=== PATIENT | male | born 1950 | race Caucasian/White ===

== ENCOUNTER → 2024-07-04 | Outpatient (CLI) | payer OTHER, SELFPAY ==
[2024-07-04 11:28] LABS: Basophils % (Auto) 1 % (0-2.5); Eosinophils # (Auto) 0.1 Thou/mm3 (0.0-0.5); Eosinophils % (Auto) 3 % (0-10); Hematocrit 34.9 % (41.0-53.0); Hemoglobin 12.1 g/dL (13.5-16.0); Immature Granulocytes % (Auto) 1 % (0-0); Immature Granulocytes Auto 0.02 Thou/mm3 (0.00-0.00); Lymphocytes # (Auto) 0.8 Thou/mm3 (1.0-4.8); Lymphocytes % (Auto) 22 % (10-50); Mean Corpuscular HGB Conc 34.7 g/dl (31.0-37.0); Mean Corpuscular Hemoglobin 31.6 pg (25.0-35.0); Mean Corpuscular Volume 91 fL (80-100); Monocytes # (Auto) 0.4 Thou/mm3 (0.0-0.8); Monocytes % (Auto) 10 % (0-12); Neutrophils # (Auto) 2.4 Thou/mm3 (1.8-7.7); Neutrophils % (Auto) 64 % (37-80); Nucleated Red Blood Cell % 0 /100 WBC (0); Platelet Count 167 Thou/mm3 (140-440); RDW Standard Deviation 46.9 fL (35.1-43.9); Red Blood Count 3.83 Miln/mm3 (4.50-5.90); White Blood Count 3.7 Thou/mm3 (3.8-10.6)
[2024-07-04 11:46] LABS: Prostate Specific Antigen 2.19 ng/mL (0-4.00)
[2024-07-04 12:05] LABS: Alanine Aminotransferase 8 U/L (10-49); Albumin, Serum 4.5 gm/dL (3.4-4.8); Albumin/Globulin Ratio 2.1 (1.2-2.2); Alkaline Phosphatase 85 U/L (46-116); Anion Gap 6 (7-16); Aspartate Amino Transferase 11 U/L (0-34); BUN/Creatinine Ratio 17 Ratio (12-20); Bilirubin,Total 0.6 mg/dL (0.3-1.2); Blood Urea Nitrogen 15 mg/dL (9-23); Calcium 9.1 mg/dL (8.3-10.6); Calcium (Corrected) 9.1 mg/dL (8.5-10.1); Chloride 106 mMol/L (98-107); Creatinine (Component) 0.9 mg/dL (0.6-1.3); Globulin 2.1 gm/dL (2.3-3.5); Glucose 125 mg/dL (74-106); Osmolality,Calculated 277 (275-295); Potassium 4.2 mMol/L (3.4-5.1); Sodium 138 mMol/L (136-145); Total Protein 6.6 gm/dL (5.7-8.2); eGFR > 60 See Note
== END | disposition home or self-care (01) ==
PROVIDERS: PCP Family Medicine; Referring Provider Internal Medicine Hematology & Oncology; Visit Provider Internal Medicine Hematology & Oncology
DX: C09.1 Malignant neoplasm of tonsillar pillar (anterior) (posterior) (principal); C61 Malignant neoplasm of prostate; C79.51 Secondary malignant neoplasm of bone
CPT/HCPCS: 36415; 80053; 84153; 85025

== ENCOUNTER 2024-07-05 13:20 | Outpatient (RCR) | payer OTHER, SELFPAY | END 2024-07-29 23:59 | disposition home or self-care (01) | LOC: SCTC 13:20 | PROVIDERS: PCP Family Medicine; Referring Provider Family Medicine; Visit Provider Radiology Therapeutic Radiology | DX: Z51.11 Encounter for antineoplastic chemotherapy (principal); C61 Malignant neoplasm of prostate; C79.51 Secondary malignant neoplasm of bone; R59.0 Localized enlarged lymph nodes | CPT/HCPCS: 96372; 96402; J0897; J9217 ==

== ENCOUNTER → 2024-08-01 | Outpatient (CLI) | payer OTHER, SELFPAY ==
[2024-08-01 11:53] LABS: Basophils % (Auto) 1 % (0-2.5); Eosinophils # (Auto) 0.1 Thou/mm3 (0.0-0.5); Eosinophils % (Auto) 2 % (0-10); Hematocrit 33.5 % (41.0-53.0); Hemoglobin 11.3 g/dL (13.5-16.0); Immature Granulocytes % (Auto) 0 % (0-0); Immature Granulocytes Auto 0.01 Thou/mm3 (0.00-0.00); Lymphocytes # (Auto) 0.6 Thou/mm3 (1.0-4.8); Lymphocytes % (Auto) 18 % (10-50); Mean Corpuscular HGB Conc 33.7 g/dl (31.0-37.0); Mean Corpuscular Hemoglobin 30.7 pg (25.0-35.0); Mean Corpuscular Volume 91 fL (80-100); Monocytes # (Auto) 0.3 Thou/mm3 (0.0-0.8); Monocytes % (Auto) 10 % (0-12); Neutrophils # (Auto) 2.3 Thou/mm3 (1.8-7.7); Neutrophils % (Auto) 68 % (37-80); Nucleated Red Blood Cell % 0 /100 WBC (0); Platelet Count 178 Thou/mm3 (140-440); RDW Standard Deviation 46.9 fL (35.1-43.9); Red Blood Count 3.68 Miln/mm3 (4.50-5.90); White Blood Count 3.4 Thou/mm3 (3.8-10.6)
[2024-08-01 12:03] LABS: Prostate Specific Antigen 2.58 ng/mL (0-4.00)
[2024-08-01 12:10] LABS: Albumin, Serum 4.2 gm/dL (3.4-4.8); Albumin/Globulin Ratio 2.1 (1.2-2.2); Alkaline Phosphatase 67 U/L (46-116); Anion Gap 7 (7-16); Aspartate Amino Transferase 11 U/L (0-34); BUN/Creatinine Ratio 16 Ratio (12-20); Bilirubin,Total 0.7 mg/dL (0.3-1.2); Blood Urea Nitrogen 13 mg/dL (9-23); Calcium 8.5 mg/dL (8.3-10.6); Calcium (Corrected) 8.5 mg/dL (8.5-10.1); Carbon Dioxide 26.1 mMol/L (20.0-31.0); Chloride 106 mMol/L (98-107); Creatinine (Component) 0.8 mg/dL (0.6-1.3); Glucose 124 mg/dL (74-106); Osmolality,Calculated 278 (275-295); Sodium 139 mMol/L (136-145); Total Protein 6.2 gm/dL (5.7-8.2); eGFR > 60 See Note
[2024-08-01 12:18] LABS: Alanine Aminotransferase < 7 U/L (10-49)
[2024-08-07 06:57] LABS: Testosterone,Total* 12 ng/dL (250-1100)
== END | disposition home or self-care (01) ==
PROVIDERS: PCP Family Medicine; Referring Provider Internal Medicine Hematology & Oncology; Visit Provider Internal Medicine Hematology & Oncology
DX: C09.1 Malignant neoplasm of tonsillar pillar (anterior) (posterior) (principal); C61 Malignant neoplasm of prostate; C79.51 Secondary malignant neoplasm of bone
CPT/HCPCS: 36415; 80053; 84153; 84403; 85025

== ENCOUNTER 2024-08-02 10:57 | Outpatient (RCR) | payer OTHER, SELFPAY | END 2024-08-29 23:59 | disposition home or self-care (01) | LOC: SCTC 10:57 | PROVIDERS: PCP Family Medicine; Referring Provider Family Medicine; Visit Provider Internal Medicine Hematology & Oncology | DX: C61 Malignant neoplasm of prostate (principal); C79.51 Secondary malignant neoplasm of bone; R59.0 Localized enlarged lymph nodes; Z79.818 Long term (current) use of other agents affecting estrogen receptors and estrogen levels; Z85.818 Personal history of malignant neoplasm of other sites of lip, oral cavity, and pharynx | CPT/HCPCS: 99212; G0463 ==

== ENCOUNTER → 2024-10-04 | Outpatient (CLI) | payer OTHER, SELFPAY ==
[2024-10-04 13:43] LABS: Basophils % (Auto) 1 % (0-2.5); Eosinophils # (Auto) 0.2 Thou/mm3 (0.0-0.5); Eosinophils % (Auto) 4 % (0-10); Hematocrit 30.9 % (41.0-53.0); Hemoglobin 10.6 g/dL (13.5-16.0); Immature Granulocytes % (Auto) 1 % (0-0); Immature Granulocytes Auto 0.03 Thou/mm3 (0.00-0.00); Lymphocytes # (Auto) 0.7 Thou/mm3 (1.0-4.8); Lymphocytes % (Auto) 13 % (10-50); Mean Corpuscular HGB Conc 34.3 g/dl (31.0-37.0); Mean Corpuscular Hemoglobin 30.1 pg (25.0-35.0); Mean Corpuscular Volume 88 fL (80-100); Monocytes # (Auto) 0.5 Thou/mm3 (0.0-0.8); Monocytes % (Auto) 9 % (0-12); Neutrophils # (Auto) 4.1 Thou/mm3 (1.8-7.7); Neutrophils % (Auto) 73 % (37-80); Nucleated Red Blood Cell % 0 /100 WBC (0); Platelet Count 252 Thou/mm3 (140-440); RDW Standard Deviation 42.1 fL (35.1-43.9); Red Blood Count 3.52 Miln/mm3 (4.50-5.90); White Blood Count 5.6 Thou/mm3 (3.8-10.6)
[2024-10-04 14:10] LABS: Alanine Aminotransferase 9 U/L (10-49); Albumin, Serum 4.1 gm/dL (3.4-4.8); Albumin/Globulin Ratio 1.7 (1.2-2.2); Alkaline Phosphatase 74 U/L (46-116); Anion Gap 9 (7-16); Aspartate Amino Transferase 12 U/L (0-34); BUN/Creatinine Ratio 24 Ratio (12-20); Bilirubin,Total 0.6 mg/dL (0.3-1.2); Blood Urea Nitrogen 22 mg/dL (9-23); Calcium 11.2 mg/dL (8.3-10.6); Calcium (Corrected) 11.2 mg/dL (8.5-10.1); Carbon Dioxide 28.1 mMol/L (20.0-31.0); Chloride 99 mMol/L (98-107); Creatinine (Component) 0.9 mg/dL (0.6-1.3); Globulin 2.4 gm/dL (2.3-3.5); Glucose 170 mg/dL (74-106); Osmolality,Calculated 279 (275-295); Potassium 4.2 mMol/L (3.4-5.1); Sodium 136 mMol/L (136-145); Total Protein 6.5 gm/dL (5.7-8.2); eGFR > 60 See Note
[2024-10-04 14:55] LABS: Prostate Specific Antigen 4.92 ng/mL (0-4.00)
[2024-10-11 06:20] LABS: Testosterone, Free,Dialysis 1.1 pg/mL (30.0-135.0); Testosterone, Total, Dialysis 13 ng/dL (250-1100)
== END | disposition home or self-care (01) ==
LOC: SCTO 13:13
PROVIDERS: PCP Family Medicine; Referring Provider Internal Medicine Hematology & Oncology; Visit Provider Internal Medicine Hematology & Oncology
DX: C09.1 Malignant neoplasm of tonsillar pillar (anterior) (posterior) (principal); C61 Malignant neoplasm of prostate; C79.51 Secondary malignant neoplasm of bone
CPT/HCPCS: 36415; 80053; 84153; 84402; 84403; 85025

== ENCOUNTER 2024-10-05 13:19 | Outpatient (RCR) | payer OTHER, SELFPAY | END 2024-10-27 23:59 | disposition home or self-care (01) | LOC: SCTC 13:19 | PROVIDERS: PCP Family Medicine; Referring Provider Family Medicine; Visit Provider Radiology Therapeutic Radiology | DX: Z51.11 Encounter for antineoplastic chemotherapy (principal); C61 Malignant neoplasm of prostate; C79.51 Secondary malignant neoplasm of bone; Z19.2 Hormone resistant malignancy status; R59.0 Localized enlarged lymph nodes; Z79.818 Long term (current) use of other agents affecting estrogen receptors and estrogen levels | CPT/HCPCS: 96372; 96402; J0897; J9217 ==

== ENCOUNTER 2024-10-31 11:41 | Inpatient (IN) | payer OTHER, SELFPAY ==
[2024-10-31] VITALS (12 sets, daily range): BP systolic 99–128; BP diastolic 51–89; PULSE 94–108; RESP 16–20; TEMP 36.1–36.8; O2SAT 85–100; BMI 27.3
--- NOTE | 2024-10-31 12:22 | EDNOTE_ITS ---
ED General RME/HPI General Stated complaint: RIGHT HIP PAIN Time Seen by Provider: 10/31/24 12:15 Arrival date/time: 10/31/24 11:41 RME / HPI RME / HPI narrative: DR. ARCOS MAIN ED EVALUATION: This section includes all my notes and documentations, including HPI, PE, and ED course.? Jamarcus Arcos MD HPI: 74 yaer old male with past medical history significant for bone cancer, lumbar spinal stenosis, chronic back pain and sciatica presents to the Emergency Department [facility] with complaint of ground-level fall at 1 AM, about 12 hours ago; per he fell on his left shoulder but patient is not complaining of left shoulder pain but severe lower back pain. Initially, patient did not want to come but called fire department to help him off the floor. Per , patient normally uses a walker and last night at 1 AM, he decided to get up to the restroom without a walker and fell. He also reports shortness of breath and cough. Denies chest pain or head injury. No loss of consciousness. No other complaints reported. ROS: All negative except as documented in HPI. Physical Exam: General:? Alert and oriented.? In severe pain. Hypoxia noted. Eyes:? Conjunctivae and lids clear. EOMI. PERRL. ENT:? No nasal congestion.? ? Neck:? Supple. No tenderness. Heart:? RRR. Lungs:? In respiratory distress, satting 77-80% on room air.? No rhonchi, wheezing, rales.? Chest: No tenderness. Abdomen:? Soft and nontender.? Legs:? No clubbing, cyanosis, edema. Skin:? Warm and dry.? Neuro:? Alert and oriented X 3.? Cranial nerves II to XII grossly normal. No peripheral motor deficits. Musculoskeletal: All major joints and long bones are nontender with no limited range of motion. I reviewed all diagnostic test results. My interpretation of the EKG is?Sinus rhythm (102 bpm) with nonspecific ST-T changes. My interpretation of the chest x-ray is no acute findings. My review of the CT reports is no serious injury. Blood tests and urine tests remarkable for pneumonia, UTI, severe anemia, hyponatremia, hypercalcemia, and elevated troponin. At this point, diagnoses include: Acute respiratory failure with hypoxia, metastatic cancer, pneumonia, UTI, severe anemia, hyponatremia, hypercalcemia, elevated troponin Treatment here included Hydromorphone, IV fluid, zofran, vancomycin, and ceftriaxone. I discussed the case with our hospitalist.? About the presentation and exam and diagnostics and treatments here.? And need of further care in the hospital. Will accept the patient. Jamarcus Arcos MD Related Data Home Medications ?Medication ?Instructions ?Recorded ?Confirmed enzalutamide 40 mg tablet (Xtandi) 160 mg PO Q24H 01/2111/01/24 losartan 50 mg tablet 50 mg PO QDAY 11/01/2411/01 Allergies Allergy/AdvReac Type Severity Reaction Status Date / Time No Known Drug Allergies Allergy Verified 11/26/22 09:52 Course Quality Measures none Orders Category Date Time Status Bedside COVID-19 Antigen Test NOW Care 10/31/24 12:24 Active Bedside Influenza A&B Antigen Test NOW Care 10/31/24 12:24 Completed COVID-19 Screening Questionnaire NOW Care 10/31/24 17:[address] Screening NOW Care 10/31/24 12:27 Active Decision to Admit X1 Care 10/31/24 17:39 Completed EKG (ED ONLY) *Do not use* NOW Care 10/31/24 12:30 Completed Wells [Urinary Catheter] QS Care 10/31/24 18:30 Active Saline [Insert IV] NOW Care 10/31/24 12:24 Active Straight [In and Out Catheter] X1 Care 10/31/24 12:24 Completed Transfuse,blood/blood products NOW Care 10/31/24 15:40 Active Consult to Cardiology Stat Cons 10/31/24 15:[address] abdomen pelvis w con Stat Exams 10/31/24 12:[address] angio chest Stat Exams 10/31/24 12:[address] lumbar spine w con Stat Exams 10/31/24 12:27 Completed EKG (ED Only) Stat Exams 10/31/24 12:30 Draft US venous doppler LE BI Stat Exams 10/31/24 12:29 Completed XR chest 1V portable Stat Exams 10/31/24 12:30 Completed XR shoulder LT min 2V Stat Exams 10/31/24 12:29 Completed ABG [Arterial Blood Gas] Stat Lab 10/31/24 11:59 Completed BNP [B-Type Natriuretic Peptide] Stat Lab 10/31/24 12:40 Completed CBC Stat Lab 10/31/24 12:40 Completed CMP [Comprehensive Metabolic Panel] Stat Lab 10/31/24 12:40 Completed D-Dimer Stat Lab 10/31/24 12:40 Completed Magnesium Stat Lab 10/31/24 12:40 Completed PT [Prothrombin Time with INR] Stat Lab 10/31/24 12:40 Completed PTT [Partial Thromboplastin Time] Stat Lab 10/31/24 12:40 Completed RSV [Respiratory Syncytial Virus Ag] Stat Lab 10/31/24 12:58 Completed TSH [Thyroid Stimulating Hormone] Stat Lab 10/31/24 12:40 Completed Troponin I Stat Lab 10/31/24 12:40 Completed Type and Screen Stat Lab 10/31/24 16:01 Completed UA, C/S IF [Urinalysis, C/S if Indicated] Stat Lab 10/31/24 15:14 Completed Urine Culture Stat Lab 10/31/24 15:14 Completed prbc [Red Blood Cells] Stat Lab 10/31/24 16:01 Completed HYDROmorphone INJ [Dilaudid Inj] Med 10/31/24 12:25 Discontinued 1 mg IVP X1 ONE HYDROmorphone INJ [Dilaudid Inj] Med 10/31/24 18:20 Discontinued 1 mg IVP X1 ONE Ondansetron Inj [Zofran Inj] Med 10/31/24 12:25 Discontinued 4 mg IV X1 ONE Sodium Chloride 0.9% 1000 ml [Ns] 1,000 ml Med 10/31/24 12:25 Discontinued IV 999 mls/hr Vancomycin Inj 2,000 mg Med 10/31/24 17:35 Discontinued Sodium Chloride 0.9% 500 ml [Ns] 500 ml IV X1 cefTRIAXone [Rocephin] 1,000 mg Med 10/31/24 16:00 Discontinued SODIUM CHLORIDE 0.9% (Popper) [Ns 0.9% (P)] 50 ml IV X1 Vital Signs Vital signs: Vital Signs Temperature 96.9 F 10/31/24 12:16 Pulse Rate 108 H 10/31/24 12:16 Respiratory Rate 19 10/31/24 12:16 Blood Pressure 99/54 L 10/31/24 12:16 Pulse Oximetry (%) 96 10/31/24 12:16 Oxygen Delivery Method Nasal Cannula 10/31/24 12:16 Oxygen Flow Rate 4 10/31/24 12:16 [facility] Patient data External records reviewed:: [facility] previous records (Reviewed oncology note by Dr. Collado dated 08/06/24.) and EMS form Clinical information provided by:: patient, EMS and spouse Social determinants that could affect healthcare access:: none Patient has the following chronic illnesses:: bone cancer, spinal stenosis, chronic back pain and sciatica How is presenting disease/condition affected by chronic disease/condition?: e xacerbated by Evaluation data The following diagnostics were reviewed and interpreted by me:: EKG tracing(s) (My interpretation of the EKG is: Sinus rhythm (102 bpm) with nonspecific ST-T changes. Jamarcus Arcos MD) Lab and/or radiology exams considered but not ordered:: none Interpretation Summary: Acute respiratory failure with hypoxia, metastatic cancer, pneumonia, UTI, severe anemia, hyponatremia, hypercalcemia, elevated troponin Medications Medications considered but not ordered:: none Medication administrations:: Medication Administration History Acetaminophen (Acetaminophen 325 Mg Tablet) 650 mg PO Q4HR PRN PRN Reason: FEVER >101 Stop: 12/01/24 08:43 Hydrocodone Bitart/Acetaminophen (Hydrocodone/Apap 5/325 Tablet) 1 tab PO Q6HR PRN PRN Reason: PAIN SCALE 4-10(Mod-Sev Stop: 11/06/24 08:05 Xtandi (Enzalutamide () 40 Mg Tablets) 0 ea PO DAILY STORM Stop: 12/01/24 09:29 Last Admin: 11/02/24 08:58 Dose: 4 tablet Documented By: Admin: 11/01/24 10:41 Dose: 4 tablet Documented By: DAVID Heparin Sodium (Porcine) (Heparin Sod Inj 5000 Unit/Ml Vial) 5,000 unit SC Q12HR STORM Stop: 11/15/24 20:59 Last Admin: 11/02/24 20:08 Dose: 5,000 unit Documented By: BRIDGETTE Co-signed By: Admin: 11/02/24 08:59 Dose: 5,000 unit Documented By: MICHAEL Co-signed By: ROSEANN Admin: 11/01/24 20:41 Dose: 5,000 unit Documented By: CM Co-signed By: RAKESH Piperacillin Sod/Tazobactam (Sod 4.5 gm/ Sodium Chloride) 100 mls @ 200 mls/hr IV Q6HR [facility] Stop: 11/09/24 13:57 Last Admin: 11/02/24 23:09 Dose: 200 mls/hr Documented By: Infusion: 11/02/24 19:44 Dose: Infused Documented By: Admin: 11/02/24 19:14 Dose: 200 mls/hr Documented By: Infusion: 11/02/24 14:59 Dose: Infused Documented By: Admin: 11/02/24 14:29 Dose: 200 mls/hr Documented By: MICHAEL Home Medication- Please Speak With Patient Caregiver To Have Rx Brought To [facility] 160 mg PO DAILY STORM Stop: 12/01/24 08:59 Last Admin: 11/02/24 09:01 Dose: Not Given Documented By: MICHAEL Non-Admin Reason: Duplicate Medication on eMAR Admin: 11/01/24 10:38 Dose: Not Given Documented By: DAVID Non-Admin Reason: Duplicate Medication on eMAR Pantoprazole Sodium (Pantoprazole 40 Mg Tablet) 40 mg PO QDAY STORM Stop: 11/30/24 20:59 Last Admin: 11/02/24 08:59 Dose: 40 mg Documented By: Admin: 11/01/24 09:27 Dose: 40 mg Documented By: Admin: 10/31/24 21:03 Dose: 40 mg Documented By: TRENTON Pharmacy Consult (Vancomycin Pharmacy To Dose 1 Each Each) 1 each IV QDAY PRN PRN Reason: CONSULT Stop: 12/02/24 13:59 Polyethylene Glycol (Polyethylene Glycol 17 Gm Packet) 17 gm PO QDAY STORM Stop: 12/02/24 09:44 Last Admin: 11/02/24 10:40 Dose: 17 gm Documented By: MICHAEL Comments: med will not scan Sennosides (Senna Tablet) 1 tab PO QDAY PRN; Protocol PRN Reason: CONSTIPATION Stop: 12/02/24 09:38 Discontinued Medications Acetaminophen (Acetaminophen 325 Mg Tablet) 650 mg PO Q6H PRN PRN Reason: Fever >100 or pain 1-3 Stop: 11/30/24 20:47 Hydrocodone Bitart/Acetaminophen (Hydrocodone/Apap 5/325 Tablet) 1 tab PO Q6HR PRN PRN Reason: PAIN SCALE 4-6 (Moderate Stop: 11/06/24 08:05 Hydrocodone Bitart/Acetaminophen (Hydrocodone/Apap 5/325 Tablet) 1 tab PO Q6HR PRN PRN Reason: Pain Scale 7-10 Stop: 11/06/24 08:05 Hydrocodone Bitart/Acetaminophen (Hydrocodone/Apap 5/325 Tablet) 1 tab PO X1 ONE Stop: 11/02/24 10:10 Last Admin: 11/02/24 11:34 Dose: 1 tab Documented By: MICHAEL Hydromorphone HCl (Hydromorphone Inj 2 Mg/Ml Vial) 1 mg IVP X1 ONE Stop: 10/31/24 12:26 Last Admin: 10/31/24 13:07 Dose: 1 mg Documented By: MEGHANN Hydromorphone HCl (Hydromorphone Inj 2 Mg/Ml Vial) 1 mg IVP X1 ONE Stop: 10/31/24 18:21 Last Admin: 10/31/24 18:43 Dose: 1 mg Documented By: MEGHANN Sodium Chloride (Ns) 1,000 mls @ 999 mls/hr IV .Q1H1M ONE Stop: 10/31/24 13:25 Last Infusion: 10/31/24 14:19 Dose: Infused Documented By: Admin: 10/31/24 13:06 Dose: 999 mls/hr Documented By: MEGHANN Ceftriaxone Sodium 1,000 mg/ (Sodium Chloride) 50 mls @ 100 mls/hr IV X1 ONE Stop: 10/31/24 16:29 Last Infusion: 10/31/24 19:24 Dose: Infused Documented By: Admin: 10/31/24 18:43 Dose: 100 mls/hr Documented By: MEGHANN Vancomycin HCl 2,000 mg/ (Sodium Chloride) 500 mls @ 150 mls/hr IV X1 ONE Stop: 10/31/24 20:54 Last Infusion: 10/31/24 23:21 Dose: Infused Documented By: Admin: 10/31/24 20:01 Dose: 150 mls/hr Documented By: TRENTON Sodium Chloride (Ns) 1,000 mls @ 120 mls/hr IV .Q8H20M STORM Stop: 11/30/24 20:59 Last Admin: 11/02/24 05:17 Dose: 120 mls/hr Documented By: Infusion: 11/02/24 05:17 Dose: Infused Documented By: Admin: 11/01/24 21:29 Dose: 120 mls/hr Documented By: Infusion: 11/01/24 21:29 Dose: Infused Documented By: Admin: 11/01/24 17:51 Dose: 120 mls/hr Documented By: Infusion: 11/01/24 17:47 Dose: Infused Documented By: Admin: 11/01/24 09:27 Dose: 120 mls/hr Documented By: Infusion: 11/01/24 08:00 Dose: Infused Documented By: Admin: 10/31/24 23:40 Dose: 120 mls/hr Documented By: TRENTON Piperacillin Sod/Tazobactam (Sod 3.375 gm/ Sodium Chloride) 50 mls @ 12.5 mls/hr IV Q8HR STORM Stop: 11/08/24 05:59 Last Admin: 11/02/24 05:17 Dose: 12.5 mls/hr Documented By: Infusion: 11/02/24 01:27 Dose: Infused Documented By: Admin: 11/01/24 21:27 Dose: 12.5 mls/hr Documented By: Infusion: 11/01/24 17:15 Dose: Infused Documented By: Admin: 11/01/24 13:15 Dose: 12.5 mls/hr Documented By: Infusion: 11/01/24 09:16 Dose: Infused Documented By: Admin: 11/01/24 05:16 Dose: 12.5 mls/hr Documented By: Piperacillin Sod/Tazobactam (Sod 3.375 gm/ Sodium Chloride) 50 mls @ 100 mls/hr IV X1 ONE Stop: 10/31/24 21:29 Last Infusion: 11/01/24 00:12 Dose: Infused Documented By: Admin: 10/31/24 23:42 Dose: 100 mls/hr Documented By: TRENTON Ceftriaxone Sodium 1,000 mg/ (Sodium Chloride) 50 mls @ 100 mls/hr IV QDAY STORM Stop: 11/09/24 10:06 Ceftriaxone Sodium 1,000 mg/ (Sodium Chloride) 50 mls @ 100 mls/hr IV QDAY STORM Stop: 11/10/24 08:59 Vancomycin HCl/Dextrose (Vancomycin/D5w 1,250 Mg Ivpb) 250 mls @ 120 mls/hr IV X1 ONE Stop: 11/02/24 17:04 Last Admin: 11/02/24 15:06 Dose: 120 mls/hr Documented By: MICHAEL Ibuprofen (Ibuprofen Tab 400 Mg Tablet) 400 mg PO Q6HR PRN PRN Reason: Pain 1-6 Or Fever > 101 Stop: 12/01/24 08:40 Morphine Sulfate (Morphine Sulf Inj 10 Mg/Ml Vial) 2 mg IVP Q6HR PRN PRN Reason: PAIN SCALE 7-10 (Severe Stop: 11/06/24 08:05 Ondansetron HCl (Ondansetron Inj 2 Mg/Ml Inj 2 Ml) 4 mg IV X1 ONE; Protocol Stop: 10/31/24 12:26 Last Admin: 10/31/24 13:06 Dose: 4 mg Documented By: MEGHANN Sodium Chloride (Sodium Chloride Rt 10% 15 Ml Nebu) 5 ml INH X1 ONE Stop: 11/02/24 13:53 Hydromorphone HCl, IV fluids, zofran, vancomycin, and ceftriaxone. Consultations Consultation(s) initiated? (list below): No Diagnosis Differential Diagnosis ED Complaint MDM: PE, pneumonia, lung cancer, spinal stenosis Most likely diagnosis given after review of the tests above:: Acute respiratory failure with hypoxia, metastatic cancer, pneumonia, UTI, severe anemia, hyponatremia, hypercalcemia, elevated troponin Admission Indicated Admission indicated?: indicated Explain why admission is indicated or not indicated:: Acute respiratory failure with hypoxia, Metastatic cancer, Pneumonia, UTI (urinary tract infection), Severe anemia, Hyponatremia, Hypercalcemia, Elevated troponin Admission Request Was there a request for admission?: Yes Admission Attestation Admission request attestation: Discussed case with Hospitalist service regarding admission. Discussed patients ED course, exam findings, labs, and radiology results. The Hospitalist [agrees] to accept the patient for admission. Disposition Plan Disposition Plan: Admit Medical Decision Making MDM Narrative MDM Narrative: Arely Lehman, am scribing for and in the presence of Dr. Arcos. Differential Diagnosis Differential Diagnosis: PE, pneumonia, lung cancer, spinal stenosis Lab Data 11/02/24 04:48 11/02/24 04:48 Labs: Lab Results 10/31/24 10/31/24 10/31/24 Range/Units 11:59 12:40 12:58 WBC 11.3 H (3.8-10.6) Thou/mm3 RBC 2.41 L (4.50-5.90) Miln/mm3 Hgb 7.3 L (13.5-16.0) g/dL Hct 20.4 L* (41.0-53.0) % MCV 85 (80-100) fL MCH 30.3 (25.0-35.0) pg MCHC 35.8 (31.0-37.0) g/dl RDW Std Deviation 46.5 H (35.1-43.9) fL Plt Count 181 D (140-440) Thou/mm3 Neut % (Auto) 89 H (37-80) % Lymph % (Auto) 3 L (10-50) % [place] % (Auto) 6 (0-12) % Eos % (Auto) 0 (0-10) % Baso % (Auto) 0 (0-2.5) % Neut # (Auto) 10.1 H (1.8-7.7) Thou/mm3 Lymph # (Auto) 0.4 L (1.0-4.8) Thou/mm3 [place] # (Auto) 0.7 (0.0-0.8) Thou/mm3 Eos # (Auto) 0.0 (0.0-0.5) Thou/mm3 Baso # (Auto) 0.0 (0.0-0.2) Thou/mm3 Immature Gran # (Auto) 0.13 H (0.00-0.00) Thou/mm3 Absolute Nucleated RBC 0.04 H (0.00-0.00) Thou/mm3 Immature Gran % 1 H (0-0) % Nucleated RBC % 0 (0) /100 WBC PT 12.5 H (9.0-12.2) Seconds INR 1.2 (0.9-1.3) APTT 29.3 (22.0-36.0) Seconds D-Dimer 2820 H (<600) ng/mL Puncture Site Right Radial ABG pH 7.54 H (7.35-7.45) ABG pCO2 24 L (32.0-48.0) mmHg ABG pO2 60 L (83-108) mmHg ABG HCO3 21 (20-26) mEq/L ABG O2 Saturation 92 (91-98) % ABG Base Excess -2 (-3-3) Oxygen Liter Flow 3 L/min Sodium 124 L (136-145) mMol/L Potassium 4.6 (3.4-5.1) mMol/L Chloride 93 L (98-107) mMol/L Carbon Dioxide 21.5 (20.0-31.0) mMol/L Anion Gap 10 (7-16) BUN 54 H (9-23) mg/dL Creatinine 1.9 H (0.6-1.3) mg/dL Estim Creat Clear Calc 32.0 L (>60) mL/min eGFR 36 L (60 - ) See Note BUN/Creatinine Ratio 28 H (12-20) Ratio Glucose 168 H (74-106) mg/dL Calculated Osmolality 268 L (275-295) Calcium 11.1 H (8.3-10.6) mg/dL Corrected Calcium 11.5 H (8.5-10.1) mg/dL Magnesium 2.0 (1.6-2.6) mg/dL Total Bilirubin 0.6 (0.3-1.2) mg/dL AST 37 H (0-34) U/L ALT 23 (10-49) U/L Alkaline Phosphatase 73 (46-116) U/L Troponin I 0.285 H* (0.0-0.045) ng/mL B-Natriuretic Peptide 188 H (0-100) pg/mL Total Protein 5.5 L (5.7-8.2) gm/dL Albumin 3.5 (3.4-4.8) gm/dL Globulin 2.0 L (2.3-3.5) gm/dL Albumin/Globulin Ratio 1.8 (1.2-2.2) TSH 3.58 (0.55-4.78) uIU/mL Ur Collection Type Urine Color (Lt Yel-Yel) Urine Clarity (Clear/Hazy) Urine pH (5.0-7.0) Ur Specific [place] (1.001-1.035) Urine Protein (Neg - Trace) Urine Glucose (UA) (Negative) Urine Ketones (Negative) Urine Blood (Negative) Urine Nitrite (Negative) Urine Bilirubin (Negative) Urine Urobilinogen (Auto) (0.0-1.0) mg/dL Ur Leukocyte Esterase (Negative) Urine RBC (0-3) /hpf Urine WBC (0-5) /hpf Ur Squamous Epith Cells (0-5) /hpf Ur Transition Epith Cell (0-5) /hpf Urine Bacteria (None) Ur Culture Indicated? RSV Rapid Negative (Negative) Blood Type Antibody Screen Crossmatch Blood Bank Wristband ID 10/31/24 10/31/24 Range/Units 15:14 16:01 WBC (3.8-10.6) Thou/mm3 RBC (4.50-5.90) Miln/mm3 Hgb (13.5-16.0) g/dL Hct (41.0-53.0) % MCV (80-100) fL MCH (25.0-35.0) pg MCHC (31.0-37.0) g/dl RDW Std Deviation (35.1-43.9) fL Plt Count (140-440) Thou/mm3 Neut % (Auto) (37-80) % Lymph % (Auto) (10-50) % [place] % (Auto) (0-12) % Eos % (Auto) (0-10) % Baso % (Auto) (0-2.5) % Neut # (Auto) (1.8-7.7) Thou/mm3 Lymph # (Auto) (1.0-4.8) Thou/mm3 [place] # (Auto) (0.0-0.8) Thou/mm3 Eos # (Auto) (0.0-0.5) Thou/mm3 Baso # (Auto) (0.0-0.2) Thou/mm3 Immature Gran # (Auto) (0.00-0.00) Thou/mm3 Absolute Nucleated RBC (0.00-0.00) Thou/mm3 Immature Gran % (0-0) % Nucleated RBC % (0) /100 WBC PT (9.0-12.2) Seconds INR (0.9-1.3) APTT (22.0-36.0) Seconds D-Dimer (<600) ng/mL Puncture Site ABG pH (7.35-7.45) ABG pCO2 (32.0-48.0) mmHg ABG pO2 (83-108) mmHg ABG HCO3 (20-26) mEq/L ABG O2 Saturation (91-98) % ABG Base Excess (-3-3) Oxygen Liter Flow L/min Sodium (136-145) mMol/L Potassium (3.4-5.1) mMol/L Chloride (98-107) mMol/L Carbon Dioxide (20.0-31.0) mMol/L Anion Gap (7-16) BUN (9-23) mg/dL Creatinine (0.6-1.3) mg/dL Estim Creat Clear Calc (>60) mL/min eGFR (60 - ) See Note BUN/Creatinine Ratio (12-20) Ratio Glucose (74-106) mg/dL Calculated Osmolality (275-295) Calcium (8.3-10.6) mg/dL Corrected Calcium (8.5-10.1) mg/dL Magnesium (1.6-2.6) mg/dL Total Bilirubin (0.3-1.2) mg/dL AST (0-34) U/L ALT (10-49) U/L Alkaline Phosphatase (46-116) U/L Troponin I (0.0-0.045) ng/mL B-Natriuretic Peptide (0-100) pg/mL Total Protein (5.7-8.2) gm/dL Albumin (3.4-4.8) gm/dL Globulin (2.3-3.5) gm/dL Albumin/Globulin Ratio (1.2-2.2) TSH (0.55-4.78) uIU/mL Ur Collection Type Clean Catch Urine Color Yellow (Lt Yel-Yel) Urine Clarity Turbid A (Clear/Hazy) Urine pH 5.5 (5.0-7.0) Ur Specific [place] 1.013 (1.001-1.035) Urine Protein Trace (Neg - Trace) Urine Glucose (UA) Negative (Negative) Urine Ketones Negative (Negative) Urine Blood 2+ A (Negative) Urine Nitrite Negative (Negative) Urine Bilirubin Negative (Negative) Urine Urobilinogen (Auto) Negative (0.0-1.0) mg/dL Ur Leukocyte Esterase Positive (Negative) Urine RBC 28 H (0-3) /hpf Urine WBC 53 H (0-5) /hpf Ur Squamous Epith Cells 0 (0-5) /hpf Ur Transition Epith Cell 1 (0-5) /hpf Urine Bacteria 4+ A (None) Ur Culture Indicated? Yes RSV Rapid (Negative) Blood Type O Positive Antibody Screen NEGATIVE Crossmatch See Detail Blood Bank Wristband ID Yes Discharge Plan Plan Patient Disposition: Admit Acute Care w/in Hospital Problem List Clinical Impression: Acute respiratory failure with hypoxia, Metastatic cancer, Pneumonia, UTI (urinary tract infection), Severe anemia, Hyponatremia, Hypercalcemia, Elevated troponin
--- NOTE | 2024-10-31 12:27 | XR_ITS ---
Examination: CTA chest with intravenous contrast 2-D reconstructions 3-D reconstructions, vascular Date and time of exam: October 31, 2024 1616 hours Comparison September 22, 2022 INDICATIONS: Hypoxia today CTDI: vol (mGy) 10.2 DLP: (mGycm) 300 Technique: Multiple axial sections of the thorax have been obtained. 3 mm slice thickness, from below the hemidiaphragms to above the apices of the lungs. Mediastinal and lung density settings have been obtained. 2-D sagittal and coronal reconstructions. 3-D angiographic renderings, 3-D volume renderings, 3D post processing, vascular maximum intensity projections obtained. Contrast administered is 60 cc Isovue 300. Low dose protocols were performed. One or more of the following dose reduction techniques were used; automated exposure control, adjustment of the mA and/or KV according to patient size, use of iterative reconstruction technique. Findings: Diffuse thickening wall of the esophagus No thoracic aortic aneurysm dilatation No pulmonary artery filling defects Bilateral mild hilar lymphadenopathy Numerous bilateral metastatic pulmonary nodules Prominent vascular congestion Significant pneumonia right base Mild to moderate right pleural effusion minimal left pleural effusion Widespread osteoblastic metastatic disease Osteolytic bone destruction involving T11 IMPRESSION: Diffuse wall thickening of the esophagus, clinical correlation advised Bilateral hilar lymphadenopathy Numerous bilateral pulmonary metastatic nodules, the largest nodule in the right upper lobe measures 14 mm Significant pneumonia right base Mild to moderate right pleural effusion Widespread osteoblastic metastatic disease This includes 15 mm osteolytic bone destruction involving the body of T11 Consider MRI thoracic spine with contrast follow-up
--- NOTE | 2024-10-31 12:27 | XR_ITS ---
Examination: CT lumbar spine with intravenous contrast 2-D sagittal reconstructions. 2-D coronal reconstructions. 3-D reconstructions. Date and time of exam:October 31, 2024 1555 hours INDICATIONS: Prostate carcinoma diagnosis, widespread osseous metastatic disease, low back pain radiating to the right leg today CTDI: vol (mGy):22.7 DLP: (mGycm):724 Technique: Multiple 1.25 mm axial sections of the lumbar spine post intravenous administration 60 cc Isovue-300 have been obtained. 2-D sagittal and coronal reconstructions have been obtained. 3-D reconstructions have been obtained. Low dose protocols were performed. One or more of the following dose reduction techniques were used; automated exposure control, adjustment of the mA and/or KV according to patient size, use of iterative reconstruction technique. Findings: Widespread osteoblastic metastatic disease Prominent bone destruction involving the right first second third and fourth sacral wings with prominent bone destruction involving the posterior right iliac bone Presacral soft tissue tumor mass, axial image 128, on this study measuring up to 32 mm in thickness Partial visualization severe emphysematous bladder cystitis IMPRESSION: Widespread osteoblastic metastatic disease Prominent tumor bone destruction involving right sacral wings and posterior right iliac bone with soft tissue tumor mass extending presacral on the right side up to 32 mm Consider MRI thoracic lumbar spine and pelvis post intravenous contrast follow-up
--- NOTE | 2024-10-31 12:28 | XR_ITS ---
Examination: CT abdomen with intravenous contrast CT pelvis with intravenous contrast 2-D coronal reconstructions 2-D sagittal reconstructions Date and time of exam:October 31, 2024 1557 hours INDICATIONS: Onset right flank pain today, extensive shaan hepatis and abdominal mesenteric lymphadenopathy peritoneal carcinomatosis malignant ascites significant prostatomegaly widespread osteoblastic metastatic disease on CT chest abdomen pelvis August 03, 2022. CTDI: vol (mGy) 9.25 DLP: (mGycm) 565 Technique: Multiple axial sections of the abdomen and pelvis have been obtained. 64 slice high-resolution scanner used. 3 mm axial sections have been obtained, post intravenous injection 60 cc [id number]-300 2-D sagittal, coronal reconstructions obtained. Low dose protocols were performed. One or more of the following dose reduction techniques were used; automated exposure control, adjustment of the mA and/or KV according to patient size, use of iterative reconstruction technique. Findings: Significant pneumonia right base Mild to moderate right pleural effusion mild left pleural effusion Pulmonary nodules left base, 8 mm 13 mm Small pericardial effusion measuring 7 mm Cirrhosis, liver irregular in contour Spleen not enlarged No pancreatic or adrenal mass Mild bilateral hydronephrosis No renal calculi Aorta normal size Normal appendix No bowel obstruction Improvement in abdominal and pelvic lymphadenopathy compared with August 03, 2012 No diverticulitis Distended urinary bladder Emphysematous cystitis with multiple air densities inside and possibly just outside the urinary bladder wall for instance axial image 220 Transverse prostate dimension 4.1 cm Small fat-containing hernias Severe diffuse osteoblastic metastatic disease, chronic compression T10, widespread bone destruction right sacrum and right iliac bone axial image 182, soft tissue presacral right tumor mass measuring up to 20 mm in thickness IMPRESSION: Significant right base pneumonia Noncalcified pulmonary nodules left lower lobe Cirrhosis Distended urinary bladder with severe emphysematous cystitis pattern Widespread osteoblastic metastatic disease, including severe destruction of the right sacrum and right iliac bone with soft tissue presacral tumor mass, consider MRI lumbar spine pelvis pre and post contrast follow-up Improvement in abdominal and pelvic lymphadenopathy compared with August 03, 2012
--- NOTE | 2024-10-31 12:29 | XR_ITS ---
Examination: Shoulder,left, 3 views Technique: Shoulder AP internal rotation, AP external rotation, Y view shoulder, 3 views Exam date and time :October 31, 2024 1317 hours INDICATIONS: Patient fell today with injury to the shoulder, shoulder pain. FINDINGS: Widespread osteoblastic metastatic disease No shoulder fracture or dislocation IMPRESSION: No shoulder fracture or dislocation
--- NOTE | 2024-10-31 12:29 | XR_ITS ---
Examination: Venous duplex lower extremity sonogram, bilateral. Date and time of exam: October 31, 2024 1354 hours INDICATIONS: Prostate cancer diagnosis with swelling of the legs beginning 3 weeks ago Technique: Multiple sonographic images of the deep venous system have been obtained. B-mode/2-D grayscale imaging of vascular structures and Doppler spectral analysis (waveforms) and color performed Both legs are examined. Findings: Deep venous systems do not demonstrate abnormal echogenicity. All visualized deep veins exhibit compressibility. All visualized deep veins exhibit augmentation. Impression: Negative for deep vein thrombosis
--- NOTE | 2024-10-31 12:30 | XR_ITS ---
Examination: AP chest single view Technique one AP portable sitting chest single view Exam date and time: October 31, 2024 1322 hours Comparison December 03, 2022 INDICATIONS: Patient fell today with into the chest, chest pain FINDINGS: No significant cardiac enlargement No pneumothorax Widespread osteoblastic metastatic disease No clavicle or rib fractures noted IMPRESSION: No pneumothorax or hemothorax
--- NOTE | 2024-10-31 12:30 | EKG_ITS ---
[facility] Test Date: 2024-10-31 Pat Name: CONNIE JEROME Department: Room: - Gender: Male [employer]: : 1950 Requested By: Jamarcus Craig Order Number: [id number] Reading MD: Jamarcus Craig Measurements Intervals [place] Rate: 102 P: 62 WV: 173 QRS: -56 QRSD: 97 T: 73 QT: 331 QTc: 432 Interpretive Statements SINUS TACHYCARDIA LEFT ANTERIOR FASCICULAR BLOCK [QRS AXIS <= -45, QR IN I, RS IN II] POSSIBLE LATERAL MYOCARDIAL INFARCTION , OF INDETERMINATE AGE [30 ms Q WAVE IN I/aVL/V5/V6] No previous ECG available for comparison /store/S0/[id number].pdf
[2024-10-31 13:04] LABS: Base Excess -2 (-3-3); HCO3 21 mEq/L (20-26); Inspired O2, VO2 Liters 3 L/min; O2 Saturation 92 % (91-98); PCO2 24 mmHg (32.0-48.0); PO2 60 mmHg (83-108); pH, Arterial 7.54 (7.35-7.45)
[2024-10-31 13:05] LABS: Allen Test Performed/OK; Puncture Site Right Radial
[2024-10-31] MEDS: ONDANSETRON INJ 2 MG/ML INJ 2 ML 4 MG IV (13:06)
[2024-10-31] MEDS: SODIUM CHLORIDE 0.9% 1000 ML 1,000 ML 999 ML IV (13:06)
[2024-10-31] MEDS: HYDROmorphone INJ 2 MG/ML VIAL 1 MG IVP ×2 (13:07→18:43)
[2024-10-31 13:08] LABS: Basophils % (Auto) 0 % (0-2.5); Eosinophils % (Auto) 0 % (0-10); Immature Granulocytes % (Auto) 1 % (0-0); Immature Granulocytes Auto 0.13 Thou/mm3 (0.00-0.00); Lymphocytes # (Auto) 0.4 Thou/mm3 (1.0-4.8); Lymphocytes % (Auto) 3 % (10-50); Mean Corpuscular HGB Conc 35.8 g/dl (31.0-37.0); Mean Corpuscular Hemoglobin 30.3 pg (25.0-35.0); Mean Corpuscular Volume 85 fL (80-100); Monocytes # (Auto) 0.7 Thou/mm3 (0.0-0.8); Monocytes % (Auto) 6 % (0-12); Neutrophils # (Auto) 10.1 Thou/mm3 (1.8-7.7); Neutrophils % (Auto) 89 % (37-80); Nucleated Red Blood Cell # 0.04 Thou/mm3 (0.00-0.00); Nucleated Red Blood Cell % 0 /100 WBC (0); Platelet Count 181 Thou/mm3 (140-440); RDW Standard Deviation 46.5 fL (35.1-43.9); Red Blood Count 2.41 Miln/mm3 (4.50-5.90); White Blood Count 11.3 Thou/mm3 (3.8-10.6)
[2024-10-31 13:17] LABS: INR 1.2 (0.9-1.3); Partial Thromboplastin Time 29.3 Seconds (22.0-36.0); Prothrombin Time 12.5 Seconds (9.0-12.2)
[2024-10-31 13:21] LABS: B-Type Natriuretic Peptide 188 pg/mL (0-100); D-Dimer 2820 ng/mL (<600)
[2024-10-31 13:50] LABS: Respiratory Syncytial Virus Ag Negative (Negative)
[2024-10-31 14:58] LABS: Hematocrit 20.4 % (41.0-53.0); Hemoglobin 7.3 g/dL (13.5-16.0)
[2024-10-31 15:09] LABS: Alanine Aminotransferase 23 U/L (10-49); Albumin, Serum 3.5 gm/dL (3.4-4.8); Albumin/Globulin Ratio 1.8 (1.2-2.2); Alkaline Phosphatase 73 U/L (46-116); Anion Gap 10 (7-16); Aspartate Amino Transferase 37 U/L (0-34); BUN/Creatinine Ratio 28 Ratio (12-20); Bilirubin,Total 0.6 mg/dL (0.3-1.2); Blood Urea Nitrogen 54 mg/dL (9-23); Calcium 11.1 mg/dL (8.3-10.6); Calcium (Corrected) 11.5 mg/dL (8.5-10.1); Carbon Dioxide 21.5 mMol/L (20.0-31.0); Chloride 93 mMol/L (98-107); Creatinine (Component) 1.9 mg/dL (0.6-1.3); Glucose 168 mg/dL (74-106); Osmolality,Calculated 268 (275-295); Potassium 4.6 mMol/L (3.4-5.1); Sodium 124 mMol/L (136-145); Thyroid Stimulating Hormone 3.58 uIU/mL (0.55-4.78); Total Protein 5.5 gm/dL (5.7-8.2); eGFR 36 See Note
[2024-10-31 15:13] LABS: Troponin I 0.285 ng/mL (0.0-0.045)
[2024-10-31 15:21] LABS: Collection Type, Urine Clean Catch; Squamous Epithelial Cell,Urine 0 /hpf (0-5)
[2024-10-31 15:58] LABS: Bacteria,Urine 4+; Bilirubin,Urine Negative (Negative); Blood,Urine 2+ (Negative); Clarity,Urine Turbid (Clear/Hazy); Color,Urine Yellow (Lt Yel-Yel); Culture Indicated,Urine Yes; Glucose, Urine Negative (Negative); Ketones,Urine Negative (Negative); Leukocyte Esterase,Urine Positive (Negative); Nitrite,Urine Negative (Negative); PH,Urine 5.5 (5.0-7.0); Protein,Urine Trace (Neg - Trace); RBC,Urine 28 /hpf (0-3); Specific Gravity,Urine 1.013 (1.001-1.035); Transitional Epi Cells,Urine 1 /hpf (0-5); Urobilinogen,Urine Negative mg/dL (0.0-1.0); WBC,Urine 53 /hpf (0-5)
--- NOTE | 2024-10-31 18:18 | PD.RESCONSUL ---
HPI Data of Consult Patient: new to practice Consult date: 10/31/24 Requesting Physician: Josselyn Ricketts MD Attending Provider: Oziel Bai MD Primary Care Provider: Samara Wells MD Consult Narrative Reason for consult: Elevated Troponin History of present illness: Mr. 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 Patient's at bedside assisted in providing history, patient's reported that patient started feeling short of breath and weak for the last couple of days, started using walker to ambulate recently as patient's PCP diagnosed him with sciatica started patient on steroids, also complained that patient would also feel short of breath at times since then on exertion. Per before this the patient was independent in ADLs until his sciatica started and started using walker. Patient also complains of poor appetite and weight loss recently, and reports patient was recently diagnosed with hypertension and was started on blood pressure medication in 2023. Patient also had a ground-level fall earlier today in the morning and patient fell on left shoulder, as patient was using the walker to get to the bathroom. Otherwise patient denies any palpitations chest pain headache PND syncope/near syncopal event and dizziness. 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 ED Course: ED Vitals: On presentation in the emergency department blood pressure 99/54, P 108, respiratory rate 19, temp 96.9, O2 sat 96 on 4 L nasal cannula ED Labs: Emergency department labs are significant for WBC 11.3, RBC 2.41, hemoglobin 7.3, hematocrit 20.4, platelet count 1 81,000, neutrophil 10.1, PT 12.5, INR 1.2, APTT 29.3, D-dimer 2820 ABG showed pH 7.54, pCO2 24, pO2 60, sodium 124, chloride 93, BUN 54, creatinine 1.9, GFR 36, glucose 168, calculated osmolality 268, corrected calcium 11.5, AST 37, BNP 188, total protein 5.5, globulin 2.0. Urine analysis significant for trace protein, urine blood 2+, leukocyte esterase positive, RBC 28 WBC 53 bacteria 4+. Patient tested negative for rapid RSV, influenza and COVID ED Imaging: CTA chest shows diffuse wall thickening of esophagus, bilateral hilar lymphadenopathy, numerous bilateral pulmonary metastatic nodule largest in right upper lobe about 14 mm, significant pneumonia right base, mild to moderate right pleural effusion, widespread osteoblastic metastatic disease, 15 mm osteolytic bone lesion on T11, Lumbar spine CT shows widespread osteoblastic metastatic disease involving the right sacral wing posterior right iliac bone and a soft tissue mass extending presacral on right side up to 32 mm Abdomen/pelvis CT shows significant right base pneumonia, noncalcified pulmonary nodules left lower lobe, cirrhosis, distended urinary bladder with severe emphysematous cystitis pattern, widespread osteoblastic metastatic disease, improvement in abdominal and pelvic lymphadenopathy Shoulder x-ray shows no fracture or dislocation Venous Doppler study bilateral lower extremity shows no DVT Chest x-ray shows no pneumothorax or hemothorax EKG shows sinus tachycardia rate 102, some Q waves seen in lead I and aVL ED Treatment:Patient was given 1 L NS bolus, Zofran 4 mg x 1, Dilaudid 1 mg x 2, ceftriaxone and vancomycin in emergency department cc:: cc: Review of Systems Review of Systems Narrative Review of Systems: ROS: -CONSTITUTIONAL: Positive for weight loss, denies fever and chills. -HEENT: Denies changes in vision and hearing. -RESPIRATORY: Positive for SOB and denies cough. -CV: Denies palpitations and Chest Pain. -GI: Denies abdominal pain, nausea, vomiting,constipation and diarrhea. -: Denies dysuria and urinary frequency. -MSK: Denies myalgia and joint pain. -SKIN: Denies rash and pruritus. -NEUROLOGICAL: Denies headache and syncope. Positive for ground-level fall. -PSYCHIATRIC: Denies recent changes in mood. Denies anxiety and depression. 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 with radiation therapy chemotherapy and surgery, and chronic back pain/sciatica PSHx: Surgery for tonsillar carcinoma Allergies: No known drug and food allergies Social history: -Smoking: Denies -Alcohol Use: Occasional alcohol use up to 3 beers -Illicit Drug Use: Denies, positive for marijuana use -Martial Status: Family History: Positive family history for prostate cancer in father and stroke in father Exam Vital Signs Temp Pulse Resp BP Pulse Ox O2 Del Method O2 Flow Rate 98.2 F 94 18 126/62 95 Nasal Cannula 4 10/31/24 15:44 10/31/24 15:44 10/31/24 15:44 10/31/24 15:44 10/31/24 15:44 10/31/24 15:44 10/31/24 15:44 Narrative Exam Physical Exam General: Awake and in no acute distress. Conversational and non-toxic appearing. HEENT: Normocephalic, atraumatic, mucous membranes moist. Heart: Regular rate and rhythm, no murmurs. Lungs: Clear to auscultation with no wheezing or crackles. Abdomen: Soft, nondistended, nontender, positive bowel sounds. ?No guarding or rebound tenderness. Neurologic: Alert and oriented x3, no gross neurological deficit, and patient able to move all 4 extremities. Extremities: Right lower extremity edema 1+, right lower extremity>> left lower extremity Skin: No rash or ecchymoses. Results Labs 11/01/24 05:10 11/01/24 05:10 Labs: Short CBC 10/31/24 Range/Units 12:40 WBC 11.3 H (3.8-10.6) Thou/mm3 Hgb 7.3 L (13.5-16.0) g/dL Hct 20.4 L* (41.0-53.0) % Plt Count 181 D (140-440) Thou/mm3 BMP 10/31/24 12:40 Sodium 124 L Potassium 4.6 Chloride 93 L Carbon Dioxide 21.5 BUN 54 H Creatinine 1.9 H Glucose 168 H Calcium 11.1 H Cardiac Enzymes 10/31/24 Range/Units 12:40 Troponin I 0.285 H* (0.0-0.045) ng/mL Liver Function 10/31/24 Range/Units 12:40 Total Bilirubin 0.6 (0.3-1.2) mg/dL AST 37 H (0-34) U/L ALT 23 (10-49) U/L Alkaline Phosphatase 73 (46-116) U/L Albumin 3.5 (3.4-4.8) gm/dL Urine 10/31/24 Range/Units 15:14 Urine Color Yellow (Lt Yel-Yel) Urine Clarity Turbid A (Clear/Hazy) Urine pH 5.5 (5.0-7.0) Ur Specific [place] 1.013 (1.001-1.035) Urine Protein Trace (Neg - Trace) Urine Glucose (UA) Negative (Negative) ABG Interpretation ABG results: 10/31/24 11:59 ABG pH 7.54 H ABG pCO2 24 L ABG pO2 60 L ABG HCO3 21 ABG O2 Saturation 92 ABG Base Excess -2 Quality Measures Quality Measures none Advance care planning discussed with:: patient and spouse Medications Home Medications and Allergies Allergies Allergy/AdvReac Type Severity Reaction Status Date / Time No Known Drug Allergies Allergy Verified 11/26/22 09:52 Visit Medications Vancomycin HCl 2,000 mg/ (Sodium Chloride) 500 mls @ 150 mls/hr IV X1 ONE Stop: 10/31/24 20:54 Discontinued Medications Hydromorphone HCl (Hydromorphone Inj 2 Mg/Ml Vial) 1 mg IVP X1 ONE Stop: 10/31/24 12:26 Last Admin: 10/31/24 13:07 Dose: 1 mg Sodium Chloride (Ns) 1,000 mls @ 999 mls/hr IV .Q1H1M ONE Stop: 10/31/24 13:25 Last Admin: 10/31/24 13:06 Dose: 999 mls/hr Ceftriaxone Sodium 1,000 mg/ (Sodium Chloride) 50 mls @ 100 mls/hr IV X1 ONE Stop: 10/31/24 16:29 Ondansetron HCl (Ondansetron Inj 2 Mg/Ml Inj 2 Ml) 4 mg IV X1 ONE; Protocol Stop: 10/31/24 12:26 Last Admin: 10/31/24 13:06 Dose: 4 mg Assessment & Plan Plan Assessment and plan: Summary: Mr. 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 Cardiology consulted in the emergency department for elevated troponin. #Elevated troponin, likely type II secondary to demand ischemia # Shortness of breath Patient had elevated troponin 0.285 in the emergency department, denies any chest discomfort/chest pain, EKG showed sinus tachycardia rate 102 some Q waves in lead I and aVL. Patient likely has demand ischemia in setting of acute infection secondary to UTI/pneumonia. Patient shortness of breath is mostly secondary to the anemia with hemoglobin of 7.3 on presentation during this admission. Will need to rule out other causes including cardiac causes of shortness of breath at this time given the mildly elevated troponins. Recommendations: -Trend troponin every 6 hours until downtrend -Monitor for chest pain. -Echocardiogram ordered to rule out any kind of regional wall motion abdominal's, evaluate LV function RV function as well as diastolic function. -Continue cardiac risk stratification-follow hemoglobin A1c and lipid panel in a.m., TSH 3.58 #Symptomatic normocytic normochromic anemia Patient reports symptoms of shortness of breath dizziness and lethargy recently, possible anemia of chronic disease as patient has malignancy, also on chemotherapy Baseline hemoglobin around 11, 7.3 today, was recently prescribed prednisone Patient will be transfused 1 unit PRBC as ordered in ED Recommendations: -Anemia workup, order iron panel, ferritin, reticulocyte count, B12, folate level, LDH, peripheral blood film -Patient was tachycardic and hypotensive on presentation, occult blood negative per ED physician, consider GI workup if acute decline in hemoglobin #Hypertension Was diagnosed with hypertension in 2023, currently on losartan 50 mg per medication review Blood pressure soft on presentation, continue to monitor blood pressure #Acute hypoxic respiratory failure secondary to #Community-acquired pneumonia Patient not on any supplemental oxygen at home, currently on 4 L nasal cannula SpO2 more than 92 CTA chest suspicious for right lung base pneumonia Patient is currently on antibiotics #Acute kidney injury #Urinary tract infection #Hypoosmolar hypochloremic hyponatremia Patient does have history of prostate cancer, could be related to possible obstruction of some sort leading to UTI, urology consulted in ED recommended Wells catheter placement Urinalysis showed 53 white cells, +4 bacteria, plus leukocyte esterase 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, Wells catheter inserted which outputed 1500 cc immediately Patient had poor oral intake over the last week, BUN 54, creatinine 1.9, GFR 36 on presentation, patient was given 1 L NS in ED -Currently on maintenance fluids and antibiotics for urinary tract infection, pending urine culture #Hypercalcemia of malignancy Corrected calcium 11.5, patient is on denosumab per chart review Management as per primary team #Transaminitis AST 37, ALT 23 on presentation, continue to monitor #Stage IV castrate 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 Arcos and Dr. Belcher outpatient, currently on treatment with leuprolide, enzalutamide and denosumab per heme-onc note from July 2024 Xtandi continued by primary team Case discussed with Attending Dr. Bai. Zaina Virgen PGY1 Disclaimer: This note was dictated by speech recognition. Minor errors in transmitter engineer may be present due to voice recognition software. Attending Provider Attestation/Addendum I have personally seen and examined the patient separately on the above date of service and discussed the plan of care with the resident. I reviewed the resident Dr. Zaina Virgen consultation note and agree with the resident findings and plan in the note above and have also edited the documentation to reflect my findings and plan. Oziel Bai M.D. Interventional Cardiology
--- NOTE | 2024-10-31 18:36 | EVENTNT_ITS ---
<Statement entered by Manju Winkler MD - 11/01/24 00:05> Patient was seen and examined by me personally. I have directly supervised and reviewed documentation by the team resident and agree with its findings with any exceptions or additional findings as below. Plan of care was discussed with the attending, Dr. Lala. Admission called by Dr. Arcos, day shift ED attending. Patient was evaluated at bedside. He a 74-year-old male with history of metastatic prostate cancer who presented to the hospital today following a ground level fall. ED workup revealed UTI, FREDO, and CT findings suggestive of emphysematous cystitis with enlarged bladder. Given these imaging findings requested Dr. Smith, the shift foreman ED attending, to consult with Urology regarding recommendations. Patient case will be handed off to our hospitalist night team while Dr. Smith will follow up with Urology recommendations, greatly appreciated. If no need for procedural intervention, patient may be admitted here at [facility] and managed for FREDO and complicated UTI. Manju Winkler, PGY-2 Documentation for date of: 10/31/24 Event Note Event Note: The patient is a 66-year-old male with a previous medical history of hypertension and metastatic prostate cancer who was brought to the ED after a ground-level fall. His at the bedside, reports that at approximately 1 AM patient had a ground-level fall and could not stand up. She called emergency services and the ED helped him to be transferred to the bed. He complained of the back pain, she also noticed a foul-smelling urine and decided to bring him to the ED. On examination his somnolent, aroused to the sternal rub, AOx3, saturates well on 4 L NC. Denies dysuria symptoms. Workup revealed severe anemia, hyponatremia, FREDO, UA was positive for blood 2+, leukocytes, bacteria. D-dimer was 2820, stroke workup was negative for signs of PE and DVT. Imaging revealed bone and lung metastasis, mild to moderate pleural effusion. Abdomen pelvis CT showed severe distended urinary bladder with severe emphysematous cystitis. During the conversation with who is the decision-maker the findings on the imaging and labs were explained to her and she decided to proceed with full treatment and stated that the patient is full code. Patient's condition and work-up findings were discussed with Dr. Smith as Dr. Arcos already finished his shift and after the thorough review and discussion it was decided that ED charge nurse would be reaching out to the urology regarding the emphysematous cystitis and possible transfer for higher level of care. Plan of care discussed with attending Dr. Lala, PGY-[address] Winkler and PGY-[address] Dietrich. Jessica Seymour MD, PGY 1.
[2024-10-31] MEDS: cefTRIAXone 1,000 MG in SODIUM CHLORIDE 0.9% (Popper) 50 ML 100 MG IV (18:43)
--- NOTE | 2024-10-31 18:57 | EDNOTE_ITS ---
Emergency Room Addendum Addendum Narrative: [address] Arcos. Past medical, surgical, social and family history reviewed. Vitals and home medications reviewed. Results and treatment plan discussed. I will assume the care of the patient at this time and will follow the patient, pending final disposition. Please refer to the emergency department record for history and examination from initial visit. The following addendum documentation note is intended to reflect any pending information, findings, or radiology results not included in the patient?s initial chart. 185 Case d/w Dr. Epps, the on-call urologist. He recommended the placement of a Wells catheter. If the catheter cannot be successfully placed, he advised that the patient should be transferred for further management. However, if placement is achieved without complications, consultation with the hospitalist will be initiated to determine the need for admission and ongoing care. 1856 Case d/w hospitalist Dr. Dyer's resident and informed them of Dr. Carolina tucker's recommendations of possible admission vs transfer for urology services. 1922: Wells catheter was successfully placed without complications with urinary output. Case d/w medicine team who has accepted patient for admission. MD Attestation MD Attestation Scribe Attestation: I, Mildred Dillon, am scribing for and in the presence of Dr. Smith. Provider Notation: Although this document has been carefully reviewed, there may still be some phonetic and other typographical errors. These errors are purely grammatical due to imperfections in the software program and should not be construed in any way to compromise the substance of the patient's medical care during this visit.
[2024-10-31] MEDS: Vancomycin Inj 2,000 MG in SODIUM CHLORIDE 0.9% 500 ML 500 ML 150 MG IV (20:01)
--- NOTE | 2024-10-31 20:30 | PC.NURSE ---
Pt being seen by Residents, family at bedside.
--- NOTE | 2024-10-31 21:02 | PD.RESHP ---
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 Patient's is present at bedside we will provide details for HPI. She had said that the patient had started feeling weak and needed help with walking. They decided to go to see their PCP who diagnosed the patient with sciatica, gave steroids and also gave a walker to treat the sciatica. Patient continued to feel weak. Patient's oral intake has been bad this week. Patient had a fall today with no prodromal symptoms or loss of consciousness. She says that he was supposed to go to the ER to get checked out earlier, however he did not want to at this time. He complained of diffuse back pain and shoulder pain. He had another admission she denies for the patient having any chest pain or shortness of breath. Denies any recent sicknesses or recent travel. Says that he does not see a urologist, however was post to see Dr. Arcos tomorrow, oncology. She says that he has been having prostate cancer for years, Biopsy about 15 years ago and also that the cancer was in remission and reappeared. She denies for the patient having any other procedures including TURP. Patient denies having any hematuria however notes a foul smelling urine. He sees She also denies the patient having any history of BPH and does not take Flomax. He sees Dr. Arcos and Dr. Belcher oncology. No other complaints this time ED course: Patient arrived to the ED with with a temperature of 97, heart rate of 108, respiratory of 19, blood pressure 99/54, saturating 96% on 4 L nasal cannula. She was worked up and was found to have a sodium 124, potassium 4.6, BUN/creatinine 54 and 1.9 respectively, bicarb of 22, glucose of 108, AST ALT 37 and 23 respectively. D-dimer of 28.8, ABG showed pH of 7.54, pCO2 of 24, pO2 of 60. Troponin 0.25, BNP 188, urinalysis showed 20 RBCs, 53 white cells, +4 bacteria plus leukocyte Estrace, +2 blood. Was given Dilaudid 1 mg x 2, Zofran x 1, Rocephin, vancomycin. Duenas catheter was inserted and the patient who had output of 1500 cc. Medicine was consulted patient was admitted to floors. Past medical history: As above Surgical history: Radical right neck dissection 2003 Allergies: No known allergies Meds: Albuterol as needed, Align 4 mg, Bioflex 500?50?25?40, calcium 600, coenzyme Q history 100, vitamin B12, omeprazole, tumeric 400, vitamin D3, Xtandi 40 mg 4 tab daily Family Hx: Denies Family hx of medical problems Social Hx: Born in , raised in [place]. No oral or IV drug hx, has 2-3 beers a week, no smoking history. No recent travel Review of Systems Review of Systems Narrative Review of Systems: Constitutional: No fever, chills, fatigue, weakness, weight loss HEENT: No eye pain, vision loss, ear pain, hearing loss, dysphagia, Cardiovascular: No chest pain, palpitations, edema, pain with walking Respiratory: No cough, shortness of breath, wheezing GI: No NVD, abdominal pain, constipation, blood in stool, loss of appetite, heartburn Extremities: No presence of pitting edema MSK: + back pain, no joint pain, joint swelling Neuro: No dizziness, numbness, weakness, headaches, seizures, tremors Psych: No anxiety, depression Exam Vital Signs Temp Pulse Resp BP Pulse Ox O2 Del Method O2 Flow Rate 97.4 F 95 16 107/60 100 Nasal Cannula 4 10/31/24 20:02 10/31/24 19:25 10/31/24 19:25 10/31/24 19:25 10/31/24 19:25 10/31/24 19:25 10/31/24 19:25 Narrative Exam General: AAOx3, eyes are closed, sleepy, NAD, some male pattern baldness HEENT: Dry mucous membranes, conjunctiva clear, EOMI, PERRLA, Cardiovascular: Possible pansystolic murmur heard, radial pulses +2 bilat, RRR Pulmonary: CTAB bilat no cough, no wheezing GI: No tenderness to light or deep palpitation, no guarding, rigidity, rebound tenderness or distension : Duenas catheter present, draining no CVA tenderness Extremities: No presence of trace or pitting edema in lower extremities bilaterally, dorsalis pedis pulses +2 bilaterally Neuro: AAOx3, no focal motor or sensory deficits in the UE or LE bilat Psych: Good judgement, thought and behavior. Cooperative Results: Labs 10/31/24 12:40 10/31/24 12:40 Labs: Short CBC 10/31/24 Range/Units 12:40 WBC 11.3 H (3.8-10.6) Thou/mm3 Hgb 7.3 L (13.5-16.0) g/dL Hct 20.4 L* (41.0-53.0) % Plt Count 181 D (140-440) Thou/mm3 BMP 10/31/24 12:40 Sodium 124 L Potassium 4.6 Chloride 93 L Carbon Dioxide 21.5 BUN 54 H Creatinine 1.9 H Glucose 168 H Calcium 11.1 H Cardiac Enzymes 10/31/24 Range/Units 12:40 Troponin I 0.285 H* (0.0-0.045) ng/mL Liver Function 10/31/24 Range/Units 12:40 Total Bilirubin 0.6 (0.3-1.2) mg/dL AST 37 H (0-34) U/L ALT 23 (10-49) U/L Alkaline Phosphatase 73 (46-116) U/L Albumin 3.5 (3.4-4.8) gm/dL Urine 10/31/24 Range/Units 15:14 Urine Color Yellow (Lt Yel-Yel) Urine Clarity Turbid A (Clear/Hazy) Urine pH 5.5 (5.0-7.0) Ur Specific [place] 1.013 (1.001-1.035) Urine Protein Trace (Neg - Trace) Urine Glucose (UA) Negative (Negative) ABG Interpretation ABG results: 10/31/24 11:59 ABG pH 7.54 H ABG pCO2 24 L ABG pO2 60 L ABG HCO3 21 ABG O2 Saturation 92 ABG Base Excess -2 Quality Measures Quality Measures none Advance care planning discussed with:: patient and spouse Medications Home Medications and Allergies Allergies Allergy/AdvReac Type Severity Reaction Status Date / Time No Known Drug Allergies Allergy Verified 11/26/22 09:52 Visit Medications Acetaminophen (Acetaminophen 325 Mg Tablet) 650 mg PO Q6H PRN PRN Reason: Fever >100 or pain 1-3 Stop: 11/30/24 20:47 Sodium Chloride (Ns) 1,000 mls @ 120 mls/hr IV .Q8H20M [facility] Stop: 11/30/24 20:59 Piperacillin Sod/Tazobactam (Sod 3.375 gm/ Sodium Chloride) 50 mls @ 12.5 mls/hr IV Q8HR [facility] Stop: 11/08/24 05:59 Piperacillin Sod/Tazobactam (Sod 3.375 gm/ Sodium Chloride) 50 mls @ 100 mls/hr IV X1 ONE Stop: 10/31/24 21:29 Pantoprazole Sodium (Pantoprazole 40 Mg Tablet) 40 mg PO QDAY STORM Stop: 11/30/24 20:59 Discontinued Medications Hydromorphone HCl (Hydromorphone Inj 2 Mg/Ml Vial) 1 mg IVP X1 ONE Stop: 10/31/24 12:26 Last Admin: 10/31/24 13:07 Dose: 1 mg Hydromorphone HCl (Hydromorphone Inj 2 Mg/Ml Vial) 1 mg IVP X1 ONE Stop: 10/31/24 18:21 Last Admin: 10/31/24 18:43 Dose: 1 mg Sodium Chloride (Ns) 1,000 mls @ 999 mls/hr IV .Q1H1M ONE Stop: 10/31/24 13:25 Last Infusion: 10/31/24 14:19 Dose: Infused Ceftriaxone Sodium 1,000 mg/ (Sodium Chloride) 50 mls @ 100 mls/hr IV X1 ONE Stop: 10/31/24 16:29 Last Infusion: 10/31/24 19:24 Dose: Infused Vancomycin HCl 2,000 mg/ (Sodium Chloride) 500 mls @ 150 mls/hr IV X1 ONE Stop: 10/31/24 20:54 Last Admin: 10/31/24 20:01 Dose: 150 mls/hr Ondansetron HCl (Ondansetron Inj 2 Mg/Ml Inj 2 Ml) 4 mg IV X1 ONE; Protocol Stop: 10/31/24 12:26 Last Admin: 10/31/24 13:06 Dose: 4 mg Assessment & Plan Plan Assessment Bipin is a 74 y/o male with PMHx of hypertension, 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 who is admitted for UTI and FREDO #Complicated urinary tract infection #Emphysematous cystitis No sepsis alert was initiated for patient Patient does have history of prostate cancer, could be related to possible obstruction of some sort leading to UTI Urinalysis showed 53 white cells, +4 bacteria, plus leukocyte Estrace CT shows emphysematous cystitis upon radiology read Duenas catheter inserted which outputted 1500 cc immediately Spoke with urology who recommended as long as patient has Duenas, we can treat with antibiotics for urinary tract infection Some air seen around bladder wall, needs broad spectrum and close monitoring Plan: ? Broad-spectrum Zosyn 3.375 g EVERY 8 hours IV ? 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 Arcos and Dr. Belcher outpatient Largest pulmonary nodule seen in right upper lobe 14 mm There is some metastases to spine as well, 15 mm osteolytic bone destruction of T11 Unsure if patient was aware of pulmonary nodules Plan: ? Resumed home Xtandi 160 mg once a day ? May consider biopsy at some point ? May consider oncology consult #FREDO #Hypoosmolar hypovolemic hyponatremia #Hypochloridemia DDx: prerenal versus postrenal BUN/creatinine 54 and 1.9, ratio over 20, could be prerenal Patient reports oral intake over the past week or so likely prerenal Will further workup Pt appears to be dry as well Distended bladder requiring duenas, so there could be some postrenal component, however no stones seen on imaging Plan: ? Maintenance NS 120 cc/hour ? Urine lytes and creatinine ? Avoid nephrotoxic agents ? Renally dose medicines ? Strict LISE's ? Continue with Duenas #Chronic Normocytic Anemia Could be related to anemia of chronic disease Pt does take chemotherapy for metastatic prostate cancer Could be side effect of chemotherapy Hgb baseline seemed to be ~11, however ~7.0 Transfusing at this point 1 PRBC Denies dark stools, blood in vomit or coughing up blood Plan: ? PBS ? Iron Panel ? SCDs ? Post transfusion H&H ? FOBT #Elevated troponin Troponin 0.285 Will need to determine if this is type II related to demand ischemia Plan ? Trend troponin every 6 hours #History of hypertension Blood pressure a bit soft upon arrival We will hold resuming blood pressure medicines at this time Plan: ? Cardiology on consult, appreciate recs ? Echo ? Does not seem to take any home blood pressure medicines upon med rec #Health Maintenance Disposition: Med telemetry DVT prophylaxis: SCDs GI prophylaxis: Protonix Diet: Pending swallow eval CODE STATUS: Full Patient seen and care discussed with my attending physician, Dr. Manisha García, PGY-1 Attending Provider Attestation/Addendum I attest that I was physically present for the evaluation, physical examination, lab and imaging review of the patient with the residents. I discussed the case with the residents and agree with the findings and plans of care as documented above. 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 As per the patient's at bedside, patient has been not feeling well for the past week where he has been having trouble with balance, back pain and generalized weakness. Patient also has been having low oral intake for the last week. Patient visited his doctor, and received some analgesics for possible sciatica. But today, patient had a fall and agreed to visit the ED. In the ED, he was found to have heart rate of 108, blood pressure 99/54, saturating well on 4 L nasal cannula. Lab results show sodium of 124, potassium 4.6, BUN/creatinine 54/1.9, BNP 188. ABG was obtained, showed pH of 7.54, pCO2 24. Urinalysis showed 4+ bacteria, leukocyte esterase and 2+ blood. Patient received IV antibiotic, antiemetic, IV analgesics in the ED. D-dimer was done, came back at 2820. CTA chest was done, which ruled out PE but shows numerous bilateral pulmonary metastatic nodules, significant pneumonia right base, widespread osteoblastic metastatic disease. Lumbar spine CT also showed osteoblastic metastatic disease. Abdomen/pelvis CT showed distended urinary bladder with severe emphysematous cystitis pattern. Shoulder x-ray was negative for fracture, venous Doppler study of bilateral lower extremity were negative for DVT, chest x-ray did not show any pneumothorax or hemothorax. EKG showed sinus tachycardia. Discussed with urology regarding emphysematous cystitis, recommended Duenas catheter insertion as the CT also showed distended urinary bladder, if the insertion is successful, recommended to admit the patient and start on IV antibiotics and will follow the patient with us, appreciate recommendations. Patient successfully received Duenas catheter in the ED with production of 1.5 L urine instantly. We will admit the patient for management of sepsis secondary to emphysematous cystitis. We will start him on IV Zosyn, IV analgesics, antiemetics. Blood and urine cultures have been obtained. We will also give him additional IV fluid bolus and start him on maintenance IV hydration for FREDO. We will monitor his input and output closely, avoid nephrotoxic drugs. Patient also noted to have low hemoglobin of 7.3, patient and family did not notice any obvious source of bleeding, black tarry stool, hematemesis, hematuria or hematochezia. Blood transfusion has been ordered by ED, we will follow-up on posttransfusion H&H. Low hemoglobin most likely from his chronic illness and metastatic cancer but we will obtain iron level, vitamin B12, folate, FOBT to rule out other causes. Patient also has mildly elevated troponin at 0.285, does not have any cardiac symptoms, likely type II secondary to sepsis, we will trend troponin and monitor closely until it plateaus. Family at bedside explained in detail about patient's current condition , Family stated that they were not aware of multiple metastatic nodules in the lungs, discussed in detail about patient's management plans, family in agreement. We will also plan for discussion with oncology tomorrow. Abdon Dyer MD
[2024-10-31] MEDS: PANTOPRAZOLE 40 MG TABLET PO (21:03)
--- NOTE | 2024-10-31 22:49 | PC.NURSE ---
1st UPRBC infusing well without adverse reaction noted. remain at bedside.
[2024-10-31 23:33] LABS: Chloride,Urine Random 25.4 mMol/L (55.0-125.0); Creatinine,Random Urine 49 mg/dL (30-125); Potassium,Urine Random 40 mMol/L (12-62); Sodium,Urine Random 22.2 mMol/L (20.0-110.0)
[2024-10-31] MEDS: SODIUM CHLORIDE 0.9% 1000 ML 1,000 ML 120 ML IV (23:40)
[2024-10-31] MEDS: PIPER/TAZO INJ 3.375 GM in SODIUM CHLORIDE 0.9% (Popper) 50 ML IV (23:42)
[2024-11-01] VITALS (11 sets, daily range): BP systolic 97–136; BP diastolic 54–91; PULSE 70–112; RESP 16–26; TEMP 36.6–37.2; O2SAT 95–100; BMI 27.4
--- NOTE | 2024-11-01 04:40 | PC.NURSE ---
[facility] downtime [facility] on 11/01/24 from 0200 to 0320.
[2024-11-01] MEDS: PIPER/TAZO INJ 3.375 GM in SODIUM CHLORIDE 0.9% (Popper) 50 ML IV ×3 (05:16→21:27)
[2024-11-01 05:54] LABS: Basophils % (Auto) 0 % (0-2.5); Eosinophils % (Auto) 0 % (0-10); Hematocrit 27.2 % (41.0-53.0); Hemoglobin 9.2 g/dL (13.5-16.0); Immature Granulocytes % (Auto) 1 % (0-0); Immature Granulocytes Auto 0.11 Thou/mm3 (0.00-0.00); Lymphocytes # (Auto) 0.2 Thou/mm3 (1.0-4.8); Lymphocytes % (Auto) 2 % (10-50); Mean Corpuscular HGB Conc 33.8 g/dl (31.0-37.0); Mean Corpuscular Hemoglobin 29.5 pg (25.0-35.0); Mean Corpuscular Volume 87 fL (80-100); Monocytes # (Auto) 0.6 Thou/mm3 (0.0-0.8); Monocytes % (Auto) 6 % (0-12); Neutrophils # (Auto) 9.4 Thou/mm3 (1.8-7.7); Neutrophils % (Auto) 91 % (37-80); Nucleated Red Blood Cell # 0.04 Thou/mm3 (0.00-0.00); Nucleated Red Blood Cell % 0 /100 WBC (0); Platelet Count 148 Thou/mm3 (140-440); RDW Standard Deviation 45.7 fL (35.1-43.9); Red Blood Count 3.12 Miln/mm3 (4.50-5.90); White Blood Count 10.4 Thou/mm3 (3.8-10.6)
[2024-11-01 06:08] LABS: INR 1.1 (0.9-1.3); Partial Thromboplastin Time 30.5 Seconds (22.0-36.0); Prothrombin Time 12.4 Seconds (9.0-12.2)
[2024-11-01 06:24] LABS: Iron 18 mcg/dL (65-175); Percent Iron Saturation 8 % (20-55); Total Iron Binding Capacity 210 mcg/dL (250-425); Unsaturated Iron Binding 192 (225-295)
[2024-11-01 06:31] LABS: Alanine Aminotransferase 27 U/L (10-49); Albumin, Serum 3.3 gm/dL (3.4-4.8); Albumin/Globulin Ratio 1.7 (1.2-2.2); Alkaline Phosphatase 72 U/L (46-116); Anion Gap 9 (7-16); Aspartate Amino Transferase 40 U/L (0-34); BUN/Creatinine Ratio 30 Ratio (12-20); Bilirubin,Total 0.6 mg/dL (0.3-1.2); Blood Urea Nitrogen 48 mg/dL (9-23); Calcium 10.2 mg/dL (8.3-10.6); Calcium (Corrected) 10.8 mg/dL (8.5-10.1); Carbon Dioxide 19.9 mMol/L (20.0-31.0); Cardiac Risk Estimate 2.2 RATIO (4.0-6.7); Chloride 101 mMol/L (98-107); Cholesterol 84 mg/dL (132-200); Creatinine (Component) 1.6 mg/dL (0.6-1.3); Globulin 1.9 gm/dL (2.3-3.5); Glucose 105 mg/dL (74-106); HDL Cholesterol 38 mg/dL (40-60); LDL Cholesterol,Calculated 24 mg/dL (0-130); Magnesium 1.8 mg/dL (1.6-2.6); Osmolality,Calculated 273 (275-295); Phosphorous 2.6 mg/dL (2.4-5.1); Potassium 4.8 mMol/L (3.4-5.1); Sodium 130 mMol/L (136-145); Total Protein 5.2 gm/dL (5.7-8.2); Triglycerides 109 mg/dL (30-150); eGFR 44 See Note
[2024-11-01 06:41] LABS: Troponin I 0.363 ng/mL (0.0-0.045)
--- NOTE | 2024-11-01 06:43 | PC.NURSE ---
Dr. Smith notified of latest level of Troponin (0.363). No new orders at this time.
[2024-11-01 06:48] LABS: Glucose Estimated Average 128 mg/dL (80-131); Hemoglobin A1C 6.1 % Hgb (4.8-6.0)
--- NOTE | 2024-11-01 08:48 | ESPR_ITS ---
Documentation for date of: 11/01/24 Subjective Subjective Interval history: Patient seen and examined at bedside, significant improvement of symptoms noted today, is more awake alert complains of shortness of breath, patient was transfused 1 unit PRBC, hemoglobin today in morning 9.2. Patient's iron panel shows iron 18, iron saturation 8%, TIBC 210, unsaturated iron binding capacity 192, patient probably has multifactorial cause to anemia will benefit from IV iron infusion. Otherwise patient's TSH 3.58, hemoglobin A1c 6.1, cholesterol 84 LDL 24. Patient on losartan for blood pressure management, currently being held as blood pressures within normal limits. Exam Vital Signs Temp Pulse Resp BP Pulse Ox O2 Del Method O2 Flow Rate 97.8 F 102 H 22 H 128/60 97 Nasal Cannula 4 11/01/24 03:44 11/01/24 04:10 11/01/24 03:44 11/01/24 03:44 11/01/24 03:44 11/01/24 03:44 11/01/24 03:44 Narrative Exam Physical Exam General: Awake and in no acute distress. Conversational and non-toxic appearing. HEENT: Normocephalic, atraumatic, mucous membranes moist. Heart: Regular rate and rhythm, no murmurs. Lungs: Clear to auscultation with no wheezing or crackles. Abdomen: Soft, nondistended, nontender, positive bowel sounds. ?No guarding or rebound tenderness. Neurologic: Alert and oriented x3, no gross neurological deficit, and patient able to move all 4 extremities. Extremities: Right lower extremity edema 1+, right lower extremity>> left lower extremity Skin: No rash or ecchymoses. Objective Labs 11/01/24 05:10 11/01/24 05:10 Labs: Laboratory Results - last 24 hr 10/31/24 10/31/24 10/31/24 11:59 12:40 12:58 WBC 11.3 H RBC 2.41 L Hgb 7.3 L Hct 20.4 L* MCV 85 MCH 30.3 MCHC 35.8 RDW Std Deviation 46.5 H Plt Count 181 D Neut % (Auto) 89 H Lymph % (Auto) 3 L [place] % (Auto) 6 Eos % (Auto) 0 Baso % (Auto) 0 Neut # (Auto) 10.1 H Lymph # (Auto) 0.4 L [place] # (Auto) 0.7 Eos # (Auto) 0.0 Baso # (Auto) 0.0 Immature Gran # (Auto) 0.13 H Absolute Nucleated RBC 0.04 H Immature Gran % 1 H Nucleated RBC % 0 PT 12.5 H INR 1.2 APTT 29.3 D-Dimer 2820 H Puncture Site Right Radial ABG pH 7.54 H ABG pCO2 24 L ABG pO2 60 L ABG HCO3 21 ABG O2 Saturation 92 ABG Base Excess -2 Oxygen Liter Flow 3 Sodium 124 L Potassium 4.6 Chloride 93 L Carbon Dioxide 21.5 Anion Gap 10 BUN 54 H Creatinine 1.9 H Estim Creat Clear Calc 32.0 L eGFR 36 L BUN/Creatinine Ratio 28 H Glucose [address] Glu mg/dL Hemoglobin A1c Calculated Osmolality 268 L Calcium 11.1 H Corrected Calcium 11.5 H Phosphorus Magnesium 2.0 Iron TIBC Iron Saturation Unsat Iron Binding Total Bilirubin 0.6 AST 37 H ALT 23 Alkaline Phosphatase 73 Troponin I 0.285 H* B-Natriuretic Peptide 188 H Total Protein 5.5 L Albumin 3.5 Globulin 2.0 L Albumin/Globulin Ratio 1.8 Triglycerides Cholesterol LDL Cholesterol, Calc HDL Cholesterol Cholesterol/HDL Ratio TSH 3.58 Ur Collection Type Urine Color Urine Clarity Urine pH Ur Specific [place] Urine Protein Urine Glucose (UA) Urine Ketones Urine Blood Urine Nitrite Urine Bilirubin Urine Urobilinogen (Auto) Ur Leukocyte Esterase Urine RBC Urine WBC Ur Squamous Epith Cells Ur Transition Epith Cell Urine Bacteria Ur Culture Indicated? Ur Random Creatinine Ur Random Sodium Ur Random Potassium Ur Random Chloride RSV Rapid Negative Blood Type Antibody Screen Crossmatch Blood Bank Wristband ID 10/31/24 10/31/24 10/31/24 15:14 16:01 23:10 WBC RBC Hgb Hct MCV MCH MCHC RDW Std Deviation Plt Count Neut % (Auto) Lymph % (Auto) [place] % (Auto) Eos % (Auto) Baso % (Auto) Neut # (Auto) Lymph # (Auto) [place] # (Auto) Eos # (Auto) Baso # (Auto) Immature Gran # (Auto) Absolute Nucleated RBC Immature Gran % Nucleated RBC % PT INR APTT D-Dimer Puncture Site ABG pH ABG pCO2 ABG pO2 ABG HCO3 ABG O2 Saturation ABG Base Excess Oxygen Liter Flow Sodium Potassium Chloride Carbon Dioxide Anion Gap BUN Creatinine Estim Creat Clear Calc eGFR BUN/Creatinine Ratio Glucose Estimated Ave Glu mg/dL Hemoglobin A1c Calculated Osmolality Calcium Corrected Calcium Phosphorus Magnesium Iron TIBC Iron Saturation Unsat Iron Binding Total Bilirubin AST ALT Alkaline Phosphatase Troponin I B-Natriuretic Peptide Total Protein Albumin Globulin Albumin/Globulin Ratio Triglycerides Cholesterol LDL Cholesterol, Calc HDL Cholesterol Cholesterol/HDL Ratio TSH Ur Collection Type Clean Catch Urine Color Yellow Urine Clarity Turbid A Urine pH 5.5 Ur Specific [place] 1.013 Urine Protein Trace Urine Glucose (UA) Negative Urine Ketones Negative Urine Blood 2+ A Urine Nitrite Negative Urine Bilirubin Negative Urine Urobilinogen (Auto) Negative Ur Leukocyte Esterase Positive Urine RBC 28 H Urine WBC 53 H Ur Squamous Epith Cells 0 Ur Transition Epith Cell 1 Urine Bacteria 4+ A Ur Culture Indicated? Yes Ur Random Creatinine 49 Ur Random Sodium 22.2 Ur Random Potassium 40 Ur Random Chloride 25.4 L RSV Rapid Blood Type O Positive Antibody Screen NEGATIVE Crossmatch See Detail Blood Bank Wristband ID Yes 11/01/24 11/01/24 01:00 05:10 WBC 10.4 RBC 3.12 L Hgb 9.2 L D Hct 27.2 L MCV 87 MCH 29.5 MCHC 33.8 RDW Std Deviation 45.7 H Plt Count 148 D Neut % (Auto) 91 H Lymph % (Auto) 2 L [place] % (Auto) 6 Eos % (Auto) 0 Baso % (Auto) 0 Neut # (Auto) 9.4 H Lymph # (Auto) 0.2 L [place] # (Auto) 0.6 Eos # (Auto) 0.0 Baso # (Auto) 0.0 Immature Gran # (Auto) 0.11 H Absolute Nucleated RBC 0.04 H Immature Gran % 1 H Nucleated RBC % 0 PT 12.4 H INR 1.1 APTT 30.5 D-Dimer Puncture Site ABG pH ABG pCO2 ABG pO2 ABG HCO3 ABG O2 Saturation ABG Base Excess Oxygen Liter Flow Sodium 130 L Potassium 4.8 Chloride 101 Carbon Dioxide 19.9 L Anion Gap 9 BUN 48 H Creatinine 1.6 H Estim Creat Clear Calc 38.0 L eGFR 44 L BUN/Creatinine Ratio 30 H Glucose [address] Glu mg/dL 128 Hemoglobin A1c 6.1 H Calculated Osmolality 273 L Calcium 10.2 Corrected Calcium 10.8 H Phosphorus 2.6 Magnesium 1.8 Iron 18 L TIBC 210 L Iron Saturation 8 L Unsat Iron Binding 192 L Total Bilirubin 0.6 AST 40 H ALT 27 Alkaline Phosphatase 72 Troponin I Cancelled 0.363 H* B-Natriuretic Peptide Total Protein 5.2 L Albumin 3.3 L Globulin 1.9 L Albumin/Globulin Ratio 1.7 Triglycerides 109 Cholesterol 84 L LDL Cholesterol, Calc 24 HDL Cholesterol 38 L Cholesterol/HDL Ratio 2.2 L TSH Ur Collection Type Urine Color Urine Clarity Urine pH Ur Specific [place] Urine Protein Urine Glucose (UA) Urine Ketones Urine Blood Urine Nitrite Urine Bilirubin Urine Urobilinogen (Auto) Ur Leukocyte Esterase Urine RBC Urine WBC Ur Squamous Epith Cells Ur Transition Epith Cell Urine Bacteria Ur Culture Indicated? Ur Random Creatinine Ur Random Sodium Ur Random Potassium Ur Random Chloride RSV Rapid Blood Type Antibody Screen Crossmatch Blood Bank Wristband ID ABG Interpretation ABG results: 10/31/24 11:59 ABG pH 7.54 H ABG pCO2 24 L ABG pO2 60 L ABG HCO3 21 ABG O2 Saturation 92 ABG Base Excess -2 Quality Measures Quality Measures none Advance care planning discussed with:: patient and spouse Assessment & Plan Assessment Current Active Medications: Generic Name Dose Route Start Last Admin Trade Name Freq PRN Reason Stop Dose Admin Acetaminophen 650 mg 11/01/24 08:44 Acetaminophen 325 Mg Tablet PO 12/01/24 08:43 Q4HR PRN FEVER >101 Hydrocodone Bitart/Acetaminophen 1 tab 11/01/24 08:45 Hydrocodone/Apap 5/325 Tablet PO 11/06/24 08:05 Q6HR PRN PAIN SCALE 4-10(Mod-Sev Sodium Chloride 1,000 mls @ 120 mls/hr 10/31/24 21:00 10/31/24 23:40 Ns IV 11/30/24 20:59 120 mls/hr .[id number] STORM Administration Piperacillin Sod/Tazobactam 50 mls @ 12.5 mls/hr 11/01/24 06:00 11/01/24 05:16 Sod 3.375 gm/ Sodium Chloride IV 11/08/24 05:59 12.5 mls/hr Q8HR STORM Administration Home Medication- 160 mg 11/01/24 09:00 Please Speak With PO 12/01/24 08:59 Patient Caregiver To DAILY STORM Have Rx Brought To [facility] Pantoprazole Sodium 40 mg 10/31/24 21:00 10/31/24 21:03 Pantoprazole 40 Mg Tablet PO 11/30/24 20:59 40 mg QDAY STORM Administration Plan Assessment and plan: Summary: Mr. 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 Cardiology consulted in the emergency department for elevated troponin. #Elevated troponin, likely type II secondary to demand ischemia # Shortness of breath Patient had elevated troponin 0.285 in the emergency department, denies any chest discomfort/chest pain, EKG showed sinus tachycardia rate 102 some Q waves in lead I and aVL. Patient likely has demand ischemia in setting of acute infection secondary to UTI/pneumonia. Patient shortness of breath is mostly secondary to the anemia with hemoglobin of 7.3 on presentation during this admission. Will need to rule out other causes including cardiac causes of shortness of breath at this time given the mildly elevated troponins. Hemoglobin A1c 6.1, cholesterol 84, LDL 24, TSH 3.58 Troponin 0.285?> 0.363 ?> 0.396 Recommendations: -Trend troponin every 6 hours until downtrend -Monitor for chest pain. -Echocardiogram ordered to rule out any kind of regional wall motion abdominal's, evaluate LV function RV function as well as diastolic function. #Symptomatic normocytic normochromic anemia Patient reports symptoms of shortness of breath dizziness and lethargy recently, possible anemia of chronic disease as patient has malignancy, also on chemotherapy Baseline hemoglobin around 11, 7.3 today, was recently prescribed prednisone Patient will be transfused 1 unit PRBC as ordered in ED Iron panel shows iron 18 mcg/dL, TIBC 210 mcg/dL, iron saturation 8% unsat iron binding 192 Recommendations: -Patient's anemia is likely multifactorial, patient has low iron reserves will likely benefit from IV iron infusion -Recommend IV iron, ferric sod gluconate 125 mg for 5 days -Anemia workup, order iron panel, ferritin, reticulocyte count, B12, folate level, LDH, peripheral blood film -Patient was tachycardic and hypotensive on presentation, occult blood negative per ED physician, consider GI workup if acute decline in hemoglobin #Hypertension Was diagnosed with hypertension in 2023, currently on losartan 50 mg per medication review Blood pressure soft on presentation, continue to monitor blood pressure #Acute hypoxic respiratory failure secondary to #Community-acquired pneumonia Patient not on any supplemental oxygen at home, currently on 4 L nasal cannula SpO2 more than 92 CTA chest suspicious for right lung base pneumonia Patient is currently on antibiotics #Acute kidney injury, improving #Urinary tract infection #Hypoosmolar hypochloremic hyponatremia, improving Patient does have history of prostate cancer, could be related to possible obstruction of some sort leading to UTI, urology consulted in ED recommended Wells catheter placement Urinalysis showed 53 white cells, +4 bacteria, plus leukocyte esterase 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, Wells catheter inserted which outputed 1500 cc immediately Patient had poor oral intake over the last week, BUN 54, creatinine 1.9, GFR 36 on presentation, patient was given 1 L NS in ED -Currently on maintenance fluids and antibiotics for urinary tract infection, pending urine culture #Hypercalcemia of malignancy Corrected calcium 11.5, patient is on denosumab per chart review Management as per primary team #Transaminitis AST 37, ALT 23 on presentation, continue to monitor #Stage IV castrate 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 Arcos and Dr. Belcher outpatient, currently on treatment with leuprolide, enzalutamide and denosumab per heme-onc note from July 2024 Xtandi continued by primary team Case discussed with Attending Dr. Bai. Zaina Virgen PGY1 Disclaimer: This note was dictated by speech recognition. Minor errors in marketing communications specialist may be present due to voice recognition software. Attending Provider Attestation/Addendum I have personally seen and examined the patient separately on the above date of service and discussed the plan of care with the resident. I reviewed the resident Dr. Zaina Virgen consultation progress note and agree with the resident findings and plan in the note above and have also edited the documentation to reflect my findings and plan. Oziel Bai M.D. Interventional Cardiology
[2024-11-01] MEDS: SODIUM CHLORIDE 0.9% 1000 ML 1,000 ML 120 ML IV ×3 (09:27→21:29)
[2024-11-01] MEDS: PANTOPRAZOLE 40 MG TABLET PO (09:27)
--- NOTE | 2024-11-01 09:29 | ESPR_ITS ---
<Statement entered by Manju Winkler MD - 11/01/24 23:48> Patient was seen and examined by me personally. I have directly supervised and reviewed documentation by the team resident and agree with its findings with any exceptions or additional findings as below. Plan of care was discussed with the attending, Dr. Lala. Overnight admission, patient was seen by our team yesterday evening and admitted by night team following successful Duenas placement. Patient seen at bedside this AM. Urology Dr. Epps was consulted and agreed to follow patient for the UTI and emphysematous cystitis, much appreciated. Infectious disease was consulted as well. Urine cultures have grown GNR, awaiting speciation and sensitivity. Will continue IV Zosyn. Duenas remains in place draining good urine output. Physical therapy saw patient and requested TSLO brace for the patient. Dr. Arcos, Oncology was consulted as patient is known well by the cancer center. He suggested MRI with contrast of the thoracic and lumbar spine, given the findings of metastatic osteolytic disease on admission imaging and the fact that the patient has been unable to walk the last few days. Order was placed. Patient's Xtandi has been continued. Overall prognosis is guarded. Manju Winkler, PGY-2 Documentation for date of: 11/01/24 Subjective Subjective Interval history: Patient was seen and examined by the bedside. No acute overnight events. at the bedside, patient reports that he wants to move. Yesterday patient had a Duenas catheter removed and had an output of 2.2 L of urine. Urologist Dr. Epps is aware of the patient and reported that he will follow him. Patient's face sheet was faxed to Dr. Baer's office. Dr. Arcos, radiation oncologist was consulted, appreciate recommendations. Will continue with current antibiotics regimen, urine culture preliminary grew gram-negative rods, will wait for speciation and sensitivity. Exam Vital Signs Temp Pulse Resp BP Pulse Ox O2 Del Method O2 Flow Rate 97.8 F 102 H 22 H 128/60 97 Nasal Cannula 4 11/01/24 03:44 11/01/24 04:10 11/01/24 03:44 11/01/24 03:44 11/01/24 03:44 11/01/24 03:44 11/01/24 03:44 Narrative Exam Physical Exam General: Awake and in no acute distress. Chronically-ill appearing, pale. HEENT: Normocephalic, atraumatic, mucous membranes moist. Heart: Regular rate and rhythm, no murmurs. Lungs: Clear to auscultation with no wheezing or crackles. Abdomen: Soft, nondistended, mild lower abdominal tenderness, positive bowel sounds. ?No guarding or rebound tenderness. Neurologic: Alert and oriented x3, no gross neurological deficit, and patient able to move all 4 extremities. Extremities: No edema. Skin: No rash or ecchymoses. Objective Labs 11/02/24 04:48 11/02/24 04:48 Labs: Laboratory Results - last 24 hr 10/31/24 10/31/24 10/31/24 11:59 12:40 12:58 WBC 11.3 H RBC 2.41 L Hgb 7.3 L Hct 20.4 L* MCV 85 MCH 30.3 MCHC 35.8 RDW Std Deviation 46.5 H Plt Count 181 D Neut % (Auto) 89 H Lymph % (Auto) 3 L [place] % (Auto) 6 Eos % (Auto) 0 Baso % (Auto) 0 Neut # (Auto) 10.1 H Lymph # (Auto) 0.4 L [place] # (Auto) 0.7 Eos # (Auto) 0.0 Baso # (Auto) 0.0 Immature Gran # (Auto) 0.13 H Absolute Nucleated RBC 0.04 H Immature Gran % 1 H Nucleated RBC % 0 PT 12.5 H INR 1.2 APTT 29.3 D-Dimer 2820 H Puncture Site Right Radial ABG pH 7.54 H ABG pCO2 24 L ABG pO2 60 L ABG HCO3 21 ABG O2 Saturation 92 ABG Base Excess -2 Oxygen Liter Flow 3 Sodium 124 L Potassium 4.6 Chloride 93 L Carbon Dioxide 21.5 Anion Gap 10 BUN 54 H Creatinine 1.9 H Estim Creat Clear Calc 32.0 L eGFR 36 L BUN/Creatinine Ratio 28 H Glucose [address] Glu mg/dL Hemoglobin A1c Calculated Osmolality 268 L Calcium 11.1 H Corrected Calcium 11.5 H Phosphorus Magnesium 2.0 Iron TIBC Iron Saturation Unsat Iron Binding Total Bilirubin 0.6 AST 37 H ALT 23 Alkaline Phosphatase 73 Troponin I 0.285 H* B-Natriuretic Peptide 188 H Total Protein 5.5 L Albumin 3.5 Globulin 2.0 L Albumin/Globulin Ratio 1.8 Triglycerides Cholesterol LDL Cholesterol, Calc HDL Cholesterol Cholesterol/HDL Ratio TSH 3.58 Ur Collection Type Urine Color Urine Clarity Urine pH Ur Specific [place] Urine Protein Urine Glucose (UA) Urine Ketones Urine Blood Urine Nitrite Urine Bilirubin Urine Urobilinogen (Auto) Ur Leukocyte Esterase Urine RBC Urine WBC Ur Squamous Epith Cells Ur Transition Epith Cell Urine Bacteria Ur Culture Indicated? Ur Random Creatinine Ur Random Sodium Ur Random Potassium Ur Random Chloride RSV Rapid Negative Blood Type Antibody Screen Crossmatch Blood Bank Wristband ID 10/31/24 10/31/24 10/31/24 15:14 16:01 23:10 WBC RBC Hgb Hct MCV MCH MCHC RDW Std Deviation Plt Count Neut % (Auto) Lymph % (Auto) [place] % (Auto) Eos % (Auto) Baso % (Auto) Neut # (Auto) Lymph # (Auto) [place] # (Auto) Eos # (Auto) Baso # (Auto) Immature Gran # (Auto) Absolute Nucleated RBC Immature Gran % Nucleated RBC % PT INR APTT D-Dimer Puncture Site ABG pH ABG pCO2 ABG pO2 ABG HCO3 ABG O2 Saturation ABG Base Excess Oxygen Liter Flow Sodium Potassium Chloride Carbon Dioxide Anion Gap BUN Creatinine Estim Creat Clear Calc eGFR BUN/Creatinine Ratio Glucose Estimated Ave Glu mg/dL Hemoglobin A1c Calculated Osmolality Calcium Corrected Calcium Phosphorus Magnesium Iron TIBC Iron Saturation Unsat Iron Binding Total Bilirubin AST ALT Alkaline Phosphatase Troponin I B-Natriuretic Peptide Total Protein Albumin Globulin Albumin/Globulin Ratio Triglycerides Cholesterol LDL Cholesterol, Calc HDL Cholesterol Cholesterol/HDL Ratio TSH Ur Collection Type Clean Catch Urine Color Yellow Urine Clarity Turbid A Urine pH 5.5 Ur Specific [place] 1.013 Urine Protein Trace Urine Glucose (UA) Negative Urine Ketones Negative Urine Blood 2+ A Urine Nitrite Negative Urine Bilirubin Negative Urine Urobilinogen (Auto) Negative Ur Leukocyte Esterase Positive Urine RBC 28 H Urine WBC 53 H Ur Squamous Epith Cells 0 Ur Transition Epith Cell 1 Urine Bacteria 4+ A Ur Culture Indicated? Yes Ur Random Creatinine 49 Ur Random Sodium 22.2 Ur Random Potassium 40 Ur Random Chloride 25.4 L RSV Rapid Blood Type O Positive Antibody Screen NEGATIVE Crossmatch See Detail Blood Bank Wristband ID Yes 11/01/24 11/01/24 01:00 05:10 WBC 10.4 RBC 3.12 L Hgb 9.2 L D Hct 27.2 L MCV 87 MCH 29.5 MCHC 33.8 RDW Std Deviation 45.7 H Plt Count 148 D Neut % (Auto) 91 H Lymph % (Auto) 2 L [place] % (Auto) 6 Eos % (Auto) 0 Baso % (Auto) 0 Neut # (Auto) 9.4 H Lymph # (Auto) 0.2 L [place] # (Auto) 0.6 Eos # (Auto) 0.0 Baso # (Auto) 0.0 Immature Gran # (Auto) 0.11 H Absolute Nucleated RBC 0.04 H Immature Gran % 1 H Nucleated RBC % 0 PT 12.4 H INR 1.1 APTT 30.5 D-Dimer Puncture Site ABG pH ABG pCO2 ABG pO2 ABG HCO3 ABG O2 Saturation ABG Base Excess Oxygen Liter Flow Sodium 130 L Potassium 4.8 Chloride 101 Carbon Dioxide 19.9 L Anion Gap 9 BUN 48 H Creatinine 1.6 H Estim Creat Clear Calc 38.0 L eGFR 44 L BUN/Creatinine Ratio 30 H Glucose [address] Glu mg/dL 128 Hemoglobin A1c 6.1 H Calculated Osmolality 273 L Calcium 10.2 Corrected Calcium 10.8 H Phosphorus 2.6 Magnesium 1.8 Iron 18 L TIBC 210 L Iron Saturation 8 L Unsat Iron Binding 192 L Total Bilirubin 0.6 AST 40 H ALT 27 Alkaline Phosphatase 72 Troponin I Cancelled 0.363 H* B-Natriuretic Peptide Total Protein 5.2 L Albumin 3.3 L Globulin 1.9 L Albumin/Globulin Ratio 1.7 Triglycerides 109 Cholesterol 84 L LDL Cholesterol, Calc 24 HDL Cholesterol 38 L Cholesterol/HDL Ratio 2.2 L TSH Ur Collection Type Urine Color Urine Clarity Urine pH Ur Specific [place] Urine Protein Urine Glucose (UA) Urine Ketones Urine Blood Urine Nitrite Urine Bilirubin Urine Urobilinogen (Auto) Ur Leukocyte Esterase Urine RBC Urine WBC Ur Squamous Epith Cells Ur Transition Epith Cell Urine Bacteria Ur Culture Indicated? Ur Random Creatinine Ur Random Sodium Ur Random Potassium Ur Random Chloride RSV Rapid Blood Type Antibody Screen Crossmatch Blood Bank Wristband ID ABG Interpretation ABG results: 10/31/24 11:59 ABG pH 7.54 H ABG pCO2 24 L ABG pO2 60 L ABG HCO3 21 ABG O2 Saturation 92 ABG Base Excess -2 Quality Measures Quality Measures none Advance care planning discussed with:: spouse Assessment & Plan Assessment Current Active Medications: Generic Name Dose Route Start Last Admin Trade Name Freq PRN Reason Stop Dose Admin Acetaminophen 650 mg 11/01/24 08:44 Acetaminophen 325 Mg Tablet PO 12/01/24 08:43 Q4HR PRN FEVER >101 Hydrocodone Bitart/Acetaminophen 1 tab 11/01/24 08:45 Hydrocodone/Apap 5/325 Tablet PO 11/06/24 08:05 Q6HR PRN PAIN SCALE 4-10(Mod-Sev Xtandi (Enzalutamide 0 ea 11/01/24 09:30 ) 40 Mg Tablets PO 12/01/24 09:29 DAILY STORM Sodium Chloride 1,000 mls @ 120 mls/hr 10/31/24 21:00 11/01/24 09:27 Ns IV 11/30/24 20:59 120 mls/hr .Q8H20M STORM Administration Piperacillin Sod/Tazobactam 50 mls @ 12.5 mls/hr 11/01/24 06:00 11/01/24 05:16 Sod 3.375 gm/ Sodium Chloride IV 11/08/24 05:59 12.5 mls/hr Q8HR STORM Administration Home Medication- 160 mg 11/01/24 09:00 Please Speak With PO 12/01/24 08:59 Patient Caregiver To DAILY STORM Have Rx Brought To [facility] Pantoprazole Sodium 40 mg 10/31/24 21:00 11/01/24 09:27 Pantoprazole 40 Mg Tablet PO 11/30/24 20:59 40 mg QDAY STORM Administration Plan The patient is a 74-year-old with previous medical history of hypertension, 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 #Complicated urinary tract infection #Emphysematous cystitis No sepsis alert was initiated for patient Patient does have history of prostate cancer, could be related to possible obstruction of some sort leading to UTI Urinalysis showed 53 white cells, +4 bacteria, plus leukocyte Estrace CT shows emphysematous cystitis upon radiology read Duenas catheter inserted which outputted 1500 cc immediately Spoke with urology who recommended as long as patient has Duenas, we can treat with antibiotics for urinary tract infection Some air seen around bladder wall, needs broad spectrum and close monitoring Plan: ? Broad-spectrum Zosyn 3.375 g EVERY 8 hours IV 10/31?current ? Urine culture speciation and sensitivity pending ? Dr. 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 Arcos and Dr. Belcher outpatient Largest pulmonary nodule seen in right upper lobe 14 mm There is some metastases to spine as well, 15 mm osteolytic bone destruction of T11 Unsure if patient was aware of pulmonary nodules Plan: ? continue home Xtandi 160 mg once a day ? oncology consulted, appreciate recommedations - MRI of the thoracic spine with contrast pending #FREDO, improving #Hypoosmolar hypovolemic hyponatremia #Hypochloridemia DDx: prerenal versus postrenal BUN/creatinine 54 and 1.9, ratio over 20, could be prerenal Patient reports oral intake over the past week or so likely prerenal Will further workup Pt appears to be dry as well Distended bladder requiring duenas, so there could be some postrenal component, however no stones seen on imaging 3/5 sodium 130, BUN 48, creatinine 1.6, EGFR 44. Urine output is 2.2 L. Plan: ? Maintenance NS 120 cc/hour ? Urine lytes and creatinine ? Avoid nephrotoxic agents ? Renally dose medicines ? Strict LISE's ? Continue with Duenas #Chronic Normocytic Anemia Could be related to anemia of chronic disease Pt does take chemotherapy for metastatic prostate cancer Could be side effect of chemotherapy Hgb baseline seemed to be ~11, however ~7.0 Transfusing at this point 1 PRBC Denies dark stools, blood in vomit or coughing up blood 3/5 hemoglobin 9.3, hematocrit 27.2. Iron panel is consistent with anemia of chronic disease and iron deficiency. Plan: ? PBS is pending ? SCDs ? FOBT ? Monitor daily CBC, transfuse if hemoglobin less than 7 #Elevated troponin Troponin 0.285 Will need to determine if this is type II related to demand ischemia 3/5 troponin 0.396, will continue to trend. Plan ? Trend troponin every 6 hours #History of hypertension Blood pressure a bit soft upon arrival We will hold resuming blood pressure medicines at this time Plan: ? Cardiology consulted, appreciate recs ? Echo pending ? Does not seem to take any home blood pressure medicines upon med rec #Health Maintenance Disposition: Med telemetry DVT prophylaxis: SCDs and heparin sc GI prophylaxis: Protonix Diet: cardiac diet CODE STATUS: Full Plan of care discussed with attending Dr. Lala, PGY-[address] Winkler and PGY-[address] Dietrich. Jessica Seymour MD, PGY 1. Attending Provider Attestation/Addendum I have examined the patient, reviewed labs and imaging findings, discussed the case with the resident(s), and reviewed entered orders. I agree with the plan of care as outlined in this note, with these additional summaries/recommendations: Patient seen at bedside. No acute overnight events. Patient states he feels a little bit better today. Patient admitted for sepsis secondary to emphysematous cystitis plus bacterial pneumonia. Evidence of endorgan damage with FREDO. Urology consulted in the emergency department and following. We will consult infectious disease for additional recommendations on IV antibiotics. Currently patient is on Zosyn which we will continue. Blood and urine cultures taken. Urine culture preliminarily showing gram-negative rods. Duenas catheter was also placed in the ED with 1.5 L urine return indicating urinary retention most likely from prostate. We will keep Duenas catheter in for now and appreciate urology recs. Patient also has history of stage IV prostate cancer with mets to lung and bone. Diagnosed in 2022. 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 Patient was reportedly ambulatory for a few days prior to admission and is now unable to ambulate. CT lumbar spine showed prominent tumor bone destruction involving right sacral wings and posterior right iliac bone with soft tissue tumor mass extending presacral on the right side up to the 32 mm. We will order MRI thoracic and lumbar spine to rule out spinal cord involvement. Continue home xtandi. Oncology consulted, recommendations appreciated. Patient has history of hypercalcemia related to malignancy which has downtrended today. Continue IV fluids for now. Patient may resume denosumab outpatient. Patient found to have acute kidney injury on admission most likely secondary to prerenal azotemia in the setting of sepsis. Renal function improving with IV fluids. Avoid nephrotoxic agents and renally dose medications. Hyponatremia on admission improved to 138 most likely related to dehydration. Patient was also noted to have hemoglobin of 7.3 on admission and received 1 unit PRBCs. No evidence of acute bleeding at this time although pending FOBT. Patient and updated on the plan and in agreement. All questions answered to satisfaction. Repeat hematology and chemistry panel in AM. Dr. Dai MD
[2024-11-01] MEDS: XTANDI 40 MG PO (10:41)
--- NOTE | 2024-11-01 10:43 | PC.SS ---
Update: Patient receiving Echo today.
[2024-11-01 11:12] LABS: Path Review Blood Smear Sent to Pathologist
--- NOTE | 2024-11-01 11:16 | PC.SS ---
NEURODIAGNOSTIC TECHNOLOGIST conducted bedside contact with the patient conduct initial assessment and to discuss discharge planning.? At bedside with patient was spouse, Mary Gregory .? Information obtained from patient?s spouse.? Patient resides at home with spouse.? Patient utilizes a walker to assist with ambulation.? Patient does not utilize home oxygen.? Patient currently on 5L nasal cannula.? Patient possesses the ability to complete ADL?s independently.? Patient?s medical surrogate decision maker is spouse, Mary Gregory.? Patient?s PCP is Dr. Catarino Wells.? Patient does not participate with dialysis.? Patient?s oncologist is Dr. Arcos.? Patient possesses stage IV prostate cancer.? Request for wheelchair submitted.? NEURODIAGNOSTIC TECHNOLOGIST informed patient and spouse that referral would be generated.? PT evaluation pending, documentation required to justify If home oxygen required referral would also be initiated.? No preferred DME vendor identified.? Plan is for the patient to return home at the time of discharge.? Family will provide transportation on behalf of the patient. No discharge needs identified by the patient.? No further intervention required at this time, social service assistant will be available to address any further concerns.? Next of Kin: Mary Colt D/C Plan: Home
[2024-11-01 11:27] LABS: Troponin I 0.396 ng/mL (0.0-0.045)
--- NOTE | 2024-11-01 11:42 | PD.ONCCONS ---
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 Noted recently to have advanced prostate CA with PSA 2896 and alk phos is [address] scan 08/03/2022 showing widespread bony mets with chest and abdominal mets. Biopsy of the prostate revealed Tonia grade 9 group 5 CA of prostate involving right and left. Patient was treated with Lupron and is Mat might and then denosumab with excellent response with PSA dropping from 2826 to less than 1 on 03/19/2023. Recent months PSA had started to climb again 4.92 on 10/04/2024. He was noticed to be quite weak with shortness of breath following a fall, and upon admission CT of the chest 10/31/2024 numerous bilateral metastatic nodules significant pneumonia right base widespread osteoblastic met disease osteolytic bone destruction T11. L-spine CT prominent tumor destruction right sacral wings right iliac bone with soft tissue tumor mass extending to presacral right side. Abdominal pelvic CT revealed destruction of the right sacrum and right iliac bone with soft tissue presacral tumor mass. A.m. labs 10.4 WBC hemoglobin 9.2 hematocrit 27.2 creatinine 1.6 BUN 48. UA revealed numerous white cells. Patient now referred for oncological consultation. cc:: cc: Matti Torres DO Past Medical History Family History OTHER FAMILY HX: History of prostate cancer in family and CVA in father. Past Medical History Comments PMH COMMENT: History of stage IV oral cancer treated with prior treatment surgery and radiation no sign of recurrence 20 years ago. Hypertension history of prostate CA stage IV past 3 years Meds Home Medications and Allergies Home Medications ?Medication ?Instructions ?Recorded ?Confirmed ?Type enzalutamide 40 mg tablet (Xtandi) 160 mg PO Q24H 11/01/24 11/01/24 History losartan 50 mg tablet 50 mg PO QDAY 11/01/24 11/01/24 History Allergies Allergy/AdvReac Type Severity Reaction Status Date / Time No Known Drug Allergies Allergy Verified 11/26/22 09:52 Exam Vital Signs Temp Pulse Resp BP Pulse Ox O2 Del Method O2 Flow Rate 99.0 F 106 H 16 112/54 L 95 Nasal Cannula 5 11/01/24 08:00 11/01/24 08:00 11/01/24 08:00 11/01/24 08:00 11/01/24 08:00 11/01/24 08:00 11/01/24 08:00 Narrative Exam Appears quite tired but in no acute distress Results Labs 11/01/24 05:10 11/01/24 05:10 Labs: Short CBC 10/31/24 11/01/24 Range/Units 12:40 05:10 WBC 11.3 H 10.4 (3.8-10.6) Thou/mm3 Hgb 7.3 L 9.2 L D (13.5-16.0) g/dL Hct 20.4 L* 27.2 L (41.0-53.0) % Plt Count 181 D 148 D (140-440) Thou/mm3 BMP 10/31/24 11/01/24 12:40 05:10 Sodium 124 L 130 L Potassium 4.6 4.8 Chloride 93 L 101 Carbon Dioxide 21.5 19.9 L BUN 54 H 48 H Creatinine 1.9 H 1.6 H Glucose 168 H 105 D Calcium 11.1 H 10.2 Cardiac Enzymes 10/31/24 11/01/24 11/01/24 Range/Units 12:40 01:00 05:10 Troponin I 0.285 H* Cancelled 0.363 H* (0.0-0.045) ng/mL 11/01/24 Range/Units 10:35 Troponin I 0.396 H* (0.0-0.045) ng/mL Liver Function 10/31/24 11/01/24 Range/Units 12:40 05:10 Total Bilirubin 0.6 0.6 (0.3-1.2) mg/dL AST 37 H 40 H (0-34) U/L ALT 23 27 (10-49) U/L Alkaline Phosphatase 73 72 (46-116) U/L Albumin 3.5 3.3 L (3.4-4.8) gm/dL Urine 10/31/24 Range/Units 15:14 Urine Color Yellow (Lt Yel-Yel) Urine Clarity Turbid A (Clear/Hazy) Urine pH 5.5 (5.0-7.0) Ur Specific [place] 1.013 (1.001-1.035) Urine Protein Trace (Neg - Trace) Urine Glucose (UA) Negative (Negative) ABG Interpretation ABG results: 10/31/24 11:59 ABG pH 7.54 H ABG pCO2 24 L ABG pO2 60 L ABG HCO3 21 ABG O2 Saturation 92 ABG Base Excess -2 Assessment and Plan Additional Assessment & Plan Additional Plan: 1. Stage IV prostate CA with widespread lung bone involvement since 2022. History of stage IV oral cancer 20 years ago now cured. 2. Good response with hormone manipulation Lupron enzalutamide PSA falling from several thousand to less than one a year ago. 3. Patient is clearly progressing with recent rise in PSA with widespread bone destruction particular in lumbar thoracic area along with increasing lung mets with respiratory symptoms. 4. Would be helpful to get MRI of thoracolumbar spine to make sure there is no spinal cord involvement associated with the severe bone destruction. Spoke with MRI techs who felt that with lower dose of contrast material that contrast MRI can be obtained 5. Patient obviously faces guarded prognosis, but was doing quite well and ambulatory just a few days ago.
--- NOTE | 2024-11-01 14:16 | PC.SS ---
Rounding Note: Patient receiving IV antibiotics. Cultures are pending. Dr. Arcos consulting. Urology is following.
--- NOTE | 2024-11-01 15:18 | ESPR_ITS ---
Subjective Subjective Interval history: unusual case. hx does not suggest uti, but that is all we have so far Exam Vital Signs Temp Pulse Resp BP Pulse Ox O2 Del Method O2 Flow Rate 97.8 F 96 26 H 125/61 97 Nasal Cannula 5 11/01/24 12:00 11/01/24 12:00 11/01/24 12:00 11/01/24 12:00 11/01/24 12:00 11/01/24 12:00 11/01/24 12:00 Narrative Exam awake alert. speaks for him. apparently has advanced metastatic disease. Objective - Internal Medicine Labs 11/01/24 05:10 11/01/24 05:10 Labs: Laboratory Results - last 24 hr 10/31/24 10/31/24 10/31/24 15:14 16:01 23:10 WBC RBC Hgb Hct MCV MCH MCHC RDW Std Deviation Plt Count Neut % (Auto) Lymph % (Auto) Graves % (Auto) Eos % (Auto) Baso % (Auto) Neut # (Auto) Lymph # (Auto) Graves # (Auto) Eos # (Auto) Baso # (Auto) Immature Gran # (Auto) Absolute Nucleated RBC Immature Gran % Nucleated RBC % Smear Path Review PT INR APTT Sodium Potassium Chloride Carbon Dioxide Anion Gap BUN Creatinine Estim Creat Clear Calc eGFR BUN/Creatinine Ratio Glucose Estimated Ave Glu mg/dL Hemoglobin A1c Calculated Osmolality Calcium Corrected Calcium Phosphorus Magnesium Iron TIBC Iron Saturation Unsat Iron Binding Total Bilirubin AST ALT Alkaline Phosphatase Troponin I Total Protein Albumin Globulin Albumin/Globulin Ratio Triglycerides Cholesterol LDL Cholesterol, Calc HDL Cholesterol Cholesterol/HDL Ratio Ur Collection Type Clean Catch Urine Color Yellow Urine Clarity Turbid A Urine pH 5.5 Ur Specific Alexander 1.013 Urine Protein Trace Urine Glucose (UA) Negative Urine Ketones Negative Urine Blood 2+ A Urine Nitrite Negative Urine Bilirubin Negative Urine Urobilinogen (Auto) Negative Ur Leukocyte Esterase Positive Urine RBC 28 H Urine WBC 53 H Ur Squamous Epith Cells 0 Ur Transition Epith Cell 1 Urine Bacteria 4+ A Ur Culture Indicated? Yes Ur Random Creatinine 49 Ur Random Sodium 22.2 Ur Random Potassium 40 Ur Random Chloride 25.4 L Blood Type O Positive Antibody Screen NEGATIVE Crossmatch See Detail Blood Bank Wristband ID Yes 11/01/24 11/01/24 11/01/24 01:00 05:10 10:35 WBC 10.4 RBC 3.12 L Hgb 9.2 L D Hct 27.2 L MCV 87 MCH 29.5 MCHC 33.8 RDW Std Deviation 45.7 H Plt Count 148 D Neut % (Auto) 91 H Lymph % (Auto) 2 L Graves % (Auto) 6 Eos % (Auto) 0 Baso % (Auto) 0 Neut # (Auto) 9.4 H Lymph # (Auto) 0.2 L Graves # (Auto) 0.6 Eos # (Auto) 0.0 Baso # (Auto) 0.0 Immature Gran # (Auto) 0.11 H Absolute Nucleated RBC 0.04 H Immature Gran % 1 H Nucleated RBC % 0 Smear Path Review Sent to Pathologist PT 12.4 H INR 1.1 APTT 30.5 Sodium 130 L Potassium 4.8 Chloride 101 Carbon Dioxide 19.9 L Anion Gap 9 BUN 48 H Creatinine 1.6 H Estim Creat Clear Calc 38.0 L eGFR 44 L BUN/Creatinine Ratio 30 H Glucose [address] Glu mg/dL 128 Hemoglobin A1c 6.1 H Calculated Osmolality 273 L Calcium 10.2 Corrected Calcium 10.8 H Phosphorus 2.6 Magnesium 1.8 Iron 18 L TIBC 210 L Iron Saturation 8 L Unsat Iron Binding 192 L Total Bilirubin 0.6 AST 40 H ALT 27 Alkaline Phosphatase 72 Troponin I Cancelled 0.363 H* 0.396 H* Total Protein 5.2 L Albumin 3.3 L Globulin 1.9 L Albumin/Globulin Ratio 1.7 Triglycerides 109 Cholesterol 84 L LDL Cholesterol, Calc 24 HDL Cholesterol 38 L Cholesterol/HDL Ratio 2.2 L Ur Collection Type Urine Color Urine Clarity Urine pH Ur Specific Alexander Urine Protein Urine Glucose (UA) Urine Ketones Urine Blood Urine Nitrite Urine Bilirubin Urine Urobilinogen (Auto) Ur Leukocyte Esterase Urine RBC Urine WBC Ur Squamous Epith Cells Ur Transition Epith Cell Urine Bacteria Ur Culture Indicated? Ur Random Creatinine Ur Random Sodium Ur Random Potassium Ur Random Chloride Blood Type Antibody Screen Crossmatch Blood Bank Wristband ID ABG Interpretation ABG results: 10/31/24 11:59 ABG pH 7.54 H ABG pCO2 24 L ABG pO2 60 L ABG HCO3 21 ABG O2 Saturation 92 ABG Base Excess -2 Assessment & Plan A&P Narrative zosyn broad, but ok pending more data. was on vanco but it was stopped as no gpc noted. may have asb, but ok to treat urine. will look at po rx as early as tomorrow if bc remain neg and he remains afebrile. you can change to any agent that shows S on the panel. Time Spent With Patient Time: Total time spent is greater than 50% in coordination of care (as documented) at patient's floor/unit and/or counseling patient:
[2024-11-01 17:15] LABS: Troponin I 0.302 ng/mL (0.0-0.045)
--- NOTE | 2024-11-01 17:43 | ESCONSULT_ITS ---
RE: CONNIE JEROME : 1950 DATE OF CONSULTATION: 11/01/2024 REFERRING PHYSICIAN: Dr. Dyer. REASON FOR CONSULTATION: UTI. HISTORY OF PRESENT ILLNESS: The patient is an unfortunate 74-year-old man. He is a poor historian. His offers much of the history. He apparently has metastatic prostate cancer for which he is followed by Oncology. He had a prior history of metastatic oral cancer, which responded well to treatment a number of years ago. Now he has prostate cancer and apparently he had some dark urine, not usually a criteria for culture. It was cultured and urinalysis was abnormal. It had 53 white cells but 28 or so red cells and one transitional cell. He has a history of hypertension, which is new with some generalized weakness. Prior he was diagnosed with prostate cancer and weight loss. His surgical history includes primarily other procedures for other health problems. ALLERGIES: NONE. IMMUNIZATIONS: No immunizations. Last tetanus is unknown. He denies prior pneumococcal vaccination. he may have had2 covid vaccines. FAMILY HISTORY: Notable for his father having prostate cancer. SOCIAL HISTORY: He is to his for 25 years. They have five children between them. She has four and he has one. They have been together for 25 years. PHYSICAL EXAMINATION: On exam, the patient is alert and cooperative but is a poor historian. History is obtained mostly with his . He is on some oxygen at 4 to 5 liters per minute. Prior to that, he was not on oxygen. He is not in any distress, so I am not quite sure why he is on so much oxygen, but he apparently does need it, so if that persists, then he may have to either go home on oxygen or stay until the oxygen requirement declines. Imaging suggests metastatic disease in the lungs. He has no respiratory symptoms. He has no edema. Neurologic exam is grossly normal. ASSESSMENT: 1. Hypoxic respiratory failure 2. Metastatic cancer. 3. Acute kidney injury, improved. 4. New onset hypertension. 5. Generalized weakness. 6. Urinary tract infection versus ASB RECOMMENDATIONS: We will go ahead and treat the UTI, but normally I would try him on oral therapy. Empiric Zosyn is fine for now, but hopefully, we can switch it to an oral agent as early as tomorrow. If blood sugars remain negative, he can probably go home as he has been afebrile throughout this course. I will check on him superficially on Wednesday. If he stays, and sensitivity is shown on a panel tomorrow in the urine, you may switch to any agent that is sensitive to finish a total of 7 days of treatment. There is no need for longer treatment. His overall prognosis is guarded. DT: 15:29:17 TT: 16:43:00 Ref: [id number] - TID: [id number] MTDD
--- NOTE | 2024-11-01 18:30 | ESCONSULT_ITS ---
RE: CONNIE JEROME : 1950 DATE OF CONSULTATION: 11/01/2024 The patient is seen, chart is reviewed. Unable to get any history from the patient. His was at his bedside. REASON FOR CONSULTATION: 1. Metastatic prostate cancer, on injection Lupron and Xtandi, seeing Dr. Belcher, oncology. 2. Urinary retention. 3. Urinary tract infection. COMORBID CONDITIONS: 1. Metastatic prostate cancer. No radiation. On injection Lupron and Xtandi 160 mg once a day. 2. Complicated urinary tract infection with emphysematous cystitis. 3. Acute kidney injury, hypoosmolar, hypovolemic, hyponatremia. 4. Hypochloridemia. 5. Chronic normocytic anemia. 6. Hypertension. HISTORY OF PRESENT ILLNESS: This is a 74-year-old gentleman. He has metastatic prostate cancer. He is seeing Dr. Belcher, who is the oncologist. The patient did not receive any radiation treatment and he had no surgery done for his prostate cancer. The patient recently had been feeling weak. Denies any history of urinary problems. He had slow urinary stream and attributed it to sciatica. He has seen PCP and was given steroids. There is no history of chest pain or shortness of breath. No history of gross hematuria. In the emergency room, the patient has complete evaluation. His temperature is 97, heart rate is 108, respiratory rate is 19, blood pressure was 99/54, O2 saturation 96% on 4 liter nasal cannula. A serum sodium was 124, potassium 4.6, creatinine is 1.9 and BUN is 54. The patient was started on Rocephin and vancomycin. The patient had placement of Wells catheter with the output of 1500 mL. PAST MEDICAL HISTORY: The patient had a radical right neck dissection in 2003 for carcinoma. ALLERGIES: NO KNOWN ALLERGY. NARRATIVE REVIEW OF THE SYSTEM: Constitutional: No fever, chills, or fatigue. HEENT: No eye pain or vision loss. Cardiovascular: No chest pain or palpitation. Respiration: No shortness of breath. GI: No abdominal pain. PHYSICAL EXAMINATION: General: On examination, the patient is lying comfortably in the bed. He has indwelling Wells catheter. IMPRESSION: 1. Metastatic prostate cancer, on Xtandi and injection Lupron. 2. Urinary retention status post placement of catheter. 3. Complicated urinary tract infection. RECOMMENDATIONS: 1. Urine for culture and sensitivity. 2. Continue with antibiotics. 3. Give trial of voiding after 10 days. It takes time for decompensated bladder to get decompensated and also his kidney function should improve. The patient can follow up with me in my office. Dr. Arcos already has ordered an MRI. All above issues were discussed with the patient's . I answered all her questions to her satisfaction. She verbalized understanding. DT: 16:28:39 TT: 18:28:00 Ref: [id number] - TID: [id number]
--- NOTE | 2024-11-01 19:11 | ESPR_ITS ---
<Statement entered by Daron Darby MD - 11/03/24 09:19> pt seen with resident. all findings confirmed. see additional notes for details Documentation for date of: 11/01/24 Subjective Subjective Interval history: 74 yo male with PMH of prostate cancer and hypertension who presented due to progressive weakness and falls. Patient was found to have a UTI, as evidenced on UA and CT. Patient empircally started on Zosyn, pending results of BC and urine cultures. ID consulted Exam Vital Signs Temp Pulse Resp BP Pulse Ox O2 Del Method O2 Flow Rate 98.0 F 98 24 H 123/54 L 96 Nasal Cannula 5 11/01/24 16:00 11/01/24 16:00 11/01/24 16:00 11/01/24 16:00 11/01/24 16:00 11/01/24 16:00 11/01/24 16:00 Objective Labs 11/01/24 05:10 11/01/24 05:10 Labs: Laboratory Results - last 24 hr 10/31/24 10/31/24 11/01/24 16:01 23:10 01:00 WBC RBC Hgb Hct MCV MCH MCHC RDW Std Deviation Plt Count Neut % (Auto) Lymph % (Auto) Motley % (Auto) Eos % (Auto) Baso % (Auto) Neut # (Auto) Lymph # (Auto) Motley # (Auto) Eos # (Auto) Baso # (Auto) Immature Gran # (Auto) Absolute Nucleated RBC Immature Gran % Nucleated RBC % Smear Path Review PT INR APTT Sodium Potassium Chloride Carbon Dioxide Anion Gap BUN Creatinine Estim Creat Clear Calc eGFR BUN/Creatinine Ratio Glucose Estimated Ave Glu mg/dL Hemoglobin A1c Calculated Osmolality Calcium Corrected Calcium Phosphorus Magnesium Iron TIBC Iron Saturation Unsat Iron Binding Total Bilirubin AST ALT Alkaline Phosphatase Troponin I Cancelled Total Protein Albumin Globulin Albumin/Globulin Ratio Triglycerides Cholesterol LDL Cholesterol, Calc HDL Cholesterol Cholesterol/HDL Ratio Ur Random Creatinine 49 Ur Random Sodium 22.2 Ur Random Potassium 40 Ur Random Chloride 25.4 L Blood Type O Positive Antibody Screen NEGATIVE Crossmatch See Detail Blood Bank Wristband ID Yes 11/01/24 11/01/24 11/01/24 05:10 10:35 16:21 WBC 10.4 RBC 3.12 L Hgb 9.2 L D Hct 27.2 L MCV 87 MCH 29.5 MCHC 33.8 RDW Std Deviation 45.7 H Plt Count 148 D Neut % (Auto) 91 H Lymph % (Auto) 2 L Motley % (Auto) 6 Eos % (Auto) 0 Baso % (Auto) 0 Neut # (Auto) 9.4 H Lymph # (Auto) 0.2 L Motley # (Auto) 0.6 Eos # (Auto) 0.0 Baso # (Auto) 0.0 Immature Gran # (Auto) 0.11 H Absolute Nucleated RBC 0.04 H Immature Gran % 1 H Nucleated RBC % 0 Smear Path Review Sent to Pathologist PT 12.4 H INR 1.1 APTT 30.5 Sodium 130 L Potassium 4.8 Chloride 101 Carbon Dioxide 19.9 L Anion Gap 9 BUN 48 H Creatinine 1.6 H Estim Creat Clear Calc 38.0 L eGFR 44 L BUN/Creatinine Ratio 30 H Glucose [address] Glu mg/dL 128 Hemoglobin A1c 6.1 H Calculated Osmolality 273 L Calcium 10.2 Corrected Calcium 10.8 H Phosphorus 2.6 Magnesium 1.8 Iron 18 L TIBC 210 L Iron Saturation 8 L Unsat Iron Binding 192 L Total Bilirubin 0.6 AST 40 H ALT 27 Alkaline Phosphatase 72 Troponin I 0.363 H* 0.396 H* 0.302 H* Total Protein 5.2 L Albumin 3.3 L Globulin 1.9 L Albumin/Globulin Ratio 1.7 Triglycerides 109 Cholesterol 84 L LDL Cholesterol, Calc 24 HDL Cholesterol 38 L Cholesterol/HDL Ratio 2.2 L Ur Random Creatinine Ur Random Sodium Ur Random Potassium Ur Random Chloride Blood Type Antibody Screen Crossmatch Blood Bank Wristband ID ABG Interpretation ABG results: 10/31/24 11:59 ABG pH 7.54 H ABG pCO2 24 L ABG pO2 60 L ABG HCO3 21 ABG O2 Saturation 92 ABG Base Excess -2 Quality Measures Quality Measures none Advance care planning discussed with:: spouse Assessment & Plan Assessment Current Active Medications: Generic Name Dose Route Start Last Admin Trade Name Freq PRN Reason Stop Dose Admin Acetaminophen 650 mg 11/01/24 08:44 Acetaminophen 325 Mg Tablet PO 12/01/24 08:43 Q4HR PRN FEVER >101 Hydrocodone Bitart/Acetaminophen 1 tab 11/01/24 08:45 Hydrocodone/Apap 5/325 Tablet PO 11/06/24 08:05 Q6HR PRN PAIN SCALE 4-10(Mod-Sev Xtandi (Enzalutamide 0 ea 11/01/24 09:30 11/01/24 10:41 ) 40 Mg Tablets PO 12/01/24 09:29 4 tablet DAILY STORM Administration Heparin Sodium (Porcine) 5,000 unit 11/01/24 21:00 Heparin Sod Inj 5000 Unit/Ml Vial SC 11/15/24 20:59 Q12HR STORM Sodium Chloride 1,000 mls @ 120 mls/hr 10/31/24 21:00 11/01/24 17:51 Ns IV 11/30/24 20:59 120 mls/hr .Q8H20M STORM Administration Piperacillin Sod/Tazobactam 50 mls @ 12.5 mls/hr 11/01/24 06:00 11/01/24 13:15 Sod 3.375 gm/ Sodium Chloride IV 11/08/24 05:59 12.5 mls/hr Q8HR STORM Administration Home Medication- 160 mg 11/01/24 09:00 11/01/24 10:38 Please Speak With PO 12/01/24 08:59 Not Given Patient Caregiver To DAILY STORM Have Rx Brought To [facility] Pantoprazole Sodium 40 mg 10/31/24 21:00 11/01/24 09:27 Pantoprazole 40 Mg Tablet PO 11/30/24 20:59 40 mg QDAY STORM Administration Plan 74 yo male with PMH of prostate cancer and hypertension who presented due to progressive weakness and falls. Patient was found to have a UTI, as evidenced on UA and CT. Patient empircally started on Zosyn, pending results of BC and urine cultures. ID consulted #Sepsis due to #Urinary tract infection -Patient met sepsis criteria on admission: Leukocytosis, tachycardia, and source (urinary) -Has remained afebrile since admission -UA: Bacteria 4+, WBC, RBC and +leuk esterase -CT: cystitis pattern -Currently on Zosyn, recommend to swithc to oral abx if cultures available tomorrow. Patient's care discussed with attending physician, Dr Wilner Goldstein MD PGY3
[2024-11-01] MEDS: HEPARIN SOD INJ 5000 UNIT/ML VIAL SC (20:41)
--- NOTE | 2024-11-01 22:48 | ECHO_ITS ---
Transthoracic Echo Report Ht (in): 68 Wt (lb): 180 Exam Location: [facility] Status: Inpatient Completion Manager: GILLIAN Montaño^^^^ Indications: Procedure Performed: BP: 144 / 81 HR: 97 Technical Quality: Very technically difficult study MEASUREMENTS (Male / Female) Normal Values 2D ECHO LV Diastolic Diameter PLAX 3.8 cm 4.2 - 5.9 / 3.9 - 5.3 cm LV Systolic Diameter PLAX 2.7 cm IVS Diastolic Thickness 0.7 cm 0.6 - 1.0 / 0.6 - 0.9 cm LVPW Diastolic Thickness 0.8 cm 0.6 - 1.0 / 0.6 - 0.9 cm LV Relative Wall Thickness 0.4 LVOT Diameter 1.6 cm Aortic Root Diameter 3.3 cm LA Systolic Diameter LX 3.0 cm 3.0 - 4.0 / 2.7 - 3.8 cm DOPPLER AV Peak Velocity 145.0 cm/s AV Peak Gradient 8.4 mmHg AV Mean Gradient 5.0 mmHg AV Velocity Time Integral 25.4 cm LVOT Peak Velocity 115.0 cm/s LVOT Peak Gradient 5.3 mmHg LVOT Velocity Time Integral 22.5 cm LVOT Cardiac Index 2198.8 cm?/min?m? AV Area Cont Eq vti 1.8 cm? AV Area Cont Eq pk 1.6 cm? MV Area PHT 2.5 cm? MR Peak Velocity 333.0 cm/s MR Peak Gradient 44.4 mmHg Mitral E Point Velocity 52.8 cm/s Mitral A Point Velocity 92.9 cm/s Mitral E to A Ratio 0.6 LV E' Lateral Velocity 18.4 cm/s Mitral E to LV E' Lateral Ratio 2.9 LV E' Septal Velocity 8.7 cm/s Mitral E to LV E' Septal Ratio 6.0 TR Peak Velocity 223.5 cm/s TR Peak Gradient 20.0 mmHg FINDINGS Left Ventricle Normal left ventricular size, wall thickness, systolic function with no obvious regional wall motion abnormalities. There is grade I diastolic dysfunction of the left ventricle (impaired relaxation pattern). The left ventricular ejection fraction is normal, estimated at 55-60%. Right Ventricle The right ventricle is normal in size and systolic function. The estimated right ventricular systolic pressure, 22 mmHg. Left Atrium The left atrium is normal by two-dimensional, color flow and Doppler imaging with no structural abnormalities, no thrombus formation present. Right Atrium The right atrium is normal by two-dimensional imaging, color flow and Doppler imaging with no structural abnormalities, no thrombus formation present. Atrial Septum The interatrial septum appears normal with no evidence of a shunt. Aorta The aorta is normal by two-dimensional, color flow and Doppler interrogation. Mitral Valve Mild mitral annular calcification. Mild mitral regurgitation. Aortic Valve The aortic valve is trileaflet and normal by two-dimensional, color flow and Doppler interrogation. There is no significant aortic valve regurgitation. Tricuspid Valve There is mild tricuspid valve regurgitation. Pulmonic Valve Trivial pulmonic valve regurgitation. Vessels The pulmonary artery appears normal. The inferior vena cava pulmonary and hepatic veins appear normal. Pericardium The pericardium is normal by two-dimensional imaging. There is no significant pericardial effusion. CONCLUSIONS Indication: Shortness of breath and elevated troponin. Normal LV size and function with an EF of 55 to 60%. Diastolic dysfunction stage I. Normal RV size and function. Normal RVSP of 25 mmHg. Mild MAC. Trace MR and mild TR. Oziel Bai (Electronically Signed) Final Date: 01 November 2024 23:27
[2024-11-01 23:03] LABS: Troponin I 0.355 ng/mL (0.0-0.045)
[2024-11-02] VITALS: BP 131/91; PULSE 96; PULSE 99; RESP 21; TEMP 36.8; O2SAT 100
--- NOTE | 2024-11-02 | XR_ITS ---
Examination: MRI thoracic spine with intravenous contrast TECHNIQUE: Multiple axial sagittal MR thoracic spine images post intravenous administration 16 cc gadolinium Exam date and time: 2024 1239 hours INDICATIONS: Prostate carcinoma diagnosis, lower back pain mid back pain weakness not able to walk beginning 4 days ago FINDINGS: Adequate alignment thoracic vertebral bodies on the lateral view Chronic compressions T11, T10 T5 T3, T2 Mild abnormal enhancement T11, T5 vertebral body No enhancing epidural tumor impinging upon the thoracic cord No localized enlargement thoracic cord, IMPRESSION: Suspicious for osseous metastatic disease C5, T11 No abnormal epidural enhancing tumor impinging upon the thoracic cord
--- NOTE | 2024-11-02 | XR_ITS ---
Examination: MRI lumbar spine with intravenous contrast TECHNIQUE: Multiple axial sagittal MR images lumbar spine post intravenous administration 16 cc gadolinium Exam date and time: 2024 1239 hours INDICATIONS: Prostate carcinoma diagnosis, unable to walk the last 4 days FINDINGS: Abnormal enhancement involving the right first second and third sacral wings as well as the posterior right iliac bone with soft tissue enhancing tumor The soft tissue tumor mass appears to impinge upon the right nerve roots at the S1-S2 level Abnormal areas of enhancement involving L3, L2, L1,. No enhancing epidural tumor posterior to the lumbar vertebral bodies impinging upon the conus medullaris or cauda equina IMPRESSION: Extensive enhancing soft tissue tumor mass destroying the right first second and third sacral wings as well as the posterior right iliac bone Osseous metastatic disease involving lumbar vertebral bodies No epidural tumor at the lumbar level impinging upon the conus medullaris or cauda equina
[2024-11-02 04:00] VITALS: BP 118/77; PULSE 106; PULSE 112; RESP 23; TEMP 36.3; O2SAT 96
[2024-11-02] MEDS: SODIUM CHLORIDE 0.9% 1000 ML 1,000 ML 120 ML IV (05:17)
[2024-11-02] MEDS: PIPER/TAZO INJ 3.375 GM in SODIUM CHLORIDE 0.9% (Popper) 50 ML IV (05:17)
[2024-11-02 06:00] VITALS: BMI 28.0
[2024-11-02 06:00] LABS: Basophils % (Auto) 0 % (0-2.5); Eosinophils # (Auto) 0.1 Thou/mm3 (0.0-0.5); Eosinophils % (Auto) 1 % (0-10); Hematocrit 24.9 % (41.0-53.0); Immature Granulocytes % (Auto) 2 % (0-0); Immature Granulocytes Auto 0.17 Thou/mm3 (0.00-0.00); Lymphocytes # (Auto) 0.4 Thou/mm3 (1.0-4.8); Lymphocytes % (Auto) 4 % (10-50); Mean Corpuscular HGB Conc 34.1 g/dl (31.0-37.0); Mean Corpuscular Hemoglobin 29.6 pg (25.0-35.0); Mean Corpuscular Volume 87 fL (80-100); Monocytes # (Auto) 0.6 Thou/mm3 (0.0-0.8); Monocytes % (Auto) 6 % (0-12); Neutrophils % (Auto) 87 % (37-80); Nucleated Red Blood Cell # 0.03 Thou/mm3 (0.00-0.00); Nucleated Red Blood Cell % 0 /100 WBC (0); Platelet Count 117 Thou/mm3 (140-440); RDW Standard Deviation 45.9 fL (35.1-43.9); Red Blood Count 2.87 Miln/mm3 (4.50-5.90); White Blood Count 9.2 Thou/mm3 (3.8-10.6)
[2024-11-02 06:11] LABS: Hemoglobin 8.5 g/dL (13.5-16.0)
[2024-11-02 06:27] LABS: Alanine Aminotransferase 28 U/L (10-49); Albumin/Globulin Ratio 1.6 (1.2-2.2); Alkaline Phosphatase 74 U/L (46-116); Anion Gap 9 (7-16); Aspartate Amino Transferase 33 U/L (0-34); BUN/Creatinine Ratio 32 Ratio (12-20); Bilirubin,Total 0.6 mg/dL (0.3-1.2); Blood Urea Nitrogen 35 mg/dL (9-23); Calcium 9.6 mg/dL (8.3-10.6); Calcium (Corrected) 10.4 mg/dL (8.5-10.1); Carbon Dioxide 18.9 mMol/L (20.0-31.0); Chloride 106 mMol/L (98-107); Creatinine (Component) 1.1 mg/dL (0.6-1.3); Estimated Creatinine Clearance 60.2 mL/min (>60); Globulin 1.9 gm/dL (2.3-3.5); Glucose 106 mg/dL (74-106); Osmolality,Calculated 276 (275-295); Sodium 134 mMol/L (136-145); Total Protein 4.9 gm/dL (5.7-8.2); eGFR > 60 See Note
--- NOTE | 2024-11-02 07:20 | PC.SS ---
Wheel Chairs Patients diagnosis creates mobility limitations that significantly impairs ability to participate in the patients activities of daily living either in their entirety, or in a reasonable time frame in the home and the patients mobility limitations can not be sufficiently resolved with an appropriately fitted cane or walker. Also the use of a manual wheelchair will sufficiently improve patient?s ability to participate in the activities of daily living in the home and the patient is willing to use the wheelchair that is provided in the home. The patient has some one in the home that is available, willing and able to provide assistance with the wheelchair.
[2024-11-02 08:00] VITALS: BP 121/62; PULSE 101; PULSE 104; RESP 18; TEMP 36.7; O2SAT 93
--- NOTE | 2024-11-02 08:29 | ESPR_ITS ---
Documentation for date of: 11/02/24 Subjective Subjective Interval history: Patient seen and examined at bedside, significant improvement of symptoms noted today, is more awake alert complains of shortness of breath, troponins downtrended, CXR showed worsening of Pneumonia, antibiotic therapy changed by primary team, otherwise looks more alert, Oncology following the patient. Scheduled for MR Spine. ECHO shows Normal LV size and function with an EF of 55 to 60%. Diastolic dysfunction stage I. Normal RV size and function. Normal RVSP of 25 mmHg. Mild MAC. Trace MR and mild TR. Exam Vital Signs Temp Pulse Resp BP Pulse Ox O2 Del Method O2 Flow Rate 97.4 F 106 H 23 H 118/77 96 Nasal Cannula 5 11/02/24 04:00 11/02/24 04:00 11/02/24 04:00 11/02/24 04:00 11/02/24 04:00 11/02/24 04:00 11/02/24 04:00 Narrative Exam Physical Exam General: Awake and in no acute distress. Conversational and non-toxic appearing. HEENT: Normocephalic, atraumatic, mucous membranes moist. Heart: Regular rate and rhythm, no murmurs. Lungs: B/L crackles. Abdomen: Soft, nondistended, nontender, positive bowel sounds. ?No guarding or rebound tenderness. Neurologic: Alert and oriented x3, no gross neurological deficit, and patient able to move all 4 extremities. Extremities: Right lower extremity edema 1+, right lower extremity>> left lower extremity Skin: No rash or ecchymoses. Objective Labs 11/02/24 04:48 11/02/24 04:48 Labs: Laboratory Results - last 24 hr 11/01/24 11/01/24 11/01/24 05:10 10:35 16:21 WBC RBC Hgb Hct MCV MCH MCHC RDW Std Deviation Plt Count Neut % (Auto) Lymph % (Auto) [place] % (Auto) Eos % (Auto) Baso % (Auto) Neut # (Auto) Lymph # (Auto) [place] # (Auto) Eos # (Auto) Baso # (Auto) Immature Gran # (Auto) Absolute Nucleated RBC Immature Gran % Nucleated RBC % Smear Path Review Sent to Pathologist Sodium Potassium Chloride Carbon Dioxide Anion Gap BUN Creatinine Estim Creat Clear Calc eGFR BUN/Creatinine Ratio Glucose Calculated Osmolality Calcium Corrected Calcium Total Bilirubin AST ALT Alkaline Phosphatase Troponin I 0.396 H* 0.302 H* Total Protein Albumin Globulin Albumin/Globulin Ratio 11/01/24 11/02/24 22:24 04:48 WBC 9.2 RBC 2.87 L Hgb 8.5 L Hct 24.9 L MCV 87 MCH 29.6 MCHC 34.1 RDW Std Deviation 45.9 H Plt Count 117 L D Neut % (Auto) 87 H Lymph % (Auto) 4 L [place] % (Auto) 6 Eos % (Auto) 1 Baso % (Auto) 0 Neut # (Auto) 8.0 H Lymph # (Auto) 0.4 L [place] # (Auto) 0.6 Eos # (Auto) 0.1 Baso # (Auto) 0.0 Immature Gran # (Auto) 0.17 H Absolute Nucleated RBC 0.03 H Immature Gran % 2 H Nucleated RBC % 0 Smear Path Review Sodium 134 L Potassium 4.0 D Chloride 106 Carbon Dioxide 18.9 L Anion Gap 9 BUN 35 H Creatinine 1.1 D Estim Creat Clear Calc 60.2 L eGFR > 60 BUN/Creatinine Ratio 32 H Glucose 106 Calculated Osmolality 276 Calcium 9.6 Corrected Calcium 10.4 H Total Bilirubin 0.6 AST 33 ALT 28 Alkaline Phosphatase 74 Troponin I 0.355 H* Total Protein 4.9 L Albumin 3.0 L Globulin 1.9 L Albumin/Globulin Ratio 1.6 ABG Interpretation ABG results: 10/31/24 11:59 ABG pH 7.54 H ABG pCO2 24 L ABG pO2 60 L ABG HCO3 21 ABG O2 Saturation 92 ABG Base Excess -2 Quality Measures Quality Measures none Advance care planning discussed with:: patient Assessment & Plan Assessment Current Active Medications: Generic Name Dose Route Start Last Admin Trade Name Freq PRN Reason Stop Dose Admin Acetaminophen 650 mg 11/01/24 08:44 Acetaminophen 325 Mg Tablet PO 12/01/24 08:43 Q4HR PRN FEVER >101 Hydrocodone Bitart/Acetaminophen 1 tab 11/01/24 08:45 Hydrocodone/Apap 5/325 Tablet PO 11/06/24 08:05 Q6HR PRN PAIN SCALE 4-10(Mod-Sev Xtandi (Enzalutamide 0 ea 11/01/24 09:30 11/01/24 10:41 ) 40 Mg Tablets PO 12/01/24 09:29 4 tablet DAILY STORM Administration Heparin Sodium (Porcine) 5,000 unit 11/01/24 21:00 11/01/24 20:41 Heparin Sod Inj 5000 Unit/Ml Vial SC 11/15/24 20:59 5,000 unit Q12HR STORM Administration Sodium Chloride 1,000 mls @ 120 mls/hr 10/31/24 21:00 11/02/24 05:17 Ns IV 11/30/24 20:59 120 mls/hr .Q8H20M STORM Administration Piperacillin Sod/Tazobactam 50 mls @ 12.5 mls/hr 11/01/24 06:00 11/02/24 05:17 Sod 3.375 gm/ Sodium Chloride IV 11/08/24 05:59 12.5 mls/hr Q8HR STORM Administration Home Medication- 160 mg 11/01/24 09:00 11/01/24 10:38 Please Speak With PO 12/01/24 08:59 Not Given Patient Caregiver To DAILY STORM Have Rx Brought To [facility] Pantoprazole Sodium 40 mg 10/31/24 21:00 11/01/24 09:27 Pantoprazole 40 Mg Tablet PO 11/30/24 20:59 40 mg QDAY STORM Administration Plan Assessment and plan: Summary: Mr. 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 Cardiology consulted in the emergency department for elevated troponin. #NSTEMI type II secondary to demand ischemia #Shortness of breath Patient had elevated troponin 0.285 in the emergency department, denies any chest discomfort/chest pain, EKG showed sinus tachycardia rate 102 some Q waves in lead I and aVL. Patient likely has demand ischemia in setting of acute infection secondary to UTI/pneumonia. Patient shortness of breath is mostly secondary to the anemia with hemoglobin of 7.3 on presentation during this admission. Will need to rule out other causes including cardiac causes of shortness of breath at this time given the mildly elevated troponins. Hemoglobin A1c 6.1, cholesterol 84, LDL 24, TSH 3.58 Troponin 0.285?> 0.363 ?> 0.396 -> 0.302 TTE 11/01/2024: Normal LV size and function with an EF of 55 to 60%. Diastolic dysfunction stage I. Normal RV size and function. Normal RVSP of 25 mmHg. Mild MAC. Trace MR and mild TR. Recommendations: -Monitor for chest pain -Outpatient follow up post discharge in 1 week #Symptomatic normocytic normochromic anemia Patient reports symptoms of shortness of breath dizziness and lethargy recently, possible anemia of chronic disease as patient has malignancy, also on chemotherapy Baseline hemoglobin around 11, 7.3 today, was recently prescribed prednisone Patient will be transfused 1 unit PRBC as ordered in ED Iron panel shows iron 18 mcg/dL, TIBC 210 mcg/dL, iron saturation 8% unsat iron binding 192 Recommendations: -Patient's anemia is likely multifactorial, patient has low iron reserves will likely benefit from IV iron infusion -Recommend IV iron, ferric sod gluconate 125 mg for 5 days -Anemia workup, order iron panel, ferritin, reticulocyte count, B12, folate level, LDH, peripheral blood film -Patient was tachycardic and hypotensive on presentation, occult blood negative per ED physician, consider GI workup if acute decline in hemoglobin #Hypertension Was diagnosed with hypertension in 2023, currently on losartan 50 mg per medication review Blood pressure soft on presentation, continue to monitor blood pressure #Acute hypoxic respiratory failure secondary to #Community-acquired pneumonia versus healthcare associated pneumonia Patient not on any supplemental oxygen at home, currently on 4 L nasal cannula SpO2 more than 92 CTA chest suspicious for right lung base pneumonia Patient is currently on antibiotics #Acute kidney injury, improving #Urinary tract infection #Hypoosmolar hypochloremic hyponatremia, improving Patient does have history of prostate cancer, could be related to possible obstruction of some sort leading to UTI, urology consulted in ED recommended Wells catheter placement Urinalysis showed 53 white cells, +4 bacteria, plus leukocyte esterase 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, Wells catheter inserted which outputed 1500 cc immediately Patient had poor oral intake over the last week, BUN 54, creatinine 1.9, GFR 36 on presentation, patient was given 1 L NS in ED -Currently on maintenance fluids and antibiotics for urinary tract infection, pending urine culture #Hypercalcemia of malignancy Corrected calcium 11.5, patient is on denosumab per chart review Management as per primary team #Transaminitis AST 37, ALT 23 on presentation, continue to monitor #Stage IV castrate 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 Arcos and Dr. Belcher outpatient, currently on treatment with leuprolide, enzalutamide and denosumab per heme-onc note from July 2024 Xtandi continued by primary team Case discussed with Attending Dr. Bai. Zaina Virgen PGY1 Disclaimer: This note was dictated by speech recognition. Minor errors in fishing game warden may be present due to voice recognition software. Attending Provider Attestation/Addendum I have personally seen and examined the patient separately on the above date of service and discussed the plan of care with the resident. I reviewed the resident Dr. Zaina Virgen consultation progress note and agree with the resident findings and plan in the note above and have also edited the documentation to reflect my findings and plan. Oziel Bai M.D. Interventional Cardiology
[2024-11-02] MEDS: XTANDI 40 MG PO (08:58)
[2024-11-02] MEDS: HEPARIN SOD INJ 5000 UNIT/ML VIAL SC ×2 (08:59→20:08)
[2024-11-02] MEDS: PANTOPRAZOLE 40 MG TABLET PO (08:59)
--- NOTE | 2024-11-02 09:18 | PC.SS ---
Follow up note: PT pending. Pt will have MRI. Pt will d/c shelly. Pt is possible d/c to SNF.
[2024-11-02] MEDS: POLYETHYLENE GLYCOL 17 GM PACKET PO (10:40)
--- NOTE | 2024-11-02 11:02 | PC.SS ---
Addendum entered by Domonique Ellington 11/02/24 15:49: SS met with and provided her with [employer] which contains Kendal's phone#. confirmed she received call from [facility] regarding patient's wheelchair. Addendum entered by Domonique Ellington 11/02/24 15:25: SS called and spoke to Bipin from [facility] DME who confirmed they have received DME order for wheelchair and will they will contact for delivery. Addendum entered by Domonique Ellington 11/02/24 15:12: Transfer nurse, Damir is aware pt is requiring HH upon dc. Addendum entered by Domonique Ellington 11/02/24 11:31: SS has faxed DME order for wheelchair to [facility] (Kendaly is not available on [facility]). is aware Brett is contracted with patient's health insurance. Original Note: Follow up note: SS met with to discuss verbal dc options for home or SNF. refuses SNF. states family (herself, daughters, and grandsons) will help care for pt at home. is aware pt will d/c with folley catheter. is requesting Home Health Services and does not have preference. is aware [employer] is contracted with [facility] and is agreeable. is requesting a wheelchair.
[2024-11-02] MEDS: HYDROcodone/APAP 5/325 TABLET 1 TAB PO (11:34)
--- NOTE | 2024-11-02 11:39 | XR_ITS ---
Examination: AP chest single view Technique one AP portable upright chest single view Exam date and time: November 02, 2024 at 1158 hours Comparison October 31, 2024 INDICATIONS: Shortness of breath today. FINDINGS: Extensive bilateral pneumonia, worse in the right lung compared with October 31, 2024 Normal heart size Widespread osteoblastic metastatic disease IMPRESSION: Worsening severe pneumonia
[2024-11-02 12:00] VITALS: BP 148/66; PULSE 104; PULSE 96; RESP 24; TEMP 36.6; O2SAT 98
--- NOTE | 2024-11-02 13:54 | ESPR_ITS ---
<Statement entered by Manju Winkler MD - 11/03/24 00:09> Patient was seen and examined by me personally. I have directly supervised and reviewed documentation by the team resident and agree with its findings with any exceptions or additional findings as below. Plan of care was discussed with the attending, Dr. Lala. Patient seen at bedside, slightly increased O2 requirement up to 5L on nasal cannula. Repeat X-ray showed worsening bilateral infiltrate, fluids were stopped. Creatinine has improved. Urine cultures showing pansensitive E. coli. However antibiotics were upgraded to Zosyn and vancomycin given CXR findings of worse pneumonia. AM procal ordered, MRSA screen, and sputum cultures. Urology Dr. Epps suggested that trial of voiding be given after 10 days. Patient will likely discharge on Duenas catheter. Per patient will return home upon discharge, refuses SNF. Will plan to order home health for discharge. MRI of the thoracolumbar spine with contrast showed osteolytic metastatic disease but without evidence of spinal cord compression. Patient should be cleared for physical therapy to be able to work with him. Will continue treatment for UTI/pneumonia and try to wean down supplemental O2. Manju Winkler, PGY-2 Documentation for date of: 11/02/24 Subjective Subjective Interval history: Patient was seen and examined by the bedside. No acute overnight events. Patient reports feeling short of breath, back numbness from laying down for a long time. Saturates well on 5L Oxymask. Repeat chest x-ray showed worsening pneumonia. Continues to receive ceftriaxone. Kidney functions has significantly improved. Antibiotics regimen was escalated to vancomycin and Zosyn. Results of the thoracic and lumbar spine MRIs pending. PT assessed the patient, recommended SNF placement, but the patient and his declined, agreed to home health. Exam Vital Signs Temp Pulse Resp BP Pulse Ox O2 Del Method O2 Flow Rate 97.9 F 96 24 H 148/66 H 98 Oxy Mask 5 11/02/24 12:11/02/24 12:11/02/24 12:11/02/24 12:00 11/02/24 12:00 11/02/24 12:11/02/24 12:00 Narrative Exam Physical Exam General: Tachypneic, laying in bed. Able to hold conversation. HEENT: Normocephalic, atraumatic, mucous membranes moist. Heart: Regular rate and rhythm, no murmurs. Lungs: Clear to auscultation with no wheezing or crackles. Abdomen: Soft, nondistended, nontender, positive bowel sounds. ?No guarding or rebound tenderness. Neurologic: Alert and oriented x3, no gross neurological deficit, and patient able to move all 4 extremities. Extremities: No edema. Skin: No rash or ecchymoses. Objective Labs 11/03/24 04:20 11/03/24 04:20 Labs: Laboratory Results - last 24 hr 11/01/24 11/01/24 11/02/24 16:21 22:24 04:48 WBC 9.2 RBC 2.87 L Hgb 8.5 L Hct 24.9 L MCV 87 MCH 29.6 MCHC 34.1 RDW Std Deviation 45.9 H Plt Count 117 L D Neut % (Auto) 87 H Lymph % (Auto) 4 L [place] % (Auto) 6 Eos % (Auto) 1 Baso % (Auto) 0 Neut # (Auto) 8.0 H Lymph # (Auto) 0.4 L [place] # (Auto) 0.6 Eos # (Auto) 0.1 Baso # (Auto) 0.0 Immature Gran # (Auto) 0.17 H Absolute Nucleated RBC 0.03 H Immature Gran % 2 H Nucleated RBC % 0 Sodium 134 L Potassium 4.0 D Chloride 106 Carbon Dioxide 18.9 L Anion Gap 9 BUN 35 H Creatinine 1.1 D Estim Creat Clear Calc 60.2 L eGFR > 60 BUN/Creatinine Ratio 32 H Glucose 106 Calculated Osmolality 276 Calcium 9.6 Corrected Calcium 10.4 H Total Bilirubin 0.6 AST 33 ALT 28 Alkaline Phosphatase 74 Troponin I 0.302 H* 0.355 H* Total Protein 4.9 L Albumin 3.0 L Globulin 1.9 L Albumin/Globulin Ratio 1.6 ABG Interpretation ABG results: 10/31/24 11:59 ABG pH 7.54 H ABG pCO2 24 L ABG pO2 60 L ABG HCO3 21 ABG O2 Saturation 92 ABG Base Excess -2 Quality Measures Quality Measures VTE prophylaxis Advance care planning discussed with:: spouse Assessment & Plan Assessment Current Active Medications: Generic Name Dose Route Start Last Admin Trade Name Freq PRN Reason Stop Dose Admin Acetaminophen 650 mg 11/01/24 08:44 Acetaminophen 325 Mg Tablet PO 12/01/24 08:43 Q4HR PRN FEVER >101 Hydrocodone Bitart/Acetaminophen 1 tab 11/01/24 08:45 Hydrocodone/Apap 5/325 Tablet PO 11/06/24 08:05 Q6HR PRN PAIN SCALE 4-10(Mod-Sev Xtandi (Enzalutamide 0 ea 11/01/24 09:30 11/02/24 08:58 ) 40 Mg Tablets PO 12/01/24 09:29 4 tablet DAILY STORM Administration Heparin Sodium (Porcine) 5,000 unit 11/01/24 21:00 11/02/24 08:59 Heparin Sod Inj 5000 Unit/Ml Vial SC 11/15/24 20:59 5,000 unit Q12HR STORM Administration Ceftriaxone Sodium 1,000 mg/ 50 mls @ 100 mls/hr 11/03/24 09:00 Sodium Chloride IV 11/10/24 08:59 QDAY STORM Home Medication- 160 mg 11/01/24 09:00 11/02/24 09:01 Please Speak With PO 12/01/24 08:59 Not Given Patient Caregiver To DAILY STORM Have Rx Brought To [facility] Pantoprazole Sodium 40 mg 10/31/24 21:00 11/02/24 08:59 Pantoprazole 40 Mg Tablet PO 11/30/24 20:59 40 mg QDAY STORM Administration Polyethylene Glycol 17 gm 11/02/24 09:45 11/02/24 10:40 Polyethylene Glycol 17 Gm Packet PO 12/02/24 09:44 17 gm QDAY STORM Administration Sennosides 1 tab 11/02/24 09:39 Senna Tablet PO 12/02/24 09:38 QDAY PRN CONSTIPATION Protocol Sodium Chloride 5 ml 11/02/24 13:52 Sodium Chloride Rt 10% 15 Ml Nebu INH 11/02/24 13:53 X1 ONE Plan The patient is a 74-year-old with previous medical history of hypertension, 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 #Complicated urinary tract infection #Emphysematous cystitis No sepsis alert was initiated for patient Patient does have history of prostate cancer, could be related to possible obstruction of some sort leading to UTI Urinalysis showed 53 white cells, +4 bacteria, plus leukocyte Estrace CT shows emphysematous cystitis upon radiology read Duenas catheter inserted which outputted 1500 cc immediately Spoke with urology who recommended as long as patient has Duenas, we can treat with antibiotics for urinary tract infection Some air seen around bladder wall, needs broad spectrum and close monitoring Plan: ? Broad-spectrum Zosyn 4.5 g EVERY 6 hours IV 11/02-current ? Urine culture grew Escherichia coli, pansensitive ? Dr. Arzola is consulted, appreciate recommendations ?Dr Darby, ID specialist is consulted, appreciate recommendations #Community-acquired pneumonia 11/02: Patient appears to be tachypneic, on 5 L oxy mask. 10/31: Lower extremity Doppler was negative, CTA was negative. Chest x-ray 11/02 shows worsening of pneumonia. 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 Arcos and Dr. Belcher outpatient Largest pulmonary nodule seen in right upper lobe 14 mm There is some metastases to spine as well, 15 mm osteolytic bone destruction of T11 Unsure if patient was aware of pulmonary nodules Plan: ? continue home Xtandi 160 mg once a day ? oncology consulted, appreciate recommedations - MRI of the thoracic spine with contrast pending #FREDO, improving #Hypoosmolar hypovolemic hyponatremia #Hypochloridemia DDx: prerenal versus postrenal BUN/creatinine 54 and 1.9, ratio over 20, could be prerenal Patient reports oral intake over the past week or so likely prerenal Will further workup Pt appears to be dry as well Distended bladder requiring duenas, so there could be some postrenal component, however no stones seen on imaging 11/01 sodium 130, BUN 48, creatinine 1.6, EGFR 44. Urine output is 2.2 L. 11/01 sodium 134, BUN 35, creatinine 1.1, EGFR more than 60. Urine electrolytes showed low chloride, could be due to dehydration. Plan: ? Maintenance NS 120 cc/hour discontinued ? Avoid nephrotoxic agents ? Renally dose medicines ? Strict LISE's ? Continue with Duenas #Chronic Normocytic Anemia Could be related to anemia of chronic disease Pt does take chemotherapy for metastatic prostate cancer Could be side effect of chemotherapy Hgb baseline seemed to be ~11, however ~7.0 Transfusing at this point 1 PRBC Denies dark stools, blood in vomit or coughing up blood 3/5 hemoglobin 9.3, hematocrit 27.2. Iron panel is consistent with anemia of chronic disease and iron deficiency. 3.6 Hbg 85, HCT 24.9. Plan: ? PBS is pending ? SCDs ? FOBT ? Monitor daily CBC, transfuse if hemoglobin less than 7 #Elevated troponin Most likely in the setting of demand ischemia Troponin 0.285 Will need to determine if this is type II related to demand ischemia 3/5 troponin 0.396, will continue to trend. Plan ? Trend troponin every 6 hours #History of hypertension Blood pressure a bit soft upon arrival We will hold resuming blood pressure medicines at this time Plan: ? Cardiology consulted, appreciate recs ? Echo showed EF 55-60% ? Does not seem to take any home blood pressure medicines upon med rec #Health Maintenance Disposition: Med telemetry DVT prophylaxis: SCDs and heparin sc GI prophylaxis: Protonix Diet: cardiac diet CODE STATUS: Full Plan of care discussed with attending Dr. Lala, PGY-[address] Winkler and PGY-[address] Dietrich. Jessica Seymour MD, PGY 1. Attending Provider Attestation/Addendum I have examined the patient, reviewed labs and imaging findings, discussed the case with the resident(s), and reviewed entered orders. I agree with the plan of care as outlined in this note, with these additional summaries/recommendations: Patient seen at bedside. No acute overnight events. Patient has no new symptoms to report today although does appear short of breath and we will obtain CXR to evaluate. Patient admitted for sepsis secondary to emphysematous cystitis plus bacterial pneumonia. Evidence of endorgan damage with FREDO. Urology consulted in the emergency department and following. Urology recommends keeping duenas catheter in place for 10 days and then undergo voiding trail. Patient will also need to follow-up in urology clinic. Infectious disease following. Patient has been on IV Zosyn which we will de-escalate to IV Rocephin as urine culture returned showing E. coli which is pansensitive. Blood culture showed no growth at 24 hours. Duenas catheter was placed in the ED with 1.5 L urine return indicating urinary retention most likely from prostate. Patient also has history of stage IV prostate cancer with mets to lung and bone. Diagnosed in 2022. 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 Patient was reportedly ambulatory a few days prior to admission and is now unable to ambulate. CT lumbar spine showed prominent tumor bone destruction involving right sacral wings and posterior right iliac bone with soft tissue tumor mass extending presacral on the right side up to the 32 mm. We will order MRI thoracic and lumbar spine to rule out spinal cord involvement. Continue home xtandi. Oncology consulted, recommendations appreciated. Patient has history of hypercalcemia related to malignancy which has downtrended today. DC iV fluids. Patient may resume denosumab outpatient. Patient found to have acute kidney injury on admission most likely secondary to prerenal azotemia in the setting of sepsis. Renal function now back to baseline with IV fluids. Avoid nephrotoxic agents and renally dose medications. Patient was also noted to have hemoglobin of 7.3 on admission and received 1 unit PRBCs. No evidence of acute bleeding at this time although pending FOBT. Patient and updated on the plan and in agreement. All questions answered to satisfaction. Repeat hematology and chemistry panel in AM. Dr. Dai MD
[2024-11-02] MEDS: PIPER/TAZO INJ 4.5 GM in SODIUM CHLORIDE 0.9% (POP) 100 ML IV ×3 (14:29→23:09)
[2024-11-02] MEDS: VANCOMYCIN/D5W 1,250 MG IVPB 250 ML 120 MG IV (15:06)
[2024-11-02 16:00] VITALS: BP 117/76; PULSE 97; PULSE 98; RESP 22; TEMP 36.4; O2SAT 96
[2024-11-02 18:28] VITALS: BMI 11.0
[2024-11-02 20:00] VITALS: BP 136/67; PULSE 101; PULSE 98; RESP 24; TEMP 36.3; O2SAT 97
[2024-11-03] VITALS (10 sets, daily range): BP systolic 97–132; BP diastolic 58–80; PULSE 92–113; RESP 19–38; TEMP 36.2–36.9; O2SAT 90–97; BMI 28.2; BMI 12.0
[2024-11-03] MEDS: HYDROcodone/APAP 5/325 TABLET 1 TAB PO ×2 (00:44→21:47)
[2024-11-03] MEDS: PIPER/TAZO INJ 4.5 GM in SODIUM CHLORIDE 0.9% (POP) 100 ML IV (05:09)
[2024-11-03] MEDS: oxyCODONE/APAP 5/325 TABLET 1 TAB PO (05:09)
[2024-11-03 05:25] LABS: Basophils % (Auto) 0 % (0-2.5); Eosinophils # (Auto) 0.1 Thou/mm3 (0.0-0.5); Eosinophils % (Auto) 2 % (0-10); Hematocrit 24.1 % (41.0-53.0); Immature Granulocytes % (Auto) 5 % (0-0); Immature Granulocytes Auto 0.39 Thou/mm3 (0.00-0.00); Lymphocytes # (Auto) 0.4 Thou/mm3 (1.0-4.8); Lymphocytes % (Auto) 4 % (10-50); Mean Corpuscular Hemoglobin 29.7 pg (25.0-35.0); Mean Corpuscular Volume 87 fL (80-100); Monocytes # (Auto) 0.5 Thou/mm3 (0.0-0.8); Monocytes % (Auto) 6 % (0-12); Neutrophils # (Auto) 7.2 Thou/mm3 (1.8-7.7); Neutrophils % (Auto) 84 % (37-80); Nucleated Red Blood Cell # 0.05 Thou/mm3 (0.00-0.00); Nucleated Red Blood Cell % 1 /100 WBC (0); Platelet Count 130 Thou/mm3 (140-440); RDW Standard Deviation 46.9 fL (35.1-43.9); Red Blood Count 2.76 Miln/mm3 (4.50-5.90); White Blood Count 8.6 Thou/mm3 (3.8-10.6)
[2024-11-03 05:33] LABS: Hemoglobin 8.2 g/dL (13.5-16.0)
[2024-11-03 05:51] LABS: Alanine Aminotransferase 29 U/L (10-49); Albumin/Globulin Ratio 1.4 (1.2-2.2); Alkaline Phosphatase 74 U/L (46-116); Anion Gap 9 (7-16); Aspartate Amino Transferase 31 U/L (0-34); BUN/Creatinine Ratio 29 Ratio (12-20); Bilirubin,Total 0.7 mg/dL (0.3-1.2); Blood Urea Nitrogen 32 mg/dL (9-23); Calcium (Corrected) 10.8 mg/dL (8.5-10.1); Carbon Dioxide 20.2 mMol/L (20.0-31.0); Chloride 107 mMol/L (98-107); Creatinine (Component) 1.1 mg/dL (0.6-1.3); Estimated Creatinine Clearance 60.2 mL/min (>60); Globulin 2.1 gm/dL (2.3-3.5); Glucose 111 mg/dL (74-106); Osmolality,Calculated 279 (275-295); Potassium 4.1 mMol/L (3.4-5.1); Sodium 136 mMol/L (136-145); Total Protein 5.1 gm/dL (5.7-8.2); eGFR > 60 See Note
[2024-11-03] MEDS: PANTOPRAZOLE 40 MG TABLET PO (08:23)
[2024-11-03] MEDS: POLYETHYLENE GLYCOL 17 GM PACKET PO (08:24)
[2024-11-03] MEDS: XTANDI 40 MG PO (08:24)
[2024-11-03] MEDS: HEPARIN SOD INJ 5000 UNIT/ML VIAL SC ×2 (08:24→21:46)
--- NOTE | 2024-11-03 08:35 | PC.SS ---
Follow up note: SS received email from SHANTEL Gordon who is recommending acute rehab or SNF placement ( is now agreeable). SS has sent inquiry using [employer]. Brennan SILVA is aware.
--- NOTE | 2024-11-03 09:12 | PD.RESPRO ---
Documentation for date of: 11/03/24 Subjective Subjective Interval history: Patient seen and examined at bedside, complains of shortness of breath, has increased oxygen requirement currently on 8 L, patient does have extensive metastasis, chest x-ray from yesterday showed worsening of pneumonia, patient has been on DVT prophylaxis heparin every 12 hours, patient is tachycardic, sinus tachycardia noted. Thoracic spine MRI and lumbar spine MRI showed osseous metastatic disease C5 T11 and osseous metastatic disease involving lumbar vertebral bodies, extensive enhancing soft tissue mass destroying right first second and third sacral wings as well as posterior right iliac bone Patient otherwise denies any chest pain, palpitations, patient's shortness of breath is attributed to pneumonia. Exam Vital Signs Temp Pulse Resp BP Pulse Ox O2 Del Method O2 Flow Rate 98.4 F 105 H 32 H 128/58 L 97 Oxy Mask 8 11/03/24 04:00 11/03/24 05:13 11/03/24 05:13 11/03/24 04:00 11/03/24 05:13 11/03/24 04:00 11/03/24 05:13 Narrative Exam Physical Exam General: Awake and in no acute distress. Conversational and non-toxic appearing. HEENT: Normocephalic, atraumatic, mucous membranes moist. Heart: Sinus tachycardia, no murmurs. Lungs: B/L crackles. Abdomen: Soft, nondistended, nontender, positive bowel sounds. ?No guarding or rebound tenderness. Neurologic: Alert and oriented x3, no gross neurological deficit, and patient able to move all 4 extremities. Extremities: Right lower extremity edema 1+, right lower extremity>> left lower extremity Skin: No rash or ecchymoses. Objective Labs 11/03/24 04:20 11/03/24 04:20 Labs: Laboratory Results - last 24 hr 11/03/24 04:20 WBC 8.6 RBC 2.76 L Hgb 8.2 L Hct 24.1 L MCV 87 MCH 29.7 MCHC 34.0 RDW Std Deviation 46.9 H Plt Count 130 L Neut % (Auto) 84 H Lymph % (Auto) 4 L [place] % (Auto) 6 Eos % (Auto) 2 Baso % (Auto) 0 Neut # (Auto) 7.2 Lymph # (Auto) 0.4 L [place] # (Auto) 0.5 Eos # (Auto) 0.1 Baso # (Auto) 0.0 Immature Gran # (Auto) 0.39 H Absolute Nucleated RBC 0.05 H Immature Gran % 5 H Nucleated RBC % 1 H Sodium 136 Potassium 4.1 Chloride 107 Carbon Dioxide 20.2 Anion Gap 9 BUN 32 H Creatinine 1.1 Estim Creat Clear Calc 60.2 L eGFR > 60 BUN/Creatinine Ratio 29 H Glucose 111 H Calculated Osmolality 279 Calcium 10.0 Corrected Calcium 10.8 H Total Bilirubin 0.7 AST 31 ALT 29 Alkaline Phosphatase 74 Total Protein 5.1 L Albumin 3.0 L Globulin 2.1 L Albumin/Globulin Ratio 1.4 Procalcitonin 0.50 H ABG Interpretation ABG results: 10/31/24 11:59 ABG pH 7.54 H ABG pCO2 24 L ABG pO2 60 L ABG HCO3 21 ABG O2 Saturation 92 ABG Base Excess -2 Quality Measures Quality Measures VTE prophylaxis Advance care planning discussed with:: patient and spouse Assessment & Plan Assessment Current Active Medications: Generic Name Dose Route Start Last Admin Trade Name Freq PRN Reason Stop Dose Admin Acetaminophen 650 mg 11/01/24 08:44 Acetaminophen 325 Mg Tablet PO 12/01/24 08:43 Q4HR PRN FEVER >101 Hydrocodone Bitart/Acetaminophen 1 tab 11/01/24 08:45 11/03/24 00:44 Hydrocodone/Apap 5/325 Tablet PO 11/06/24 08:05 1 tab Q6HR PRN Administration PAIN SCALE 4-10(Mod-Sev Albuterol/Ipratropium 3 ml 11/03/24 04:43 Albuterol/Ipratropium (Duoneb) Rt Rand 3 Ml Nebu INH 12/03/24 04:42 Q2HR PRN SHORTNESS OF BREATH OR WHEEZE Xtandi (Enzalutamide 0 ea 11/01/24 09:30 11/03/24 08:24 ) 40 Mg Tablets PO 12/01/24 09:29 4 tablet DAILY STORM Administration Heparin Sodium (Porcine) 5,000 unit 11/01/24 21:00 11/03/24 08:24 Heparin Sod Inj 5000 Unit/Ml Vial SC 11/15/24 20:59 5,000 unit Q12HR STORM Administration Piperacillin Sod/Tazobactam 100 mls @ 200 mls/hr 11/02/24 13:58 11/03/24 05:09 Sod 4.5 gm/ Sodium Chloride IV 11/09/24 13:57 200 mls/hr Q6HR STORM Administration Vancomycin/Sodium Chloride 200 mls @ 120 mls/hr 11/03/24 10:00 Vancomycin/Ns 1 Gm Ivpb IV 11/10/24 09:59 QDAY@1000 STORM Protocol Home Medication- 160 mg 11/01/24 09:00 11/02/24 09:01 Please Speak With PO 12/01/24 08:59 Not Given Patient Caregiver To DAILY STORM Have Rx Brought To [facility] Pantoprazole Sodium 40 mg 10/31/24 21:00 11/03/24 08:23 Pantoprazole 40 Mg Tablet PO 11/30/24 20:59 40 mg QDAY STORM Administration Pharmacy Consult 1 each 11/02/24 14:00 Vancomycin Pharmacy To Dose 1 Each Each IV 12/02/24 13:59 QDAY PRN CONSULT Polyethylene Glycol 17 gm 11/02/24 09:45 11/03/24 08:24 Polyethylene Glycol 17 Gm Packet PO 12/02/24 09:44 17 gm QDAY STROM Administration Sennosides 1 tab 11/02/24 09:39 Senna Tablet PO 12/02/24 09:38 QDAY PRN CONSTIPATION Protocol Plan Assessment and plan: Summary: Mr. 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 emergency department on 10/31/2024 with a chief complaint of shortness of breath and generalized weakness. Cardiology consulted in the emergency department for elevated troponin. #NSTEMI type II secondary to demand ischemia #Shortness of breath Patient had elevated troponin 0.285 in the emergency department, denies any chest discomfort/chest pain, EKG showed sinus tachycardia rate 102 some Q waves in lead I and aVL. Patient likely has demand ischemia in setting of acute infection secondary to UTI/pneumonia. Patient shortness of breath is mostly secondary to the anemia with hemoglobin of 7.3 on presentation during this admission. Will need to rule out other causes including cardiac causes of shortness of breath at this time given the mildly elevated troponins. Hemoglobin A1c 6.1, cholesterol 84, LDL 24, TSH 3.58 Troponin 0.285?> 0.363 ?> 0.396 -> 0.302 TTE 11/01/2024: Normal LV size and function with an EF of 55 to 60%. Diastolic dysfunction stage I. Normal RV size and function. Normal RVSP of 25 mmHg. Mild MAC. Trace MR and mild TR. Recommendations: -Monitor for chest pain -Outpatient follow up post discharge in 1 week #Symptomatic normocytic normochromic anemia Patient reports symptoms of shortness of breath dizziness and lethargy recently, possible anemia of chronic disease as patient has malignancy, also on chemotherapy Baseline hemoglobin around 11, 7.3 today, was recently prescribed prednisone Patient will be transfused 1 unit PRBC as ordered in ED Iron panel shows iron 18 mcg/dL, TIBC 210 mcg/dL, iron saturation 8% unsat iron binding 192 Recommendations: -Patient's anemia is likely multifactorial, patient has low iron reserves will likely benefit from IV iron infusion -Recommend IV iron, ferric sod gluconate 125 mg for 5 days -Anemia workup, order iron panel, ferritin, reticulocyte count, B12, folate level, LDH, peripheral blood film -Patient was tachycardic and hypotensive on presentation, occult blood negative per ED physician, consider GI workup if acute decline in hemoglobin # Right lower extremity edema Patient has right lower extremity edema 2+, pitting compared to left lower leg, no significant edema noted on left. MRI thoracic spine shows extensive enhancing soft tissue mass destroying right first second and third sacral wings as well as posterior right iliac bone High suspicion of the mass causing compression and causing impaired venous drainage. Patient had venous Doppler 10/31/24 showed no DVT Currently on heparin for DVT prophylaxis #Hypertension Was diagnosed with hypertension in 2023, currently on losartan 50 mg per medication review Blood pressure soft on presentation, continue to monitor blood pressure #Acute hypoxic respiratory failure secondary to #Community-acquired pneumonia versus healthcare associated pneumonia Patient not on any supplemental oxygen at home, currently on 4 L nasal cannula SpO2 more than 92 CTA chest suspicious for right lung base pneumonia Patient is currently on antibiotics #Acute kidney injury, improving #Urinary tract infection #Hypoosmolar hypochloremic hyponatremia, improving Patient does have history of prostate cancer, could be related to possible obstruction of some sort leading to UTI, urology consulted in ED recommended Wells catheter placement Urinalysis showed 53 white cells, +4 bacteria, plus leukocyte esterase 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, Wells catheter inserted which outputed 1500 cc immediately Patient had poor oral intake over the last week, BUN 54, creatinine 1.9, GFR 36 on presentation, patient was given 1 L NS in ED -Currently on maintenance fluids and antibiotics for urinary tract infection, pending urine culture #Hypercalcemia of malignancy Corrected calcium 11.5, patient is on denosumab per chart review Management as per primary team #Transaminitis AST 37, ALT 23 on presentation, continue to monitor #Stage IV castrate 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 Arcos and Dr. Belcher outpatient, currently on treatment with leuprolide, enzalutamide and denosumab per heme-onc note from July 2024 Thoracic spine MRI and lumbar spine MRI showed osseous metastatic disease C5 T11 and osseous metastatic disease involving lumbar vertebral bodies, extensive enhancing soft tissue mass destroying right first second and third sacral wings as well as posterior right iliac bone Xtandi continued by primary team Case discussed with Attending Dr. Bai. Zaina Virgen PGY1 Disclaimer: This note was dictated by speech recognition. Minor errors in field advisor may be present due to voice recognition software. Attending Provider Attestation/Addendum I have personally seen and examined the patient separately on the above date of service and discussed the plan of care with the resident. I reviewed the resident Dr. Zaina Virgen consultation progress note and agree with the resident findings and plan in the note above and have also edited the documentation to reflect my findings and plan. Oziel Bai M.D. Interventional Cardiology
--- NOTE | 2024-11-03 09:26 | PD.IDPROG ---
Subjective Subjective Interval history: situation noted. changed abx based on micro to augmentin respecting primary team's concern for aspiration noting that essentially all pneumonia is aspiration in origin Exam Vital Signs Temp Pulse Resp BP Pulse Ox O2 Del Method O2 Flow Rate 98.4 F 105 H 32 H 128/58 L 97 Oxy Mask 8 11/03/24 04:00 11/03/24 05:13 11/03/24 05:13 11/03/24 04:00 11/03/24 05:13 11/03/24 04:00 11/03/24 05:13 Narrative Exam on more O2 but presumably due to tachypnea as sats ok. does not qualify for home O2 unless sats <90 on Room air. not yet documented. no fever noted. Objective - Internal Medicine Labs 11/03/24 04:20 11/03/24 04:20 Labs: Laboratory Results - last 24 hr 11/03/24 04:20 WBC 8.6 RBC 2.76 L Hgb 8.2 L Hct 24.1 L MCV 87 MCH 29.7 MCHC 34.0 RDW Std Deviation 46.9 H Plt Count 130 L Neut % (Auto) 84 H Lymph % (Auto) 4 L [place] % (Auto) 6 Eos % (Auto) 2 Baso % (Auto) 0 Neut # (Auto) 7.2 Lymph # (Auto) 0.4 L [place] # (Auto) 0.5 Eos # (Auto) 0.1 Baso # (Auto) 0.0 Immature Gran # (Auto) 0.39 H Absolute Nucleated RBC 0.05 H Immature Gran % 5 H Nucleated RBC % 1 H Sodium 136 Potassium 4.1 Chloride 107 Carbon Dioxide 20.2 Anion Gap 9 BUN 32 H Creatinine 1.1 Estim Creat Clear Calc 60.2 L eGFR > 60 BUN/Creatinine Ratio 29 H Glucose 111 H Calculated Osmolality 279 Calcium 10.0 Corrected Calcium 10.8 H Total Bilirubin 0.7 AST 31 ALT 29 Alkaline Phosphatase 74 Total Protein 5.1 L Albumin 3.0 L Globulin 2.1 L Albumin/Globulin Ratio 1.4 Procalcitonin 0.50 H ABG Interpretation ABG results: 10/31/24 11:59 ABG pH 7.54 H ABG pCO2 24 L ABG pO2 60 L ABG HCO3 21 ABG O2 Saturation 92 ABG Base Excess -2 Assessment & Plan A&P Narrative zosyn broad, narrowed to augmentin with s e coli noted. may have asb, but ok to treat urine. bc remains neg and he remains afebrile. narrowed to augmentin po. please check to assure O2 need is appropriate. he has pulm mets , so that may affect resp rate by itself. will f/u wednesday if he remains in house. Time Spent With Patient Time: Total time spent is greater than 50% in coordination of care (as documented) at patient's floor/unit and/or counseling patient:
[2024-11-03] MEDS: VANCOMYCIN/NS 1 GM IVPB 200 ML IV (11:22)
[2024-11-03] MEDS: FUROSEMIDE INJ 10 MG/ML VIAL 2 ML 20 MG IVP ×2 (11:28→18:33)
--- NOTE | 2024-11-03 13:45 | PC.SS ---
[employer] OPERATOR informed patient and spouse that [facility] has declined patient for placement. Discharge plan will be to transition to short term SNF. Spouse confirmed that patient's cancer treatment consists of oral tablets (Xtandi) and injection every 3 months. Next injection due in January.
--- NOTE | 2024-11-03 13:50 | PC.SS ---
GLOST KILN PLACER updated SNF's on patient's cancer treatment plan on [facility].
--- NOTE | 2024-11-03 14:33 | ESPR_ITS ---
Documentation for date of: 11/03/24 Subjective Subjective Interval history: Patient was seen and examined by the bedside. No acute overnight events. Patient reports feeling short of breath, back pain. Saturates well on 7L Oxymask. Yesterday antibiotic regimen was escalated to Zosyn and Vanco IV. Kidney functions has significantly improved. Results of the thoracic and lumbar spine MRIs are negative for spinal cord compression. Exam Vital Signs Temp Pulse Resp BP Pulse Ox O2 Del Method O2 Flow Rate 97.1 F 93 20 119/74 94 L Nasal Cannula 7 11/03/24 12:00 11/03/24 12:00 11/03/24 12:00 11/03/24 12:00 11/03/24 12:00 11/03/24 12:11/03/24 12:00 Narrative Exam Physical Exam General: Tachypneic, laying in bed. Able to hold conversation. HEENT: Normocephalic, atraumatic, mucous membranes moist. Heart: Regular rate and rhythm, no murmurs. Lungs: Bilateral crackles. Abdomen: Soft, nondistended, nontender, positive bowel sounds. ?No guarding or rebound tenderness. Neurologic: Alert and oriented x3, no gross neurological deficit, and patient able to move all 4 extremities. Extremities: Mild 1+ tibial edema. Skin: No rash or ecchymoses. Objective Labs 11/04/24 05:18 11/04/24 05:18 Labs: Laboratory Results - last 24 hr 11/03/24 04:20 WBC 8.6 RBC 2.76 L Hgb 8.2 L Hct 24.1 L MCV 87 MCH 29.7 MCHC 34.0 RDW Std Deviation 46.9 H Plt Count 130 L Neut % (Auto) 84 H Lymph % (Auto) 4 L [place] % (Auto) 6 Eos % (Auto) 2 Baso % (Auto) 0 Neut # (Auto) 7.2 Lymph # (Auto) 0.4 L [place] # (Auto) 0.5 Eos # (Auto) 0.1 Baso # (Auto) 0.0 Immature Gran # (Auto) 0.39 H Absolute Nucleated RBC 0.05 H Immature Gran % 5 H Nucleated RBC % 1 H Sodium 136 Potassium 4.1 Chloride 107 Carbon Dioxide 20.2 Anion Gap 9 BUN 32 H Creatinine 1.1 Estim Creat Clear Calc 60.2 L eGFR > 60 BUN/Creatinine Ratio 29 H Glucose 111 H Calculated Osmolality 279 Calcium 10.0 Corrected Calcium 10.8 H Total Bilirubin 0.7 AST 31 ALT 29 Alkaline Phosphatase 74 Total Protein 5.1 L Albumin 3.0 L Globulin 2.1 L Albumin/Globulin Ratio 1.4 Procalcitonin 0.50 H ABG Interpretation ABG results: 10/31/24 11:59 ABG pH 7.54 H ABG pCO2 24 L ABG pO2 60 L ABG HCO3 21 ABG O2 Saturation 92 ABG Base Excess -2 Quality Measures Quality Measures VTE prophylaxis Advance care planning discussed with:: spouse Assessment & Plan Assessment Current Active Medications: Generic Name Dose Route Start Last Admin Trade Name Freq PRN Reason Stop Dose Admin Acetaminophen 650 mg 11/01/24 08:44 Acetaminophen 325 Mg Tablet PO 12/01/24 08:43 Q4HR PRN FEVER >101 Hydrocodone Bitart/Acetaminophen 1 tab 11/01/24 08:45 11/03/24 00:44 Hydrocodone/Apap 5/325 Tablet PO 11/06/24 08:05 1 tab Q6HR PRN Administration PAIN SCALE 4-10(Mod-Sev Albuterol/Ipratropium 3 ml 11/03/24 04:43 Albuterol/Ipratropium (Duoneb) Rt Rand 3 Ml Nebu INH 12/03/24 04:42 Q2HR PRN SHORTNESS OF BREATH OR WHEEZE Amoxicillin/Clavulanate Potassium 1 tab 11/03/24 21:00 Amoxicillin/Pot Clav 875 Tablet PO 11/07/24 12:00 BID STORM Xtandi (Enzalutamide 0 ea 11/01/24 09:30 11/03/24 08:24 ) 40 Mg Tablets PO 12/01/24 09:29 4 tablet DAILY STORM Administration Heparin Sodium (Porcine) 5,000 unit 11/01/24 21:00 11/03/24 08:24 Heparin Sod Inj 5000 Unit/Ml Vial SC 11/15/24 20:59 5,000 unit Q12HR STORM Administration Home Medication- 160 mg 11/01/24 09:00 11/03/24 11:18 Please Speak With PO 12/01/24 08:59 Not Given Patient Caregiver To DAILY STORM Have Rx Brought To [facility] Polyethylene Glycol 17 gm 11/02/24 09:45 11/03/24 08:24 Polyethylene Glycol 17 Gm Packet PO 12/02/24 09:44 17 gm QDAY STORM Administration Sennosides 1 tab 11/02/24 09:39 Senna Tablet PO 12/02/24 09:38 QDAY PRN CONSTIPATION Protocol Plan The patient is a 74-year-old with previous medical history of hypertension, 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 #Community-acquired pneumonia #Acute hypoxic respiratory failure 11/02: Patient appears to be tachypneic, on 5 L oxy mask. 10/31: Lower extremity Doppler was negative, CTA was negative. Chest x-ray 11/02 shows worsening of pneumonia. Will try to diurese today and will try to wean off oxygen. Plan: - Sputum cultures, MRSA screen ordered -Amoxicillin/clavulanic acid 875 mg twice daily ?Will try to diurese today #Complicated urinary tract infection, improving #Emphysematous cystitis No sepsis alert was initiated for patient Patient does have history of prostate cancer, could be related to possible obstruction of some sort leading to UTI Urinalysis showed 53 white cells, +4 bacteria, plus leukocyte Estrace CT shows emphysematous cystitis upon radiology read Duenas catheter inserted which outputted 1500 cc immediately Spoke with urology who recommended as long as patient has Duenas, we can treat with antibiotics for urinary tract infection Some air seen around bladder wall, needs broad spectrum and close monitoring Plan: - Lasix 20 twice today ? Amoxicillin/clavulanic acid 875 mg twice daily -Zosyn and vancomycin discontinued ? Urine culture grew Escherichia coli, pansensitive ? Dr. 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 Arcos and Dr. Belcher outpatient Largest pulmonary nodule seen in right upper lobe 14 mm There is some metastases to spine as well, 15 mm osteolytic bone destruction of T11 Unsure if patient was aware of pulmonary nodules Plan: ? continue home Xtandi 160 mg once a day ? oncology consulted, appreciate recommedations - MRI of the thoracic spine with contrast showed bone metastases, negative for spine compression #FREDO, improving #Hypoosmolar hypovolemic hyponatremia #Hypochloridemia DDx: prerenal versus postrenal BUN/creatinine 54 and 1.9, ratio over 20, could be prerenal Patient reports oral intake over the past week or so likely prerenal Will further workup Pt appears to be dry as well Distended bladder requiring duenas, so there could be some postrenal component, however no stones seen on imaging 3 sodium 130, BUN 48, creatinine 1.6, EGFR 44. Urine output is 2.2 L. / sodium 134, BUN 35, creatinine 1.1, EGFR more than 60. Urine electrolytes showed low chloride, could be due to dehydration. 11/03: Sodium 136, creatinine 1.1, EGFR 60.2. Plan: ? Avoid nephrotoxic agents ? Renally dose medicines ? Strict LISE's ? Continue with Duenas #Chronic Normocytic Anemia Could be related to anemia of chronic disease Pt does take chemotherapy for metastatic prostate cancer Could be side effect of chemotherapy Hgb baseline seemed to be ~11, however ~7.0 Transfusing at this point 1 PRBC Denies dark stools, blood in vomit or coughing up blood 3/ hemoglobin 9.3, hematocrit 27.2. Iron panel is consistent with anemia of chronic disease and iron deficiency. 3.6 Hbg 85, HCT 24.9. Plan: ? PBS is pending ? Monitor daily CBC, transfuse if hemoglobin less than 7 #Elevated troponin Most likely in the setting of demand ischemia Troponin 0.285 Will need to determine if this is type II related to demand ischemia 3/ troponin 0.396, will continue to trend. Plan ? Trend troponin every 6 hours #History of hypertension Blood pressure a bit soft upon arrival We will hold resuming blood pressure medicines at this time Plan: ? Cardiology consulted, appreciate recs ? Echo showed EF 55-60% ? Does not seem to take any home blood pressure medicines upon med rec #Health Maintenance Disposition: Med telemetry DVT prophylaxis: SCDs and heparin sc GI prophylaxis: Protonix Diet: cardiac diet CODE STATUS: Full Plan of care discussed with attending Dr. Lala and PGY-[address] Dietrich. Jessica Seymour MD, PGY 1. -- ATTESTATION: I saw and examined the patient this morning, and I agree with current management stated by the resident. Will continue to monitor patient during their stay. Patient is a 74-year-old male past medical history hypertension, stage IV prostatic cancer status post castration with resistance who was initially admitted on 3//25 due to complicated UTI with emphysematous cystitis as well as community-acquired pneumonia. Patient's cultures grew E. coli that is sensitive to Augmentin to which she was downgraded from broad-spectrum antibiotics. We are weaning patient off of oxygen as tolerated. There may be a component of fluid overload as patient received 120 cc of IV fluids for about a day and a half and there is evidence of fluid overload on auscultation. Patient will receive Lasix today and will continue to monitor in the morning. Disclaimer: Despite multiple revisions, due to the dictation software being used, the document bellow may not be free of grammatical errors including phonetic/typographic errors. However, this does not deter from our commitment to providing health care in the patient's best interest in mind. Dr. Mikie Dietrich, PGY-3 Attending Provider Attestation/Addendum I have examined the patient, reviewed labs and imaging findings, discussed the case with the resident(s), and reviewed entered orders. I agree with the plan of care as outlined in this note, with these additional summaries/recommendations: Patient seen at bedside. No acute overnight events. Patient has no new symptoms to report today. Patient had increasing oxygen demands yesterday and chest x-ray was obtained which showed worsening severe bilateral pneumonia. Suspect a component of this is vascular congestion +/- worsening pneumonia. Patient currently requiring 8 L oxymask. Will give IV Lasix today and continue IV antibiotics and continue to wean oxygen as tolerated. Overall prognosis remains guarded given patient's underlying metastatic prostate cancer. MRI of the lumbar and thoracic spine did not reveal spinal cord involvement but did show extensive enhancing soft tissue tumor mass destroying the right first second and third sacral wings as well as the posterior right iliac bone. Continue physical therapy. Continue Duenas catheter for urinary tract infection and emphysematous cystitis. Urology and infectious disease following. Repeat hematology and chemistry panel in AM. Continue breathing treatments as needed. Continue pain management as needed. Dr. Dai MD
--- NOTE | 2024-11-03 14:41 | PC.SS ---
Rounding Note: Cultures are pending. Lasix's administered. Possible d/c tomorrow.
[2024-11-03] MEDS: AMOXICILLIN/POT CLAV 875 TABLET 1 TAB PO (21:46)
[2024-11-04] VITALS (14 sets, daily range): BP systolic 103–142; BP diastolic 60–89; PULSE 94–117; RESP 19–33; TEMP 36.1–36.9; O2SAT 89–97; BMI 28.2; BMI 28.1
[2024-11-04] MEDS: HYDROcodone/APAP 5/325 TABLET 1 TAB PO (04:54)
[2024-11-04 05:57] LABS: Basophils % (Auto) 0 % (0-2.5); Eosinophils # (Auto) 0.1 Thou/mm3 (0.0-0.5); Eosinophils % (Auto) 1 % (0-10); Hemoglobin 7.5 g/dL (13.5-16.0); Immature Granulocytes % (Auto) 7 % (0-0); Immature Granulocytes Auto 0.63 Thou/mm3 (0.00-0.00); Lymphocytes # (Auto) 0.5 Thou/mm3 (1.0-4.8); Lymphocytes % (Auto) 5 % (10-50); Mean Corpuscular HGB Conc 34.1 g/dl (31.0-37.0); Mean Corpuscular Hemoglobin 29.6 pg (25.0-35.0); Mean Corpuscular Volume 87 fL (80-100); Monocytes # (Auto) 0.5 Thou/mm3 (0.0-0.8); Monocytes % (Auto) 5 % (0-12); Neutrophils # (Auto) 7.8 Thou/mm3 (1.8-7.7); Neutrophils % (Auto) 82 % (37-80); Nucleated Red Blood Cell # 0.08 Thou/mm3 (0.00-0.00); Nucleated Red Blood Cell % 1 /100 WBC (0); Platelet Count 146 Thou/mm3 (140-440); RDW Standard Deviation 46.3 fL (35.1-43.9); Red Blood Count 2.53 Miln/mm3 (4.50-5.90); White Blood Count 9.5 Thou/mm3 (3.8-10.6)
[2024-11-04 06:23] LABS: Alanine Aminotransferase 27 U/L (10-49); Albumin, Serum 3.2 gm/dL (3.4-4.8); Albumin/Globulin Ratio 1.5 (1.2-2.2); Alkaline Phosphatase 77 U/L (46-116); Anion Gap 10 (7-16); Aspartate Amino Transferase 24 U/L (0-34); BUN/Creatinine Ratio 33 Ratio (12-20); Bilirubin,Total 0.8 mg/dL (0.3-1.2); Blood Urea Nitrogen 39 mg/dL (9-23); Calcium 10.8 mg/dL (8.3-10.6); Calcium (Corrected) 11.4 mg/dL (8.5-10.1); Carbon Dioxide 21.2 mMol/L (20.0-31.0); Chloride 107 mMol/L (98-107); Creatinine (Component) 1.2 mg/dL (0.6-1.3); Estimated Creatinine Clearance 55.3 mL/min (>60); Globulin 2.1 gm/dL (2.3-3.5); Glucose 144 mg/dL (74-106); Osmolality,Calculated 288 (275-295); Sodium 138 mMol/L (136-145); Total Protein 5.3 gm/dL (5.7-8.2); eGFR > 60 See Note
[2024-11-04] MEDS: HEPARIN SOD INJ 5000 UNIT/ML VIAL SC ×2 (08:31→21:45)
[2024-11-04] MEDS: AMOXICILLIN/POT CLAV 875 TABLET 1 TAB PO ×2 (08:31→21:46)
[2024-11-04] MEDS: FUROSEMIDE INJ 10 MG/ML VIAL 2 ML 20 MG IVP (08:31)
[2024-11-04] MEDS: XTANDI 40 MG PO (08:32)
[2024-11-04] MEDS: POLYETHYLENE GLYCOL 17 GM PACKET PO (08:43)
--- NOTE | 2024-11-04 09:56 | XR_ITS ---
Examination: Duplex scan of the lower extremity, unilateral right complete Date and time of exam: November 04, 2024 10:50 AM Indications: Right lower leg swelling beginning 4 days ago Technique: Duplex scan of the extremity veins using B-mode/grayscale imaging and Doppler spectral analysis and color flow Attention is directed to internal echogenicity, compression and augmentation involving these veins, color flow assessment, spectral analysis Findings: Major deep venous structures in the extremity demonstrate normal course and caliber. There is no evidence of deep vein thrombosis. Normal color flow and spectral analysis Impression: Negative for DVT..
--- NOTE | 2024-11-04 13:12 | ESPR_ITS ---
<Statement entered by Manju Winkler MD - 11/04/24 14:53> Patient was seen and examined by me personally. I have directly supervised and reviewed documentation by the team resident and agree with its findings with any exceptions or additional findings as below. Plan of care was discussed with the attending, Dr. Lala. Patient seen at bedside, unfortunately, his oxygen requirements continue to increase and he is now on Hi-Flow oxygen at 40L and 80% FiO2. He continues to be tachypneic as well in the 20-30s. Patient on examination had R leg swelling greater than L leg worse today, so venous duplex was ordered for RLE. He did get bilateral venous duplex of the lower extremities on admission and CTA chest at that time were negative, but due to the increase in R leg swelling ordered a repeat. Patient was given another 20 mg IV Lasix this morning and scheduled another 20 mg IV for tonight. Continues to have good urine output, 1.5L in the last 24 hours, creatinine is 1.2 stable. Discussed patient's current treatment course and prognosis with at bedside. Discussed the possibility that he may not be able to recover from the pneumonia if his body is unable to recover and O2 requirements increase, stated understanding. stated that at this time, should intubation become necessary she agrees to proceed, continue current management course. Manju Winkler, PGY-2 Documentation for date of: 11/04/24 Subjective Subjective Interval history: Patient was seen and examined by the bedside. No acute overnight events. Patient reports feeling short of breath, reports that he wants to walk. Overnight he was started on high flow NC and is right now at 40 L FiO2 80%. During examination his right leg was noted to be more swollen than the left leg, 2+ pitting edema, Doppler ultrasound of the lower extremity was ordered. Will continue with current antibiotics regimen and diuresis, will continue to monitor urine output. Had a conversation with regarding the CODE STATUS and the plan of care in case the patient's respiratory failure will continue to worsen. It was explained that the patient condition is serious and he has a serious comorbidity, stage IV prostate cancer that makes him him very vulnerable to infection. Patient's agreed to intubate and proceed with mechanical ventilation in case the patient to require it. Exam Vital Signs Temp Pulse Resp BP Pulse Ox O2 Del Method O2 Flow Rate 97.0 F 108 H 22 H 132/65 H 93 L Oxy Mask 40 11/04/24 08:00 11/04/24 10:25 11/04/24 10:25 11/04/24 08:31 11/04/24 10:25 11/04/24 04:00 11/04/24 10:25 FiO2 80 11/04/24 10:25 Narrative Exam Physical Exam General: Tachypneic, laying in bed. Able to hold conversation. HEENT: Normocephalic, atraumatic, mucous membranes moist. Heart: Regular rate and rhythm, no murmurs. Lungs: Mild left sided crackes. Abdomen: Soft, nondistended, nontender, positive bowel sounds. ?No guarding or rebound tenderness. Neurologic: Alert and oriented x3, no gross neurological deficit, and patient able to move all 4 extremities. Extremities: Moderate right 2+ tibil edema> mild left 1+ tibial edema. Skin: No rash or ecchymoses. Objective Labs 11/05/24 06:12 11/05/24 06:12 Labs: Laboratory Results - last 24 hr 11/04/24 05:18 WBC 9.5 RBC 2.53 L Hgb 7.5 L Hct 22.0 L MCV 87 MCH 29.6 MCHC 34.1 RDW Std Deviation 46.3 H Plt Count 146 Neut % (Auto) 82 H Lymph % (Auto) 5 L Cedar % (Auto) 5 Eos % (Auto) 1 Baso % (Auto) 0 Neut # (Auto) 7.8 H Lymph # (Auto) 0.5 L Cedar # (Auto) 0.5 Eos # (Auto) 0.1 Baso # (Auto) 0.0 Immature Gran # (Auto) 0.63 H Absolute Nucleated RBC 0.08 H Immature Gran % 7 H Nucleated RBC % 1 H Sodium 138 Potassium 4.0 Chloride 107 Carbon Dioxide 21.2 Anion Gap 10 BUN 39 H Creatinine 1.2 Estim Creat Clear Calc 55.3 L eGFR > 60 BUN/Creatinine Ratio 33 H Glucose 144 H Calculated Osmolality 288 Calcium 10.8 H Corrected Calcium 11.4 H Total Bilirubin 0.8 AST 24 ALT 27 Alkaline Phosphatase 77 Total Protein 5.3 L Albumin 3.2 L Globulin 2.1 L Albumin/Globulin Ratio 1.5 ABG Interpretation ABG results: 10/31/24 11:59 ABG pH 7.54 H ABG pCO2 24 L ABG pO2 60 L ABG HCO3 21 ABG O2 Saturation 92 ABG Base Excess -2 Quality Measures Quality Measures VTE prophylaxis Advance care planning discussed with:: spouse Assessment & Plan Assessment Current Active Medications: Generic Name Dose Route Start Last Admin Trade Name Freq PRN Reason Stop Dose Admin Acetaminophen 650 mg 11/01/24 08:44 Acetaminophen 325 Mg Tablet PO 12/01/24 08:43 Q4HR PRN FEVER >101 Hydrocodone Bitart/Acetaminophen 1 tab 11/01/24 08:45 11/04/24 04:54 Hydrocodone/Apap 5/325 Tablet PO 11/06/24 08:05 1 tab Q6HR PRN Administration PAIN SCALE 4-10(Mod-Sev Albuterol/Ipratropium 3 ml 11/03/24 04:43 Albuterol/Ipratropium (Duoneb) Rt Rand 3 Ml Nebu INH 12/03/24 04:42 Q2HR PRN SHORTNESS OF BREATH OR WHEEZE Amoxicillin/Clavulanate Potassium 1 tab 11/03/24 21:00 11/04/24 08:31 Amoxicillin/Pot Clav 875 Tablet PO 11/07/24 12:00 1 tab BID STORM Administration Xtandi (Enzalutamide 0 ea 11/01/24 09:30 11/04/24 08:32 ) 40 Mg Tablets PO 12/01/24 09:29 160 tablet DAILY STORM Administration Furosemide 20 mg 11/04/24 18:00 Furosemide Inj 10 Mg/Ml Vial 2 Ml IVP 11/04/24 18:01 X1 ONE Heparin Sodium (Porcine) 5,000 unit 11/01/24 21:00 11/04/24 08:31 Heparin Sod Inj 5000 Unit/Ml Vial SC 11/15/24 20:59 5,000 unit Q12HR STORM Administration Home Medication- 160 mg 11/01/24 09:00 11/04/24 08:33 Please Speak With PO 12/01/24 08:59 Not Given Patient Caregiver To DAILY STORM Have Rx Brought To [facility] Polyethylene Glycol 17 gm 11/02/24 09:45 11/04/24 08:43 Polyethylene Glycol 17 Gm Packet PO 12/02/24 09:44 17 gm QDAY STORM Administration Sennosides 1 tab 11/02/24 09:39 Senna Tablet PO 12/02/24 09:38 QDAY PRN CONSTIPATION Protocol Plan The patient is a 74-year-old with previous medical history of hypertension, 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 #Community-acquired pneumonia #Acute hypoxic respiratory failure 11/02: Patient appears to be tachypneic, on 5 L oxy mask. 10/31: Lower extremity Doppler was negative, CTA was negative. Chest x-ray 11/02 shows worsening of pneumonia. Will try to diurese today and will try to wean off oxygen. Plan: - Sputum cultures, MRSA screen ordered -Amoxicillin/clavulanic acid 875 mg twice daily ?Will try to diurese today #Complicated urinary tract infection, improving #Emphysematous cystitis No sepsis alert was initiated for patient Patient does have history of prostate cancer, could be related to possible obstruction of some sort leading to UTI Urinalysis showed 53 white cells, +4 bacteria, plus leukocyte Estrace CT shows emphysematous cystitis upon radiology read Duenas catheter inserted which outputted 1500 cc immediately Spoke with urology who recommended as long as patient has Duenas, we can treat with antibiotics for urinary tract infection Some air seen around bladder wall, needs broad spectrum and close monitoring Plan: - Lasix 20 twice today ? Amoxicillin/clavulanic acid 875 mg twice daily -Zosyn and vancomycin discontinued ? Urine culture grew Escherichia coli, pansensitive ? Dr. 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 Arcos and Dr. Belcher outpatient Largest pulmonary nodule seen in right upper lobe 14 mm There is some metastases to spine as well, 15 mm osteolytic bone destruction of T11 Unsure if patient was aware of pulmonary nodules Plan: ? continue home Xtandi 160 mg once a day ? oncology consulted, appreciate recommedations - MRI of the thoracic spine with contrast showed bone metastases, negative for spine compression #FREDO, improving #Hypoosmolar hypovolemic hyponatremia #Hypochloridemia DDx: prerenal versus postrenal BUN/creatinine 54 and 1.9, ratio over 20, could be prerenal Patient reports oral intake over the past week or so likely prerenal Will further workup Pt appears to be dry as well Distended bladder requiring duenas, so there could be some postrenal component, however no stones seen on imaging 11/01 sodium 130, BUN 48, creatinine 1.6, EGFR 44. Urine output is 2.2 L. 11/01 sodium 134, BUN 35, creatinine 1.1, EGFR more than 60. Urine electrolytes showed low chloride, could be due to dehydration. 11/03: Sodium 136, creatinine 1.1, EGFR 60.2. Plan: ? Avoid nephrotoxic agents ? Renally dose medicines ? Strict LISE's ? Continue with Duenas #Chronic Normocytic Anemia Could be related to anemia of chronic disease Pt does take chemotherapy for metastatic prostate cancer Could be side effect of chemotherapy Hgb baseline seemed to be ~11, however ~7.0 Transfusing at this point 1 PRBC Denies dark stools, blood in vomit or coughing up blood 11/01 hemoglobin 9.3, hematocrit 27.2. Iron panel is consistent with anemia of chronic disease and iron deficiency. 3.6 Hbg 85, HCT 24.9. Plan: ? PBS is pending ? Monitor daily CBC, transfuse if hemoglobin less than 7 #Elevated troponin Most likely in the setting of demand ischemia Troponin 0.285 Will need to determine if this is type II related to demand ischemia 11/01 troponin 0.396, will continue to trend. Plan ? Trend troponin every 6 hours #History of hypertension Blood pressure a bit soft upon arrival We will hold resuming blood pressure medicines at this time Plan: ? Cardiology consulted, appreciate recs ? Echo showed EF 55-60% ? Does not seem to take any home blood pressure medicines upon med rec #Health Maintenance Disposition: Med telemetry DVT prophylaxis: SCDs and heparin sc GI prophylaxis: Protonix Diet: cardiac diet CODE STATUS: Full Plan of care discussed with attending Dr. Lala and PGY-[address] Dietrich. Jessica Seymour MD, PGY 1. -- ATTESTATION: I saw and examined the patient this morning, and I agree with current management stated by the resident. Will continue to monitor patient during their stay. Patient is a 74-year-old male past medical history hypertension, stage IV prostatic cancer status post castration with resistance who was initially admitted on 11/21 due to complicated UTI with emphysematous cystitis as well as community-acquired pneumonia. Patient's cultures grew E. coli that is sensitive to Augmentin to which she was downgraded from broad-spectrum antibiotics. We are weaning patient off of oxygen as tolerated. There may be a component of fluid overload as patient received 120 cc of IV fluids for about a day and a half and there is evidence of fluid overload on auscultation. Patient will receive Lasix today and will continue to monitor in the morning. Disclaimer: Despite multiple revisions, due to the dictation software being used, the document bellow may not be free of grammatical errors including phonetic/typographic errors. However, this does not deter from our commitment to providing health care in the patient's best interest in mind. Dr. Mikie Dietrich, PGY-3 Attending Provider Attestation/Addendum I have examined the patient, reviewed labs and imaging findings, discussed the case with the resident(s), and reviewed entered orders. I agree with the plan of care as outlined in this note, with these additional summaries/recommendations: Patient seen at bedside. Overnight patient was found to have low 02 saturation on nasal cannula and was upgraded to HFNC. Chest x-ray was obtained which showed worsening severe bilateral pneumonia. Suspect a component of this is vascular congestion +/- worsening pneumonia. Additional IV Lasix ordered today and continue IV antibiotics and continue to wean oxygen as tolerated. Overall prognosis remains guarded given patient's underlying metastatic prostate cancer. Code status was discussed at bedside and patient plus would like more time to think about patients code status. MRI of the lumbar and thoracic spine did not reveal spinal cord involvement but did show extensive enhancing soft tissue tumor mass destroying the right first second and third sacral wings as well as the posterior right iliac bone. Continue physical therapy. Continue Duenas catheter for urinary tract infection and emphysematous cystitis. Urology and infectious disease following. Repeat hematology and chemistry panel in AM. Continue breathing treatments as needed. Continue pain management as needed. Dr. Dai MD
--- NOTE | 2024-11-04 15:06 | XR_ITS ---
Examination: AP chest single view Technique one AP portable semiupright chest single view Exam date and time: November 04, 2024 1512 hrs. Comparison November 02, 2024 Indications: O2 desaturation. Findings: Severe bilateral pneumonia again noted No major cardiac enlargement Osteoblastic metastatic disease Impression: Again noted severe bilateral pneumonia
[2024-11-04 15:20] LABS: Allen Test Performed/OK; Base Excess -3 (-3-3); HCO3 20 mEq/L (20-26); Inspired Oxygen, FIO2 21 %; O2 Saturation 97 % (91-98); PCO2 26 mmHg (32.0-48.0); PO2 75 mmHg (83-108); Puncture Site Right Radial
--- NOTE | 2024-11-04 15:23 | PD.RESEVENT ---
Documentation for date of: 11/04/24 Event Note Event Note: 11/04 at 15 00 a rapid response was called due to patient becoming confused and desaturating to 78. According to his , he started to ask to be put into another bed . Finger stick glucose was 158, arterial blood gases showed pH of 7.5, pCO2 26, pO2 75. Repeat chest x-ray showed worsening of pneumonia. He was maxed out on high flow, attempt to wean him down was not effective. On examination he appears tired, tachypneic with increased respiratory effort, on auscultation there are right sided rhonchi. Orthodontic Lab Technician Dr. Singh was consulted, decision was made to continue with high flow, give hydrocortisone 100 mg once and continue with diuresis. In case of his worsening respiratory effort, desaturation and signs of tiredness patient will require an intubation with mechanical ventilation. Patient and his has agreed to proceed with it in case of worsening respiratory failure. Plan of care discussed with attending Dr. Lala and PGY-[address] Winkler. Jessica Seymour MD, PGY 1.
[2024-11-04 15:44] LABS: Lactate (Lactic Acid) 1.9 mMol/L (0.4-2.0)
[2024-11-04] MEDS: HYDROCORTISONE SOD SUCC INJ 100 MG VIAL IV (16:25)
[2024-11-04] MEDS: FUROSEMIDE INJ 10 MG/ML VIAL 2 ML 40 MG IVP (16:25)
--- NOTE | 2024-11-04 17:51 | PD.RESPROC ---
Procedures Procedure Date / Time 11/04/24 3548
--- NOTE | 2024-11-04 18:28 | PD.RESEVENT ---
Documentation for date of: 11/04/24 Event Note Event Note: Rapid response was called at 6:25 PM. Patient has begun screaming loudly and gasping for air, with significant concern for worsening hypoxic respiratory failure. Patient had already maxed out on high flow nasal cannula. Upon arrival rapid response team, patient screaming and greeted the team cheerfully. Patient breathing comfortably, saturating 95%. Rapid response was canceled at 6:27 PM without further treatment. Bryan Walsh MD PGY?1
--- NOTE | 2024-11-04 18:59 | PC.NURSE ---
Patient alert/oriented and calm this AM. At approx 1400, patient desaturated to 75-80% on 40L 80% HFNC, respirations 56, increased work of breathing aeb retractions, gasping. [employer] called, HFNC increased to 40l 100%. MD changed hfnc to 40l 90% at conclusion of [employer]. Ordered medications given as response to [employer]. At 1830, patient began yelling out of his room and gasping for air. Patient states that he was watching a movie although no movie was on his television. O2 Sat at this time was 88-92%. HFNC increased to 40L 100%, respirations decreased from 40s to 36, o2 sat 92-94%. Patient breathing continues to be labored AEB retractions, tachypnea. Chain of command followed as this RN (Sharon Lilly) concerned to patient's increased work of breathing and need to increased O2 supplementation.
[2024-11-04] MEDS: FUROSEMIDE INJ 10 MG/ML 4ML VIAL 40 MG IVP (20:02)
[2024-11-04] MEDS: ALBUTEROL/IPRATROPIUM (Duoneb) RT SOL 3 ML NEBU INH (20:03)
--- NOTE | 2024-11-04 20:55 | PC.NURSE ---
[address] Dr[address] Golden and Dr Bland at bedside, pt max on hi flow settings sating at 90%, with little movement pt desats, Respirations high 30s to 40s. per minimal moving of pt right now and morphine 1mg was ordered.
[2024-11-04] MEDS: MORPHINE SULF INJ 10 MG/ML VIAL IVP (21:12)
[2024-11-05] VITALS (48 sets, daily range): BP systolic 61–181; BP diastolic 45–85; PULSE 100–133; RESP 0–36; TEMP 36.1–36.8; O2SAT 87–99; BMI 28.1
--- NOTE | 2024-11-05 05:00 | XR_ITS ---
Examination: AP chest single view Technique: AP portable upright chest single view Exam date and time: November 05, 2024 0359 hrs. Comparison November 04, 2024 Indications: Shortness of breath this week Findings: Severe bilateral pneumonia ARDS pattern Normal heart size Widespread osteoblastic metastatic disease Impression: Severe bilateral pneumonia ARDS pattern
[2024-11-05 06:44] LABS: Basophils % (Auto) 0 % (0-2.5); Eosinophils # (Auto) 0.1 Thou/mm3 (0.0-0.5); Eosinophils % (Auto) 0 % (0-10); Hematocrit 21.2 % (41.0-53.0); Immature Granulocytes % (Auto) 7 % (0-0); Immature Granulocytes Auto 0.89 Thou/mm3 (0.00-0.00); Lymphocytes # (Auto) 0.6 Thou/mm3 (1.0-4.8); Lymphocytes % (Auto) 5 % (10-50); Mean Corpuscular Hemoglobin 29.6 pg (25.0-35.0); Mean Corpuscular Volume 87 fL (80-100); Monocytes # (Auto) 0.6 Thou/mm3 (0.0-0.8); Monocytes % (Auto) 5 % (0-12); Neutrophils # (Auto) 10.1 Thou/mm3 (1.8-7.7); Neutrophils % (Auto) 83 % (37-80); Nucleated Red Blood Cell # 0.15 Thou/mm3 (0.00-0.00); Nucleated Red Blood Cell % 1 /100 WBC (0); Platelet Count 145 Thou/mm3 (140-440); RDW Standard Deviation 47.2 fL (35.1-43.9); Red Blood Count 2.43 Miln/mm3 (4.50-5.90); White Blood Count 12.3 Thou/mm3 (3.8-10.6)
[2024-11-05 06:46] LABS: Hemoglobin 7.2 g/dL (13.5-16.0)
[2024-11-05 07:03] LABS: Alanine Aminotransferase 26 U/L (10-49); Albumin, Serum 3.2 gm/dL (3.4-4.8); Albumin/Globulin Ratio 1.7 (1.2-2.2); Alkaline Phosphatase 75 U/L (46-116); Anion Gap 10 (7-16); Aspartate Amino Transferase 20 U/L (0-34); BUN/Creatinine Ratio 37 Ratio (12-20); Bilirubin,Total 0.8 mg/dL (0.3-1.2); Blood Urea Nitrogen 48 mg/dL (9-23); Calcium 10.6 mg/dL (8.3-10.6); Calcium (Corrected) 11.2 mg/dL (8.5-10.1); Carbon Dioxide 21.8 mMol/L (20.0-31.0); Chloride 108 mMol/L (98-107); Creatinine (Component) 1.3 mg/dL (0.6-1.3); Estimated Creatinine Clearance 51.1 mL/min (>60); Globulin 1.9 gm/dL (2.3-3.5); Glucose 143 mg/dL (74-106); Osmolality,Calculated 294 (275-295); Potassium 3.8 mMol/L (3.4-5.1); Sodium 140 mMol/L (136-145); Total Protein 5.1 gm/dL (5.7-8.2); eGFR 57 See Note
[2024-11-05] MEDS: HEPARIN SOD INJ 5000 UNIT/ML VIAL SC (09:00)
[2024-11-05] MEDS: HYDROCORTISONE SOD SUCC INJ 100 MG VIAL IV (09:00)
[2024-11-05] MEDS: XTANDI 40 MG PO (09:00)
--- NOTE | 2024-11-05 09:01 | ESPR_ITS ---
Documentation for date of: 11/05/24 Subjective Subjective Interval history: Patient was seen and examined by the bedside. Yesterday patient had another rapid response called at 6 pm due to desaturation, but it was cancelled due to patient resting in the bed and repeat saturation level being normal. Today, he is on high-flow, 40L FiO2 100%, saturating in the 90s. Will continue with hydrocortisone and DuoNebs inhalations, will try chest PT. Had conversation with his regarding the plan of care in case of his worsening respiratory failure, requiring him to be transferred to the ICU and that there's a high possibility of him not being able to be wean off the ventilator and his demise due to infection. Patient's showed understanding, all qustion were answered to the satisfaction. Despite the antibiotics, diuretics, steroids and chest physical therapy, patient condition continued to worsened and it was suggested to call the other family members to visit the patient. Later, had a discussion with other family present regarding the further plan of care. Explained to them that respiratory failure is imminent and the next step of treatment is going to be intubation and mechanical ventilation with transfer to the ICU. Also, explained to them that the patient has a high chance of meeting his demise in the near future taking into the consideration the severe pneumonia and stage IV metastatic cancer and the mechanical ventilation and ICU care is unlikely to change it. An option of comfort care was suggested to them, they asked to be given time to make a collective decision. After that, patient and the family decided to proceed with intubation. We respected their decision, Dr. Singh, automatic spreader operator was made aware and ED Doctor Violet was called for intubation. Patient was tranferred to the ICU, intubated and sedated. Exam Vital Signs Temp Pulse Resp BP Pulse Ox O2 Del Method O2 Flow Rate 98.0 F 105 H 22 H 128/63 97 High Flow Nasal Cannula 40 11/05/24 08:00 11/05/24 08:12 11/05/24 08:12 11/05/24 04:00 11/05/24 08:12 11/05/24 08:00 11/05/24 08:12 FiO2 100 11/05/24 08:12 Narrative Exam Physical Exam General: Tachypneic, laying in bed. Able to hold conversation. HEENT: Normocephalic, atraumatic, mucous membranes moist. Heart: Regular rate and rhythm, no murmurs. Lungs: Right sided crackles and rhonchi. Abdomen: Soft, nondistended, nontender, positive bowel sounds. ?No guarding or rebound tenderness. Neurologic: Alert and oriented x3, no gross neurological deficit, and patient able to move all 4 extremities. Extremities: Moderate right 2+ tibil edema> mild left 1+ tibial edema. Skin: No rash or ecchymoses. Objective Labs 11/06/24 04:42 11/06/24 04:42 Labs: Laboratory Results - last 24 hr 11/04/24 11/04/24 11/05/24 15:14 15:28 06:12 WBC 12.3 H RBC 2.43 L Hgb 7.2 L Hct 21.2 L* MCV 87 MCH 29.6 MCHC 34.0 RDW Std Deviation 47.2 H Plt Count 145 Neut % (Auto) 83 H Lymph % (Auto) 5 L Sunflower % (Auto) 5 Eos % (Auto) 0 Baso % (Auto) 0 Neut # (Auto) 10.1 H Lymph # (Auto) 0.6 L Sunflower # (Auto) 0.6 Eos # (Auto) 0.1 Baso # (Auto) 0.0 Immature Gran # (Auto) 0.89 H Absolute Nucleated RBC 0.15 H Immature Gran % 7 H Nucleated RBC % 1 H Puncture Site Right Radial ABG pH 7.50 H ABG pCO2 26 L ABG pO2 75 L ABG HCO3 20 ABG O2 Saturation 97 ABG Base Excess -3 FiO2 21 Sodium 140 Potassium 3.8 Chloride 108 H Carbon Dioxide 21.8 Anion Gap 10 BUN 48 H Creatinine 1.3 Estim Creat Clear Calc 51.1 L eGFR 57 L BUN/Creatinine Ratio 37 H Glucose 143 H Calculated Osmolality 294 Lactic Acid 1.9 Calcium 10.6 Corrected Calcium 11.2 H Total Bilirubin 0.8 AST 20 ALT 26 Alkaline Phosphatase 75 Total Protein 5.1 L Albumin 3.2 L Globulin 1.9 L Albumin/Globulin Ratio 1.7 ABG Interpretation ABG results: 10/31/24 11/04/24 11:59 15:14 ABG pH 7.54 H 7.50 H ABG pCO2 24 L 26 L ABG pO2 60 L 75 L ABG HCO3 21 20 ABG O2 Saturation 92 97 ABG Base Excess -2 -3 Quality Measures Quality Measures VTE prophylaxis Advance care planning discussed with:: patient, spouse and other Assessment & Plan Assessment Current Active Medications: Generic Name Dose Route Start Last Admin Trade Name Freq PRN Reason Stop Dose Admin Acetaminophen 650 mg 11/01/24 08:44 Acetaminophen 325 Mg Tablet PO 12/01/24 08:43 Q4HR PRN FEVER >101 Hydrocodone Bitart/Acetaminophen 1 tab 11/01/24 08:45 11/04/24 04:54 Hydrocodone/Apap 5/325 Tablet PO 11/06/24 08:05 1 tab Q6HR PRN Administration PAIN SCALE 4-10(Mod-Sev Albuterol/Ipratropium 3 ml 11/05/24 08:00 Albuterol/Ipratropium (Duoneb) Rt Rand 3 Ml Nebu INH 12/05/24 07:59 Q2HR PRN SHORTNESS OF BREATH OR WHEEZE Albuterol/Ipratropium 3 ml 11/05/24 13:00 Albuterol/Ipratropium (Duoneb) Rt Rand 3 Ml Nebu INH 12/05/24 12:59 Q6HRRT STORM Amoxicillin/Clavulanate Potassium 1 tab 11/03/24 21:00 11/04/24 21:46 Amoxicillin/Pot Clav 875 Tablet PO 11/07/24 12:00 1 tab BID STORM Administration Xtandi (Enzalutamide 0 ea 11/01/24 09:30 11/04/24 08:32 ) 40 Mg Tablets PO 12/01/24 09:29 160 tablet DAILY STORM Administration Heparin Sodium (Porcine) 5,000 unit 11/01/24 21:00 11/04/24 21:45 Heparin Sod Inj 5000 Unit/Ml Vial SC 11/15/24 20:59 5,000 unit Q12HR STORM Administration Home Medication- 160 mg 11/01/24 09:00 11/04/24 08:33 Please Speak With PO 12/01/24 08:59 Not Given Patient Caregiver To DAILY STORM Have Rx Brought To [facility] Polyethylene Glycol 17 gm 11/02/24 09:45 11/04/24 08:43 Polyethylene Glycol 17 Gm Packet PO 12/02/24 09:44 17 gm QDAY STORM Administration Sennosides 1 tab 11/02/24 09:39 Senna Tablet PO 12/02/24 09:38 QDAY PRN CONSTIPATION Protocol Plan The patient is a 74-year-old with previous medical history of hypertension, 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 #Community-acquired pneumonia #Acute hypoxic respiratory failure 11/02: Patient appears to be tachypneic, on 5 L oxy mask. 10/31: Lower extremity Doppler was negative, CTA was negative. Chest x-ray 11/02 shows worsening of pneumonia. Will try to diurese today and will try to wean off oxygen. Plan: - Sputum cultures, MRSA screen ordered - Blood culture negative -Amoxicillin/clavulanic acid 875 mg twice daily - Hydrocortisone 100 mg once #Complicated urinary tract infection, improving #Emphysematous cystitis No sepsis alert was initiated for patient Patient does have history of prostate cancer, could be related to possible obstruction of some sort leading to UTI Urinalysis showed 53 white cells, +4 bacteria, plus leukocyte Estrace CT shows emphysematous cystitis upon radiology read Duenas catheter inserted which outputted 1500 cc immediately Spoke with urology who recommended as long as patient has Duenas, we can treat with antibiotics for urinary tract infection Some air seen around bladder wall, needs broad spectrum and close monitoring Plan: ? Amoxicillin/clavulanic acid 875 mg twice daily -Zosyn and vancomycin discontinued ? Urine culture grew Escherichia coli, pansensitive ? Dr. 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 Arcos and Dr. Belcher outpatient Largest pulmonary nodule seen in right upper lobe 14 mm There is some metastases to spine as well, 15 mm osteolytic bone destruction of T11 Unsure if patient was aware of pulmonary nodules Plan: ? continue home Xtandi 160 mg once a day ? oncology consulted, appreciate recommedations - MRI of the thoracic spine with contrast showed bone metastases, negative for spine compression #FREDO, improving #Hypoosmolar hypovolemic hyponatremia, resolved #Hypochloridemia DDx: prerenal versus postrenal BUN/creatinine 54 and 1.9, ratio over 20, could be prerenal Patient reports oral intake over the past week or so likely prerenal Will further workup Pt appears to be dry as well Distended bladder requiring duenas, so there could be some postrenal component, however no stones seen on imaging 11/01 sodium 130, BUN 48, creatinine 1.6, EGFR 44. Urine output is 2.2 L. / sodium 134, BUN 35, creatinine 1.1, EGFR more than 60. Urine electrolytes showed low chloride, could be due to dehydration. 11/03: Sodium 136, creatinine 1.1, EGFR 60.2. Plan: ? Avoid nephrotoxic agents ? Renally dose medicines ? Strict LISE's ? Continue with Duenas #Chronic Normocytic Anemia Could be related to anemia of chronic disease Pt does take chemotherapy for metastatic prostate cancer Could be side effect of chemotherapy Hgb baseline seemed to be ~11, however ~7.0 Transfusing at this point 1 PRBC Denies dark stools, blood in vomit or coughing up blood / hemoglobin 9.3, hematocrit 27.2. Iron panel is consistent with anemia of chronic disease and iron deficiency. 3.6 Hbg 85, HCT 24.9. Plan: ? PBS is pending ? Monitor daily CBC, transfuse if hemoglobin less than 7 #Elevated troponin Most likely in the setting of demand ischemia Troponin 0.285 Will need to determine if this is type II related to demand ischemia / troponin 0.396, will continue to trend. Plan ? Troponin peaked, stopped trending #History of hypertension Blood pressure a bit soft upon arrival We will hold resuming blood pressure medicines at this time Plan: ? Cardiology consulted, appreciate recs ? Echo showed EF 55-60% ? Does not seem to take any home blood pressure medicines upon med rec #Health Maintenance Disposition: upgraded to ICU DVT prophylaxis: SCDs and heparin sc GI prophylaxis: Protonix Diet: cardiac diet CODE STATUS: Full Plan of care discussed with attending Dr. Lala and PGY-[address] Winkler. Jessica Seymour MD, PGY 1. Attending Provider Attestation/Addendum I have examined the patient, reviewed labs and imaging findings, discussed the case with the resident(s), and reviewed entered orders. I agree with the plan of care as outlined in this note, with these additional summaries/recommendations: Patient seen at bedside. Patient had multiple rapid responses yesterday for worsening hypoxia. This morning at bedside patient is on max high flow nasal cannula settings with 40 L and 100% FiO2. Today's chest x-ray shows severe bilateral pneumonia. Patient appears more somnolent today, short of breath, and failed swallow evaluation. Patient's clinical status has unfortunately deteriorated and this was discussed with patient's medical decision maker who is his . As of now patient's children plan on visiting today and we will have additional goals of care. Currently patient is full code although we will follow-up with family given patient's poor prognosis. We will continue IV antibiotics today and patient received diuresis. Overall prognosis remains guarded given patient's underlying metastatic prostate cancer with metastasis to lung and bone. MRI of the lumbar and thoracic spine did not reveal spinal cord involvement but did show extensive enhancing soft tissue tumor mass destroying the right first second and third sacral wings as well as the posterior right iliac bone. Patient no longer ambulating and unable to work with physical therapy at this time. Continue Duenas catheter for urinary tract infection and emphysematous cystitis. Urology and infectious disease following. Repeat hematology and chemistry panel in AM. Continue breathing treatments as needed. Continue pain management as needed. Dr. Dai MD
[2024-11-05] MEDS: AMOXICILLIN/POT CLAV 875 TABLET 1 TAB PO (09:12)
[2024-11-05] MEDS: ALBUTEROL/IPRATROPIUM (Duoneb) RT SOL 3 ML NEBU INH ×2 (09:36→14:34)
[2024-11-05] MEDS: ETOMIDATE INJ 2 MG/ML VIAL 10 ML 40 MG IVP (15:58)
--- NOTE | 2024-11-05 16:09 | XR_ITS ---
EXAMINATION: XR chest 1V portable ORDERING PROVIDER: Austin Diaz MD HISTORY: post intubation TECHNIQUE: 2 portable AP radiographs of the chest. COMPARISON: 11/05/2024, portable chest radiographs FINDINGS: Lines and Tubes: Endotracheal tube tip 3.6 cm above the level the dev. Enteric tube projects below the level of the left hemidiaphragm with tip and side-port part projecting over the gastric. Left probable subclavian line tip projects over the expected region of the superior cavoatrial junction. Multiple overlying monitoring leads. Lungs: Similar diffuse right greater than left patchy airspace opacities. Pleura: No pneumothorax or large pleural effusion. Cardiomediastinal Silhouette: Unchanged. Soft Tissues/Bones: Unchanged widespread bony metastatic lesions. IMPRESSION: 1. Lines and tubes as above. This includes interval intubation and placement of enteric tube. 2. Similar diffuse right greater than left patchy airspace opacities, concerning for acute respiratory distress syndrome. Differential also includes severe pulmonary edema, hemorrhage, etc.
[2024-11-05] MEDS: PROPOFOL 1,000 MG IVPB 1,000 MG/100 ML VIAL 2.445 MG IV (16:10)
[2024-11-05] MEDS: fentaNYL 2,500 MCG/250 ML BAG 2,500 MCG/250 ML BAG IV (16:10)
[2024-11-05] MEDS: MIDAZOLAM INJ 1 MG/ML VIAL 2 ML 4 MG IV (16:11)
[2024-11-05] MEDS: fentaNYL CIT INJ 50 mCg/ML AMP 2ML IVP (16:45)
[2024-11-05] MEDS: PIPER/TAZO INJ 3.375 GM in SODIUM CHLORIDE 0.9% (Popper) 50 ML IV ×2 (16:52→21:50)
[2024-11-05] MEDS: PANTOPRAZOLE INJ 40 MG VIAL IV (16:52)
--- NOTE | 2024-11-05 16:54 | ESCONSULT_ITS ---
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 Per patient's who was at bedside, she reports that the patient has been feeling weak for the last couple days prior to presentation as well as short of breath and he had been having difficulty ambulating. He also complained of some back pain and his PCP had diagnosed him with sciatica and started him on steroids, however the shortness of breath specially on exertion only worsened. Prior to these, he was independent in his ADLs until sciatica was diagnosed and he started using a walker, she also reported that patient had lost some weight in recent times and has had a poor appetite. Due to the back pain, patient was reported to have had a ground-level fall earlier that day as was trying to get to the bathroom. In the ED, blood pressure was soft and he was hypoxic, requiring about 4 L of oxygen. Initial labs were significant for anemia, respiratory alkalosis on ABG, hyponatremia and FREDO. Urinalysis was positive for UTI. All viral testing done in the ED were negative. Imaging showed bilateral he lymphadenopathy with numerous bilateral pulmonary metastatic nodule, significant pneumonia in the right base of the lung with mild to moderate right pleural effusion, widespread osteoblastic metastatic disease. The patient was admitted for management of acute hypoxic respiratory failure secondary to likely community-acquired pneumonia. During the course of hospitalization, the patient was treated with antibiotics Zosyn for emphysematous cystitis as seen on CT abdomen, his home medication Xtandi was continued and oncology was consulted. Patient continued to experience significant shortness of breath and repeat chest x-ray showed worsening pneumonia and possible vascular congestion and he was continuously diuresed. As patient was maxed out on high flow oxygen and BiPAP was not an option, ICU was consulted for advancing management, IV hydrocortisone 100 mg was given. Primary team had a goals of care discussion with family today and after presenting all options, family decided to keep patient is full code and pursue intensive measures including intubation. Today, 11/05/2024, the patient's was upgraded to the ICU to be intubated. cc:: cc: Ibrahima Lala MD Review of Systems Review of Systems ROS Unobtainable: unobtainable due to medical condition and due to endotracheal tube Exam Vital Signs Temp Pulse Resp BP Pulse Ox O2 Del Method O2 Flow Rate 97.8 F 129 H 26 H 181/85 H 95 High Flow Nasal Cannula 40 11/05/24 12:00 11/05/24 16:37 11/05/24 14:50 11/05/24 16:37 11/05/24 16:37 11/05/24 12:00 11/05/24 14:50 FiO2 60 11/05/24 16:37 Narrative Exam GENERAL: Sedated, intubated on MV NEURO: GCS-3, intubated HEENT: Dry mucosa. Eyes open, symmetrical, & clear CARDIO: No chest pain on palpation. Heart RRR, no obvious murmurs PULM: Crackles heard bilaterally, worse on the right. GI: Abdomen soft, nondistended. BSx4 URO/FLIGHT PHYSICIAN:: No further abnormalities noted. SKIN/MSK/EXT: 1+ pitting edema in bilaterally Results Labs 11/05/24 06:12 11/05/24 06:12 Labs: Short CBC 11/05/24 Range/Units 06:12 WBC 12.3 H (3.8-10.6) Thou/mm3 Hgb 7.2 L (13.5-16.0) g/dL Hct 21.2 L* (41.0-53.0) % Plt Count 145 (140-440) Thou/mm3 BMP 11/05/24 06:12 Sodium 140 Potassium 3.8 Chloride 108 H Carbon Dioxide 21.8 BUN 48 H Creatinine 1.3 Glucose 143 H Calcium 10.6 Liver Function 11/05/24 Range/Units 06:12 Total Bilirubin 0.8 (0.3-1.2) mg/dL AST 20 (0-34) U/L ALT 26 (10-49) U/L Alkaline Phosphatase 75 (46-116) U/L Albumin 3.2 L (3.4-4.8) gm/dL ABG Interpretation ABG results: 10/31/24 11/04/24 11:59 15:14 ABG pH 7.54 H 7.50 H ABG pCO2 24 L 26 L ABG pO2 60 L 75 L ABG HCO3 21 20 ABG O2 Saturation 92 97 ABG Base Excess -2 -3 Quality Measures Quality Measures VTE prophylaxis Advance care planning discussed with:: spouse Medications Home Medications and Allergies Home Medications ?Medication ?Instructions ?Recorded ?Confirmed ?Type enzalutamide 40 mg tablet (Xtandi) 160 mg PO Q24H 01/2111/01/24 History losartan 50 mg tablet 50 mg PO QDAY 11/01/2411/01 History Allergies Allergy/AdvReac Type Severity Reaction Status Date / Time No Known Drug Allergies Allergy Verified 11/26/22 09:52 Visit Medications Acetaminophen (Acetaminophen 325 Mg Tablet) 650 mg PO Q4HR PRN PRN Reason: FEVER >101 Stop: 12/01/24 08:43 Hydrocodone Bitart/Acetaminophen (Hydrocodone/Apap 5/325 Tablet) 1 tab PO Q6HR PRN PRN Reason: PAIN SCALE 4-10(Mod-Sev Stop: 11/06/24 08:05 Last Admin: 11/04/24 04:54 Dose: 1 tab Albuterol/Ipratropium (Albuterol/Ipratropium (Duoneb) Rt Rand 3 Ml Nebu) 3 ml INH Q2HR PRN PRN Reason: SHORTNESS OF BREATH OR WHEEZE Stop: 12/05/24 07:59 Albuterol/Ipratropium (Albuterol/Ipratropium (Duoneb) Rt Rand 3 Ml Nebu) 3 ml INH Q6HRRT STORM Stop: 12/05/24 09:04 Last Admin: 11/05/24 14:34 Dose: 3 ml Xtandi (Enzalutamide () 40 Mg Tablets) 0 ea PO DAILY STORM Stop: 12/01/24 09:29 Last Admin: 11/05/24 09:00 Dose: 40 tablet Heparin Sodium (Porcine) (Heparin Sod Inj 5000 Unit/Ml Vial) 5,000 unit SC Q12HR STORM Stop: 11/15/24 20:59 Last Admin: 11/05/24 09:00 Dose: 5,000 unit Fentanyl Citrate (Sublimaze Inj 2,500 Mcg/250 Ml Bag) 2,500 mcg in 250 mls @ 2.5 mls/hr IV .Q24H PRN; Protocol PRN Reason: PER PROTOCOL Stop: 11/10/24 15:59 Last Admin: 11/05/24 16:10 Dose: 25 mcg/hr, 2.5 mls/hr Propofol (Diprivan Ivpb) 1,000 mg in 100 mls @ 2.445 mls/hr IV .Q24H PRN; Protocol PRN Reason: PER PROTOCOL Stop: 12/05/24 15:59 Last Titration: 11/05/24 16:45 Dose: 40 mcg/kg/min, 19.56 mls/hr Piperacillin Sod/Tazobactam (Sod 3.375 gm/ Sodium Chloride) 50 mls @ 12.5 mls/hr IV Q8HR [facility] Stop: 11/12/24 21:59 Piperacillin Sod/Tazobactam (Sod 3.375 gm/ Sodium Chloride) 50 mls @ 100 mls/hr IV X1 ONE Stop: 11/05/24 16:59 Last Admin: 11/05/24 16:52 Dose: 100 mls/hr Home Medication- Please Speak With Patient Caregiver To Have Rx Brought To [facility] 160 mg PO DAILY [facility] Stop: 12/01/24 08:59 Last Admin: 11/05/24 09:00 Dose: Not Given Pantoprazole Sodium (Pantoprazole Inj 40 Mg Vial) 40 mg IV QDAY [facility] Stop: 12/05/24 16:14 Last Admin: 11/05/24 16:52 Dose: 40 mg Pharmacy Consult (Pharmacy Renal Dose Adjustment 1 Ea) 1 each XX PRN PRN PRN Reason: CONSULT Stop: 12/05/24 16:13 Polyethylene Glycol (Polyethylene Glycol 17 Gm Packet) 17 gm PO QDAY [facility] Stop: 12/02/24 09:44 Last Admin: 11/05/24 09:08 Dose: Not Given Sennosides (Senna Tablet) 1 tab PO QDAY PRN; Protocol PRN Reason: CONSTIPATION Stop: 12/02/24 09:38 Discontinued Medications Acetaminophen (Acetaminophen 325 Mg Tablet) 650 mg PO Q6H PRN PRN Reason: Fever >100 or pain 1-3 Stop: 11/30/24 20:47 Hydrocodone Bitart/Acetaminophen (Hydrocodone/Apap 5/325 Tablet) 1 tab PO Q6HR PRN PRN Reason: PAIN SCALE 4-6 (Moderate Stop: 11/06/24 08:05 Hydrocodone Bitart/Acetaminophen (Hydrocodone/Apap 5/325 Tablet) 1 tab PO Q6HR PRN PRN Reason: Pain Scale 7-10 Stop: 11/06/24 08:05 Hydrocodone Bitart/Acetaminophen (Hydrocodone/Apap 5/325 Tablet) 1 tab PO X1 ONE Stop: 11/02/24 10:10 Last Admin: 11/02/24 11:34 Dose: 1 tab Albuterol/Ipratropium (Albuterol/Ipratropium (Duoneb) Rt Rand 3 Ml Nebu) 3 ml INH Q2HR PRN PRN Reason: SHORTNESS OF BREATH OR WHEEZE Stop: 12/03/24 04:42 Last Admin: 11/04/24 20:03 Dose: 3 ml Albuterol/Ipratropium (Albuterol/Ipratropium (Duoneb) Rt Rand 3 Ml Nebu) 3 ml INH Q6HRRT STORM Stop: 12/05/24 12:59 Amoxicillin/Clavulanate Potassium (Amoxicillin/Pot Clav 875 Tablet) 1 tab PO BID STORM Stop: 11/07/24 12:00 Last Admin: 11/05/24 09:12 Dose: 1 tab Etomidate (Etomidate Inj 2 Mg/Ml Vial 10 Ml) 40 mg IVP X1 ONE Stop: 11/05/24 15:44 Last Admin: 11/05/24 15:58 Dose: 40 mg Fentanyl Citrate (Fentanyl Cit Inj 50 Mcg/Ml Amp 2ml) 50 mcg IVP X1 ONE Stop: 11/05/24 16:40 Last Admin: 11/05/24 16:45 Dose: 50 mcg Furosemide (Furosemide Inj 10 Mg/Ml Vial 2 Ml) 20 mg IVP X1 ONE Stop: 11/03/24 09:38 Last Admin: 11/03/24 11:28 Dose: 20 mg Furosemide (Furosemide Inj 10 Mg/Ml Vial 2 Ml) 20 mg IVP X1 ONE Stop: 11/03/24 18:18 Last Admin: 11/03/24 18:33 Dose: 20 mg Furosemide (Furosemide Inj 10 Mg/Ml Vial 2 Ml) 20 mg IVP X1 ONE Stop: 11/04/24 07:22 Last Admin: 11/04/24 08:31 Dose: 20 mg Furosemide (Furosemide Inj 10 Mg/Ml Vial 2 Ml) 20 mg IVP X1 ONE Stop: 11/04/24 18:01 Furosemide (Furosemide Inj 10 Mg/Ml Vial 2 Ml) 40 mg IVP X1 ONE Stop: 11/04/24 16:21 Last Admin: 11/04/24 16:25 Dose: 40 mg Furosemide (Furosemide Inj 10 Mg/Ml 4ml Vial) 40 mg IVP X1 ONE Stop: 11/04/24 19:54 Last Admin: 11/04/24 20:02 Dose: 40 mg Furosemide (Furosemide 40 Mg Tablet) 40 mg PO X1 ONE Stop: 11/05/24 09:45 Last Admin: 11/05/24 10:21 Dose: Not Given Hydrocortisone Sodium Succinate (Hydrocortisone Sod Succ Inj 100 Mg Vial) 100 mg IV X1 ONE Stop: 11/04/24 16:06 Last Admin: 11/04/24 16:25 Dose: 100 mg Hydrocortisone Sodium Succinate (Hydrocortisone Sod Succ Inj 100 Mg Vial) 100 mg IV X1 ONE Stop: 11/05/24 07:27 Last Admin: 11/05/24 09:00 Dose: 100 mg Hydromorphone HCl (Hydromorphone Inj 2 Mg/Ml Vial) 1 mg IVP X1 ONE Stop: 10/31/24 12:26 Last Admin: 10/31/24 13:07 Dose: 1 mg Hydromorphone HCl (Hydromorphone Inj 2 Mg/Ml Vial) 1 mg IVP X1 ONE Stop: 10/31/24 18:21 Last Admin: 10/31/24 18:43 Dose: 1 mg Sodium Chloride (Ns) 1,000 mls @ 999 mls/hr IV .Q1H1M ONE Stop: 10/31/24 13:25 Last Infusion: 10/31/24 14:19 Dose: Infused Ceftriaxone Sodium 1,000 mg/ (Sodium Chloride) 50 mls @ 100 mls/hr IV X1 ONE Stop: 10/31/24 16:29 Last Infusion: 10/31/24 19:24 Dose: Infused Vancomycin HCl 2,000 mg/ (Sodium Chloride) 500 mls @ 150 mls/hr IV X1 ONE Stop: 10/31/24 20:54 Last Infusion: 10/31/24 23:21 Dose: Infused Sodium Chloride (Ns) 1,000 mls @ 120 mls/hr IV .Q8H20M [facility] Stop: 11/30/24 20:59 Last Admin: 11/02/24 05:17 Dose: 120 mls/hr Piperacillin Sod/Tazobactam (Sod 3.375 gm/ Sodium Chloride) 50 mls @ 12.5 mls/hr IV Q8HR [facility] Stop: 11/08/24 05:59 Last Admin: 11/02/24 05:17 Dose: 12.5 mls/hr Piperacillin Sod/Tazobactam (Sod 3.375 gm/ Sodium Chloride) 50 mls @ 100 mls/hr IV X1 ONE Stop: 10/31/24 21:29 Last Infusion: 11/01/24 00:12 Dose: Infused Ceftriaxone Sodium 1,000 mg/ (Sodium Chloride) 50 mls @ 100 mls/hr IV QDAY [facility] Stop: 11/09/24 10:06 Ceftriaxone Sodium 1,000 mg/ (Sodium Chloride) 50 mls @ 100 mls/hr IV QDAY [facility] Stop: 11/10/24 08:59 Piperacillin Sod/Tazobactam (Sod 4.5 gm/ Sodium Chloride) 100 mls @ 200 mls/hr IV Q6HR [facility] Stop: 11/09/24 13:57 Last Admin: 11/03/24 05:09 Dose: 200 mls/hr Vancomycin HCl/Dextrose (Vancomycin/D5w 1,250 Mg Ivpb) 250 mls @ 120 mls/hr IV X1 ONE Stop: 11/02/24 17:04 Last Admin: 11/02/24 15:06 Dose: 120 mls/hr Vancomycin/Sodium Chloride (Vancomycin/Ns 1 Gm Ivpb) 200 mls @ 120 mls/hr IV QDAY@1000 STORM; Protocol Stop: 11/10/24 09:59 Last Admin: 11/03/24 11:22 Dose: 120 mls/hr Ibuprofen (Ibuprofen Tab 400 Mg Tablet) 400 mg PO Q6HR PRN PRN Reason: Pain 1-6 Or Fever > 101 Stop: 12/01/24 08:40 Midazolam HCl (Midazolam Inj 1 Mg/Ml Vial 2 Ml) 4 mg IV X1 ONE Stop: 11/05/24 16:11 Last Admin: 11/05/24 16:11 Dose: 4 mg Morphine Sulfate (Morphine Sulf Inj 10 Mg/Ml Vial) 2 mg IVP Q6HR PRN PRN Reason: PAIN SCALE 7-10 (Severe Stop: 11/06/24 08:05 Morphine Sulfate (Morphine Sulf Inj 10 Mg/Ml Vial) 1 mg IVP X1 ONE Stop: 11/04/24 20:58 Last Admin: 11/04/24 21:12 Dose: 1 mg Ondansetron HCl (Ondansetron Inj 2 Mg/Ml Inj 2 Ml) 4 mg IV X1 ONE; Protocol Stop: 10/31/24 12:26 Last Admin: 10/31/24 13:06 Dose: 4 mg Oxycodone/Acetaminophen (Oxycodone/Apap 5/325 Tablet) 1 tab PO X1 ONE Stop: 11/03/24 04:44 Last Admin: 11/03/24 05:09 Dose: 1 tab Pantoprazole Sodium (Pantoprazole 40 Mg Tablet) 40 mg PO QDAY [facility] Stop: 11/30/24 20:59 Last Admin: 11/03/24 08:23 Dose: 40 mg Pharmacy Consult (Vancomycin Pharmacy To Dose 1 Each Each) 1 each IV QDAY PRN PRN Reason: CONSULT Stop: 12/02/24 13:59 Sodium Chloride (Sodium Chloride Rt 10% 15 Ml Nebu) 5 ml INH X1 ONE Stop: 11/02/24 13:53 Succinylcholine Chloride (Succinylcholine Inj 20 Mg/Ml Vial 10 Ml) 100 mg IV X1 ONE Stop: 11/05/24 15:44 Last Admin: 11/05/24 16:10 Dose: Not Given Assessment & Plan Plan Summary: The patient is a 74-year-old male with a past medical history of hypertension and 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 Neuro No active conditions Sedated, intubated on MV Cardiovascular #History of HFpEF 55 to 60% #Type II NSTEMI As the patient initially presented with shortness of breath as well as some elevated troponin levels on admission, cardiology was consulted. Echocardiogram was done which showed normal LV size and function with ejection fraction 55 to 60% and stage I diastolic dysfunction. Patient was started on diuresis with IV Lasix to improve respiratory status. Plan: -Continue IV Lasix 40 mg daily -Cardiology consulted, appreciate recommendations #History of hypertension The patient has a history of hypertension but on admission, blood pressure has been soft and antihypertensives have been held. Will continue to monitor blood pressure before initiating antihypertensives. Respiratory #Acute hypoxic respiratory failure #Bilateral pneumonia #Community vs Hospital acquired The patient presented with a couple days history of shortness of breath prior to presentation. Chest x-ray shows severe bilateral pneumonia and a possible evolving ARDS pattern. The patient is currently on IV antibiotics Zosyn. All cultures have been negative so far. Aware to the ICU on 11/05/2024 as patient was maxed out on high flow oxygen and was still tachypneic with persistent shortness of breath. Plan: -Keep intubated on MV -ABG -Continue IV Zosyn -MRSA nares pending -Sputum culture and Gram stain GI No active conditions Renal #FREDO-resolved #Prerenal versus postrenal On admission, patient had an FREDO with BUN of 54 and creatinine 1.9. Patient reportedly had decreased oral intake over the week prior to her admission. Patient however also had a distended bladder requiring Wells. Creatinine is now normalized. Plan: -Avoid nephrotoxic medications -Renally dose medications as needed Endocrine No active conditions Prediabetes, A1c-6.1 Not requiring insulin Urology #Complicated UTI #Emphysematous cystitis Patient's initial presentation had no urinary symptoms, however urinalysis showed 53 white blood cells with 4+ bacteria and positive leukocyte esterase. CT abdomen and pelvis that was done at the time showed emphysematous cystitis. Urology was consulted and recommended to treat with antibiotics for UTI as long as patient has a Wells. Urine culture returned positive for E. coli, pansensitive. Patient was started on IV Zosyn, also received vancomycin and transitioned to p.o. Augmentin. On upgrade to the ICU, he was placed back on IV Zosyn. 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 Arcos and Dr. Belcher. Supposedly, he had been in remission many years ago. Chest CT done on this admission showed pulmonary nodules with the largest in the right upper lobe, also setting or mets to the spine and sacrum. Oncology was consulted on this admission and requested an MRI to be done which showed soft tissue trauma in the right first second and third sacral wings as well as the posterior right iliac bone. The patient is currently on Xtandi Plan: -Continue Xtandi -Oncology consulted, appreciate recommendations #Chronic normocytic anemia Patient has had anemia and is considered chronic, likely either to be anemia of chronic disease or side effect of chemotherapy. Hemoglobin at baseline is approximately 11, on admission hemoglobin was 7.0. During course of admission, he has received 2 units of PRBCs. Hemoglobin today at 7.2. On intubation, noted the patient had some bloody secretions, however he has been denying coughing up blood or GI blood losses. Plan: -Continue to monitor H&H -Holding heparin for now Infectious See pulm and uro above Health maintenance: Dispo: ICU for acute hypoxic respiratory failure, sedated and intubated Diet: N.p.o. GI: Pantoprazole DVT: SCDS Wells: In situ Lines: Peripheral Code: Full Case was discussed with attending physician, Dr Francisco Thompson MD PGY-1 Disclaimer: This note was dictated by speech recognition. Minor errors in machine slat basket maker may be present due to voice recognition software. Attending Provider Attestation/Addendum Patient seen and examined with the above resident, Wilfredo Thompson MD. I agree with the findings, assessment, and plan of care as documented except for any difference below. Patient re-evaluated at request of medicine team. Remains on high FiO2 with likely impending respiratory failure requiring intubation. The family has decided to meet and after their evaluation and respecting the patient's wishes, he was transferred to ICU for optimization in anticipation for intubation/ MV. Patient with ARDS like pattern on imaging with PF ratio severely limited. Patient placed on MV by ED physician. Started on antibiotics for OLIVIA given prolonged stay. Cannot exclude presence of metastatic lesions and associated inflammatory disease. May be amenable to steroids in short term but concerning for terminal illness. Family and patient were not ready for this though we will continue to approach them based on clinical course from here. Diuresis ongoing to optimize fluid status. Continue lung protective settings, PEEP optimized for driving pressure. PRN paralytics used for synchrony in early ARDS. Patient with guarded prognosis. Total critical care time: I personally spent 40 minutes for review of physiologic parameters, coordination of care with other specialists, and directing plan of care this afternoon. This is exclusive of time spent teaching housestaff or performing any separate billable procedures. Patient continues to require critical care services for acute hypoxic respiratory failure with healthcare associated pneumonia and ARDS. Patient remains at significant risk for furthe rmorbidity and mortality warranting ongoing management and care only available in the ICU.
[2024-11-05] MEDS: Norepinephrine/D5W 8mg/250ml 8 MG/250 ML BAG 7.641 MG IV (17:09)
[2024-11-05] MEDS: ROCURONIUM INJ 10 MG/ML VIAL 10 ML 50 MG IVP (17:31)
[2024-11-05] MEDS: MIDAZOLAM INJ 1 MG/ML VIAL 2 ML 2 MG IV (17:31)
[2024-11-05 17:59] LABS: Base Excess -5 (-3-3); HCO3 21 mEq/L (20-26); O2 Saturation 87 % (91-98); PCO2 48 mmHg (32.0-48.0); PO2 67 mmHg (83-108); pH, Arterial 7.26 (7.35-7.45)
[2024-11-05 18:03] LABS: Inspired Oxygen, FIO2 60 %; Puncture Site Site Not Noted
--- NOTE | 2024-11-05 18:15 | ESPR_ITS ---
Documentation for date of: 11/05/24 Subjective Subjective Interval history: Patient seen and examined at the bedside. Patient is still short of breath and his oxygen requirements have increased over the last 2 days and is now on high flow oxygen. Patient mostly has worsening pneumonia as evidenced by the previous chest x-ray the and likely a CHF exacerbation at the present point of time. Troponins were elevated but echocardiogram showed normal LV function indicating type II NSTEMI with supply/demand mismatch. Patient already had a duplex of the legs as well as a CTA chest to rule out pulmonary embolism previously. Duplex and was also previously negative but still patient has is right leg swelling more than the left Thoracic spine MRI and lumbar spine MRI showed osseous metastatic disease C5 T11 and osseous metastatic disease involving lumbar vertebral bodies, extensive enhancing soft tissue mass destroying right first second and third sacral wings as well as posterior right iliac bone Exam Vital Signs Temp Pulse Resp BP Pulse Ox O2 Del Method O2 Flow Rate 98.3 F 118 H 21 H 77/58 L 98 Mechanical Ventilation 40 11/05/24 16:00 11/05/24 17:15 11/05/24 17:15 11/05/24 17:15 11/05/24 17:15 11/05/24 17:15 11/05/24 14:50 FiO2 90 11/05/24 17:15 Narrative Exam General: Awake and in no acute distress. Patient is in respiratory distress in spite of the high flow nasal cannula. Able to speak few words during my examination and appears to be mildly confused HEENT: Normocephalic, atraumatic, mucous membranes moist. Heart: Sinus tachycardia, no murmurs. Lungs: B/L air entry present but decreased at the bases with occasional crackles or rhonchi. Abdomen: Soft, nondistended, nontender, positive bowel sounds. ?No guarding or rebound tenderness. Neurologic: Alert and oriented x3, no gross neurological deficit, and patient able to move all 4 extremities. Extremities: Right lower extremity edema 1+, right lower extremity> left lower extremity Skin: No rash or ecchymoses. Objective Labs 11/05/24 06:12 11/05/24 06:12 Labs: Laboratory Results - last 24 hr 11/05/24 11/05/24 06:12 17:50 WBC 12.3 H RBC 2.43 L Hgb 7.2 L Hct 21.2 L* MCV 87 MCH 29.6 MCHC 34.0 RDW Std Deviation 47.2 H Plt Count 145 Neut % (Auto) 83 H Lymph % (Auto) 5 L [place] % (Auto) 5 Eos % (Auto) 0 Baso % (Auto) 0 Neut # (Auto) 10.1 H Lymph # (Auto) 0.6 L [place] # (Auto) 0.6 Eos # (Auto) 0.1 Baso # (Auto) 0.0 Immature Gran # (Auto) 0.89 H Absolute Nucleated RBC 0.15 H Immature Gran % 7 H Nucleated RBC % 1 H Puncture Site Site Not Noted ABG pH 7.26 L D ABG pCO2 48 D ABG pO2 67 L ABG HCO3 21 ABG O2 Saturation 87 L ABG Base Excess -5 L FiO2 60 Sodium 140 Potassium 3.8 Chloride 108 H Carbon Dioxide 21.8 Anion Gap 10 BUN 48 H Creatinine 1.3 Estim Creat Clear Calc 51.1 L eGFR 57 L BUN/Creatinine Ratio 37 H Glucose 143 H Calculated Osmolality 294 Calcium 10.6 Corrected Calcium 11.2 H Total Bilirubin 0.8 AST 20 ALT 26 Alkaline Phosphatase 75 Total Protein 5.1 L Albumin 3.2 L Globulin 1.9 L Albumin/Globulin Ratio 1.7 ABG Interpretation ABG results: 10/31/24 11/04/24 11/05/24 11:59 15:14 17:50 ABG pH 7.54 H 7.50 H 7.26 L D ABG pCO2 24 L 26 L 48 D ABG pO2 60 L 75 L 67 L ABG HCO3 21 20 21 ABG O2 Saturation 92 97 87 L ABG Base Excess -2 -3 -5 L Assessment & Plan A&P Narrative Assessment and plan: Summary: Mr. 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 Cardiology consulted in the emergency department for elevated troponin. #NSTEMI type II secondary to demand ischemia #Shortness of breath Patient had elevated troponin 0.285 in the emergency department, denies any chest discomfort/chest pain, EKG showed sinus tachycardia rate 102 some Q waves in lead I and aVL. Patient likely has demand ischemia in setting of acute infection secondary to UTI/pneumonia. Patient shortness of breath is mostly secondary to the anemia with hemoglobin of 7.3 on presentation during this admission. Will need to rule out other causes including cardiac causes of shortness of breath at this time given the mildly elevated troponins. Hemoglobin A1c 6.1, cholesterol 84, LDL 24, TSH 3.58 Troponin 0.285?> 0.363 ?> 0.396 -> 0.302 TTE 11/01/2024: Normal LV size and function with an EF of 55 to 60%. Diastolic dysfunction stage I. Normal RV size and function. Normal RVSP of 25 mmHg. Mild MAC. Trace MR and mild TR. 11/05/2024: Patient is still short of breath and his oxygen requirements have increased over the last 2 days and is now on high flow oxygen. Patient mostly has worsening pneumonia as evidenced by the previous chest x-ray the and likely a CHF exacerbation at the present point of time. Troponins were elevated but echocardiogram showed normal LV function indicating type II NSTEMI with supply/demand mismatch. Patient already had a duplex of the legs as well as a CTA chest to rule out pulmonary embolism previously. Duplex and was also previously negative but still patient has is right leg swelling more than the left Thoracic spine MRI and lumbar spine MRI showed osseous metastatic disease C5 T11 and osseous metastatic disease involving lumbar vertebral bodies, extensive enhancing soft tissue mass destroying right first second and third sacral wings as well as posterior right iliac bone #Symptomatic normocytic normochromic anemia Patient reports symptoms of shortness of breath dizziness and lethargy recently, possible anemia of chronic disease as patient has malignancy, also on chemotherapy Baseline hemoglobin around 11, 7.3 today, was recently prescribed prednisone Patient will be transfused 1 unit PRBC as ordered in ED Iron panel shows iron 18 mcg/dL, TIBC 210 mcg/dL, iron saturation 8% unsat iron binding 192 Recommendations: -Patient's anemia is likely multifactorial, patient has low iron reserves will likely benefit from IV iron infusion -Recommend IV iron, ferric sod gluconate 125 mg for 5 days -Anemia workup, order iron panel, ferritin, reticulocyte count, B12, folate level, LDH, peripheral blood film -Patient was tachycardic and hypotensive on presentation, occult blood negative per ED physician, consider GI workup if acute decline in hemoglobin # Right lower extremity edema Patient has right lower extremity edema 2+, pitting compared to left lower leg, no significant edema noted on left. MRI thoracic spine shows extensive enhancing soft tissue mass destroying right first second and third sacral wings as well as posterior right iliac bone High suspicion of the mass causing compression and causing impaired venous drainage. Patient had venous Doppler 10/31/24 showed no DVT Currently on heparin for DVT prophylaxis #Hypertension Was diagnosed with hypertension in 2023, currently on losartan 50 mg per medication review Blood pressure soft on presentation, continue to monitor blood pressure #Acute hypoxic respiratory failure secondary to #Community-acquired pneumonia versus healthcare associated pneumonia Patient not on any supplemental oxygen at home, currently on 4 L nasal cannula SpO2 more than 92 CTA chest suspicious for right lung base pneumonia Patient is currently on antibiotics #Acute kidney injury, improving #Urinary tract infection #Hypoosmolar hypochloremic hyponatremia, improving Patient does have history of prostate cancer, could be related to possible obstruction of some sort leading to UTI, urology consulted in ED recommended Wells catheter placement Urinalysis showed 53 white cells, +4 bacteria, plus leukocyte esterase 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, Wells catheter inserted which outputed 1500 cc immediately Patient had poor oral intake over the last week, BUN 54, creatinine 1.9, GFR 36 on presentation, patient was given 1 L NS in ED -Currently on maintenance fluids and antibiotics for urinary tract infection, pending urine culture #Hypercalcemia of malignancy Corrected calcium 11.5, patient is on denosumab per chart review Management as per primary team #Transaminitis AST 37, ALT 23 on presentation, continue to monitor #Stage IV castrate 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 Arcos and Dr. Belcher outpatient, currently on treatment with leuprolide, enzalutamide and denosumab per heme-onc note from July 2024 Thoracic spine MRI and lumbar spine MRI showed osseous metastatic disease C5 T11 and osseous metastatic disease involving lumbar vertebral bodies, extensive enhancing soft tissue mass destroying right first second and third sacral wings as well as posterior right iliac bone Xtandi continued by primary team Management of rest of the medical conditions as per primary team and other consultants. Thank you for the consult and allowing me to participate in the care of the patient. Cardiology will continue to follow. Oziel Bai M.D. Interventional Cardiology Time Spent With Patient Time: Total time spent is greater than 50% in coordination of care (as documented) at patient's floor/unit and/or counseling patient:
--- NOTE | 2024-11-05 18:44 | ESOP_ITS ---
Procedures Procedure Date / Time 11/05/24 9739 Intubation Indication(s): acute Resp Failure Informed consent obtained: from patient Time out done, and the following verified: correct patient, side and site, procedure, patient position and implants and/or equipment Sedative: etomidate Mg given: 40 Mg given: 0 Laryngoscope: Olga Assist device used: Bougie ET tube size: 7.5 ET tube uncuffed: No Tube secured depth (cm): 26 Tube secured location: teeth Tube placement confirmation: visualized tube passing through cords, equal breath sounds bilaterally, no breath sounds over epigastrium and confirmation by capnometry Patient tolerated procedure: well EBL(ml): 0 Intubation complications: none Additional comments: Pre-oxygenation was provided with BVM . Induction was provided with etomidate. Orotracheal intubation was performed using direct laryngoscopy, tube size 7.5, vocal cords adequately vizualized. Endotracheal tube position was confirmed by capnography, 5-point auscultation. The endotracheal tube was secured at 26 cm at upper incisors. Proper intratracheal position of the endotracheal tube was verified on portable chest -x-ray. Dr. Lazo was present for the entire procedure. The patient tolerated the procedure well and there were no complicati ons .
[2024-11-05] MEDS: PROPOFOL 1,000 MG IVPB 1,000 MG/100 ML VIAL 14.67 MG IV (21:00)
[2024-11-05 22:17] LABS: Base Excess -5 (-3-3); HCO3 23 mEq/L (20-26); O2 Saturation 100 % (91-98); PCO2 55 mmHg (32.0-48.0); PO2 192 mmHg (83-108); pH, Arterial 7.23 (7.35-7.45)
[2024-11-05 22:19] LABS: Allen Test Performed/OK; Inspired Oxygen, FIO2 90 %; Puncture Site Left Radial
[2024-11-06] VITALS (110 sets, daily range): BP systolic 72–142; BP diastolic 26–90; PULSE 101–119; RESP 4–28; TEMP 36.1–36.6; O2SAT 89–100
[2024-11-06 00:34] LABS: Base Excess -5 (-3-3); HCO3 23 mEq/L (20-26); Inspired Oxygen, FIO2 80 %; O2 Saturation 100 % (91-98); PCO2 56 mmHg (32.0-48.0); PO2 176 mmHg (83-108); pH, Arterial 7.22 (7.35-7.45)
[2024-11-06 00:41] LABS: Allen Test Performed/OK; Puncture Site Left Radial
[2024-11-06] MEDS: PIPER/TAZO INJ 3.375 GM in SODIUM CHLORIDE 0.9% (Popper) 50 ML IV ×3 (05:49→21:45)
[2024-11-06] MEDS: PROPOFOL 1,000 MG IVPB 1,000 MG/100 ML VIAL 4.89 MG IV ×2 (06:00→18:31)
[2024-11-06] MEDS: Norepinephrine/D5W 8mg/250ml 8 MG/250 ML BAG 19.866 MG IV (06:00)
[2024-11-06 06:16] LABS: Basophils # (Auto) 0.1 Thou/mm3 (0.0-0.2); Basophils % (Auto) 0 % (0-2.5); Eosinophils # (Auto) 0.1 Thou/mm3 (0.0-0.5); Eosinophils % (Auto) 1 % (0-10); Hematocrit 22.5 % (41.0-53.0); Immature Granulocytes % (Auto) 11 % (0-0); Immature Granulocytes Auto 2.09 Thou/mm3 (0.00-0.00); Lymphocytes # (Auto) 1.4 Thou/mm3 (1.0-4.8); Lymphocytes % (Auto) 7 % (10-50); Mean Corpuscular HGB Conc 32.4 g/dl (31.0-37.0); Mean Corpuscular Hemoglobin 29.8 pg (25.0-35.0); Mean Corpuscular Volume 92 fL (80-100); Monocytes # (Auto) 0.9 Thou/mm3 (0.0-0.8); Monocytes % (Auto) 5 % (0-12); Neutrophils # (Auto) 14.2 Thou/mm3 (1.8-7.7); Neutrophils % (Auto) 76 % (37-80); Nucleated Red Blood Cell # 0.59 Thou/mm3 (0.00-0.00); Nucleated Red Blood Cell % 3 /100 WBC (0); Platelet Count 199 Thou/mm3 (140-440); RDW Standard Deviation 50.9 fL (35.1-43.9); Red Blood Count 2.45 Miln/mm3 (4.50-5.90); White Blood Count 18.6 Thou/mm3 (3.8-10.6)
[2024-11-06 06:34] LABS: Hemoglobin 7.3 g/dL (13.5-16.0)
[2024-11-06 06:48] LABS: Alanine Aminotransferase 38 U/L (10-49); Albumin, Serum 3.3 gm/dL (3.4-4.8); Albumin/Globulin Ratio 1.4 (1.2-2.2); Alkaline Phosphatase 80 U/L (46-116); Anion Gap 12 (7-16); Aspartate Amino Transferase 45 U/L (0-34); BUN/Creatinine Ratio 29 Ratio (12-20); Bilirubin,Total 0.5 mg/dL (0.3-1.2); Blood Urea Nitrogen 63 mg/dL (9-23); Calcium 11.5 mg/dL (8.3-10.6); Calcium (Corrected) 12.1 mg/dL (8.5-10.1); Carbon Dioxide 19.7 mMol/L (20.0-31.0); Chloride 109 mMol/L (98-107); Creatinine (Component) 2.2 mg/dL (0.6-1.3); Estimated Creatinine Clearance 29.9 mL/min (>60); Globulin 2.3 gm/dL (2.3-3.5); Glucose 182 mg/dL (74-106); Osmolality,Calculated 304 (275-295); Potassium 4.6 mMol/L (3.4-5.1); Sodium 141 mMol/L (136-145); Total Protein 5.6 gm/dL (5.7-8.2); eGFR 30 See Note
--- NOTE | 2024-11-06 06:54 | PD.ONCPROG ---
Documentation for date of: 11/06/24 Subjective Subjective Interval history: Patient's respiratory symptoms worsened, with lung mets pneumonia and likely CHF according to police department secretary. Patient now in ICU intubated Exam Vital Signs Temp Pulse Resp BP Pulse Ox O2 Del Method O2 Flow Rate 97.1 F 106 H 10 L 92/60 94 L Mechanical Ventilation 40 11/06/24 04:00 11/06/24 06:19 11/06/24 06:15 11/06/24 06:19 11/06/24 06:19 11/06/24 04:00 11/05/24 14:50 FiO2 70 11/06/24 06:19 Objective Labs 11/06/24 04:42 11/05/24 06:12 Labs: Laboratory Results - last 24 hr 11/05/24 11/05/24 11/05/24 06:12 17:50 22:06 WBC RBC Hgb Hct MCV MCH MCHC RDW Std Deviation Plt Count Neut % (Auto) Lymph % (Auto) [place] % (Auto) Eos % (Auto) Baso % (Auto) Neut # (Auto) Lymph # (Auto) [place] # (Auto) Eos # (Auto) Baso # (Auto) Immature Gran # (Auto) Absolute Nucleated RBC Immature Gran % Nucleated RBC % Puncture Site Site Not Noted Left Radial ABG pH 7.26 L D 7.23 L ABG pCO2 48 D 55 H ABG pO2 67 L 192 H D ABG HCO3 21 23 ABG O2 Saturation 87 L 100 H ABG Base Excess -5 L -5 L FiO2 60 90 Sodium 140 Potassium 3.8 Chloride 108 H Carbon Dioxide 21.8 Anion Gap 10 BUN 48 H Creatinine 1.3 Estim Creat Clear Calc 51.1 L eGFR 57 L BUN/Creatinine Ratio 37 H Glucose 143 H Calculated Osmolality 294 Calcium 10.6 Corrected Calcium 11.2 H Total Bilirubin 0.8 AST 20 ALT 26 Alkaline Phosphatase 75 Total Protein 5.1 L Albumin 3.2 L Globulin 1.9 L Albumin/Globulin Ratio 1.7 11/06/24 11/06/24 00:26 04:42 WBC 18.6 H D RBC 2.45 L Hgb 7.3 L Hct 22.5 L MCV 92 MCH 29.8 MCHC 32.4 RDW Std Deviation 50.9 H Plt Count 199 D Neut % (Auto) 76 Lymph % (Auto) 7 L [place] % (Auto) 5 Eos % (Auto) 1 Baso % (Auto) 0 Neut # (Auto) 14.2 H Lymph # (Auto) 1.4 [place] # (Auto) 0.9 H Eos # (Auto) 0.1 Baso # (Auto) 0.1 Immature Gran # (Auto) 2.09 H Absolute Nucleated RBC 0.59 H Immature Gran % 11 H Nucleated RBC % 3 H Puncture Site Left Radial ABG pH 7.22 L ABG pCO2 56 H ABG pO2 176 H ABG HCO3 23 ABG O2 Saturation 100 H ABG Base Excess -5 L FiO2 80 Sodium Potassium Chloride Carbon Dioxide Anion Gap BUN Creatinine Estim Creat Clear Calc eGFR BUN/Creatinine Ratio Glucose Calculated Osmolality Calcium Corrected Calcium Total Bilirubin AST ALT Alkaline Phosphatase Total Protein Albumin Globulin Albumin/Globulin Ratio ABG Interpretation ABG results: 10/31/24 11/04/24 11/05/24 11:59 15:14 17:50 ABG pH 7.54 H 7.50 H 7.26 L D ABG pCO2 24 L 26 L 48 D ABG pO2 60 L 75 L 67 L ABG HCO3 21 20 21 ABG O2 Saturation 92 97 87 L ABG Base Excess -2 -3 -5 L 11/05/24 11/06/24 22:06 00:26 ABG pH 7.23 L 7.22 L ABG pCO2 55 H 56 H ABG pO2 192 H D 176 H ABG HCO3 23 23 ABG O2 Saturation 100 H 100 H ABG Base Excess -5 L -5 L Assessment & Plan A&P Narrative Assessment and plan: 1.Stage IV castration resistant prostate CA with widespread bone mets lung mets respiratory failure intubated now at ICU 2. Patient was getting Lupron denosumab enzalutamide at the cancer treatment center. All the oncology meds including p.o. enzalutamide can be held during his hospital stay, 3. Will speak with regarding goals of care. Time Spent With Patient Time: Total time spent is greater than 50% in coordination of care (as documented) at patient's floor/unit and/or counseling patient:
[2024-11-06] MEDS: FUROSEMIDE INJ 10 MG/ML 4ML VIAL 40 MG IVP (08:05)
[2024-11-06] MEDS: PANTOPRAZOLE INJ 40 MG VIAL IV (08:05)
[2024-11-06] MEDS: POLYETHYLENE GLYCOL 17 GM PACKET PO (08:06)
--- NOTE | 2024-11-06 08:42 | PC.PT ---
Patient will be D/C from PT 2 patient was transferred to ICU and is on mechanical ventilation at this time.
--- NOTE | 2024-11-06 09:11 | PD.IDPROG ---
Subjective Subjective Interval history: events noted. zosyn dose adjusted. neg gram stain favors CA as a major cause of thiswife and pt not interested in comfort measures Exam Vital Signs Temp Pulse Resp BP Pulse Ox O2 Del Method O2 Flow Rate 97.0 F 106 H 20 113/70 94 L Mechanical Ventilation 40 11/06/24 07:00 11/06/24 08:05 11/06/24 07:45 11/06/24 08:05 11/06/24 07:45 11/06/24 04:00 11/05/24 14:50 FiO2 70 11/06/24 06:19 Narrative Exam on vent. imaging noted. cx noted. deteriorated yest per . sl agitated today and on vent as noted. pressors too Objective - Internal Medicine Labs 11/06/24 04:42 11/06/24 04:42 Labs: Laboratory Results - last 24 hr 11/05/24 11/05/24 11/06/24 17:50 22:06 00:26 WBC RBC Hgb Hct MCV MCH MCHC RDW Std Deviation Plt Count Neut % (Auto) Lymph % (Auto) [place] % (Auto) Eos % (Auto) Baso % (Auto) Neut # (Auto) Lymph # (Auto) [place] # (Auto) Eos # (Auto) Baso # (Auto) Immature Gran # (Auto) Absolute Nucleated RBC Immature Gran % Nucleated RBC % Puncture Site Site Not Noted Left Radial Left Radial ABG pH 7.26 L D 7.23 L 7.22 L ABG pCO2 48 D 55 H 56 H ABG pO2 67 L 192 H D 176 H ABG HCO3 21 23 23 ABG O2 Saturation 87 L 100 H 100 H ABG Base Excess -5 L -5 L -5 L FiO2 60 90 80 Sodium Potassium Chloride Carbon Dioxide Anion Gap BUN Creatinine Estim Creat Clear Calc eGFR BUN/Creatinine Ratio Glucose Calculated Osmolality Calcium Corrected Calcium Total Bilirubin AST ALT Alkaline Phosphatase Total Protein Albumin Globulin Albumin/Globulin Ratio 11/06/24 04:42 WBC 18.6 H D RBC 2.45 L Hgb 7.3 L Hct 22.5 L MCV 92 MCH 29.8 MCHC 32.4 RDW Std Deviation 50.9 H Plt Count 199 D Neut % (Auto) 76 Lymph % (Auto) 7 L [place] % (Auto) 5 Eos % (Auto) 1 Baso % (Auto) 0 Neut # (Auto) 14.2 H Lymph # (Auto) 1.4 [place] # (Auto) 0.9 H Eos # (Auto) 0.1 Baso # (Auto) 0.1 Immature Gran # (Auto) 2.09 H Absolute Nucleated RBC 0.59 H Immature Gran % 11 H Nucleated RBC % 3 H Puncture Site ABG pH ABG pCO2 ABG pO2 ABG HCO3 ABG O2 Saturation ABG Base Excess FiO2 Sodium 141 Potassium 4.6 D Chloride 109 H Carbon Dioxide 19.7 L Anion Gap 12 BUN 63 H Creatinine 2.2 H D Estim Creat Clear Calc 29.9 L eGFR 30 L BUN/Creatinine Ratio 29 H Glucose 182 H Calculated Osmolality 304 H Calcium 11.5 H Corrected Calcium 12.1 H Total Bilirubin 0.5 AST 45 H ALT 38 Alkaline Phosphatase 80 Total Protein 5.6 L Albumin 3.3 L Globulin 2.3 Albumin/Globulin Ratio 1.4 ABG Interpretation ABG results: 10/31/24 11/04/24 11/05/24 11:59 15:14 17:50 ABG pH 7.54 H 7.50 H 7.26 L D ABG pCO2 24 L 26 L 48 D ABG pO2 60 L 75 L 67 L ABG HCO3 21 20 21 ABG O2 Saturation 92 97 87 L ABG Base Excess -2 -3 -5 L 11/05/24 11/06/24 22:06 00:26 ABG pH 7.23 L 7.22 L ABG pCO2 55 H 56 H ABG pO2 192 H D 176 H ABG HCO3 23 23 ABG O2 Saturation 100 H 100 H ABG Base Excess -5 L -5 L Assessment & Plan A&P Narrative zosyn noted, may have asb, but zosyn ok to for urine. bc remains neg and he remains afebrile. please check to assure O2 need is appropriate. he has pulm mets , so that may affect resp rate by itself. will check in again on Wednesday. Time Spent With Patient Time: Total time spent is greater than 50% in coordination of care (as documented) at patient's floor/unit and/or counseling patient:
--- NOTE | 2024-11-06 09:18 | ESPR_ITS ---
Documentation for date of: 11/06/24 Subjective Subjective Interval history: Patient seen and examined at bedside, overnight patient was intubated and upgraded to ICU for further management. Yesterday patient had increased oxygen requirement and was maxed out on high flow nasal cannula. Patient's chest x-ray significant for bilateral ARDS, PF ratio 108.1, moderate ARDS per [facility] criteria. Patient did present with sepsis initially thought to be related to UTI, did have evidence of pneumonia on CT chest. High suspicion of worsening pneumonia considering patient's immunocompromised status with extensive metastatic disease and likely CHF exacerbation at present point of time. Patient has worsening renal function today, high suspicion of ATN in setting of shock, likely septic. Patient was given x 1 Lasix today, continue to monitor urine output, hold Lasix if patient has poor urine output, patient might need temporary dialysis in setting of ATN if worsening renal function noted. Exam Vital Signs Temp Pulse Resp BP Pulse Ox O2 Del Method O2 Flow Rate 97.0 F 106 H 20 113/70 94 L Mechanical Ventilation 40 11/06/24 07:00 11/06/24 08:05 11/06/24 07:45 11/06/24 08:05 11/06/24 07:45 11/06/24 04:00 11/05/24 14:50 FiO2 70 11/06/24 06:19 Narrative Exam General: Sedated and mechanically ventilated HEENT: Normocephalic, atraumatic, mucous membranes moist. Heart: Sinus tachycardia, no murmurs. Lungs: Bilateral coarse breath sounds sounds, currently on mechanical ventilation Abdomen: Soft, nondistended, nontender, positive bowel sounds. ?No guarding or rebound tenderness. Neurologic: Sedated, limited exam. GCS 3T Extremities: Right lower extremity edema 1+, trace left lower extremity edema, right lower extremity> left lower extremity. Edema noted on dependent body parts. Skin: No rash or ecchymoses. Objective Labs 11/06/24 17:20 11/06/24 04:42 Labs: Laboratory Results - last 24 hr 11/05/24 11/05/24 11/06/24 17:50 22:06 00:26 WBC RBC Hgb Hct MCV MCH MCHC RDW Std Deviation Plt Count Neut % (Auto) Lymph % (Auto) [place] % (Auto) Eos % (Auto) Baso % (Auto) Neut # (Auto) Lymph # (Auto) [place] # (Auto) Eos # (Auto) Baso # (Auto) Immature Gran # (Auto) Absolute Nucleated RBC Immature Gran % Nucleated RBC % Puncture Site Site Not Noted Left Radial Left Radial ABG pH 7.26 L D 7.23 L 7.22 L ABG pCO2 48 D 55 H 56 H ABG pO2 67 L 192 H D 176 H ABG HCO3 21 23 23 ABG O2 Saturation 87 L 100 H 100 H ABG Base Excess -5 L -5 L -5 L FiO2 60 90 80 Sodium Potassium Chloride Carbon Dioxide Anion Gap BUN Creatinine Estim Creat Clear Calc eGFR BUN/Creatinine Ratio Glucose Calculated Osmolality Calcium Corrected Calcium Total Bilirubin AST ALT Alkaline Phosphatase Total Protein Albumin Globulin Albumin/Globulin Ratio 11/06/24 04:42 WBC 18.6 H D RBC 2.45 L Hgb 7.3 L Hct 22.5 L MCV 92 MCH 29.8 MCHC 32.4 RDW Std Deviation 50.9 H Plt Count 199 D Neut % (Auto) 76 Lymph % (Auto) 7 L [place] % (Auto) 5 Eos % (Auto) 1 Baso % (Auto) 0 Neut # (Auto) 14.2 H Lymph # (Auto) 1.4 [place] # (Auto) 0.9 H Eos # (Auto) 0.1 Baso # (Auto) 0.1 Immature Gran # (Auto) 2.09 H Absolute Nucleated RBC 0.59 H Immature Gran % 11 H Nucleated RBC % 3 H Puncture Site ABG pH ABG pCO2 ABG pO2 ABG HCO3 ABG O2 Saturation ABG Base Excess FiO2 Sodium 141 Potassium 4.6 D Chloride 109 H Carbon Dioxide 19.7 L Anion Gap 12 BUN 63 H Creatinine 2.2 H D Estim Creat Clear Calc 29.9 L eGFR 30 L BUN/Creatinine Ratio 29 H Glucose 182 H Calculated Osmolality 304 H Calcium 11.5 H Corrected Calcium 12.1 H Total Bilirubin 0.5 AST 45 H ALT 38 Alkaline Phosphatase 80 Total Protein 5.6 L Albumin 3.3 L Globulin 2.3 Albumin/Globulin Ratio 1.4 ABG Interpretation ABG results: 10/31/24 11/04/24 11/05/24 11:59 15:14 17:50 ABG pH 7.54 H 7.50 H 7.26 L D ABG pCO2 24 L 26 L 48 D ABG pO2 60 L 75 L 67 L ABG HCO3 21 20 21 ABG O2 Saturation 92 97 87 L ABG Base Excess -2 -3 -5 L 11/05/24 11/06/24 22:06 00:26 ABG pH 7.23 L 7.22 L ABG pCO2 55 H 56 H ABG pO2 192 H D 176 H ABG HCO3 23 23 ABG O2 Saturation 100 H 100 H ABG Base Excess -5 L -5 L Quality Measures Quality Measures VTE prophylaxis Advance care planning discussed with:: patient Assessment & Plan Assessment Current Active Medications: Generic Name Dose Route Start Last Admin Trade Name Freq PRN Reason Stop Dose Admin Acetaminophen 650 mg 11/01/24 08:44 Acetaminophen 325 Mg Tablet PO 12/01/24 08:43 Q4HR PRN FEVER >101 Albuterol/Ipratropium 3 ml 11/05/24 08:00 Albuterol/Ipratropium (Duoneb) Rt Rand 3 Ml Nebu INH 12/05/24 07:59 Q2HR PRN SHORTNESS OF BREATH OR WHEEZE Albuterol/Ipratropium 3 ml 11/05/24 09:05 11/05/24 18:28 Albuterol/Ipratropium (Duoneb) Rt Rand 3 Ml Nebu INH 12/05/24 09:04 Not Given Q6HRRT STORM Xtandi (Enzalutamide 0 ea 11/01/24 09:30 11/05/24 09:00 ) 40 Mg Tablets PO 12/01/24 09:29 40 tablet DAILY STORM Administration Furosemide 40 mg 11/06/24 09:00 11/06/24 08:05 Furosemide Inj 10 Mg/Ml 4ml Vial IVP 12/06/24 08:59 40 mg QDAY STORM Administration Heparin Sodium (Porcine) 5,000 unit 11/01/24 21:00 11/05/24 09:00 Heparin Sod Inj 5000 Unit/Ml Vial SC 11/15/24 20:59 5,000 unit Q12HR STORM Administration Fentanyl Citrate 2,500 mcg in 250 mls @ 2.5 mls/hr 11/05/24 16:00 11/06/24 08:00 Sublimaze Inj 2,500 Mcg/250 Ml Bag IV 11/10/24 15:59 75 mcg/hr .Q24H PRN 7.5 mls/hr PER PROTOCOL Titration Protocol 25 MCG/HR Propofol 1,000 mg in 100 mls @ 2.445 mls/hr 11/05/24 16:00 11/06/24 08:30 Diprivan Ivpb IV 12/05/24 15:59 15 mcg/kg/min .Q24H PRN 7.335 mls/hr PER PROTOCOL Titration Protocol 5 MCG/KG/MIN Piperacillin Sod/Tazobactam 50 mls @ 12.5 mls/hr 11/05/24 22:00 11/06/24 05:49 Sod 3.375 gm/ Sodium Chloride IV 11/12/24 21:59 12.5 mls/hr Q8HR STORM Administration Norepinephrine/Dextrose 8 mg in 250 mls @ 7.641 mls/hr 11/05/24 17:02 11/06/24 07:00 Levophed In D5w 8mg/250ml IV 12/05/24 17:01 0.13 mcg/kg/min .Q24H PRN 19.866 mls/hr PER PROTOCOL Titration Protocol 0.05 MCG/KG/MIN Home Medication- 160 mg 11/01/24 09:00 11/05/24 09:00 Please Speak With PO 12/01/24 08:59 Not Given Patient Caregiver To DAILY STORM Have Rx Brought To [facility] Pantoprazole Sodium 40 mg 11/05/24 16:15 11/06/24 08:05 Pantoprazole Inj 40 Mg Vial IV 12/05/24 16:14 40 mg QDAY STORM Administration Pharmacy Consult 1 each 11/05/24 16:14 Pharmacy Renal Dose Adjustment 1 Ea XX 12/05/24 16:13 PRN PRN CONSULT Polyethylene Glycol 17 gm 11/02/24 09:45 11/06/24 08:06 Polyethylene Glycol 17 Gm Packet PO 12/02/24 09:44 17 gm QDAY STORM Administration Sennosides 1 tab 11/02/24 09:39 Senna Tablet PO 12/02/24 09:38 QDAY PRN CONSTIPATION Protocol Plan Assessment and plan: Summary: Mr. 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 Cardiology consulted in the emergency department for elevated troponin. #Acute respiratory distress syndrome, moderate #Acute hypoxic respiratory failure secondary to community-acquired pneumonia versus hospital-acquired pneumonia #Heart failure with preserved ejection fraction, EF 55 to 60% #Diastolic heart failure #Shock, likely septic in setting of pneumonia 11/05- patient was intubated and upgraded to ICU for further management. Had increased oxygen requirement, was maxed out on high flow nasal cannula eventually upgraded to ICU for mechanical ventilation. Patient's chest x-ray significant for bilateral ARDS, PF ratio 108.1, moderate ARDS per [facility] criteria. Patient's driving pressure optimized by ICU team on mechanical ventilation for early ARDS management On antibiotic coverage for hospital-acquired infection, does have immunocompromised status secondary underlying to extensive metastasis Patient does have extensive metastasis,, possible inflammatory cause/metastatic cause. Echocardiogram did show diastolic dysfunction stage I, ejection fraction 55 to 60%. On physical exam today mild edema on dependent parts. Patient has worsening renal function today, high suspicion of ATN in setting of shock, likely septic. Patient was given x 1 Lasix today, continue to monitor urine output, hold Lasix if patient has poor urine output, patient might need temporary dialysis in setting of ATN if worsening renal function noted. Recommendation: -Was given Lasix 40 mg IV x 1 today, hold Lasix, high suspicion of acute tubular necrosis in setting of shock, likely septic -Patient had poor urine output in the last 24 hours, urine output continues to decline today -Hold Lasix in a.m. if patient has worsening of renal function, patient may need temporary dialysis -Maintain strict intake and output, fluid restriction 1500 cc, daily weight -Management of ARDS per ICU team #Acute kidney injury, prerenal versus renal #Urinary tract infection Patient does have history of prostate cancer, could be related to possible obstruction of some sort leading to UTI, urology consulted in ED recommended Wells catheter placement Urinalysis showed 53 white cells, +4 bacteria, plus leukocyte esterase 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, Wells catheter inserted which outputed 1500 cc immediately Patient had poor oral intake over the last week, BUN 54, creatinine 1.9, GFR 36 on presentation, patient was given 1 L NS in ED. patient initially presented with FREDO was prerenal, which resolved IV fluid management. 03/10-worsening of renal function noted this morning high suspicion of ATN in setting of shock, likely septic Patient may need temporary dialysis catheter placement if renal function continues to decline Was given Lasix 40 mg IV x 1 today, hold Lasix in a.m. if worsening of renal function. #NSTEMI type II secondary to demand ischemia #Shortness of breath Patient had elevated troponin 0.285 in the emergency department, denies any chest discomfort/chest pain, EKG showed sinus tachycardia rate 102 some Q waves in lead I and aVL. Patient likely has demand ischemia in setting of acute infection secondary to UTI/pneumonia. Patient shortness of breath is mostly secondary to the anemia with hemoglobin of 7.3 on presentation during this admission. Will need to rule out other causes including cardiac causes of shortness of breath at this time given the mildly elevated troponins. Hemoglobin A1c 6.1, cholesterol 84, LDL 24, TSH 3.58 Troponin 0.285?> 0.363 ?> 0.396 -> 0.302 TTE 11/01/2024: Normal LV size and function with an EF of 55 to 60%. Diastolic dysfunction stage I. Normal RV size and function. Normal RVSP of 25 mmHg. Mild MAC. Trace MR and mild TR. Recommendations: -Patient will need outpatient cardiology when stable #Symptomatic normocytic normochromic anemia Patient reports symptoms of shortness of breath dizziness and lethargy recently, possible anemia of chronic disease as patient has malignancy, also on chemotherapy Baseline hemoglobin around 11, 7.3 today, was recently prescribed prednisone Patient will be transfused 1 unit PRBC as ordered in ED Iron panel shows iron 18 mcg/dL, TIBC 210 mcg/dL, iron saturation 8% unsat iron binding 192 Recommendations: -Patient's anemia is likely multifactorial, patient has low iron reserves will likely benefit from IV iron infusion -Recommend IV iron, ferric sod gluconate 125 mg for 5 days -Anemia workup, order iron panel, ferritin, reticulocyte count, B12, folate level, LDH, peripheral blood film # Right lower extremity edema Patient has right lower extremity edema 2+, pitting compared to left lower leg, no significant edema noted on left. MRI thoracic spine shows extensive enhancing soft tissue mass destroying right first second and third sacral wings as well as posterior right iliac bone High suspicion of the mass causing compression and causing impaired venous drainage. 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 Arcos and Dr. Belcher outpatient, currently on treatment with leuprolide, enzalutamide and denosumab per heme-onc note from July 2024 Thoracic spine MRI and lumbar spine MRI showed osseous metastatic disease C5 T11 and osseous metastatic disease involving lumbar vertebral bodies, extensive enhancing soft tissue mass destroying right first second and third sacral wings as well as posterior right iliac bone Xtandi continued by primary team #Hypoosmolar hypochloremic hyponatremia, resolved Case discussed with Attending Dr. Bai. Zaina Virgen PGY1 Disclaimer: This note was dictated by speech recognition. Minor errors in staff nurse icu resource team may be present due to voice recognition /software. Attending Provider Attestation/Addendum I have personally seen and examined the patient separately on the above date of service and discussed the plan of care with the resident. I reviewed the resident Dr. Zaina Virgen consultation progress note and agree with the resident findings and plan in the note above and have also edited the documentation to reflect my findings and plan. Oziel Bai M.D. Interventional Cardiology
--- NOTE | 2024-11-06 09:24 | XR_ITS ---
Examination: AP chest single view Technique one AP portable semiupright chest single view Exam date and time: October 29, 2024 0834 hrs. Comparison November 05, 2024 Indications: Inpatient with hypoxic respiratory failure postintubation, hypoxia Findings: Bilateral lung opacity again noted, ARDS pneumonia pattern Endotracheal tube tip 4 cm above dev Normal heart size No osteoblastic metastatic disease Impression: Again noted extensive bilateral pneumonia ARDS pattern
--- NOTE | 2024-11-06 10:01 | PD.IDPROG ---
Subjective Subjective Interval history: wbc noted. up despite use of a different iv med for urine. wbc not a great marker for infection. but it is done daily by many providers. zosyn ordered thru 11/12 already. Exam Vital Signs Temp Pulse Resp BP Pulse Ox O2 Del Method O2 Flow Rate 97.0 F 107 H 12 103/55 L 95 Mechanical Ventilation 40 11/06/24 07:00 11/06/24 09:15 11/06/24 09:15 11/06/24 09:15 11/06/24 09:15 11/06/24 04:00 11/05/24 14:50 FiO2 70 11/06/24 08:00 Narrative Exam aparrently not waking. so extubation challenging. am ok if he is made comfort care or dnr at least. Objective - Internal Medicine Labs 11/08/24 04:50 11/08/24 04:50 Labs: Laboratory Results - last 24 hr 11/05/24 11/05/24 11/06/24 17:50 22:06 00:26 WBC RBC Hgb Hct MCV MCH MCHC RDW Std Deviation Plt Count Neut % (Auto) Lymph % (Auto) [place] % (Auto) Eos % (Auto) Baso % (Auto) Neut # (Auto) Lymph # (Auto) [place] # (Auto) Eos # (Auto) Baso # (Auto) Immature Gran # (Auto) Absolute Nucleated RBC Immature Gran % Nucleated RBC % Puncture Site Site Not Noted Left Radial Left Radial ABG pH 7.26 L D 7.23 L 7.22 L ABG pCO2 48 D 55 H 56 H ABG pO2 67 L 192 H D 176 H ABG HCO3 21 23 23 ABG O2 Saturation 87 L 100 H 100 H ABG Base Excess -5 L -5 L -5 L FiO2 60 90 80 Sodium Potassium Chloride Carbon Dioxide Anion Gap BUN Creatinine Estim Creat Clear Calc eGFR BUN/Creatinine Ratio Glucose Calculated Osmolality Calcium Corrected Calcium Total Bilirubin AST ALT Alkaline Phosphatase Total Protein Albumin Globulin Albumin/Globulin Ratio 11/06/24 04:42 WBC 18.6 H D RBC 2.45 L Hgb 7.3 L Hct 22.5 L MCV 92 MCH 29.8 MCHC 32.4 RDW Std Deviation 50.9 H Plt Count 199 D Neut % (Auto) 76 Lymph % (Auto) 7 L [place] % (Auto) 5 Eos % (Auto) 1 Baso % (Auto) 0 Neut # (Auto) 14.2 H Lymph # (Auto) 1.4 [place] # (Auto) 0.9 H Eos # (Auto) 0.1 Baso # (Auto) 0.1 Immature Gran # (Auto) 2.09 H Absolute Nucleated RBC 0.59 H Immature Gran % 11 H Nucleated RBC % 3 H Puncture Site ABG pH ABG pCO2 ABG pO2 ABG HCO3 ABG O2 Saturation ABG Base Excess FiO2 Sodium 141 Potassium 4.6 D Chloride 109 H Carbon Dioxide 19.7 L Anion Gap 12 BUN 63 H Creatinine 2.2 H D Estim Creat Clear Calc 29.9 L eGFR 30 L BUN/Creatinine Ratio 29 H Glucose 182 H Calculated Osmolality 304 H Calcium 11.5 H Corrected Calcium 12.1 H Total Bilirubin 0.5 AST 45 H ALT 38 Alkaline Phosphatase 80 Total Protein 5.6 L Albumin 3.3 L Globulin 2.3 Albumin/Globulin Ratio 1.4 ABG Interpretation ABG results: 10/31/24 11/04/24 11/05/24 11:59 15:14 17:50 ABG pH 7.54 H 7.50 H 7.26 L D ABG pCO2 24 L 26 L 48 D ABG pO2 60 L 75 L 67 L ABG HCO3 21 20 21 ABG O2 Saturation 92 97 87 L ABG Base Excess -2 -3 -5 L 11/05/24 11/06/24 22:06 00:26 ABG pH 7.23 L 7.22 L ABG pCO2 55 H 56 H ABG pO2 192 H D 176 H ABG HCO3 23 23 ABG O2 Saturation 100 H 100 H ABG Base Excess -5 L -5 L Assessment & Plan A&P Narrative zosyn noted, may have asb, but zosyn ok to for urine. bc remains neg and he remains afebrile. he has pulm mets , so that may affect resp rate by itself. will check in again on Wednesday. Time Spent With Patient Time: Total time spent is greater than 50% in coordination of care (as documented) at patient's floor/unit and/or counseling patient:
--- NOTE | 2024-11-06 13:56 | PD.RESPROC ---
Procedures Procedure Date / Time 11/06/24 1356 Procedure Narrative Procedure Narrative: Attending Attestation: I was present for the entire procedure. Patient tolerated procedure well. Minimal blood loss. We elected femoral access due to possible SVC stenosis form prior cannulation. No immediate complications. Central Line Placement Left Femoral: Indication(s): poor, or inadequate peripheral venous access Time out done, and the following verified: correct patient and procedure Patient placed on monitor/pulse ox: Yes Hand Hygiene: scrub and soap & water Max Sterile Barrier Techniques used: cap, mask, sterile gown, sterile gloves and sterile full body drape Central line prep: Chlorhexidine scrub Ultrasound used for placement: No Central line lumen inserted: triple Patient tolerated procedure: well and no complications EBL(ml): 2 Complications: none
--- NOTE | 2024-11-06 13:57 | PD.RESPROC ---
Procedures Procedure Date / Time 11/06/24 1357 Procedure Narrative Procedure Narrative: Attending Attestation: I was present for entire procedure. No immediate complications. Patient with minimal blood loss. Arterial Line Indication(s): frequent arterial line sampling Informed consent obtained: obtained from surrogate decision maker Time out done, and the following verified: correct patient and procedure Technique used: guide wire technique Post-Procedure: line sutured into place Patient tolerated procedure: well and no complications EBL(ml): 2 Complications: none Site: femoral
--- NOTE | 2024-11-06 14:45 | ESPR_ITS ---
Documentation for date of: 11/06/24 Subjective Subjective Interval history: Patient was examined bedside this morning , overnight he had no urine output. He is on Fetanyl and propofol and had one bowel movement. Repeat chest xray-showed extensive bilateral pneumonia ARDS pattern. he is on lung protecive ventllation settings. Art line and left femoral central line was placed today. Exam Vital Signs Temp Pulse Resp BP Pulse Ox O2 Del Method O2 Flow Rate 97.9 F 111 H 4 L 98/55 L 91 L Mechanical Ventilation 40 11/06/24 12:00 11/06/24 14:15 11/06/24 14:00 11/06/24 14:15 11/06/24 14:15 11/06/24 04:00 11/05/24 14:50 FiO2 70 11/06/24 12:00 Narrative Exam GENERAL: Sedated, intubated on MV NEURO: GCS-3, intubated HEENT: Dry mucosa. Eyes open, symmetrical, & clear CARDIO: No chest pain on palpation. Heart RRR, no obvious murmurs PULM: Crackles heard bilaterally, worse on the right. GI: Abdomen soft, nondistended. BSx4 URO/ROLLING MACHINE TENDER:: No further abnormalities noted. SKIN/MSK/EXT: 1+ pitting edema in bilaterally Objective Labs 11/06/24 04:42 11/06/24 04:42 Labs: Laboratory Results - last 24 hr 11/05/24 11/05/24 11/06/24 17:50 22:06 00:26 WBC RBC Hgb Hct MCV MCH MCHC RDW Std Deviation Plt Count Neut % (Auto) Lymph % (Auto) [place] % (Auto) Eos % (Auto) Baso % (Auto) Neut # (Auto) Lymph # (Auto) [place] # (Auto) Eos # (Auto) Baso # (Auto) Immature Gran # (Auto) Absolute Nucleated RBC Immature Gran % Nucleated RBC % Puncture Site Site Not Noted Left Radial Left Radial ABG pH 7.26 L D 7.23 L 7.22 L ABG pCO2 48 D 55 H 56 H ABG pO2 67 L 192 H D 176 H ABG HCO3 21 23 23 ABG O2 Saturation 87 L 100 H 100 H ABG Base Excess -5 L -5 L -5 L FiO2 60 90 80 Sodium Potassium Chloride Carbon Dioxide Anion Gap BUN Creatinine Estim Creat Clear Calc eGFR BUN/Creatinine Ratio Glucose Calculated Osmolality Calcium Corrected Calcium Total Bilirubin AST ALT Alkaline Phosphatase Total Protein Albumin Globulin Albumin/Globulin Ratio 11/06/24 04:42 WBC 18.6 H D RBC 2.45 L Hgb 7.3 L Hct 22.5 L MCV 92 MCH 29.8 MCHC 32.4 RDW Std Deviation 50.9 H Plt Count 199 D Neut % (Auto) 76 Lymph % (Auto) 7 L [place] % (Auto) 5 Eos % (Auto) 1 Baso % (Auto) 0 Neut # (Auto) 14.2 H Lymph # (Auto) 1.4 [place] # (Auto) 0.9 H Eos # (Auto) 0.1 Baso # (Auto) 0.1 Immature Gran # (Auto) 2.09 H Absolute Nucleated RBC 0.59 H Immature Gran % 11 H Nucleated RBC % 3 H Puncture Site ABG pH ABG pCO2 ABG pO2 ABG HCO3 ABG O2 Saturation ABG Base Excess FiO2 Sodium 141 Potassium 4.6 D Chloride 109 H Carbon Dioxide 19.7 L Anion Gap 12 BUN 63 H Creatinine 2.2 H D Estim Creat Clear Calc 29.9 L eGFR 30 L BUN/Creatinine Ratio 29 H Glucose 182 H Calculated Osmolality 304 H Calcium 11.5 H Corrected Calcium 12.1 H Total Bilirubin 0.5 AST 45 H ALT 38 Alkaline Phosphatase 80 Total Protein 5.6 L Albumin 3.3 L Globulin 2.3 Albumin/Globulin Ratio 1.4 ABG Interpretation ABG results: 10/31/24 11/04/24 11/05/24 11:59 15:14 17:50 ABG pH 7.54 H 7.50 H 7.26 L D ABG pCO2 24 L 26 L 48 D ABG pO2 60 L 75 L 67 L ABG HCO3 21 20 21 ABG O2 Saturation 92 97 87 L ABG Base Excess -2 -3 -5 L 11/05/24 11/06/24 22:06 00:26 ABG pH 7.23 L 7.22 L ABG pCO2 55 H 56 H ABG pO2 192 H D 176 H ABG HCO3 23 23 ABG O2 Saturation 100 H 100 H ABG Base Excess -5 L -5 L Quality Measures Quality Measures VTE prophylaxis Advance care planning discussed with:: spouse Assessment & Plan Assessment Current Active Medications: Generic Name Dose Route Start Last Admin Trade Name Freq PRN Reason Stop Dose Admin Acetaminophen 650 mg 11/01/24 08:44 Acetaminophen 325 Mg Tablet PO 12/01/24 08:43 Q4HR PRN FEVER >101 Albuterol/Ipratropium 3 ml 11/05/24 08:00 Albuterol/Ipratropium (Duoneb) Rt Rand 3 Ml Nebu INH 12/05/24 07:59 Q2HR PRN SHORTNESS OF BREATH OR WHEEZE Albuterol/Ipratropium 3 ml 11/05/24 09:05 11/05/24 18:28 Albuterol/Ipratropium (Duoneb) Rt Rand 3 Ml Nebu INH 12/05/24 09:04 Not Given Q6HRRT STORM Xtandi (Enzalutamide 0 ea 11/01/24 09:30 11/05/24 09:00 ) 40 Mg Tablets PO 12/01/24 09:29 40 tablet DAILY STORM Administration Furosemide 40 mg 11/06/24 09:00 11/06/24 08:05 Furosemide Inj 10 Mg/Ml 4ml Vial IVP 12/06/24 08:59 40 mg QDAY STORM Administration Heparin Sodium (Porcine) 5,000 unit 11/01/24 21:00 11/05/24 09:00 Heparin Sod Inj 5000 Unit/Ml Vial SC 11/15/24 20:59 5,000 unit Q12HR STORM Administration Fentanyl Citrate 2,500 mcg in 250 mls @ 2.5 mls/hr 11/05/24 16:00 11/06/24 11:00 Sublimaze Inj 2,500 Mcg/250 Ml Bag IV 11/10/24 15:59 100 mcg/hr .Q24H PRN 10 mls/hr PER PROTOCOL Titration Protocol 25 MCG/HR Propofol 1,000 mg in 100 mls @ 2.445 mls/hr 11/05/24 16:00 11/06/24 11:00 Diprivan Ivpb IV 12/05/24 15:59 15 mcg/kg/min .Q24H PRN 7.335 mls/hr PER PROTOCOL Titration Protocol 5 MCG/KG/MIN Piperacillin Sod/Tazobactam 50 mls @ 12.5 mls/hr 11/05/24 22:00 11/06/24 14:45 Sod 3.375 gm/ Sodium Chloride IV 11/12/24 21:59 12.5 mls/hr Q8HR STORM Administration Norepinephrine/Dextrose 8 mg in 250 mls @ 7.641 mls/hr 11/05/24 17:02 11/06/24 11:00 Levophed In D5w 8mg/250ml IV 12/05/24 17:01 0.15 mcg/kg/min .Q24H PRN 22.922 mls/hr PER PROTOCOL Titration Protocol 0.05 MCG/KG/MIN Home Medication- 160 mg 11/01/24 09:00 11/05/24 09:00 Please Speak With PO 12/01/24 08:59 Not Given Patient Caregiver To DAILY STORM Have Rx Brought To [facility] Pantoprazole Sodium 40 mg 11/05/24 16:15 11/06/24 08:05 Pantoprazole Inj 40 Mg Vial IV 12/05/24 16:14 40 mg QDAY STORM Administration Pharmacy Consult 1 each 11/05/24 16:14 Pharmacy Renal Dose Adjustment 1 Ea XX 12/05/24 16:13 PRN PRN CONSULT Polyethylene Glycol 17 gm 11/02/24 09:45 11/06/24 08:06 Polyethylene Glycol 17 Gm Packet PO 12/02/24 09:44 17 gm QDAY STORM Administration Sennosides 1 tab 11/02/24 09:39 Senna Tablet PO 12/02/24 09:38 QDAY PRN CONSTIPATION Protocol Plan The patient is a 74-year-old male with a past medical history of hypertension and 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 Neuro No active conditions Sedated, intubated on MV Cardiovascular #History of HFpEF 55 to 60% #Type II NSTEMI As the patient initially presented with shortness of breath as well as some elevated troponin levels on admission, cardiology was consulted. Echocardiogram was done which showed normal LV size and function with ejection fraction 55 to 60% and stage I diastolic dysfunction. Patient was started on diuresis with IV Lasix to improve respiratory status. Plan: -Continue IV Lasix 40 mg daily -Cardiology consulted, appreciate recommendations #History of hypertension The patient has a history of hypertension but on admission, blood pressure has been soft and antihypertensives have been held. Will continue to monitor blood pressure before initiating antihypertensives. Respiratory #Acute hypoxic respiratory failure #Bilateral pneumonia #[facility] vs [facility] acquired The patient presented with a couple days history of shortness of breath prior to presentation. Chest x-ray shows severe bilateral pneumonia and a possible evolving ARDS pattern. The patient is currently on IV antibiotics Zosyn. All cultures have been negative so far. Aware to the ICU on 11/05/2024 as patient was maxed out on high flow oxygen and was still tachypneic with persistent shortness of breath. -11/06/24:Keep intubated on MV,ABG,Continue IV Zosyn -MRSA nares pending -Sputum culture- pending and Gram stain- normal GI No active conditions On protonix Renal #FREDO #Prerenal versus postrenal On admission, patient had an FREDO with BUN of 54 and creatinine 1.9.today 2.2 Patient reportedly had decreased oral intake over the week prior to her admission. Patient however also had a distended bladder requiring Wells. -Avoid nephrotoxic medications -Renally dose medications as needed Endocrine No active conditions Prediabetes, A1c-6.1 Not requiring insulin Urology #Complicated UTI #Emphysematous cystitis Patient's initial presentation had no urinary symptoms, however urinalysis showed 53 white blood cells with 4+ bacteria and positive leukocyte esterase. CT abdomen and pelvis that was done at the time showed emphysematous cystitis. Urology was consulted and recommended to treat with antibiotics for UTI as long as patient has a Wells. Urine culture returned positive for E. coli, pansensitive. Patient was started on IV Zosyn, also received vancomycin and transitioned to p.o. Augmentin. On upgrade to the ICU, he was placed back on IV Zosyn. 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 Arcos and Dr. Belcher. Supposedly, he had been in remission many years ago. Chest CT done on this admission showed pulmonary nodules with the largest in the right upper lobe, also setting or mets to the spine and sacrum. Oncology was consulted on this admission and requested an MRI to be done which showed soft tissue trauma in the right first second and third sacral wings as well as the posterior right iliac bone. The patient is currently on Xtandi Plan: -As per oncology Patient was getting Lupron denosumab enzalutamide at the cancer treatment center. All the oncology meds including p.o. enzalutamide can be held during his hospital stay, -Oncology consulted, appreciate recommendations #Chronic normocytic anemia Patient has had anemia and is considered chronic, likely either to be anemia of chronic disease or side effect of chemotherapy. Hemoglobin at baseline is approximately 11, on admission hemoglobin was 7.0. During course of admission, he has received 2 units of PRBCs. Hemoglobin today at 7.2. On intubation, noted the patient had some bloody secretions, however he has been denying coughing up blood or GI blood losses. Plan: -Continue to monitor H&H -Holding heparin for now -SCD Infectious See pulm and uro above Health maintenance: Dispo: ICU for acute hypoxic respiratory failure, sedated and intubated Diet: N.p.o. GI: Pantoprazole DVT: SCDS Wells: In situ Lines: Peripheral , left femoral central , left femoral Art marielle Code: Full Case was discussed with attending physician, Dr Francisco Diaz MD,PGY-[id number] Attending Provider Attestation/Addendum Patient seen and examined with the above resident, Austin Diaz MD. I agree with the above findings, assessment, and plan of care as documented except for any differences below. Patient post intubation with severe pneumonia. PEEP adjusted to optimize recruitment. Fluid negative but PPV on arterial line, additional IVF given back after aggressive diuresis on floor. Patient with adequate compliance now with chest film this AM showing significant, almost exclusively right sided infiltrates. Patient on healthcare associated pneumonia coverage with antibiotics. Unclear how much of the infiltrates are due to underlying metastatic lesions. No recent chemotherapy suggestive of pulmonary toxicity. Continued on androgen blocking agents for now. Also requiring sedation for compliance and component of septic shock possibly. I did update the on plan of care at bedside, guarded prognosis given debility/ malignancy and superimposed respiratory failure now. Follow up cultures and complete course of antibiotics, will aim to wean Fio2 as tolerated today. Total critical care time: I personally spent 40 minutes for review of physiologic parameters, directing plan of care, and counseling patients' at bedside. This is exclusive of time spent teaching housestaff or performing any separate billable procedures. Patient continues to require critical care services for acute hypoxic respiratory failure 2/2 healthcare associated pneumonia. He remains at very high risk for further morbidity and mortality warranting close monitoring and care only available in the ICU.
--- NOTE | 2024-11-06 15:42 | PC.SS ---
Update: Patient remains intubated/sedated. Patient on pressor support. Feeding not started, dietary recommendations pending. Central line placed today. Patient afrebile.
[2024-11-06] MEDS: SODIUM CHLORIDE 0.9% 500 ML 500 ML 250 ML IV (16:47)
[2024-11-06] MEDS: Norepinephrine/D5W 8mg/250ml 8 MG/250 ML BAG 35.147 MG IV (16:54)
[2024-11-06 17:38] LABS: Hemoglobin 6.7 g/dL (13.5-16.0)
[2024-11-06] MEDS: fentaNYL 2,500 MCG/250 ML BAG 2,500 MCG/250 ML BAG 10 MCG IV (18:28)
[2024-11-06] MEDS: Norepinephrine/D5W 8mg/250ml 8 MG/250 ML BAG 44.316 MG IV (23:00)
[2024-11-06] MEDS: VASOPRESSIN IN NS IVPB 20 UNIT/100 ML BAG 9 UNIT IV (23:30)
--- NOTE | 2024-11-06 23:36 | PC.NURSE ---
MD Saldaña notified of Norepi demands of 0.29 with MAP <65 and notable changes with cardiac rhythm with an increase of frequency of PACs. ordered vasopression gtt, H&H, type and screen and a magnesium level.
[2024-11-07] VITALS (118 sets, daily range): BP systolic 69–165; BP diastolic 26–87; PULSE 78–120; RESP 0–36; TEMP 36.2–37; O2SAT 88–99
[2024-11-07 00:17] LABS: Hematocrit 20.2 % (41.0-53.0); Hemoglobin 6.7 g/dL (13.5-16.0)
[2024-11-07 00:43] LABS: Albumin, Serum 3.2 gm/dL (3.4-4.8); Anion Gap 11 (7-16); BUN/Creatinine Ratio 28 Ratio (12-20); Blood Urea Nitrogen 81 mg/dL (9-23); Calcium 10.7 mg/dL (8.3-10.6); Calcium (Corrected) 11.3 mg/dL (8.5-10.1); Carbon Dioxide 21.2 mMol/L (20.0-31.0); Chloride 109 mMol/L (98-107); Creatinine (Component) 2.9 mg/dL (0.6-1.3); Estimated Creatinine Clearance 22.7 mL/min (>60); Glucose 199 mg/dL (74-106); Magnesium 2.4 mg/dL (1.6-2.6); Osmolality,Calculated 311 (275-295); Phosphorous 4.2 mg/dL (2.4-5.1); Sodium 141 mMol/L (136-145); eGFR 22 See Note
[2024-11-07 04:47] LABS: Base Excess -7 (-3-3); HCO3 20 mEq/L (20-26); Inspired Oxygen, FIO2 50 %; O2 Saturation 95 % (91-98); PCO2 43 mmHg (32.0-48.0); PO2 78 mmHg (83-108); pH, Arterial 7.27 (7.35-7.45)
[2024-11-07 04:49] LABS: Allen Test Performed/OK; Puncture Site Arterial Line
--- NOTE | 2024-11-07 05:00 | XR_ITS ---
Examination: AP chest single view Technique: AP portable semiupright chest single view Exam date and time: November 08, 2019 [id number] hrs. Comparison November 06, 2024 Indications: Pneumonia ARDS, hypoxic respiratory failure pattern Findings: Extensive bilateral lung opacity Normal heart size Endotracheal tube tip approximately 5.5 cm above dev Widespread osteoblastic metastatic disease Impression: Extensive bilateral pneumonia ARDS pattern Endotracheal tube tip 5.5 cm above dev
[2024-11-07] MEDS: PIPER/TAZO INJ 3.375 GM in SODIUM CHLORIDE 0.9% (Popper) 50 ML IV (05:21)
[2024-11-07 05:32] LABS: Basophils # (Auto) 0.1 Thou/mm3 (0.0-0.2); Basophils % (Auto) 0 % (0-2.5); Eosinophils # (Auto) 0.1 Thou/mm3 (0.0-0.5); Eosinophils % (Auto) 1 % (0-10); Hematocrit 24.8 % (41.0-53.0); Immature Granulocytes % (Auto) 10 % (0-0); Immature Granulocytes Auto 1.42 Thou/mm3 (0.00-0.00); Lymphocytes # (Auto) 0.7 Thou/mm3 (1.0-4.8); Lymphocytes % (Auto) 5 % (10-50); Mean Corpuscular HGB Conc 32.7 g/dl (31.0-37.0); Mean Corpuscular Hemoglobin 28.3 pg (25.0-35.0); Mean Corpuscular Volume 87 fL (80-100); Monocytes # (Auto) 0.5 Thou/mm3 (0.0-0.8); Monocytes % (Auto) 3 % (0-12); Neutrophils % (Auto) 81 % (37-80); Nucleated Red Blood Cell # 0.45 Thou/mm3 (0.00-0.00); Nucleated Red Blood Cell % 3 /100 WBC (0); Platelet Count 187 Thou/mm3 (140-440); RDW Standard Deviation 50.3 fL (35.1-43.9); Red Blood Count 2.86 Miln/mm3 (4.50-5.90); White Blood Count 14.8 Thou/mm3 (3.8-10.6)
[2024-11-07 05:33] LABS: Hemoglobin 8.1 g/dL (13.5-16.0)
[2024-11-07 06:12] LABS: Alanine Aminotransferase 53 U/L (10-49); Albumin, Serum 3.1 gm/dL (3.4-4.8); Albumin/Globulin Ratio 1.4 (1.2-2.2); Alkaline Phosphatase 81 U/L (46-116); Anion Gap 10 (7-16); Aspartate Amino Transferase 62 U/L (0-34); BUN/Creatinine Ratio 27 Ratio (12-20); Bilirubin,Total 0.5 mg/dL (0.3-1.2); Blood Urea Nitrogen 82 mg/dL (9-23); Calcium 10.3 mg/dL (8.3-10.6); Carbon Dioxide 19.9 mMol/L (20.0-31.0); Chloride 109 mMol/L (98-107); Estimated Creatinine Clearance 21.9 mL/min (>60); Globulin 2.2 gm/dL (2.3-3.5); Glucose 197 mg/dL (74-106); Magnesium 2.4 mg/dL (1.6-2.6); Osmolality,Calculated 307 (275-295); Phosphorous 4.3 mg/dL (2.4-5.1); Potassium 4.9 mMol/L (3.4-5.1); Sodium 139 mMol/L (136-145); Total Protein 5.3 gm/dL (5.7-8.2); eGFR 21 See Note
[2024-11-07 06:28] LABS: B-Type Natriuretic Peptide 99 pg/mL (0-100)
--- NOTE | 2024-11-07 08:02 | PC.NURSE ---
I notified Dr. Alba Guardado and Emily regarding patient's right leg significantly cooler than the right leg. Right le is also swollen compare to the left leg that does not have swelling. No new orders at this time.
[2024-11-07] MEDS: PANTOPRAZOLE INJ 40 MG VIAL IV ×2 (08:53→21:32)
[2024-11-07] MEDS: POLYETHYLENE GLYCOL 17 GM PACKET PO (08:53)
[2024-11-07] MEDS: Norepinephrine/D5W 8mg/250ml 8 MG/250 ML BAG 16.809 MG IV (08:53)
--- NOTE | 2024-11-07 09:27 | PD.RESPRO ---
Documentation for date of: 11/07/24 Subjective Subjective Interval history: Patient seen and examined at bedside, currently on sedation, mechanical ventilation. Chest x-ray showed improvement compared to yesterday Patient had decreased urine output, about 200 cc in the last 24 hours, suspicion of ATN in setting of shock. Patient's hemoglobin did drop to 6.7 overnight, bleeding per rectum noted per nursing. Patient's shock likely septic versus hypovolemic/hemorrhagic. Low suspicion of cardiogenic shock. Exam Vital Signs Temp Pulse Resp BP Pulse Ox O2 Del Method O2 Flow Rate 97.4 F 112 H 18 119/57 L 93 L Mechanical Ventilation 40 11/07/24 04:00 11/07/24 08:53 11/07/24 07:55 11/07/24 08:53 11/07/24 07:55 11/06/24 20:00 11/07/24 03:00 FiO2 50 11/07/24 06:34 Narrative Exam General: Sedated and mechanically ventilated HEENT: Normocephalic, atraumatic, mucous membranes moist. Heart: Sinus tachycardia, no murmurs. Lungs: Bilateral coarse breath sounds sounds, currently on mechanical ventilation Abdomen: Soft, nondistended, nontender, positive bowel sounds. ?No guarding or rebound tenderness. Neurologic: Sedated, limited exam. GCS 3T Extremities: Right lower extremity edema 1+, trace left lower extremity edema, right lower extremity> left lower extremity. Edema noted on dependent body parts. Skin: No rash or ecchymoses. Objective Labs 11/07/24 05:00 11/07/24 05:00 Labs: Laboratory Results - last 24 hr 11/06/24 11/06/24 11/07/24 17:20 23:58 04:42 WBC RBC Hgb 6.7 L* 6.7 L* Hct 21.0 L* 20.2 L* MCV MCH MCHC RDW Std Deviation Plt Count Neut % (Auto) Lymph % (Auto) [place] % (Auto) Eos % (Auto) Baso % (Auto) Neut # (Auto) Lymph # (Auto) [place] # (Auto) Eos # (Auto) Baso # (Auto) Immature Gran # (Auto) Absolute Nucleated RBC Immature Gran % Nucleated RBC % Puncture Site Arterial Line ABG pH 7.27 L ABG pCO2 43 D ABG pO2 78 L D ABG HCO3 20 ABG O2 Saturation 95 ABG Base Excess -7 L FiO2 50 Sodium 141 Potassium 5.0 Chloride 109 H Carbon Dioxide 21.2 Anion Gap 11 BUN 81 H Creatinine 2.9 H D Estim Creat Clear Calc 22.7 L eGFR 22 L BUN/Creatinine Ratio 28 H Glucose 199 H Calculated Osmolality 311 H Calcium 10.7 H Corrected Calcium 11.3 H Phosphorus 4.2 Magnesium 2.4 Total Bilirubin AST ALT Alkaline Phosphatase B-Natriuretic Peptide Total Protein Albumin 3.2 L Globulin Albumin/Globulin Ratio Blood Type O Positive Antibody Screen NEGATIVE Crossmatch See Detail Blood Bank Wristband ID Yes 11/07/24 05:00 WBC 14.8 H RBC 2.86 L Hgb 8.1 L D Hct 24.8 L MCV 87 MCH 28.3 MCHC 32.7 RDW Std Deviation 50.3 H Plt Count 187 Neut % (Auto) 81 H Lymph % (Auto) 5 L [place] % (Auto) 3 Eos % (Auto) 1 Baso % (Auto) 0 Neut # (Auto) 12.0 H Lymph # (Auto) 0.7 L [place] # (Auto) 0.5 Eos # (Auto) 0.1 Baso # (Auto) 0.1 Immature Gran # (Auto) 1.42 H Absolute Nucleated RBC 0.45 H Immature Gran % 10 H Nucleated RBC % 3 H Puncture Site ABG pH ABG pCO2 ABG pO2 ABG HCO3 ABG O2 Saturation ABG Base Excess FiO2 Sodium 139 Potassium 4.9 Chloride 109 H Carbon Dioxide 19.9 L Anion Gap 10 BUN 82 H Creatinine 3.0 H Estim Creat Clear Calc 21.9 L eGFR 21 L BUN/Creatinine Ratio 27 H Glucose 197 H Calculated Osmolality 307 H Calcium 10.3 Corrected Calcium 11.0 H Phosphorus 4.3 Magnesium 2.4 Total Bilirubin 0.5 AST 62 H ALT 53 H Alkaline Phosphatase 81 B-Natriuretic Peptide 99 Total Protein 5.3 L Albumin 3.1 L Globulin 2.2 L Albumin/Globulin Ratio 1.4 Blood Type Antibody Screen Crossmatch Blood Bank Wristband ID ABG Interpretation ABG results: 10/31/24 11/04/24 11/05/24 11:59 15:14 17:50 ABG pH 7.54 H 7.50 H 7.26 L D ABG pCO2 24 L 26 L 48 D ABG pO2 60 L 75 L 67 L ABG HCO3 21 20 21 ABG O2 Saturation 92 97 87 L ABG Base Excess -2 -3 -5 L 11/05/24 11/06/24 11/07/24 22:06 00:26 04:42 ABG pH 7.23 L 7.22 L 7.27 L ABG pCO2 55 H 56 H 43 D ABG pO2 192 H D 176 H 78 L D ABG HCO3 23 23 20 ABG O2 Saturation 100 H 100 H 95 ABG Base Excess -5 L -5 L -7 L Quality Measures Quality Measures VTE prophylaxis Advance care planning discussed with:: patient Assessment & Plan Assessment Current Active Medications: Generic Name Dose Route Start Last Admin Trade Name Freq PRN Reason Stop Dose Admin Acetaminophen 650 mg 11/01/24 08:44 Acetaminophen 325 Mg Tablet PO 12/01/24 08:43 Q4HR PRN FEVER >101 Albuterol/Ipratropium 3 ml 11/05/24 08:00 Albuterol/Ipratropium (Duoneb) Rt Rand 3 Ml Nebu INH 12/05/24 07:59 Q2HR PRN SHORTNESS OF BREATH OR WHEEZE Albuterol/Ipratropium 3 ml 11/05/24 09:05 11/05/24 18:28 Albuterol/Ipratropium (Duoneb) Rt Rand 3 Ml Nebu INH 12/05/24 09:04 Not Given Q6HRRT STORM Xtandi (Enzalutamide 0 ea 11/01/24 09:30 11/05/24 09:00 ) 40 Mg Tablets PO 12/01/24 09:29 40 tablet DAILY STORM Administration Heparin Sodium (Porcine) 5,000 unit 11/01/24 21:00 11/05/24 09:00 Heparin Sod Inj 5000 Unit/Ml Vial SC 11/15/24 20:59 5,000 unit Q12HR STORM Administration Fentanyl Citrate 2,500 mcg in 250 mls @ 2.5 mls/hr 11/05/24 16:00 11/07/24 09:00 Sublimaze Inj 2,500 Mcg/250 Ml Bag IV 11/10/24 15:59 25 mcg/hr .Q24H PRN 2.5 mls/hr PER PROTOCOL Titration Protocol 25 MCG/HR Propofol 1,000 mg in 100 mls @ 2.445 mls/hr 11/05/24 16:00 11/07/24 04:00 Diprivan Ivpb IV 12/05/24 15:59 0 mcg/kg/min .Q24H PRN 0 mls/hr PER PROTOCOL Titration Protocol 5 MCG/KG/MIN Piperacillin Sod/Tazobactam 50 mls @ 12.5 mls/hr 11/05/24 22:00 11/07/24 09:00 Sod 3.375 gm/ Sodium Chloride IV 11/07/24 12:00 0 mls/hr Q8HR STORM Infusion Norepinephrine/Dextrose 8 mg in 250 mls @ 7.641 mls/hr 11/05/24 17:02 11/07/24 09:00 Levophed In D5w 8mg/250ml IV 12/05/24 17:01 0.09 mcg/kg/min .Q24H PRN 13.753 mls/hr PER PROTOCOL Titration Protocol 0.05 MCG/KG/MIN Vasopressin/Sodium Chloride 20 unit in 100 mls @ 9 mls/hr 11/06/24 23:06 11/07/24 05:00 Vasostrict/Ns Ivpb IV 12/06/24 23:05 0 unit/min .Q11H7M PRN 0 mls/hr PER PROTOCOL Titration Protocol 0.03 UNIT/MIN Piperacillin/Tazobactam/Dextrose 50 mls @ 12.5 mls/hr 11/07/24 14:00 Zosyn IV 11/12/24 21:59 Q8HR STORM Home Medication- 160 mg 11/01/24 09:00 11/05/24 09:00 Please Speak With PO 12/01/24 08:59 Not Given Patient Caregiver To DAILY STORM Have Rx Brought To [facility] Pantoprazole Sodium 40 mg 11/05/24 16:15 11/07/24 08:53 Pantoprazole Inj 40 Mg Vial IV 12/05/24 16:14 40 mg QDAY STORM Administration Pharmacy Consult 1 each 11/05/24 16:14 Pharmacy Renal Dose Adjustment 1 Ea XX 12/05/24 16:13 PRN PRN CONSULT Polyethylene Glycol 17 gm 11/02/24 09:45 11/07/24 08:53 Polyethylene Glycol 17 Gm Packet PO 12/02/24 09:44 17 gm QDAY STORM Administration Sennosides 1 tab 11/02/24 09:39 Senna Tablet PO 12/02/24 09:38 QDAY PRN CONSTIPATION Protocol Plan Assessment and plan: Summary: Mr. 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 Cardiology consulted in the emergency department for elevated troponin. #Acute respiratory distress syndrome, moderate #Acute hypoxic respiratory failure secondary to community-acquired pneumonia versus hospital-acquired pneumonia #Heart failure with preserved ejection fraction, EF 55 to 60% #Diastolic heart failure #Shock, likely septic in setting of pneumonia Patient was intubated and upgraded to ICU on 11/05/24 for further management. Had increased oxygen requirement, was maxed out on high flow nasal cannula eventually upgraded to ICU for mechanical ventilation. Patient's chest x-ray significant for bilateral ARDS, PF ratio 108.1, moderate ARDS per [place] criteria. Patient's driving pressure optimized by ICU team on mechanical ventilation for early ARDS management On antibiotic coverage for hospital-acquired infection, does have immunocompromised status secondary underlying to extensive metastasis Patient does have extensive metastasis,, possible inflammatory cause/metastatic cause. Echocardiogram did show diastolic dysfunction stage I, ejection fraction 55 to 60%. On physical exam today mild edema on dependent parts. Patient has worsening renal function today, high suspicion of ATN in setting of shock, likely septic versus hypovolemic/hemorrhagic Recommendation: -Hold Lasix, high suspicion of acute tubular necrosis in setting of shock, likely septic versus hypovolemic/hemorrhagic. Low suspicion of cardiogenic shock. -Patient had poor urine output in the last 24 hours, urine output continues to decline today -Hold Lasix in a.m. continue to monitor renal function. -Maintain strict intake and output, fluid restriction 1500 cc, daily weight -Management of ARDS per ICU team #Acute tubular necrosis in setting of shock, septic versus hypovolemic/hemorrhagic #Urinary tract infection Patient does have history of prostate cancer, could be related to possible obstruction of some sort leading to UTI, urology consulted in ED recommended Wells catheter placement Urinalysis showed 53 white cells, +4 bacteria, plus leukocyte esterase 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, Wells catheter inserted which outputed 1500 cc immediately Patient had poor oral intake over the last week, BUN 54, creatinine 1.9, GFR 36 on presentation, patient was given 1 L NS in ED. patient initially presented with FREDO was prerenal, which resolved IV fluid management. 11/07-patient has poor urine output, likely ATN in setting of shock, continue to monitor renal function and urine output, hold Lasix. #NSTEMI type II secondary to demand ischemia #Shortness of breath Patient had elevated troponin 0.285 in the emergency department, denies any chest discomfort/chest pain, EKG showed sinus tachycardia rate 102 some Q waves in lead I and aVL. Patient likely has demand ischemia in setting of acute infection secondary to UTI/pneumonia. Patient shortness of breath is mostly secondary to the anemia with hemoglobin of 7.3 on presentation during this admission. Will need to rule out other causes including cardiac causes of shortness of breath at this time given the mildly elevated troponins. Hemoglobin A1c 6.1, cholesterol 84, LDL 24, TSH 3.58 Troponin 0.285?> 0.363 ?> 0.396 -> 0.302 TTE 11/01/2024: Normal LV size and function with an EF of 55 to 60%. Diastolic dysfunction stage I. Normal RV size and function. Normal RVSP of 25 mmHg. Mild MAC. Trace MR and mild TR. Recommend to transfuse PRBC to keep Hb between 9-10 Recommendations: -Patient will need outpatient cardiology when stable #Symptomatic normocytic normochromic anemia #GI bleed Patient reports symptoms of shortness of breath dizziness and lethargy recently, possible anemia of chronic disease as patient has malignancy, also on chemotherapy Baseline hemoglobin around 11, 7.3 today, was recently prescribed prednisone Patient will be transfused 1 unit PRBC as ordered in ED Iron panel shows iron 18 mcg/dL, TIBC 210 mcg/dL, iron saturation 8% unsat iron binding 192 Recommendations: -Patient's anemia is likely multifactorial, patient has low iron reserves will likely benefit from IV iron infusion -Recommend IV iron, ferric sod gluconate 125 mg for 5 days -Anemia workup, order iron panel, ferritin, reticulocyte count, B12, folate level, LDH, peripheral blood film -Patient has bleeding per rectum per ICU nursing. # Right lower extremity edema Patient has right lower extremity edema 2+, pitting compared to left lower leg, no significant edema noted on left. MRI thoracic spine shows extensive enhancing soft tissue mass destroying right first second and third sacral wings as well as posterior right iliac bone High suspicion of the mass causing compression and causing impaired venous drainage. 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 Arcos and Dr. Belcher outpatient, currently on treatment with leuprolide, enzalutamide and denosumab per heme-onc note from July 2024 Thoracic spine MRI and lumbar spine MRI showed osseous metastatic disease C5 T11 and osseous metastatic disease involving lumbar vertebral bodies, extensive enhancing soft tissue mass destroying right first second and third sacral wings as well as posterior right iliac bone Xtandi continued by primary team #Hypoosmolar hypochloremic hyponatremia, resolved Case discussed with Attending Dr. Bai. Zaina Virgen PGY1 Disclaimer: This note was dictated by speech recognition. Minor errors in supervisor forming department may be present due to voice recognition /software. Attending Provider Attestation/Addendum I have personally seen and examined the patient separately on the above date of service and discussed the plan of care with the resident. I reviewed the resident Dr. Zaina Virgen consultation progress note and agree with the resident findings and plan in the note above and have also edited the documentation to reflect my findings and plan. Oziel Bai M.D. Interventional Cardiology
[2024-11-07 10:30] LABS: Path Review Blood Smear Sent to Pathologist
[2024-11-07 11:36] LABS: Base Excess -7 (-3-3); HCO3 20 mEq/L (20-26); Inspired Oxygen, FIO2 50 %; O2 Saturation 95 % (91-98); PCO2 45 mmHg (32.0-48.0); PO2 78 mmHg (83-108); pH, Arterial 7.26 (7.35-7.45)
[2024-11-07 11:40] LABS: Allen Test Not Performed; Puncture Site Arterial Line
[2024-11-07] MEDS: INSULIN LISPRO (AdmeLOG) 1 UNIT/0.01 ML UNIT SC ×2 (12:04→17:54)
[2024-11-07] MEDS: OCTREOTIDE ACET INJ 1,000 MCG in SODIUM CHLORIDE 0.9% 100 ML 5.1 MCG IV (12:05)
[2024-11-07] MEDS: SODIUM CHLORIDE 0.9% 250 ML 250 ML 999 ML IV (12:14)
--- NOTE | 2024-11-07 16:02 | ESPR_ITS ---
<Statement entered by Austin Diaz MD - 11/07/24 17:06> Patient was examined bedside this morning, no acute overnight events, overnight UO was 150, he is on minimum dose of fentanyl and levo at 0.17 am, slowly tritating down levo. He was non responsive to cheetah. Urine output was minimum, we will add bumex 2 mgx1 . GI consult was placed for possible GI bleed, protonix was changed to 40 Q12 hr and octeotride drip was added . we will have goals of care tomorrow with family. I discussed with and supervised my co-resident involved in the care of this patient. I agree with the assessment and plan as documented above. Austin Diaz,PGY-3 Disclaimer: Despite multiple revisions, due to the dictation software being used, the document below may not be free of grammatical errors including phonetic/typographic errors. However, this does not deter from our commitment to providing health care in the patient's best interest in mind. Documentation for date of: 11/07/24 Subjective Subjective Interval history: Patient seen and examined at bedside. No acute overnight events. Overnight, patient said to have had very minimal urine output, total of 215 mL all day. Creatinine today, increased to 3.0 Also reported to have had some dried blood per rectum. Hemoglobin noted to be 6.7, received 1 unit of PRBC and repeat hemoglobin is 8.1 today. On examination, also has notable dilated veins in the lower chest and abdomen, with signs of portal hypertension. Given these findings, suspect esophageal varices/hemorrhoids in the setting of cirrhosis with portal hypertension. GI Dr. Ken consulted. ABG this morning-pH 7.2, CO2 43 and bicarb 19.9. Vent settings adjusted with an increase in respiratory rate, repeat ABG, pH-7. 2 6, pCO2 45 and bicarb 20. As patient is not making any urine, suspect the patient is currently in ATN, shock still of unknown etiology, Cheetah put on and will also do a bedside ultrasound. Otherwise, leukocytosis downtrending Exam Vital Signs Temp Pulse Resp BP Pulse Ox O2 Del Method O2 Flow Rate 97.1 F 115 H 22 H 100/34 L 93 L Mechanical Ventilation 40 11/07/24 12:00 11/07/24 14:43 11/07/24 13:15 11/07/24 14:43 11/07/24 14:43 11/07/24 12:00 11/07/24 03:00 FiO2 50 11/07/24 14:43 Narrative Exam GENERAL: Sedated on fentanyl, intubated and on MV NEURO: GCS-7T, opens eyes to painful stimuli, withdraws right lower extremity to painful stimuli HEENT: Dry mucosa with dried blood in the mouth and oropharynx. ED tube in situ, some secretions mixed with blood. CARDIO: Regular rate and rhythm, no murmurs PULM: Dilated veins seen in upper chest. On auscultation, coarse crackles bilaterally GI: Abdomen soft, nondistended, dilated veins in the upper abdomen-caput medusae. BSx4 URO/IMMUNOLOGY SPECIALIST:: No further abnormalities noted. Wells catheter in situ SKIN/MSK/EXT: Unilateral pitting edema of the right lower extremity Objective Labs 11/08/24 04:50 11/08/24 04:50 Labs: Laboratory Results - last 24 hr 11/06/24 11/06/24 11/07/24 17:20 23:58 04:42 WBC RBC Hgb 6.7 L* 6.7 L* Hct 21.0 L* 20.2 L* MCV MCH MCHC RDW Std Deviation Plt Count Neut % (Auto) Lymph % (Auto) Crisp % (Auto) Eos % (Auto) Baso % (Auto) Neut # (Auto) Lymph # (Auto) Crisp # (Auto) Eos # (Auto) Baso # (Auto) Immature Gran # (Auto) Absolute Nucleated RBC Immature Gran % Nucleated RBC % Smear Path Review Puncture Site Arterial Line ABG pH 7.27 L ABG pCO2 43 D ABG pO2 78 L D ABG HCO3 20 ABG O2 Saturation 95 ABG Base Excess -7 L FiO2 50 Sodium 141 Potassium 5.0 Chloride 109 H Carbon Dioxide 21.2 Anion Gap 11 BUN 81 H Creatinine 2.9 H D Estim Creat Clear Calc 22.7 L eGFR 22 L BUN/Creatinine Ratio 28 H Glucose 199 H Calculated Osmolality 311 H Calcium 10.7 H Corrected Calcium 11.3 H Phosphorus 4.2 Magnesium 2.4 Total Bilirubin AST ALT Alkaline Phosphatase B-Natriuretic Peptide Total Protein Albumin 3.2 L Globulin Albumin/Globulin Ratio Blood Type O Positive Antibody Screen NEGATIVE Crossmatch See Detail Blood Bank Wristband ID Yes 11/07/24 11/07/24 05:00 11:29 WBC 14.8 H RBC 2.86 L Hgb 8.1 L D Hct 24.8 L MCV 87 MCH 28.3 MCHC 32.7 RDW Std Deviation 50.3 H Plt Count 187 Neut % (Auto) 81 H Lymph % (Auto) 5 L Crisp % (Auto) 3 Eos % (Auto) 1 Baso % (Auto) 0 Neut # (Auto) 12.0 H Lymph # (Auto) 0.7 L Crisp # (Auto) 0.5 Eos # (Auto) 0.1 Baso # (Auto) 0.1 Immature Gran # (Auto) 1.42 H Absolute Nucleated RBC 0.45 H Immature Gran % 10 H Nucleated RBC % 3 H Smear Path Review Sent to Pathologist Puncture Site Arterial Line ABG pH 7.26 L ABG pCO2 45 ABG pO2 78 L ABG HCO3 20 ABG O2 Saturation 95 ABG Base Excess -7 L FiO2 50 Sodium 139 Potassium 4.9 Chloride 109 H Carbon Dioxide 19.9 L Anion Gap 10 BUN 82 H Creatinine 3.0 H Estim Creat Clear Calc 21.9 L eGFR 21 L BUN/Creatinine Ratio 27 H Glucose 197 H Calculated Osmolality 307 H Calcium 10.3 Corrected Calcium 11.0 H Phosphorus 4.3 Magnesium 2.4 Total Bilirubin 0.5 AST 62 H ALT 53 H Alkaline Phosphatase 81 B-Natriuretic Peptide 99 Total Protein 5.3 L Albumin 3.1 L Globulin 2.2 L Albumin/Globulin Ratio 1.4 Blood Type Antibody Screen Crossmatch Blood Bank Wristband ID ABG Interpretation ABG results: 10/31/24 11/04/24 11/05/24 11:59 15:14 17:50 ABG pH 7.54 H 7.50 H 7.26 L D ABG pCO2 24 L 26 L 48 D ABG pO2 60 L 75 L 67 L ABG HCO3 21 20 21 ABG O2 Saturation 92 97 87 L ABG Base Excess -2 -3 -5 L 11/05/24 11/06/24 11/07/24 22:06 00:26 04:42 ABG pH 7.23 L 7.22 L 7.27 L ABG pCO2 55 H 56 H 43 D ABG pO2 192 H D 176 H 78 L D ABG HCO3 23 23 20 ABG O2 Saturation 100 H 100 H 95 ABG Base Excess -5 L -5 L -7 L 11/07/24 11:29 ABG pH 7.26 L ABG pCO2 45 ABG pO2 78 L ABG HCO3 20 ABG O2 Saturation 95 ABG Base Excess -7 L Quality Measures Quality Measures VTE prophylaxis Advance care planning discussed with:: other Assessment & Plan Assessment Current Active Medications: Generic Name Dose Route Start Last Admin Trade Name Freq PRN Reason Stop Dose Admin Acetaminophen 650 mg 11/01/24 08:44 Acetaminophen 325 Mg Tablet PO 12/01/24 08:43 Q4HR PRN FEVER >101 Albuterol/Ipratropium 3 ml 11/05/24 08:00 Albuterol/Ipratropium (Duoneb) Rt Rand 3 Ml Nebu INH 12/05/24 07:59 Q2HR PRN SHORTNESS OF BREATH OR WHEEZE Albuterol/Ipratropium 3 ml 11/05/24 09:05 11/05/24 18:28 Albuterol/Ipratropium (Duoneb) Rt Rand 3 Ml Nebu INH 12/05/24 09:04 Not Given Q6HRRT STORM Xtandi (Enzalutamide 0 ea 11/01/24 09:30 11/05/24 09:00 ) 40 Mg Tablets PO 12/01/24 09:29 40 tablet DAILY STORM Administration Dextrose 25 ml 11/07/24 11:13 Dextrose 50%-Water Inj 50 Ml Syringe IV 12/07/24 11:12 Q15MIN PRN BG 50-70 responsive npo pt Dextrose 50 ml 11/07/24 11:13 Dextrose 50%-Water Inj 50 Ml Syringe IV 12/07/24 11:12 Q15MIN PRN BG <50 OR BG <70 & pt unresponsive Glucagon 1 mg 11/07/24 11:13 Glucagon Inj 1 Mg Vial IM Q15MIN PRN BG <70, and no IV access Heparin Sodium (Porcine) 5,000 unit 11/01/24 21:00 11/05/24 09:00 Heparin Sod Inj 5000 Unit/Ml Vial SC 11/15/24 20:59 5,000 unit Q12HR STORM Administration Fentanyl Citrate 2,500 mcg in 250 mls @ 2.5 mls/hr 11/05/24 16:00 11/07/24 12:05 Sublimaze Inj 2,500 Mcg/250 Ml Bag IV 11/10/24 15:59 0 mcg/hr .Q24H PRN 0 mls/hr PER PROTOCOL Titration Protocol 25 MCG/HR Propofol 1,000 mg in 100 mls @ 2.445 mls/hr 11/05/24 16:00 11/07/24 04:00 Diprivan Ivpb IV 12/05/24 15:59 0 mcg/kg/min .Q24H PRN 0 mls/hr PER PROTOCOL Titration Protocol 5 MCG/KG/MIN Norepinephrine/Dextrose 8 mg in 250 mls @ 7.641 mls/hr 11/05/24 17:02 11/07/24 12:00 Levophed In D5w 8mg/250ml IV 12/05/24 17:01 0.05 mcg/kg/min .Q24H PRN 7.641 mls/hr PER PROTOCOL Titration Protocol 0.05 MCG/KG/MIN Vasopressin/Sodium Chloride 20 unit in 100 mls @ 9 mls/hr 11/06/24 23:06 11/07/24 05:00 Vasostrict/Ns Ivpb IV 12/06/24 23:05 0 unit/min .Q11H7M PRN 0 mls/hr PER PROTOCOL Titration Protocol 0.03 UNIT/MIN Piperacillin/Tazobactam/Dextrose 50 mls @ 12.5 mls/hr 11/07/24 14:00 Zosyn IV 11/12/24 21:59 Q8HR STORM Octreotide Acetate 1,000 mcg/ 102 mls @ 5.1 mls/hr 11/07/24 11:11 11/07/24 12:05 Sodium Chloride IV 11/12/24 11:11 50 mcg/hr .Q20H STORM 5.1 mls/hr Administration Protocol 50 MCG/HR Insulin Human Lispro 0 unit 11/07/24 12:00 11/07/24 12:04 Insulin Lispro (Admelog) 1 Unit/0.01 Ml Unit SC 12/07/24 11:59 1 unit Q6HR STORM Administration Protocol Home Medication- 160 mg 11/01/24 09:00 11/05/24 09:00 Please Speak With PO 12/01/24 08:59 Not Given Patient Caregiver To DAILY STORM Have Rx Brought To [facility] Pantoprazole Sodium 40 mg 11/07/24 21:00 Pantoprazole Inj 40 Mg Vial IV 12/07/24 20:59 BID [facility] Pharmacy Consult 1 each 11/05/24 16:14 Pharmacy Renal Dose Adjustment 1 Ea XX 12/05/24 16:13 PRN PRN CONSULT Polyethylene Glycol 17 gm 11/02/24 09:45 11/07/24 08:53 Polyethylene Glycol 17 Gm Packet PO 12/02/24 09:44 17 gm QDAY STORM Administration Sennosides 1 tab 11/02/24 09:39 Senna Tablet PO 12/02/24 09:38 QDAY PRN CONSTIPATION Protocol Plan The patient is a 74-year-old male with a past medical history of hypertension and 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 Neuro No active conditions Sedated, intubated on MV Cardiovascular #Shock, unknown etiology-distributive versus cardiogenic Although the patient has elements pointing towards some, shock, we are currently unable to tell which it is. Cheetah on board, per hemodynamic parameters, not fluid responsive. Patient is only made only about 25 cc of urine. Will try IV Bumex and monitor urine output. Plan for goals of care with family tomorrow. #History of HFpEF 55 to 60% #Type II NSTEMI As the patient initially presented with shortness of breath as well as some elevated troponin levels on admission, cardiology was consulted. Echocardiogram was done which showed normal LV size and function with ejection fraction 55 to 60% and stage I diastolic dysfunction. Patient was started on diuresis with IV Lasix to improve respiratory status. 11/07/2024-despite diuresis, patient is still not making urine. Plan: -IV Bumex 2 mg today -Cardiology consulted, following recommendations #History of hypertension The patient has a history of hypertension but on admission, blood pressure has been soft and antihypertensives have been held. Will continue to monitor blood pressure before initiating antihypertensives. Respiratory #Acute hypoxic respiratory failure #Bilateral pneumonia #[facility] vs Hospital acquired The patient presented with a couple days history of shortness of breath prior to presentation. Chest x-ray shows severe bilateral pneumonia and a possible evolving ARDS pattern. The patient is currently on IV antibiotics Zosyn. All cultures have been negative so far. Aware to the ICU on 11/05/2024 as patient was maxed out on high flow oxygen and was still tachypneic with persistent shortness of breath. -11/07/24:Keep intubated on MV,ABG,Continue IV Zosyn -MRSA nares pending -Sputum culture- pending and Gram stain- normal GI #Possible cirrhosis # GI bleed CT abdomen on admission showed signs of cirrhosis. On examination, patient has dilated veins on the upper chest and abdomen, possibly due to portal hypertension. Visualized dried blood in oropharynx as well as per rectum, possibly varices and hemorrhoids. Plan: -IV Protonix 40 mg twice daily -IV Octreotide infusion Renal #FREDO #Prerenal versus postrenal #Likely ATN On admission, patient had an FREDO with BUN of 54 and creatinine 1.9.today 2.2 Patient reportedly had decreased oral intake over the week prior to her admission. Patient however also had a distended bladder requiring Wells. Urine output has significantly decreased in the last 24 hours, patient looks to be proceeding closer to ATN. -Avoid nephrotoxic medications -Renally dose medications as needed Endocrine No active conditions Prediabetes, A1c-6.1 Not requiring insulin Urology #Complicated UTI #Emphysematous cystitis Patient's initial presentation had no urinary symptoms, however urinalysis showed 53 white blood cells with 4+ bacteria and positive leukocyte esterase. CT abdomen and pelvis that was done at the time showed emphysematous cystitis. Urology was consulted and recommended to treat with antibiotics for UTI as long as patient has a Wells. Urine culture returned positive for E. coli, pansensitive. Patient was started on IV Zosyn, also received vancomycin and transitioned to p.o. Augmentin. On upgrade to the ICU, he was placed back on IV Zosyn. 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 Arcos and Dr. Belcher. Supposedly, he had been in remission many years ago. Chest CT done on this admission showed pulmonary nodules with the largest in the right upper lobe, also setting or mets to the spine and sacrum. Oncology was consulted on this admission and requested an MRI to be done which showed soft tissue trauma in the right first second and third sacral wings as well as the posterior right iliac bone. The patient is currently on Xtandi Plan: -As per oncology Patient was getting Lupron denosumab enzalutamide at the cancer treatment center. All the oncology meds including p.o. enzalutamide can be held during his hospital stay, -Oncology consulted, appreciate recommendations #Chronic normocytic anemia Patient has had anemia and is considered chronic, likely either to be anemia of chronic disease or side effect of chemotherapy. Hemoglobin at baseline is approximately 11, on admission hemoglobin was 7.0. During course of admission, he has received 2 units of PRBCs. Hemoglobin today at 7.2. On intubation, noted the patient had some bloody secretions, however he has been denying coughing up blood or GI blood losses. Plan: -Continue to monitor H&H -Holding heparin for now -SCD Infectious See pulm and uro above Health maintenance: Dispo: ICU for acute hypoxic respiratory failure, sedated and intubated Diet: N.p.o. GI: Pantoprazole DVT: SCDS Wells: In situ Lines: Peripheral , left femoral central , left femoral Art marielle Code: Full Case was discussed with Dr Diaz PGY-3 and attending physician, Dr Dino Thompson MD PGY-1 Disclaimer: This note was dictated by speech recognition. Minor errors in heel seat flap stapler may be present due to voice recognition software. Attending Provider Attestation/Addendum pt seen and examined, d/w resident. In brief this is a 74yo M admitted with acute resp failure and shock. Exam shows thin body habitus, does not follow commands, GCS 7T with min withdrawal to pain. Lungs with some crackles, HRRR, tachy, abd s/nt/bs+, edema b/l LE with R>L, pulses weak. dilated veins noted on chest. pt with h/o metastatic prostate ca. dried and old blood noted in oropharynx and some bloody secretions in ETT. melanotic stools reported. Will obtain GI eval and pt started on PPI q12 with octreotide gtt. transfuse as needed, pt has had a decrease in UOP. overall his condition continues to decline and GOC conversation to be held with family. d/w ICU team labs, imaging, records reviewed ~45ccmin required for eval, exam, review, intervention, discussion and formulation of POC for this critically ill pt with resp failure and GIB at high risk for further and ongoing decompensation.
[2024-11-07] MEDS: BUMETANIDE INJ 0.25 MG/ML VIAL 4 ML 2 MG IVP (17:55)
[2024-11-07] MEDS: PIPER/TAZO 3.375 GM PREMIX 50 ML IV ×2 (17:55→21:32)
--- NOTE | 2024-11-07 21:05 | PD.IMCONS ---
HPI Data of Consult Requesting Physician: Devin Singh MD Primary Care Provider: Samara Wells MD Consult Narrative Reason for consult: Hematemesis History of present illness: 74 female being evaluated with drop in hemoglobin hematocrit to 6.7 and 20.2 and blood during endotracheal intubation I been consulted Patient is mechanically ventilated and no history obtainable From the chart review patient has a history of stage IV tonsillar carcinoma 20 years ago requiring surgical intervention and radiation therapy and currently has stage IV metastatic prostate carcinoma under the care of her local oncology team cc:: cc: Devin Singh MD Review of Systems Review of Systems ROS Unobtainable: unobtainable due to medical condition Past Medical History Surgical History OTHER SURGICAL HX: As in the history of present illness Meds Home Medications and Allergies Home Medications ?Medication ?Instructions ?Recorded ?Confirmed ?Type enzalutamide 40 mg tablet (Xtandi) 160 mg PO Q24H 11/01/24 11/01/24 History losartan 50 mg tablet 50 mg PO QDAY 11/01/24 11/01/24 History Allergies Allergy/AdvReac Type Severity Reaction Status Date / Time No Known Drug Allergies Allergy Verified 11/26/22 09:52 Exam Vital Signs Temp Pulse Resp BP Pulse Ox O2 Del Method O2 Flow Rate 97.8 F 112 H 23 H 115/76 96 Mechanical Ventilation 15 11/07/24 20:00 11/07/24 20:18 11/07/24 20:15 11/07/24 20:15 11/07/24 20:15 11/07/24 16:00 11/07/24 19:34 FiO2 50 11/07/24 20:00 Constitutional Comments: Chronically ill-appearing Routine Abdominal Exam Comments: Soft nontender Results Labs 11/07/24 05:00 11/07/24 05:00 Labs: Short CBC 11/06/24 11/07/24 Range/Units 23:58 05:00 WBC 14.8 H (3.8-10.6) Thou/mm3 Hgb 6.7 L* 8.1 L D (13.5-16.0) g/dL Hct 20.2 L* 24.8 L (41.0-53.0) % Plt Count 187 (140-440) Thou/mm3 BMP 11/06/24 11/07/24 23:58 05:00 Sodium 141 139 Potassium 5.0 4.9 Chloride 109 H 109 H Carbon Dioxide 21.2 19.9 L BUN 81 H 82 H Creatinine 2.9 H D 3.0 H Glucose 199 H 197 H Calcium 10.7 H 10.3 Liver Function 11/06/24 11/07/24 Range/Units 23:58 05:00 Total Bilirubin 0.5 (0.3-1.2) mg/dL AST 62 H (0-34) U/L ALT 53 H (10-49) U/L Alkaline Phosphatase 81 (46-116) U/L Albumin 3.2 L 3.1 L (3.4-4.8) gm/dL ABG Interpretation ABG results: 10/31/24 11/04/24 11/05/24 11:59 15:14 17:50 ABG pH 7.54 H 7.50 H 7.26 L D ABG pCO2 24 L 26 L 48 D ABG pO2 60 L 75 L 67 L ABG HCO3 21 20 21 ABG O2 Saturation 92 97 87 L ABG Base Excess -2 -3 -5 L 11/05/24 11/06/24 11/07/24 22:06 00:26 04:42 ABG pH 7.23 L 7.22 L 7.27 L ABG pCO2 55 H 56 H 43 D ABG pO2 192 H D 176 H 78 L D ABG HCO3 23 23 20 ABG O2 Saturation 100 H 100 H 95 ABG Base Excess -5 L -5 L -7 L 11/07/24 11:29 ABG pH 7.26 L ABG pCO2 45 ABG pO2 78 L ABG HCO3 20 ABG O2 Saturation 95 ABG Base Excess -7 L Assessment and Plan Additional Assessment & Plan Additional Plan: # Hematemesis etiology uncertain Consent obtained from the for fiberoptic esophagogastroduodenoscopy with possible biopsy possible therapeutic intervention under intravenous moderate sedation Will proceed with the procedure Other medical problems include # Stage IV prostate carcinoma with osteoblastic mets to the bones as well as bilateral pulmonary nodules # History of stage IV tonsillar carcinoma requiring radiation and chemo 20 years ago patient might have recurrence of that tonsil carcinoma because of this current clinical picture # Acute respiratory failure hypoxic requiring endotracheal intubation # Pneumonia Thank you very much for the opportunity to participate in care of this patient
[2024-11-08] VITALS (85 sets, daily range): BP systolic 64–179; BP diastolic 29–96; PULSE 103–128; RESP 9–37; TEMP 36.3–37; O2SAT 77–100; BMI 27.4
[2024-11-08] MEDS: INSULIN LISPRO (AdmeLOG) 1 UNIT/0.01 ML UNIT SC ×3 (00:56→12:53)
--- NOTE | 2024-11-08 05:00 | XR_ITS ---
Examination: AP chest single view Technique an AP portable upright chest single view Exam date and time: 2024 at 0224 hrs. Comparison November 07, 2024 Indications: Hypoxic respiratory failure Findings: Bilateral pneumonia Tracheal tube tip 5.8 cm above dev No significant cardiac enlargement Osteoblastic metastatic disease Impression: Again noted bilateral pneumonia ARDS pattern
[2024-11-08 05:17] LABS: Base Excess -8 (-3-3); HCO3 18 mEq/L (20-26); Inspired Oxygen, FIO2 50 %; O2 Saturation 100 % (91-98); PCO2 37 mmHg (32.0-48.0); PO2 176 mmHg (83-108); pH, Arterial 7.29 (7.35-7.45)
[2024-11-08 05:19] LABS: Allen Test Not Performed; Puncture Site Arterial Line
[2024-11-08] MEDS: PIPER/TAZO 3.375 GM PREMIX 50 ML IV ×2 (05:23→14:34)
[2024-11-08 05:45] LABS: Basophils # (Auto) 0.1 Thou/mm3 (0.0-0.2); Basophils % (Auto) 0 % (0-2.5); Eosinophils % (Auto) 0 % (0-10); Hematocrit 25.2 % (41.0-53.0); Immature Granulocytes % (Auto) 8 % (0-0); Immature Granulocytes Auto 1.44 Thou/mm3 (0.00-0.00); Lymphocytes # (Auto) 0.8 Thou/mm3 (1.0-4.8); Lymphocytes % (Auto) 4 % (10-50); Mean Corpuscular HGB Conc 32.9 g/dl (31.0-37.0); Mean Corpuscular Hemoglobin 29.1 pg (25.0-35.0); Mean Corpuscular Volume 88 fL (80-100); Monocytes # (Auto) 0.5 Thou/mm3 (0.0-0.8); Monocytes % (Auto) 3 % (0-12); Neutrophils % (Auto) 85 % (37-80); Nucleated Red Blood Cell # 0.47 Thou/mm3 (0.00-0.00); Nucleated Red Blood Cell % 3 /100 WBC (0); Platelet Count 224 Thou/mm3 (140-440); RDW Standard Deviation 53.7 fL (35.1-43.9); Red Blood Count 2.85 Miln/mm3 (4.50-5.90); White Blood Count 18.8 Thou/mm3 (3.8-10.6)
[2024-11-08 06:01] LABS: Hemoglobin 8.3 g/dL (13.5-16.0)
[2024-11-08 06:42] LABS: Alanine Aminotransferase 111 U/L (10-49); Albumin/Globulin Ratio 1.7 (1.2-2.2); Alkaline Phosphatase 88 U/L (46-116); Anion Gap 14 (7-16); Aspartate Amino Transferase 170 U/L (0-34); BUN/Creatinine Ratio 28 Ratio (12-20); Bilirubin,Total 0.7 mg/dL (0.3-1.2); Calcium 9.9 mg/dL (8.3-10.6); Calcium (Corrected) 10.7 mg/dL (8.5-10.1); Carbon Dioxide 17.9 mMol/L (20.0-31.0); Chloride 107 mMol/L (98-107); Creatinine (Component) 3.8 mg/dL (0.6-1.3); Estimated Creatinine Clearance 17.4 mL/min (>60); Globulin 1.8 gm/dL (2.3-3.5); Glucose 186 mg/dL (74-106); Magnesium 2.6 mg/dL (1.6-2.6); Osmolality,Calculated 316 (275-295); Phosphorous 4.6 mg/dL (2.4-5.1); Potassium 5.3 mMol/L (3.4-5.1); Sodium 139 mMol/L (136-145); Total Protein 4.8 gm/dL (5.7-8.2); eGFR 16 See Note
[2024-11-08 06:53] LABS: Blood Urea Nitrogen 108 mg/dL (9-23)
[2024-11-08] MEDS: OCTREOTIDE ACET INJ 1,000 MCG in SODIUM CHLORIDE 0.9% 100 ML 5.1 MCG IV (07:21)
--- NOTE | 2024-11-08 08:22 | ESPR_ITS ---
Documentation for date of: 11/08/24 Subjective Subjective Interval history: Patient seen and examined at bedside. Patient was given Bumex 2 mg x 1 yesterday, chest x-ray shows improvement compared to yesterday. Patient was weaned off of sedation yesterday. GI was consulted yesterday for concern of GI bleed, was started on octreotide drip and Protonix twice daily. Status post EGD, findings significant for linear esophageal ulcers, gastritis, abnormal mucosal oropharyngeal findings and tonsillar region suggestive of reoccurrence of tonsillar carcinoma. Patient continues to have poor urine output, likely in ATN, shock likely septic versus hemorrhagic, bedside NICOM assessment showed patient not fluid responsive. Worsening renal function noted today creatinine 3.8, patient continues to have poor urine output about 200 cc in the last 24 hours. ICU team to have goals of care discussion with patient's family today. Exam Vital Signs Temp Pulse Resp BP Pulse Ox O2 Del Method O2 Flow Rate 97.4 F 108 H 18 101/79 93 L Mechanical Ventilation 15 11/08/24 08:00 11/08/24 08:01 11/08/24 08:01 11/08/24 08:01 11/08/24 08:01 11/07/24 16:00 11/07/24 19:34 FiO2 50 11/08/24 06:05 Narrative Exam General: Off sedation and currently on mechanically ventilated HEENT: Normocephalic, atraumatic, mucous membranes moist. Heart: Sinus tachycardia, no murmurs. Lungs: Bilateral coarse breath sounds sounds, currently on mechanical ventilation Abdomen: Soft, nondistended, nontender, positive bowel sounds. ?No guarding or rebound tenderness. Neurologic: GCS 3T, sluggish pupillary reflex bilaterally, currently patient is off sedation. Extremities: Right lower extremity edema 3+, trace left lower extremity edema, right lower extremity> left lower extremity, bilateral upper extremity edema and dependent body part edema noted. Skin: No rash or ecchymoses. Objective Labs 11/08/24 04:50 11/08/24 04:50 Labs: Laboratory Results - last 24 hr 11/07/24 11/07/24 11/08/24 05:00 11:29 04:50 WBC 18.8 H RBC 2.85 L Hgb 8.3 L Hct 25.2 L MCV 88 MCH 29.1 MCHC 32.9 RDW Std Deviation 53.7 H Plt Count 224 D Neut % (Auto) 85 H Lymph % (Auto) 4 L [place] % (Auto) 3 Eos % (Auto) 0 Baso % (Auto) 0 Neut # (Auto) 16.0 H Lymph # (Auto) 0.8 L [place] # (Auto) 0.5 Eos # (Auto) 0.0 Baso # (Auto) 0.1 Immature Gran # (Auto) 1.44 H Absolute Nucleated RBC 0.47 H Immature Gran % 8 H Nucleated RBC % 3 H Smear Path Review Sent to Pathologist Puncture Site Arterial Line Arterial Line ABG pH 7.26 L 7.29 L ABG pCO2 45 37 ABG pO2 78 L 176 H D ABG HCO3 20 18 L ABG O2 Saturation 95 100 H ABG Base Excess -7 L -8 L FiO2 50 50 Sodium 139 Potassium 5.3 H Chloride 107 Carbon Dioxide 17.9 L Anion Gap 14 BUN 108 H* Creatinine 3.8 H D Estim Creat Clear Calc 17.4 L eGFR 16 L BUN/Creatinine Ratio 28 H Glucose 186 H Calculated Osmolality 316 H Calcium 9.9 Corrected Calcium 10.7 H Phosphorus 4.6 Magnesium 2.6 Total Bilirubin 0.7 AST 170 H ALT 111 H Alkaline Phosphatase 88 Total Protein 4.8 L Albumin 3.0 L Globulin 1.8 L Albumin/Globulin Ratio 1.7 ABG Interpretation ABG results: 10/31/24 11/04/24 11/05/24 11:59 15:14 17:50 ABG pH 7.54 H 7.50 H 7.26 L D ABG pCO2 24 L 26 L 48 D ABG pO2 60 L 75 L 67 L ABG HCO3 21 20 21 ABG O2 Saturation 92 97 87 L ABG Base Excess -2 -3 -5 L 11/05/24 11/06/24 11/07/24 22:06 00:26 04:42 ABG pH 7.23 L 7.22 L 7.27 L ABG pCO2 55 H 56 H 43 D ABG pO2 192 H D 176 H 78 L D ABG HCO3 23 23 20 ABG O2 Saturation 100 H 100 H 95 ABG Base Excess -5 L -5 L -7 L 11/07/24 11/08/24 11:29 04:50 ABG pH 7.26 L 7.29 L ABG pCO2 45 37 ABG pO2 78 L 176 H D ABG HCO3 20 18 L ABG O2 Saturation 95 100 H ABG Base Excess -7 L -8 L Quality Measures Quality Measures VTE prophylaxis Advance care planning discussed with:: patient Assessment & Plan Assessment Current Active Medications: Generic Name Dose Route Start Last Admin Trade Name Freq PRN Reason Stop Dose Admin Acetaminophen 650 mg 11/01/24 08:44 Acetaminophen 325 Mg Tablet PO 12/01/24 08:43 Q4HR PRN FEVER >101 Albuterol/Ipratropium 3 ml 11/05/24 08:00 Albuterol/Ipratropium (Duoneb) Rt Rand 3 Ml Nebu INH 12/05/24 07:59 Q2HR PRN SHORTNESS OF BREATH OR WHEEZE Albuterol/Ipratropium 3 ml 11/05/24 09:05 11/05/24 18:28 Albuterol/Ipratropium (Duoneb) Rt Rand 3 Ml Nebu INH 12/05/24 09:04 Not Given Q6HRRT STORM Xtandi (Enzalutamide 0 ea 11/01/24 09:30 11/05/24 09:00 ) 40 Mg Tablets PO 12/01/24 09:29 40 tablet DAILY STORM Administration Dextrose 25 ml 11/07/24 11:13 Dextrose 50%-Water Inj 50 Ml Syringe IV 12/07/24 11:12 Q15MIN PRN BG 50-70 responsive npo pt Dextrose 50 ml 11/07/24 11:13 Dextrose 50%-Water Inj 50 Ml Syringe IV 12/07/24 11:12 Q15MIN PRN BG <50 OR BG <70 & pt unresponsive Glucagon 1 mg 11/07/24 11:13 Glucagon Inj 1 Mg Vial IM Q15MIN PRN BG <70, and no IV access Heparin Sodium (Porcine) 5,000 unit 11/01/24 21:00 11/05/24 09:00 Heparin Sod Inj 5000 Unit/Ml Vial SC 11/15/24 20:59 5,000 unit Q12HR STORM Administration Fentanyl Citrate 2,500 mcg in 250 mls @ 2.5 mls/hr 11/05/24 16:00 11/07/24 12:05 Sublimaze Inj 2,500 Mcg/250 Ml Bag IV 11/10/24 15:59 0 mcg/hr .Q24H PRN 0 mls/hr PER PROTOCOL Titration Protocol 25 MCG/HR Propofol 1,000 mg in 100 mls @ 2.445 mls/hr 11/05/24 16:00 11/07/24 04:00 Diprivan Ivpb IV 12/05/24 15:59 0 mcg/kg/min .Q24H PRN 0 mls/hr PER PROTOCOL Titration Protocol 5 MCG/KG/MIN Norepinephrine/Dextrose 8 mg in 250 mls @ 7.641 mls/hr 11/05/24 17:02 11/08/24 07:00 Levophed In D5w 8mg/250ml IV 12/05/24 17:01 0.07 mcg/kg/min .Q24H PRN 10.697 mls/hr PER PROTOCOL Titration Protocol 0.05 MCG/KG/MIN Vasopressin/Sodium Chloride 20 unit in 100 mls @ 9 mls/hr 11/06/24 23:06 11/07/24 05:00 Vasostrict/Ns Ivpb IV 12/06/24 23:05 0 unit/min .Q11H7M PRN 0 mls/hr PER PROTOCOL Titration Protocol 0.03 UNIT/MIN Piperacillin/Tazobactam/Dextrose 50 mls @ 12.5 mls/hr 11/07/24 14:00 11/08/24 05:23 Zosyn IV 11/12/24 21:59 12.5 mls/hr Q8HR STORM Administration Octreotide Acetate 1,000 mcg/ 102 mls @ 5.1 mls/hr 11/07/24 11:11 11/08/24 07:21 Sodium Chloride IV 11/12/24 11:11 50 mcg/hr .Q20H STORM 5.1 mls/hr Administration Protocol 50 MCG/HR Insulin Human Lispro 0 unit 11/07/24 12:00 11/08/24 05:23 Insulin Lispro (Admelog) 1 Unit/0.01 Ml Unit SC 12/07/24 11:59 1 unit Q6HR STORM Administration Protocol Home Medication- 160 mg 11/01/24 09:00 11/05/24 09:00 Please Speak With PO 12/01/24 08:59 Not Given Patient Caregiver To DAILY STORM Have Rx Brought To [facility] Pantoprazole Sodium 40 mg 11/07/24 21:00 11/07/24 21:32 Pantoprazole Inj 40 Mg Vial IV 12/07/24 20:59 40 mg BID STORM Administration Pharmacy Consult 1 each 11/05/24 16:14 Pharmacy Renal Dose Adjustment 1 Ea XX 12/05/24 16:13 PRN PRN CONSULT Polyethylene Glycol 17 gm 11/02/24 09:45 11/07/24 08:53 Polyethylene Glycol 17 Gm Packet PO 12/02/24 09:44 17 gm QDAY STORM Administration Sennosides 1 tab 11/02/24 09:39 Senna Tablet PO 12/02/24 09:38 QDAY PRN CONSTIPATION Protocol Plan Assessment and plan: Summary: Mr. 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 Cardiology consulted in the emergency department for elevated troponin. #Acute respiratory distress syndrome, moderate #Acute hypoxic respiratory failure, hospital-acquired pneumonia #Heart failure with preserved ejection fraction, EF 55 to 60% #Diastolic heart failure #Shock, likely septic in setting of pneumonia Patient was intubated and upgraded to ICU on 11/05/24 for further management. Had increased oxygen requirement, was maxed out on high flow nasal cannula eventually upgraded to ICU for mechanical ventilation. Patient's chest x-ray significant for bilateral ARDS, PF ratio 108.1, moderate ARDS per [facility] criteria. Patient's driving pressure optimized by ICU team on mechanical ventilation for early ARDS management On antibiotic coverage for hospital-acquired infection, does have immunocompromised status secondary underlying to extensive metastasis Patient does have extensive metastasis,, possible inflammatory cause/metastatic cause. Echocardiogram did show diastolic dysfunction stage I, ejection fraction 55 to 60%. On physical exam patient looks fluid overloaded. Patient has worsening of renal function, high suspicion of ATN in setting of shock, likely septic versus hypovolemic/hemorrhagic Patient was given Bumex 2 mg x 1 yesterday, chest x-ray shows improvement compared to yesterday, worsening renal function noted today. Recommendation: -Hold Lasix, high suspicion of acute tubular necrosis in setting of shock, likely septic versus hypovolemic/hemorrhagic. Low suspicion of cardiogenic shock. -Patient had poor urine output in the last 24 hours, urine output continues to decline today -Hold diuretics continue to monitor renal function. -Maintain strict intake and output, fluid restriction 1500 cc, daily weight -Management of ARDS per ICU team #Acute tubular necrosis in setting of shock, septic versus hypovolemic/hemorrhagic #Urinary tract infection Patient does have history of prostate cancer, could be related to possible obstruction of some sort leading to UTI, urology consulted in ED recommended Wells catheter placement Urinalysis showed 53 white cells, +4 bacteria, plus leukocyte esterase 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, Wells catheter inserted which outputed 1500 cc immediately Patient had poor oral intake over the last week, BUN 54, creatinine 1.9, GFR 36 on presentation, patient was given 1 L NS in ED. patient initially presented with FREDO was prerenal, which resolved IV fluid management. 11/08-patient has worsening renal function, was given Bumex 2 mg IV x 1 yesterday by ICU team, continues to have poor urine output. Likely heading towards possible dialysis. #NSTEMI type II secondary to demand ischemia #Shortness of breath Patient had elevated troponin 0.285 in the emergency department, denies any chest discomfort/chest pain, EKG showed sinus tachycardia rate 102 some Q waves in lead I and aVL. Patient likely has demand ischemia in setting of acute infection secondary to UTI/pneumonia. Patient shortness of breath is mostly secondary to the anemia with hemoglobin of 7.3 on presentation during this admission. Will need to rule out other causes including cardiac causes of shortness of breath at this time given the mildly elevated troponins. Hemoglobin A1c 6.1, cholesterol 84, LDL 24, TSH 3.58 Troponin 0.285?> 0.363 ?> 0.396 -> 0.302 TTE 11/01/2024: Normal LV size and function with an EF of 55 to 60%. Diastolic dysfunction stage I. Normal RV size and function. Normal RVSP of 25 mmHg. Mild MAC. Trace MR and mild TR. Recommendations: -Patient will need outpatient cardiology when stable #Symptomatic normocytic normochromic anemia #GI bleed, status post EGD 11/07/2024 #Linear esophageal ulcers #Gastritis GI was consulted yesterday for concern of GI bleed, was started on octreotide drip and Protonix twice daily. Status post EGD, findings significant for linear esophageal ulcers, gastritis, abnormal mucosal oropharyngeal findings and tonsillar region suggestive of reoccurrence of tonsillar carcinoma. Patient reports symptoms of shortness of breath dizziness and lethargy recently, possible anemia of chronic disease as patient has malignancy, also on chemotherapy Baseline hemoglobin around 11, 7.3 today, was recently prescribed prednisone Patient will be transfused 1 unit PRBC as ordered in ED Iron panel shows iron 18 mcg/dL, TIBC 210 mcg/dL, iron saturation 8% unsat iron binding 192 Recommendations: -Recommend to transfuse additional PRBCs to keep hemoglobin 9-10 -Patient's anemia is likely multifactorial, patient has low iron reserves will likely benefit from IV iron infusion -Recommend IV iron, ferric sod gluconate 125 mg for 5 days -Anemia workup, order iron panel, ferritin, reticulocyte count, B12, folate level, LDH, peripheral blood film. # Fluid overload # Right lower extremity edema Patient has right lower extremity edema 3+, pitting compared to left lower leg initially. Patient has worsening renal function, significant edema noted overall. MRI thoracic spine shows extensive enhancing soft tissue mass destroying right first second and third sacral wings as well as posterior right iliac bone High suspicion of the mass causing compression and causing impaired drainage. 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 Arcos and Dr. Belcher outpatient, currently on treatment with leuprolide, enzalutamide and denosumab per heme-onc note from July 2024 Thoracic spine MRI and lumbar spine MRI showed osseous metastatic disease C5 T11 and osseous metastatic disease involving lumbar vertebral bodies, extensive enhancing soft tissue mass destroying right first second and third sacral wings as well as posterior right iliac bone Medications being held currently #Hypoosmolar hypochloremic hyponatremia, resolved Case discussed with Attending Dr. Bai. Zaina Virgen PGY1 Disclaimer: This note was dictated by speech recognition. Minor errors in batch maker may be present due to voice recognition /software. Attending Provider Attestation/Addendum I have personally seen and examined the patient separately on the above date of service and discussed the plan of care with the resident. I reviewed the resident Dr. Zaina Virgen consultation progress note and agree with the resident findings and plan in the note above and have also edited the documentation to reflect my findings and plan. Oziel Bai M.D. Interventional Cardiology
[2024-11-08] MEDS: PANTOPRAZOLE INJ 40 MG VIAL IV (08:31)
--- NOTE | 2024-11-08 09:46 | XR_ITS ---
EXAMINATION: CT head/brain wo con ORDERING PROVIDER: Marilin Covington MD HISTORY: mentation change TECHNIQUE: CT scanner was used in the volumetric, helical non-contrast acquisition of the head with 2-D and 3-D reformats created on a separate workstation and submitted for interpretation. Institutional dose reducing protocols were utilized. Imaging is motion degraded. RADIATION DOSE: DLP 1090 mGy-cm COMPARISON: None. FINDINGS: No acute intracranial hemorrhage or midline shift. There is a moderate sized area of barrios-white differentiation loss and diffuse decreased density involving the posterior aspect of the right middle lobe with extension into the superior aspect of the right occipital lobe. This is on a background of diffuse subcortical and periatrial ventricular white matter hypodensities, as well as probable right external capsule and left thalamic lacunar infarcts. Ventricles and basal cisterns are preserved. 1.8 cm hypodensity at the right temporal tip may represent a small arachnoid cyst. Orbits unremarkable. Paranasal sinuses clear. Fluid density in the bilateral mastoid air cells, which are underpneumatized. High right parietal 1.6 cm osteoma. IMPRESSION: 1. Right parieto-occipital area of decreased density with loss of barrios-white differentiation. Given background lacunar infarcts and chronic small vessel ischemic changes, favor this to be an evolving area of ischemia. However, additional differential considerations would include other infectious, inflammatory, neoplastic processes. 2. Bilateral mastoid effusions. Clinical correlation for mastoiditis is needed.
[2024-11-08] MEDS: Norepinephrine/D5W 8mg/250ml 8 MG/250 ML BAG 7.641 MG IV (10:45)
--- NOTE | 2024-11-08 11:44 | ESPR_ITS ---
Documentation for date of: 11/08/24 Subjective Subjective Interval history: Patient seen and examined at bedside. No acute overnight events. Overnight, patient was said to have made about 150 cc of urine only after receiving 2 mg of IV Bumex. EGD was done yesterday by Dr. Ken which showed linear esophageal ulcers as well as abnormal mucosa in the oropharyngeal/tonsillar region, suggestive of recurrence of tonsil carcinoma. At bedside today, patient's GCS is now 3T. No response to painful stimuli. Brainstem reflexes checked, negative oculocephalic and corneal, sluggish pupillary reflexes. ABG done this morning, pH 7.29 pCO2 37 and bicarb 18. Labs reviewed, uptrending WBC, stable anemia, elevated BUN and creatinine as well as potassium. Patient is not a candidate for dialysis at the moment. Will stop octreotide as patient does not have esophageal varices, do a head CT and CT of the soft tissue of the neck to rule out mets. Goals of care to be discussed with family. Exam Vital Signs Temp Pulse Resp BP Pulse Ox O2 Del Method O2 Flow Rate 97.4 F 109 H 19 115/59 L 92 L Mechanical Ventilation 15 11/08/24 08:00 11/08/24 10:45 11/08/24 09:21 11/08/24 10:45 11/08/24 10:39 11/07/24 16:00 11/07/24 19:34 FiO2 50 11/08/24 10:39 Narrative Exam GENERAL: Non-sedation, intubated and on MV NEURO: GCS-3T, no response HEENT: Dry mucosa with dried blood in the mouth and oropharynx. ED tube in situ, no bloody secretions CARDIO: Regular rate and rhythm, no murmurs PULM: Dilated veins seen in upper chest. On auscultation, coarse crackles bilaterally GI: Abdomen soft, nondistended, dilated veins in the upper abdomen-caput medusae. BSX4 URO/SIMULATION EDUCATOR:: No further abnormalities noted. Wells catheter in situ SKIN/MSK/EXT: Unilateral pitting edema of the right lower extremity Objective Labs 11/08/24 04:50 11/08/24 04:50 Labs: Laboratory Results - last 24 hr 11/08/24 04:50 WBC 18.8 H RBC 2.85 L Hgb 8.3 L Hct 25.2 L MCV 88 MCH 29.1 MCHC 32.9 RDW Std Deviation 53.7 H Plt Count 224 D Neut % (Auto) 85 H Lymph % (Auto) 4 L [place] % (Auto) 3 Eos % (Auto) 0 Baso % (Auto) 0 Neut # (Auto) 16.0 H Lymph # (Auto) 0.8 L [place] # (Auto) 0.5 Eos # (Auto) 0.0 Baso # (Auto) 0.1 Immature Gran # (Auto) 1.44 H Absolute Nucleated RBC 0.47 H Immature Gran % 8 H Nucleated RBC % 3 H Puncture Site Arterial Line ABG pH 7.29 L ABG pCO2 37 ABG pO2 176 H D ABG HCO3 18 L ABG O2 Saturation 100 H ABG Base Excess -8 L FiO2 50 Sodium 139 Potassium 5.3 H Chloride 107 Carbon Dioxide 17.9 L Anion Gap 14 BUN 108 H* Creatinine 3.8 H D Estim Creat Clear Calc 17.4 L eGFR 16 L BUN/Creatinine Ratio 28 H Glucose 186 H Calculated Osmolality 316 H Calcium 9.9 Corrected Calcium 10.7 H Phosphorus 4.6 Magnesium 2.6 Total Bilirubin 0.7 AST 170 H ALT 111 H Alkaline Phosphatase 88 Total Protein 4.8 L Albumin 3.0 L Globulin 1.8 L Albumin/Globulin Ratio 1.7 ABG Interpretation ABG results: 10/31/24 11/04/24 11/05/24 11:59 15:14 17:50 ABG pH 7.54 H 7.50 H 7.26 L D ABG pCO2 24 L 26 L 48 D ABG pO2 60 L 75 L 67 L ABG HCO3 21 20 21 ABG O2 Saturation 92 97 87 L ABG Base Excess -2 -3 -5 L 11/05/24 11/06/24 11/07/24 22:06 00:26 04:42 ABG pH 7.23 L 7.22 L 7.27 L ABG pCO2 55 H 56 H 43 D ABG pO2 192 H D 176 H 78 L D ABG HCO3 23 23 20 ABG O2 Saturation 100 H 100 H 95 ABG Base Excess -5 L -5 L -7 L 11/07/24 11/08/24 11:29 04:50 ABG pH 7.26 L 7.29 L ABG pCO2 45 37 ABG pO2 78 L 176 H D ABG HCO3 20 18 L ABG O2 Saturation 95 100 H ABG Base Excess -7 L -8 L Quality Measures Quality Measures VTE prophylaxis Advance care planning discussed with:: other Assessment & Plan Assessment Current Active Medications: Generic Name Dose Route Start Last Admin Trade Name Freq PRN Reason Stop Dose Admin Acetaminophen 650 mg 11/01/24 08:44 Acetaminophen 325 Mg Tablet PO 12/01/24 08:43 Q4HR PRN FEVER >101 Albuterol/Ipratropium 3 ml 11/05/24 08:00 Albuterol/Ipratropium (Duoneb) Rt Rand 3 Ml Nebu INH 12/05/24 07:59 Q2HR PRN SHORTNESS OF BREATH OR WHEEZE Albuterol/Ipratropium 3 ml 11/05/24 09:05 11/05/24 18:28 Albuterol/Ipratropium (Duoneb) Rt Rand 3 Ml Nebu INH 12/05/24 09:04 Not Given Q6HRRT STORM Xtandi (Enzalutamide 0 ea 11/01/24 09:30 11/05/24 09:00 ) 40 Mg Tablets PO 12/01/24 09:29 40 tablet DAILY STORM Administration Dextrose 25 ml 11/07/24 11:13 Dextrose 50%-Water Inj 50 Ml Syringe IV 12/07/24 11:12 Q15MIN PRN BG 50-70 responsive npo pt Dextrose 50 ml 11/07/24 11:13 Dextrose 50%-Water Inj 50 Ml Syringe IV 12/07/24 11:12 Q15MIN PRN BG <50 OR BG <70 & pt unresponsive Glucagon 1 mg 11/07/24 11:13 Glucagon Inj 1 Mg Vial IM Q15MIN PRN BG <70, and no IV access Heparin Sodium (Porcine) 5,000 unit 11/01/24 21:00 11/05/24 09:00 Heparin Sod Inj 5000 Unit/Ml Vial SC 11/15/24 20:59 5,000 unit Q12HR STORM Administration Fentanyl Citrate 2,500 mcg in 250 mls @ 2.5 mls/hr 11/05/24 16:00 11/07/24 12:05 Sublimaze Inj 2,500 Mcg/250 Ml Bag IV 11/10/24 15:59 0 mcg/hr .Q24H PRN 0 mls/hr PER PROTOCOL Titration Protocol 25 MCG/HR Propofol 1,000 mg in 100 mls @ 2.445 mls/hr 11/05/24 16:00 11/07/24 04:00 Diprivan Ivpb IV 12/05/24 15:59 0 mcg/kg/min .Q24H PRN 0 mls/hr PER PROTOCOL Titration Protocol 5 MCG/KG/MIN Norepinephrine/Dextrose 8 mg in 250 mls @ 7.641 mls/hr 11/05/24 17:02 11/08/24 10:45 Levophed In D5w 8mg/250ml IV 12/05/24 17:01 0.05 mcg/kg/min .Q24H PRN 7.641 mls/hr PER PROTOCOL Administration Protocol 0.05 MCG/KG/MIN Vasopressin/Sodium Chloride 20 unit in 100 mls @ 9 mls/hr 11/06/24 23:06 11/07/24 05:00 Vasostrict/Ns Ivpb IV 12/06/24 23:05 0 unit/min .Q11H7M PRN 0 mls/hr PER PROTOCOL Titration Protocol 0.03 UNIT/MIN Piperacillin/Tazobactam/Dextrose 50 mls @ 12.5 mls/hr 11/07/24 14:00 11/08/24 09:27 Zosyn IV 11/12/24 21:59 Infused Q8HR STORM Infusion Octreotide Acetate 1,000 mcg/ 102 mls @ 5.1 mls/hr 11/07/24 11:11 11/08/24 07:21 Sodium Chloride IV 11/12/24 11:11 50 mcg/hr .Q20H STORM 5.1 mls/hr Administration Protocol 50 MCG/HR Insulin Human Lispro 0 unit 11/07/24 12:00 11/08/24 05:23 Insulin Lispro (Admelog) 1 Unit/0.01 Ml Unit SC 12/07/24 11:59 1 unit Q6HR STORM Administration Protocol Home Medication- 160 mg 11/01/24 09:00 11/05/24 09:00 Please Speak With PO 12/01/24 08:59 Not Given Patient Caregiver To DAILY STORM Have Rx Brought To [facility] Pantoprazole Sodium 40 mg 11/07/24 21:00 11/08/24 08:31 Pantoprazole Inj 40 Mg Vial IV 12/07/24 20:59 40 mg BID STORM Administration Pharmacy Consult 1 each 11/05/24 16:14 Pharmacy Renal Dose Adjustment 1 Ea XX 12/05/24 16:13 PRN PRN CONSULT Polyethylene Glycol 17 gm 11/02/24 09:45 11/08/24 08:29 Polyethylene Glycol 17 Gm Packet PO 12/02/24 09:44 Not Given QDAY STORM Sennosides 1 tab 11/02/24 09:39 Senna Tablet PO 12/02/24 09:38 QDAY PRN CONSTIPATION Protocol Plan Summary: The patient is a 74-year-old male with a past medical history of hypertension and 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 Neuro #Acute Encephalopathy #Uremic origin vs unknown At bedside today, patient's GCS is now 3T. No response to painful stimuli. Brainstem reflexes checked, negative oculocephalic and corneal, sluggish patellar reflexes. ABG done this morning, pH 7.29 pCO2 37 and bicarb 18. Labs reviewed, uptrending WBC, stable anemia, elevated BUN and creatinine as well as potassium. Patient is not a candidate for dialysis at the moment Off sedation, intubated on MV Cardiovascular #Shock, unknown etiology-distributive versus cardiogenic Although the patient has elements pointing towards some, shock, we are currently unable to tell which it is. Cheetah on board, per hemodynamic parameters, not fluid responsive. Patient is only made only about 25 cc of urine. Will try IV Bumex and monitor urine output. Plan for goals of care with family tomorrow. 11/08/2024- Downtitrating Levophed 0.03 today, MAP borderline. #History of HFpEF 55 to 60% #Type II NSTEMI As the patient initially presented with shortness of breath as well as some elevated troponin levels on admission, cardiology was consulted. Echocardiogram was done which showed normal LV size and function with ejection fraction 55 to 60% and stage I diastolic dysfunction. Patient was started on diuresis with IV Lasix to improve respiratory status. 11/08/2024-despite diuresis, patient is still not making urine. Plan: -Goals of care discussion -Cardiology consulted, following recommendations #History of hypertension The patient has a history of hypertension but on admission, blood pressure has been soft and antihypertensives have been held. Will continue to monitor blood pressure before initiating antihypertensives. Respiratory #Acute hypoxic respiratory failure #Bilateral pneumonia #Community vs Hospital acquired The patient presented with a couple days history of shortness of breath prior to presentation. Chest x-ray shows severe bilateral pneumonia and a possible evolving ARDS pattern. The patient is currently on IV antibiotics Zosyn. All cultures have been negative so far. Aware to the ICU on 11/05/2024 as patient was maxed out on high flow oxygen and was still tachypneic with persistent shortness of breath. -11/08/24:Keep intubated on MV,ABG,Continue IV Zosyn -MRSA nares pending -Sputum culture- pending and Gram stain- normal GI #Possible cirrhosis # GI bleed CT abdomen on admission showed signs of cirrhosis. On examination, patient has dilated veins on the upper chest and abdomen, possibly due to portal hypertension. Visualized dried blood in oropharynx as well as per rectum, possibly varices and hemorrhoids. 11/08/2024- EGD was done yesterday by Dr. Ken which showed linear esophageal ulcers as well as abnormal mucosa in the oropharyngeal/tonsillar region, suggestive of recurrence of tonsil carcinoma. Brainstem reflexes checked, negative oculocephalic and corneal, sluggish pupillary reflexes. Will stop octreotide as patient does not have esophageal varices, do a head CT and CT of the soft tissue of the neck to rule out mets. Plan: -IV Protonix 40 mg twice daily -IV Octreotide infusion Renal #Acute renal failure #Prerenal versus postrenal #Likely ATN On admission, patient had an FREDO with BUN of 54 and creatinine 1.9.today 2.2 Patient reportedly had decreased oral intake over the week prior to her admission. Patient however also had a distended bladder requiring Wells. Urine output has significantly decreased in the last 24 hours, patient looks to be proceeding closer to ATN. 11/08/2024- Elevated BUN and creatinine as well as potassium. Patient is not a candidate for dialysis at the moment. -Avoid nephrotoxic medications -Renally dose medications as needed #Hypercalcemia Likely due to osseous metastatic disease. Endocrine No active conditions Prediabetes, A1c-6.1 Not requiring insulin Urology #Complicated UTI #Emphysematous cystitis Patient's initial presentation had no urinary symptoms, however urinalysis showed 53 white blood cells with 4+ bacteria and positive leukocyte esterase. CT abdomen and pelvis that was done at the time showed emphysematous cystitis. Urology was consulted and recommended to treat with antibiotics for UTI as long as patient has a Wells. Urine culture returned positive for E. coli, pansensitive. Patient was started on IV Zosyn, also received vancomycin and transitioned to p.o. Augmentin. On upgrade to the ICU, he was placed back on IV Zosyn. 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 Arcos and Dr. Belcher. Supposedly, he had been in remission many years ago. Chest CT done on this admission showed pulmonary nodules with the largest in the right upper lobe, also setting or mets to the spine and sacrum. Oncology was consulted on this admission and requested an MRI to be done which showed soft tissue trauma in the right first second and third sacral wings as well as the posterior right iliac bone. The patient is currently on Xtandi 11/08/2024- As neurological condition has changed, will do a head CT to rule out mets as well as CT of neck soft tissue Plan: -As per oncology Patient was getting Lupron denosumab enzalutamide at the cancer treatment center. All the oncology meds including p.o. enzalutamide can be held during his hospital stay, -Oncology consulted, appreciate recommendations #Chronic normocytic anemia Patient has had anemia and is considered chronic, likely either to be anemia of chronic disease or side effect of chemotherapy. Hemoglobin at baseline is approximately 11, on admission hemoglobin was 7.0. During course of admission, he has received 2 units of PRBCs. Hemoglobin today at 7.2. On intubation, noted the patient had some bloody secretions, however he has been denying coughing up blood or GI blood losses. Plan: -Continue to monitor H&H -Holding heparin for now -SCD Infectious See pulm and uro above Health maintenance: Dispo: ICU for acute hypoxic respiratory failure, off sedation and intubated Diet: N.p.o. GI: Pantoprazole DVT: SCDS Wells: In situ Lines: Peripheral , left femoral central , left femoral Art marielle Code: Full Case was discussed with attending physician, Dr Dino Thompson MD PGY-1 Disclaimer: This note was dictated by speech recognition. Minor errors in video control engineer may be present due to voice recognition software.
--- NOTE | 2024-11-08 11:45 | ESPR_ITS ---
Documentation for date of: 11/08/24 Subjective Subjective Interval history: This is a 74yo M with a h/o metastatic prostate ca and tonsillar ca who developed acute resp failure requiring intubation. He has had septic shock on levophed. He has had progressive decline in his mentation. Overnight there has been a decrease in UOP and he has remained net pos over the last several days. He has had several dark colored stools. He remains afebrile. Critical Care Note Critical care time (min.): 50 Exam Vital Signs Temp Pulse Resp BP Pulse Ox O2 Del Method O2 Flow Rate 97.4 F 109 H 19 115/59 L 92 L Mechanical Ventilation 15 11/08/24 08:00 11/08/24 10:45 11/08/24 09:21 11/08/24 10:45 11/08/24 10:39 11/07/24 16:00 11/07/24 19:34 FiO2 50 11/08/24 10:39 Narrative Exam Gen- intubated, off sedation, ill appearing, increased WOB noted HEENT- NC/AT, mucosa dry, dried blood noted in oropharynx, ETT/OGT in place, sclera anicteric Chest- lungs diminished, no wheeze, crackles heard, HRRR, tachy Abd- s/nt/bs diminished, no rebound, no guarding Ext- edema R>L , pulses diminished , some mottling over knees, no clubbing Drips levo Vent AC VC Physical Exam Completion Physical Exam Complete?: Yes Objective - Greenhouse Instructor Labs 11/08/24 04:50 11/08/24 04:50 Labs: Laboratory Results - last 24 hr 11/08/24 04:50 WBC 18.8 H RBC 2.85 L Hgb 8.3 L Hct 25.2 L MCV 88 MCH 29.1 MCHC 32.9 RDW Std Deviation 53.7 H Plt Count 224 D Neut % (Auto) 85 H Lymph % (Auto) 4 L [place] % (Auto) 3 Eos % (Auto) 0 Baso % (Auto) 0 Neut # (Auto) 16.0 H Lymph # (Auto) 0.8 L [place] # (Auto) 0.5 Eos # (Auto) 0.0 Baso # (Auto) 0.1 Immature Gran # (Auto) 1.44 H Absolute Nucleated RBC 0.47 H Immature Gran % 8 H Nucleated RBC % 3 H Puncture Site Arterial Line ABG pH 7.29 L ABG pCO2 37 ABG pO2 176 H D ABG HCO3 18 L ABG O2 Saturation 100 H ABG Base Excess -8 L FiO2 50 Sodium 139 Potassium 5.3 H Chloride 107 Carbon Dioxide 17.9 L Anion Gap 14 BUN 108 H* Creatinine 3.8 H D Estim Creat Clear Calc 17.4 L eGFR 16 L BUN/Creatinine Ratio 28 H Glucose 186 H Calculated Osmolality 316 H Calcium 9.9 Corrected Calcium 10.7 H Phosphorus 4.6 Magnesium 2.6 Total Bilirubin 0.7 AST 170 H ALT 111 H Alkaline Phosphatase 88 Total Protein 4.8 L Albumin 3.0 L Globulin 1.8 L Albumin/Globulin Ratio 1.7 Assessment & Plan Additional Plan Additional Plan: In summary this is unfortunate 74yo M with septic shock and metastatic ca a/p SALES DEVELOPMENT MANAGER Encephalopathy- multifactorial and may be related to uremia, also ? underlying hepatic encephalopathy. underwent HCT today and will await results ? nonconvulsive sz CV Shock- likely distributive in nature, Cheeta placed and hemodynamics noted, on abx, cx NTD Diastolic Dysfunction- echo noted with nl RV Resp Acute resp failure- currently intubated and on MV, fu on ABG and CXR, ween as able PNA- CT noted both nodules consistent with mets as well as infiltrate, on abx, cx showed nl sintia Renal FREDO- worsening UOP - net pos - ? septic ATN - not a good candidate for HD HyperK- mild, monitor NAGMA- likely due to pts underlying renal failure HyperCa- pt with mult bone mets noted on imaging GI GI proph- PPI Transaminitis- ? due to ischemic insult - imaging did not note lesions Hypoalbuminemia- currently 3 and admitted with 3.5 - likely due to underlying chronic dz GIB- underwent EGD yesterday which showed esophageal ulcers - on PPI - no varices therefore octreotide stopped Endo Hyperglycemia- SSI Heme Prostate Ca with mets- not a candidate for resuming tx at this time Anemia- active bleed from esophageal ulcers - transfuse if <7 Leukocytosis- uptrending , sepsis v reactive DVT proph- SCDs given his active GIB ID UTI- completed tx PNA- on abx, cx NTD case d/w ICU team labs, imaging, records reviewed ~50ccmin required for eval, exam, review, intervention, discussion and formulation of POC for this critically ill pt with septic shock and resp failure at high risk for further and ongoing decompensation Provider Notation Provider Notation: Although this document has been carefully reviewed, there may still be some phonetic and other typographical errors. These errors are purely grammatical due to imperfections in the software program and should not be construed in any way to compromise the substance of the patient's medical care during this visit. Thank you for the opportunity and privilege in assisting you with this patient's care and management.
--- NOTE | 2024-11-08 15:59 | PC.NURSE ---
Dr. Sun spoke with pt;'s regarding pt's prognosis. Doctor explained in detail regarding plan and options that the family can choose for her . Mary decided she wants to make pt comfort but first wants family to visit and have pony ride operator here before moving forward as comfort measures. Family was offered tissues, courtesy cart, and in detail of comfort measures implemenation. Mary verbalized she understood and would like to proceed with comfort care.
[2024-11-08] MEDS: LORazepam 2 MG/ML VIAL IVP (17:07)
[2024-11-08] MEDS: GLYCOPYRROLATE INJ 0.2 MG/ML VIAL IV (17:07)
[2024-11-08] MEDS: SCOPOLAMINE 1 MG TDSY TOP (17:07)
[2024-11-08] MEDS: MORPHINE SULF INJ 10 MG/ML VIAL 4 MG IVP ×2 (17:08→17:20)
--- NOTE | 2024-11-08 17:37 | PC.SS ---
Update: Patient has been transitioned to comfort care.
--- NOTE | 2024-11-08 17:43 | PD.DPN ---
Documentation for date of: 11/08/24 Pronouncement Note Date and Time of Date of : 11/08/24 Time of : 17:42 PCOD Preliminary cause of : Pneumonia Summary Additional details: I was called to pronounce the of the patient Bipin Gregory. Upon examination no active heart or breath sounds were noted after one minute of continued auscultation. Pupils were unresponsive to light touch and external stimuli. Patient was pronounced on 11/08/24 at 5:[address] Sun was notified. The patient's family was present and consoled. Additional Data Attending physician: Jadyn Sun MD
--- NOTE | 2024-11-08 21:12 | XR_ITS ---
EXAMINATION: CT soft tissue neck wo con COMPARISON: 12/03/2022, cervical spine radiographs. 11/02/2024, MR cervical spine.. HISTORY: R/O MASS. ICU PT. INTUBATED. UNABLE TO HOLD STILL. TECHNIQUE: Volumetric helical CT images were obtained of the neck without contrast using institutional dose reduction protocols. 2-D and 3-D reformats were generated on a separate workstation and submitted for interpretation. FINDINGS: The patient is intubated with endotracheal tube tip terminating 2.2 cm above the level of the dev. Enteric tube is present in the esophagus. The distal end is not visible. Examination is markedly limited by lack of contrast and patient motion. There is a small amount of fluid in the oropharynx and hypopharynx. There is atrophy of the thyroid gland. There are moderate atherosclerotic changes of the bilateral carotid bulbs. No cervical lymphadenopathy is identified. A left subclavian vascular line is partially evaluated in the left innominate and proximal portion of the SVC. The distal tip is not visible. There are extensive postprocedural changes to the neck. The thyroid gland is atrophied with a questionable 8 mm left hemithyroid nodule. There is effacement of the right vallecula. This is in the setting of endotracheal and enteric tubes. There are innumerable bilateral pulmonary nodules measuring up to 1.5 cm in the right upper lobe. There are diffuse groundglass opacities with interstitial thickening. There is a moderate right pleural effusion. There is right greater than left reticular nodular opacities. There is diffuse sclerosis of the visible bones. No obvious cervical spine fracture or dislocation is identified. There is moderate degenerative disc most pronounced at C5-C6 and C6-C7. IMPRESSION: 1. Endotracheal and enteric tubes as above. 2. Diffuse pulmonary nodules, crazy craving, and reticular nodular opacities in the setting of moderate right pleural effusion. Findings probably represent a combination of diffuse metastatic disease, acute respiratory distress syndrome, positive fluid balance, and superimposed infection. 3. Diffuse bony metastatic disease. 4. No large cervical mass identified, however, patient motion, lack of contrast, postsurgical changes, and ET/enteric tubes limit evaluation. There is fluid density in the oral and hypopharynx. Effacement of the right vallecula is favored to be on the basis of mass effect from CT/enteric tubes.
--- NOTE | 2024-11-09 12:30 | DES_ITS ---
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 Per patient's who was at bedside, she reports that the patient has been feeling weak for the last couple days prior to presentation as well as short of breath and he had been having difficulty ambulating. He also complained of some back pain and his PCP had diagnosed him with sciatica and started him on steroids, however the shortness of breath specially on exertion only worsened. In the ED, blood pressure was soft and he was hypoxic, requiring about 4 L of oxygen. Initial labs were significant for anemia, respiratory alkalosis on ABG, hyponatremia and FREDO. Urinalysis was positive for UTI. All viral testing done in the ED were negative. Imaging showed bilateral he lymphadenopathy with numerous bilateral pulmonary metastatic nodule, significant pneumonia in the right base of the lung with mild to moderate right pleural effusion, widespread osteoblastic metastatic disease. The patient was admitted for management of acute hypoxic respiratory failure secondary to likely community-acquired pneumonia During the course of hospitalization, the patient was treated with antibiotics Zosyn for emphysematous cystitis as seen on CT abdomen, his home medication Xtandi was continued and oncology was consulted. Patient continued to experience significant shortness of breath and repeat chest x-ray showed worsening pneumonia and possible vascular congestion and he was continuously diuresed. As patient was maxed out on high flow oxygen and BiPAP was not an option, ICU was consulted for advancing management, IV hydrocortisone 100 mg was given. Primary team had a goals of care discussion with family today and after presenting all options, family decided to keep patient is full code and pursue intensive measures including intubation. On 11/05/2024, the patient was upgraded to the ICU to be intubated. Due to concern for bleeding, the patient had an EGD done on 11/07/2024 which showed esophageal ulcers and some concern for recurrence of tonsillar carcinoma. The patient on intubation and all sedation was seen to have worsening neurological status as well as kidney function with worsening oliguria. On 11/08/2024, head CT was done to rule out metastasis as neurological examination is worse than the day before. Goals of care conversation was had again with family who decided to change CODE STATUS to DNR and eventually comfort care. All medications were stopped and patient was transition to comfort care and subsequently , time of pronounced by physician at 5:42 PM. 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 Minor errors in family worker may be present due to voice recognition software. Additional Data Confirmation of as documented by pronouncing clinician: no pulse, no respirations, no heart sounds and pupils fixed and dilated Family: at bedside Attending/PCP notified?: Yes Attending physician: Jadyn Sun MD Was code activated?: No Autopsy requested?: No cigarette making examiner notified?: Yes Organ bank notified?: No Advance directives: No Visit Providers Provider Primary care physician: Samara Wells MD Discharge Plan Plan Patient Disposition: HOME (Self Care) Prescriptions/Referrals Prescriptions/Med Rec: No Action losartan 50 mg tablet 50 mg PO QDAY Patient Comments: TAKE ONE TABLET BY MOUTH EVERY DAY FOR BLOOD PRESSURE Xtandi 40 mg tablet 160 mg PO Q24H Referrals: Samara Wells MD [Primary Care Provider] - Patient/Caregiver Discharge Instructions Print Language: Pakistani Stand Alone Forms: Patient Portal Info Letter
== END 2024-11-08 19:30 | disposition expired | DRG 871 ==
LOC: SERX 18:21 → SERHOLD 11-01 06:14 → S2NX 11-01 06:14 → S2SX 11-05 15:54
PROVIDERS: Emergency Medicine; Internal Medicine Infectious Disease; Specialist; Student in an Organized Health Care Education/Training Program; Admitting Provider Student in an Organized Health Care Education/Training Program; Emergency Provider Emergency Medicine; PCP Family Medicine; Visit Provider Internal Medicine
PROC: (CPT 43239; principal; 2024-11-07 20:00)
DX: A41.51 Sepsis due to Escherichia coli [E. coli] (principal); G93.41 Metabolic encephalopathy; J15.9 Unspecified bacterial pneumonia; J96.01 Acute respiratory failure with hypoxia; N17.0 Acute kidney failure with tubular necrosis; K22.11 Ulcer of esophagus with bleeding; R65.21 Severe sepsis with septic shock; C78.00 Secondary malignant neoplasm of unspecified lung; C79.51 Secondary malignant neoplasm of bone; E87.1 Hypo-osmolality and hyponatremia; I24.89 Other forms of acute ischemic heart disease; I50.32 Chronic diastolic (congestive) heart failure; E87.4 Mixed disorder of acid-base balance; D84.9 Immunodeficiency, unspecified; N30.81 Other cystitis with hematuria; I11.0 Hypertensive heart disease with heart failure; D50.9 Iron deficiency anemia, unspecified; M48.00 Spinal stenosis, site unspecified; M54.40 Lumbago with sciatica, unspecified side; E87.5 Hyperkalemia; G89.29 Other chronic pain; W18.30XA Fall on same level, unspecified, initial encounter; C61 Malignant neoplasm of prostate; R73.03 Prediabetes; E87.8 Other disorders of electrolyte and fluid balance, not elsewhere classified; E88.09 Other disorders of plasma-protein metabolism, not elsewhere classified; D63.8 Anemia in other chronic diseases classified elsewhere; E83.52 Hypercalcemia; E86.1 Hypovolemia; Z85.818 Personal history of malignant neoplasm of other sites of lip, oral cavity, and pharynx; Z85.46 Personal history of malignant neoplasm of prostate; Z51.5 Encounter for palliative care; Z66 Do not resuscitate; Z86.711 Personal history of pulmonary embolism; Y95 Nosocomial condition
CPT/HCPCS: 36415; 36430; 36600; 70450; 70490; 71045; 71275; 72132; 72147; 72149; 73030; 74177; 80053; 80061; 80069; 81001; 82436; 82570; 82803; 83036; 83540; 83550; 83605; 83735; 83880; 84100; 84133; 84145; 84300; 84443; 84484; 85014; 85018; 85025; 85379; 85610; 85730; 86850; 86900; 86901; 86923; 87040; 87077; 87081; 87086; 87186; 87205; 87400; 87634; 87811; 93005; 93306; 93970; 93971; 94002; 94003; 94640; 94664; 94667; 96361; 96365; 96366; 96367; 96375; 97162; 99285; A4217; A4649; A9270; A9579; J0171; J0696; J1200; J1643; J1720; J1815; J1940; J2060; J2250; J2270; J2354; J2405; J2470; J2543; J2598; J2704; J3010; J3370; J3371; J3490; J7030; J7040; J7050; P9016; Q9967; J1596